=== PATIENT | male | born 1985 | race Caucasian/White ===

== ENCOUNTER → 2018-03-20 06:40 | Outpatient (CLI) | payer MEDICAID, SELFPAY ==
--- NOTE | 2018-03-20 18:40 | STRESSREP ---
Stress Test Report Exercise myocardial perfusion stress test. 32-year-old male with a history of chest pain. Rest stress protocol: Resting EKG demonstrates normal sinus rhythm with a rate of 80 bpm normal intervals and noted resting blood pressure 132/70 mmHg. The patient exercised according to regular Jamar protocol for total duration of 6 minutes completing stage II of the Jamar protocol the maximum heart rate attained was 160 bpm which was 86% of maximum predicted heart rate the maximum workload was 7.2 metabolic equivalents. The patient maintained sinus rhythm throughout the recording. At rest there were no ST or T-wave changes noted suggest ischemia peak exercise no ST or T-wave changes were noted suggest ischemia. The resting blood pressure is 132/70 with a peak blood pressure 180/80 mmHg rate pressure product was 28,200. Myocardial perfusion protocol. 14.7 mCi of technetium 99m sestamibi was injected at rest. The patient exercised according to regular Jamar protocol for total duration of 6 minutes attaining 86% of maximum predicted heart rate and a workload of 7.2 Mets. At peak exercise 44.8 mCi of technetium 99m sestamibi was injected stress images were obtained stress and rest images were reconstructed and compared in the short axis vertical long horizontal long axis. Gated images were also obtained pre- Perfusion SPECT analysis: Review of the stress images demonstrate normal uptake of tracer noted in all areas of the myocardium the resting images similarly demonstrate normal uptake of tracer noted in all areas of myocardium. No areas of reversibility are noted suggest ischemia no previous infarct is noted. Gated SPECT analysis: The gated ejection fraction is 66%. Conclusion: Normal exercise myocardial perfusion stress test at a moderate workload. Preserved ejection fraction.
== END ==
PROVIDERS: Family Provider Student in an Organized Health Care Education/Training Program; PCP Student in an Organized Health Care Education/Training Program; Visit Provider Physician Assistant Medical
DX: I25.10 Atherosclerotic heart disease of native coronary artery without angina pectoris (principal); I25.5 Ischemic cardiomyopathy; I10 Essential (primary) hypertension; E78.5 Hyperlipidemia, unspecified
CPT/HCPCS: 78452; 93017; A9500; A4216

== ENCOUNTER 2018-04-13 08:24 | Day surgery (SDC) | payer MEDICAID, SELFPAY ==
--- NOTE | 2018-04-10 14:14 | RAD_ITS ---
STUDY: X-RAY CHEST REASON FOR EXAM: Male, 32 years old. History of stents, [place], chest tightness and shortness of breath TECHNIQUE: PA and lateral views of the chest. COMPARISON: October 19, 2015 chest x-ray FINDINGS: The lungs are clear and expanded. There is no demonstrated pleural abnormality. Normal size heart. There are calcified mediastinal lymph nodes. Normal visualized pulmonary arteries. Normal visualized aortic arch and descending thoracic aorta. There are diffuse degenerative changes of the visualized thoracic spine. Normal visualized ribs, clavicles, and shoulders. There is no demonstrated abnormality of the visualized soft tissue structures of the upper abdomen. RAD/Chest PA and Lateral IMPRESSION: No demonstrated acute cardiopulmonary process. Electronically Signed: Maris Macias MD at 17:09 EDT Tel , Service support ,
[2018-04-10 15:00] LABS: Absolute Neutrophil Count 5.6 X10^3/uL (2.0-7.7); Basophil# 0.03 X10^3/uL; Basophil% 0.3 % (0-1); Eosinophil# 0.27 X10^3/uL; Eosinophils% 3.1 % (0-5); Hemoglobin 14.4 g/dl (13.0-16.5); Lymphocyte % 23.8 % (19-41); Mean Corpuscular Hgb 28.6 pg (27.0-32.0); Mean Corpuscular Volume 89.3 fL (80-94); Monocyte# 0.79 X10^3/uL; Monocyte% 8.9 % (0-10); Neutrophil # 5.63 X10^3/uL (2.7-7.7); Neutrophil % 63.7 % (47-70); POSITIVE COUNT NO; POSITIVE DIFFERENTIAL NO; POSITIVE MORPHOLOGY NO; Platelet Count 228 K/mm3 (150-450); RBC Distribution Width CV 13.8 % (11.6-14.6); Red Blood Count 5.04 M/mm3 (4.6-6.2); White Blood Count 8.8 K/mm3 (4.4-11.0)
[2018-04-10 15:07] LABS: Partial Thromboplast Time 25.2 Seconds (24.1-36.2); Prothrombin Time (Protime)PT. 12.7 SECONDS (11.7-14.9)
[2018-04-10 15:19] LABS: Anion Gap 8 (5-15); BUN 21 mg/dL (7-18); BUN/Creat Ratio 17.9 RATIO (10-20); Calcium,Total 8.9 mg/dL (8.5-10.1); Chloride 104 mmol/L (98-107); Creatinine, Serum 1.17 mg/dL (0.70-1.30); EST Glomerular Filtration Rate 76 mL/min (>60); Est Glom Filt Rate - Afr Amer 92 mL/min (>60); Glucose 87 mg/dL (74-106); Potassium 4.2 mmol/L (3.5-5.1); Sodium Level 138 mmol/L (136-145)
[2018-04-13 07:00] VITALS: BMI 48.8
--- NOTE | 2018-04-13 08:45 | PCM.HP.BLA ---
Problem List (1) Atherosclerosis of coronary artery of [place] heart with angina pectoris Status: Chronic Comment: PCI [id number] to Distal LAD w/ 2.75 x 38 mm Promus Premier and LUZ-Mid Lad w/ 3.5 x 12 mm Promus Premier 08/31/13 History and Physical Date of Admission: 04/13/18 HPI LON PONCE, is a 32 M who presents to the office today for a heart cath for continued chest pain despite a normal stress test. He has a history of premature coronary artery disease with two stents to his LAD in 2013, hypertension, and hyperlipidemia. Pt sts that he has not used any NTG since he was seen last in the office, but he continues to have a squeezing in his chest that is not brought on by anyting in particular. However he does note that he has had an increase in lower extremity edema. He also notes lightheadedness and dizziness. He has not had any syncopal events. He has not had any worsening shortness of breath. He does not have any palpitations that he is aware of. Allergies No Known Allergies Allergy (Verified 03/05/18 13:40) Medications Aspirin [Aspirin, Baby] 81 mg PO BID 09/18/13 [History Confirmed 03/05/18] amlodipine 5 mg tablet 5 mg PO DAILY #90 tab 03/05/18 [Rx Confirmed 03/05/18] atorvastatin 80 mg tablet 80 mg PO QHS #90 tab 03/05/18 [Rx Confirmed 03/05/18] clopidogrel 75 mg tablet 75 mg PO DAILY #90 tab 03/05/18 [Rx Confirmed 03/05/18] isosorbide mononitrate ER 30 mg tablet,extended release 24 hr 60 mg PO BID #180 tab 03/05/18 [Rx Confirmed 03/05/18] lisinopril 20 mg tablet 20 mg PO DAILY #90 tab 03/05/18 [Rx Confirmed 03/05/18] metoprolol tartrate 100 mg tablet 100 mg PO BID #180 tab 03/05/18 [Rx Confirmed 03/05/18] nicotine 14 mg/24 hr daily transdermal patch 1 patch TRANSDERMAL Q24H #21 ea 03/05/18 [Rx Confirmed 03/05/18] nitroglycerin 0.4 mg sublingual tablet 0.4 mg SUBLINGUAL Q5M PRN #25 tab 03/05/18 [Rx Confirmed 03/05/18] ranolazine ER 500 mg tablet,extended release,12 hr 500 mg PO BID #180 tab 03/05/18 [Rx Confirmed 03/05/18] PFSH Medical History Obstructive sleep apnea (Chronic) Palpitations (Chronic) Myocardial infarction (Chronic) Obesity (Chronic) Borderline diabetes mellitus (Chronic) Hyperlipidemia (Chronic) Hypertension (Chronic) Coronary artery disease (Chronic) Cardiomyopathy, ischemic (Chronic) Atherosclerotic heart disease of [place] coronary artery with angina pectoris with documented spasm (Acute) [employer] use of drug (Acute) Ventricular fibrillation (Acute) Surgical History Presence of coronary angioplasty implant and graft (Acute) Family History Mother Diabetes Social History Smoking Status: Current every day smoker Cardiology Exam Const Appearance: cooperative, no acute distress and well developed Nutritional Appearance: obese Orientation: alert, awake and oriented x3 Head Head: normocephalic and atraumatic Mouth: moist mucous membranes Eyes General: appearance normal, both eyes and all related structures Conjunctivae: conjunctivae normal Pupils: PERRL EOM: EOM intact bilaterally Neck Neck: normal visual inspection, no lymphadenopathy and no JVD Carotids: Negative bruit Neck Mass: Negative Neck mass Chest Chest inspection: normal inspection of the chest and symmetric chest movement Auscultation: Bilateral: Clear to Auscultation Cardio Palpation: normal PMI Rate: regular rate Rhythm: regular rhythm Heart sounds: S1 normal and S2 normal; negative rub, gallop or murmur GI GI: normal to inspection, soft, no hepatosplenomegaly, bowel sounds present and obese; negative tender Neuro General: alert, awake, oriented x3, CN's II-XI intact bilaterally and moves all extremities Extremities Pulses: Normal: Right Posterior Tibial Pulse, Left Posterior Tibial Pulse, Right Radial Pulse, Left Radial Pulse Lower Extremity Edema: None: Bilateral Psychological: normal affect Supplemental Info Nuclear stress test from 2017 was negative for myocardial induced ischemia at moderate workload and showed preserved ejection fraction. Echocardiogram from August 2014 showed an estimated ejection fraction of 55%, trivial mitral valve insufficiency, trivial tricuspid valve insufficiency and RVSP of 20 mmHg. Heart cath from August 2013 showed single-vessel coronary artery disease with acute occlusion to the mid left anterior descending artery, successful thrombectomy and successful stenting of occluded mid left anterior descending artery and the second diagonal artery, left ventriculogram showed ejection fraction of 35-40%, left circumflex artery with 30% diffuse stenosis in the proximal first obtuse marginal artery, and RCA was small in diameter. Assessment & Plan 1. Coronary artery disease involving [place] coronary artery of [place] heart without angina pectoris I25.10 Status post LUZ 08/20 for thrombosis of LAD cardiac arrest succesfully resuscitated Patient does continue to have episodes of chest discomfort despite a normal stress test and maximum medication. This will be done today. 2. Essential hypertension I10 Blood pressure is adequately controlled on current medications. 3. Pure hypercholesterolemia E78.00; E78.0 Patient will continue with his atorvastatin. He is due to have his lipids checked in the near trip. 4. Cardiomyopathy, ischemic I25.5 mild Stable, will continue to monitor by history, exam and echocardiograms as deemed appropriate Pt will follow up accordingly after heart cath.
--- NOTE | 2018-04-13 08:54 | HP.PCM_ITS ---
Problem List (1) Atherosclerosis of coronary artery of [place] heart with angina pectoris Status: Chronic Comment: PCI [id number] to Distal LAD w/ 2.75 x 38 mm Promus Premier and LUZ-Mid Lad w/ 3.5 x 12 mm Promus Premier 08/31/13 History and Physical Date of Admission: 04/13/18 HPI LON PONCE, is a 32 M who presents to the office today for a heart cath for continued chest pain despite a normal stress test. He has a history of premature coronary artery disease with two stents to his LAD in 2013, hypertension, and hyperlipidemia. Pt sts that he has not used any NTG since he was seen last in the office, but he continues to have a squeezing in his chest that is not brought on by anyting in particular. However he does note that he has had an increase in lower extremity edema. He also notes lightheadedness and dizziness. He has not had any syncopal events. He has not had any worsening shortness of breath. He does not have any palpitations that he is aware of. Allergies No Known Allergies Allergy (Verified 03/05/18 13:40) Medications Aspirin [Aspirin, Baby] 81 mg PO BID 09/18/13 [History Confirmed 03/05/18] amlodipine 5 mg tablet 5 mg PO DAILY #90 tab 03/05/18 [Rx Confirmed 03/05/18] atorvastatin 80 mg tablet 80 mg PO QHS #90 tab 03/05/18 [Rx Confirmed 03/05/18] clopidogrel 75 mg tablet 75 mg PO DAILY #90 tab 03/05/18 [Rx Confirmed 03/05/18] isosorbide mononitrate ER 30 mg tablet,extended release 24 hr 60 mg PO BID #180 tab 03/05/18 [Rx Confirmed 03/05/18] lisinopril 20 mg tablet 20 mg PO DAILY #90 tab 03/05/18 [Rx Confirmed 03/05/18] metoprolol tartrate 100 mg tablet 100 mg PO BID #180 tab 03/05/18 [Rx Confirmed 03/05/18] nicotine 14 mg/24 hr daily transdermal patch 1 patch TRANSDERMAL Q24H #21 ea 03/05/18 [Rx Confirmed 03/05/18] nitroglycerin 0.4 mg sublingual tablet 0.4 mg SUBLINGUAL Q5M PRN #25 tab 8 [Rx Confirmed 03/05/18] ranolazine ER 500 mg tablet,extended release,12 hr 500 mg PO BID #180 tab 03/05/18 [Rx Confirmed 03/05/18] PFSH Medical History Obstructive sleep apnea (Chronic) Palpitations (Chronic) Myocardial infarction (Chronic) Obesity (Chronic) Borderline diabetes mellitus (Chronic) Hyperlipidemia (Chronic) Hypertension (Chronic) Coronary artery disease (Chronic) Cardiomyopathy, ischemic (Chronic) Atherosclerotic heart disease of [place] coronary artery with angina pectoris with documented spasm (Acute) [facility] use of drug (Acute) Ventricular fibrillation (Acute) Surgical History Presence of coronary angioplasty implant and graft (Acute) Family History Mother Diabetes Social History Smoking Status: Current every day smoker Cardiology Exam Const Appearance: cooperative, no acute distress and well developed Nutritional Appearance: obese Orientation: alert, awake and oriented x3 Head Head: normocephalic and atraumatic Mouth: moist mucous membranes Eyes General: appearance normal, both eyes and all related structures Conjunctivae: conjunctivae normal Pupils: PERRL EOM: EOM intact bilaterally Neck Neck: normal visual inspection, no lymphadenopathy and no JVD Carotids: Negative bruit Neck Mass: Negative Neck mass Chest Chest inspection: normal inspection of the chest and symmetric chest movement Auscultation: Bilateral: Clear to Auscultation Cardio Palpation: normal PMI Rate: regular rate Rhythm: regular rhythm Heart sounds: S1 normal and S2 normal; negative rub, gallop or murmur GI GI: normal to inspection, soft, no hepatosplenomegaly, bowel sounds present and obese; negative tender Neuro General: alert, awake, oriented x3, CN's II-XI intact bilaterally and moves all extremities Extremities Pulses: Normal: Right Posterior Tibial Pulse, Left Posterior Tibial Pulse, Right Radial Pulse, Left Radial Pulse Lower Extremity Edema: None: Bilateral Psychological: normal affect Supplemental Info Nuclear stress test from 2017 was negative for myocardial induced ischemia at moderate workload and showed preserved ejection fraction. Echocardiogram from August 2014 showed an estimated ejection fraction of 55%, trivial mitral valve insufficiency, trivial tricuspid valve insufficiency and RVSP of 20 mmHg. Heart cath from August 2013 showed single-vessel coronary artery disease with acute occlusion to the mid left anterior descending artery, successful thrombectomy and successful stenting of occluded mid left anterior descending artery and the second diagonal artery, left ventriculogram showed ejection fraction of 35-40%, left circumflex artery with 30% diffuse stenosis in the proximal first obtuse marginal artery, and RCA was small in diameter. Assessment & Plan 1. Coronary artery disease involving [place] coronary artery of [place] heart without angina pectoris I25.10 Status post LUZ 08/20 for thrombosis of LAD cardiac arrest succesfully resuscitated Patient does continue to have episodes of chest discomfort despite a normal stress test and maximum medication. This will be done today. 2. Essential hypertension I10 Blood pressure is adequately controlled on current medications. 3. Pure hypercholesterolemia E78.00; E78.0 Patient will continue with his atorvastatin. He is due to have his lipids checked in the near trip. 4. Cardiomyopathy, ischemic I25.5 mild Stable, will continue to monitor by history, exam and echocardiograms as deemed appropriate Pt will follow up accordingly after heart cath.
--- NOTE | 2018-04-13 10:32 | CL.D_ITS ---
Patient Name: LON PONCE Study Date: 04/13/2018 Performing: Kolton Glasgow MD Ht: 64.96 inches 165 cm : 1985 Wt: 293.21 lbs 133 kg Age: 32 Gender: male BSA: 2.33 PROCEDURE(S) PERFORMED [id number]/COR/LV CLINICAL PROFILE AND INDICATIONS Indications: Worsening Angina Heart Failure: None Stress/Imaging Stress Test w/SPECT MPI: Yes Result: NegativeStress Test with SPECT MPI: Negative CAD Presentations: Symptom unlikely to be ischemic. CONCLUSIONS Previously placed stent in the mid to distal LAD is patent. There is mild to moderate disease noted in the dominant left circumflex artery. Nonobstructive disease noted. RECOMMENDATIONS Medical therapy DESCRIPTION OF PROCEDURE The patient arrived to the procedure lab. The risks and benefits of the procedure as well as a full d escription of our services here and current unavailability of surgical backup were fully explained to the patient and/or their significant other prior to the catheterization. The Timeout was completed, verifying the correct patient and procedure. The patient's procedural site was prepped and draped in the usual fashion. Local anesthetic was given subcutaneously to right radial region with Lidocaine 2% . Using a modified Seldinger technique, arterial access was obtained via the right radial artery, a 6 Fr sheath was inserted. Left Coronary Artery selective angiography was performed in multiple views u sing a 5 Fr. 4.0 Maxbass catheter. Right Coronary Artery selective angiography was then performed in mu ltiple views using a 5 Fr. 4.0 Maxbass catheter. Left Ventriculography was performed in CUMMINS projection using a 5 Fr. Pigtail catheter. LV to AO pullback pressures were then recorded.The arterial sheath wa s pulled and a TR Band was applied for hemostasis, 18cc of air CORONARY ANGIOGRAPHY DOMINANCE: Left Dominant LEFT HEART ASSESSMENT Left Ventricular Ejection Fraction: by LV Gram 60 % Normal LV wall motion Normal Left Ventricular systolic function LEFT MAIN: Angiographically normal LEFT ANTERIOR DECENDING ARTERY: Mild luminal irregularities DISTAL LAD: Previously placed stent is patent CIRCUMFLEX ARTERY: Non-obstructive DISTAL CIRC: 40 % Stenosis RIGHT CORONARY ARTERY: Angiographically normal COMPLICATIONS No Complications PROCEDURE MEDICATIONS Versed 1 mg IV Fentanyl 50 mcg IV Versed 1 mg IV Fentanyl 50 mcg IV Oxygen: 2 L/min via nasal cannula Heparin diluted in 23cc Heparinized saline. Patient given 10cc IA of this solution. 04/13/2018 09:34: 37 Verapamil 2.5mg, Ntg 100mcgs, 2000 units of Heparin diluted in 23cc Heparinized saline. Patient give n 10cc IA of this solution. 04/13/2018 09:34:37 SUMMARY OF HEMODYNAMIC DATA Time AIR REST ECG 08:58:03 AO 91/68 (79) SA 09:37:47 LV 102/5, 15 09:44:25 LV 101/6, 18 09:44:31 LV 97/4, 11 09:46:10 LVp 103/6, 17 09:46:19 AOp 99/64 (79) 09:46:24 Signed By Kolton Glasgow MD On 04/13/2018 10:31:31 Kolton Glasgow MD
== END 2018-04-13 12:47 | disposition home or self-care (01) ==
LOC: CLSP 08:25
PROVIDERS: Physician Assistant Medical; Family Provider Student in an Organized Health Care Education/Training Program; PCP Student in an Organized Health Care Education/Training Program; Referring Provider Internal Medicine Cardiovascular Disease; Visit Provider Internal Medicine Cardiovascular Disease
DX: I25.10 Atherosclerotic heart disease of native coronary artery without angina pectoris (principal); I10 Essential (primary) hypertension; E78.5 Hyperlipidemia, unspecified; R60.0 Localized edema; G47.33 Obstructive sleep apnea (adult) (pediatric); I25.2 Old myocardial infarction; E66.9 Obesity, unspecified; I25.5 Ischemic cardiomyopathy; F17.200 Nicotine dependence, unspecified, uncomplicated; Z79.82 Long term (current) use of aspirin
CPT/HCPCS: 36415; 71046; 80048; 85025; 85610; 85730; 93458; 99152; 99153; Q9967; C1769; C1894

== ENCOUNTER → 2019-03-02 13:40 | Outpatient (CLI) | payer OTHER, MEDICAID, SELFPAY ==
[2019-03-02 10:44] VITALS: BMI 48.9
[2019-03-02 14:49] LABS: Absolute Lymphocyte Count 2.35 X10^3/uL (0.83-4.51); Absolute Neutrophil Count 8.4 X10^3/uL (2.0-7.7); Basophil# 0.06 X10^3/uL; Basophil% 0.5 % (0-1); Eosinophil# 0.36 X10^3/uL; Hematocrit 45.7 % (40-54); Hemoglobin 14.5 g/dL (13.0-16.5); Lymphocyte # 2.35 X10^3/ul (4.0); Lymphocyte % 19.6 % (19-41); Mean Corp Hgb Conc 31.7 g/dL (32-36); Mean Corpuscular Hgb 28.8 pg (27.0-32.0); Mean Corpuscular Volume 90.7 fL (80-94); Monocyte# 0.79 X10^3/uL; Monocyte% 6.6 % (0-10); NRBC Flagged by Analyzer 0 % (0-5); Neutrophil % 69.8 % (47-70); Platelet Count 277 K/mm3 (150-450); RBC Distribution Width CV 13.5 % (11.6-14.6); RBC Distribution Width SD 45.4 fl (35.1-43.9); Red Blood Count 5.04 M/mm3 (4.6-6.2)
[2019-03-02 15:14] LABS: AST(SGOT) 22 U/L (15-37); Alanine Aminotransfer ALT/SGPT 40 U/L (16-61); Albumin, Serum 3.4 g/dL (3.2-5.0); Alkaline Phosphatase 129 U/L (45-117); Anion Gap 7 (5-15); BUN 16 mg/dL (7-18); BUN/Creat Ratio 16.3 RATIO (10-20); Bilirubin, Direct 0.07 mg/dL (0.00-0.30); Chloride 106 mmol/L (98-107); Creatinine, Serum 0.98 mg/dL (0.70-1.30); EST Glomerular Filtration Rate 92 mL/min (>60); Est Glom Filt Rate - Afr Amer 112 mL/min (>60); Glucose 98 mg/dL (74-106); Potassium 4.4 mmol/L (3.5-5.1); Protein, Total 7.4 g/dL (6.4-8.2); Sodium Level 140 mmol/L (136-145)
== END ==
PROVIDERS: Family Provider Student in an Organized Health Care Education/Training Program; PCP Student in an Organized Health Care Education/Training Program; Referring Provider Physician Assistant Medical; Visit Provider Physician Assistant Medical
DX: E78.00 Pure hypercholesterolemia, unspecified (principal); I10 Essential (primary) hypertension; I25.119 Atherosclerotic heart disease of native coronary artery with unspecified angina pectoris
CPT/HCPCS: 36415; 80048; 80076; 85025

== ENCOUNTER → 2019-07-23 12:44 | Outpatient (CLI) | payer OTHER, SELFPAY ==
[2019-07-21 07:22] VITALS: BMI 49.4
[2019-07-21 12:04] LABS: AST(SGOT) 17 U/L (15-37); Alanine Aminotransfer ALT/SGPT 45 U/L (16-61); Albumin, Serum 3.4 g/dL (3.2-5.0); Alkaline Phosphatase 121 U/L (45-117); Bilirubin, Direct 0.08 mg/dL (0.00-0.30); Cholesterol 220 mg/dL (200); Globulin 4.2 g/dL (2.2-4.2); High Density Lipoprotein 40 mg/dL; Protein, Total 7.6 g/dL (6.4-8.2); Triglycerides 244 mg/dL; Very Low Density Lipoprotein 49 mg/dL (5-40)
== END ==
LOC: PSN 12:45
PROVIDERS: Referring Provider Internal Medicine Cardiovascular Disease; Visit Provider Internal Medicine Cardiovascular Disease
DX: I10 Essential (primary) hypertension (principal); Z95.5 Presence of coronary angioplasty implant and graft; E78.00 Pure hypercholesterolemia, unspecified
CPT/HCPCS: 36415; 80061; 80076; 93225; 93226

== ENCOUNTER → 2019-11-24 12:27 | Outpatient (CLI) | payer OTHER, SELFPAY ==
[2019-11-24 09:36] VITALS: BMI 49.4
== END ==
PROVIDERS: PCP Internal Medicine; Referring Provider Internal Medicine; Visit Provider Internal Medicine
DX: Z11.59 Encounter for screening for other viral diseases (principal)
CPT/HCPCS: 87635; G2023; U0004

== ENCOUNTER 2020-01-28 03:37 | Emergency (ER) | payer OTHER, SELFPAY ==
[2019-11-24 09:36] VITALS: BMI 49.4
[2020-01-28 03:38] VITALS: BP 149/82; PULSE 95; RESP 18; TEMP 36.4; O2SAT 98; BMI 45.9
--- NOTE | 2020-01-28 03:54 | RAD_ITS ---
HISTORY: CHRONIC SOB, LLE SWELLING. HX [place], W/ STENTS EXAM: XR Chest 1 View: COMPARISON: April 10, 2018 FINDINGS: # of images incl. paperwork: 1 It appears as if there is a coronary stent perhaps within the LAD Lungs are clear. Heart is not enlarged. No acute osseous pathology perceived. Pulmonary vascularity is distinct. No effusions. RAD/Chest 1 View (Portable) IMPRESSION: Pulmonary hypoexpansion without acute cardiopulmonary disease. at 0456 Reported and signed by: Bennie Webb MD Electronically Signed: Bennie Webb MD at 4:54 EDT Tel , Service support ,
--- NOTE | 2020-01-28 03:55 | RAD_ITS ---
HISTORY: PAIN ANTERIOR SURFACE, STS, BRUISES Technique: Right foot AP, lateral, and oblique radiographs Comparison: None available Findings: No acute fracture or dislocation. Osseous mineralization, joint spaces, and alignment otherwise appear preserved as imaged. Soft tissue swelling is present about the foot but greatest on the dorsum of the foot at the level of the distal metatarsals RAD/Foot min 3 Views IMPRESSION: No acute osseous abnormality identified in the foot. Soft tissue swelling over the dorsum of the foot at the level of the metatarsals at 0455 Reported and signed by: Bennie Webb MD Electronically Signed: Bennie Webb MD at 4:54 EDT Tel , Service support ,
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
[2020-01-28 04:22] LABS: Absolute Lymphocyte Count 3.36 X10^3/uL (0.83-4.51); Absolute Neutrophil Count 6.5 X10^3/uL (2.0-7.7); Basophil# 0.08 X10^3/uL; Basophil% 0.7 % (0-1); Eosinophil# 0.55 X10^3/uL; Eosinophils% 4.8 % (0-5); Hematocrit 45.6 % (40-54); Hemoglobin 15.1 g/dL (13.0-16.5); Lymphocyte # 3.36 X10^3/ul (4.0); Lymphocyte % 29.5 % (19-41); Mean Corp Hgb Conc 33.1 g/dL (32-36); Mean Corpuscular Hgb 30.3 pg (27.0-32.0); Mean Corpuscular Volume 91.6 fL (80-94); Mean Platelet Vol. 10.5 fl (6.2-12.0); Monocyte# 0.85 X10^3/uL; Monocyte% 7.5 % (0-10); NRBC Flagged by Analyzer 0 % (0-5); Neutrophil # 6.51 X10^3/uL (2.7-7.7); Neutrophil % 57.1 % (47-70); Platelet Count 274 K/mm3 (150-450); RBC Distribution Width CV 13.6 % (11.6-14.6); RBC Distribution Width SD 45.6 fl (35.1-43.9); Red Blood Count 4.98 M/mm3 (4.6-6.2); White Blood Count 11.4 K/mm3 (4.4-11.0)
[2020-01-28 04:42] LABS: ALB/GLOB Ratio 0.8 RATIO (0.9-2.4); AST(SGOT) 26 U/L (15-37); Alanine Aminotransfer ALT/SGPT 45 U/L (16-61); Albumin, Serum 3.3 g/dL (3.2-5.0); Alkaline Phosphatase 116 U/L (45-117); Anion Gap 6 (5-15); BUN 11 mg/dL (7-18); BUN/Creat Ratio 9.9 RATIO (10-20); Calcium,Total 8.4 mg/dL (8.5-10.1); Chloride 106 mmol/L (98-107); Creatinine, Serum 1.11 mg/dL (0.70-1.30); EST Glomerular Filtration Rate 80 mL/min (>60); Est Glom Filt Rate - Afr Amer 96 mL/min (>60); Estimated Creatinine Clearance 83.02 ml/min; Globulin 3.9 g/dL (2.2-4.2); Glucose 153 mg/dL (74-106); Potassium 3.5 mmol/L (3.5-5.1); Protein, Total 7.2 g/dL (6.4-8.2); Sodium Level 139 mmol/L (136-145)
[2020-01-28 04:49] LABS: BNP,B-Type NATRIURETIC PEPTIDE 23.7 pg/mL (0-100)
== END 2020-01-28 07:20 | disposition home or self-care (01) ==
PROVIDERS: Emergency Provider Emergency Medicine; PCP Nurse Practitioner Family
DX: S90.31XA Contusion of right foot, initial encounter (principal); R60.0 Localized edema; W51.XXXA Accidental striking against or bumped into by another person, initial encounter; Y92.89 Other specified places as the place of occurrence of the external cause; Y99.9 Unspecified external cause status; I10 Essential (primary) hypertension; E78.00 Pure hypercholesterolemia, unspecified; F17.200 Nicotine dependence, unspecified, uncomplicated; I25.2 Old myocardial infarction; Z82.49 Family history of ischemic heart disease and other diseases of the circulatory system
CPT/HCPCS: 71045; 73630; 80053; 83880; 84484; 85025; 99284; A4216

== ENCOUNTER 2020-02-12 04:35 | Emergency (ER) | payer OTHER, SELFPAY ==
[2020-02-12 04:35] VITALS: BP 134/96; PULSE 116; RESP 18; TEMP 36.3; O2SAT 99; BMI 46.6
--- NOTE | 2020-02-12 04:48 | EKG12_ITS ---
Test Reason : CP Blood Pressure : / mmHG Vent. Rate : 122 BPM Atrial Rate : 122 BPM P-R Int : 148 ms QRS Dur : 072 ms QT Int : 320 ms P-R-T Axes : 066 070 054 degrees QTc Int : 456 ms Sinus tachycardia Low voltage QRS Borderline ECG Confirmed by JOHNNIE BUI, AYE ([id number]), social media editor ROLANDO FRANKLIN ([id number]) on 02/14/2020 8:57:35 AM Referred By: NAEEM Confirmed By:AYE BLAIR MD
--- NOTE | 2020-02-12 04:48 | RAD_ITS ---
STUDY: X-RAY CHEST REASON FOR EXAM: Male, 34 years old. CHEST PAIN STARTED 45 MINUTES AGO WHILE AT REST TECHNIQUE: AP COMPARISON: None. FINDINGS: The lungs are clear and expanded. There is no demonstrated pleural abnormality. Normal size heart. Normal mediastinum and annika. Normal visualized pulmonary arteries. Normal visualized aortic arch and descending thoracic aorta. Normal visualized thoracic spine. Normal visualized ribs, clavicles, and shoulders. There is no demonstrated abnormality of the visualized soft tissue structures of the upper abdomen. RAD/Chest PA and Lateral IMPRESSION: Normal x-ray examination of the chest. Electronically Signed: Khris Davis, at 6:03 EDT Tel , Service support ,
[2020-02-12 04:49] VITALS: O2SAT 96
--- NOTE | 2020-02-12 04:50 | ED.DCSUM_ITS ---
History of Present Illness Chief Complaint: Chest Pain Informant: Patient Narrative: Stated 45 minutes ago at rest at home he developed substernal sharp chest pain. He stated that is continuous moderate severity. He took one nitroglycerin with minimal relief. Has a history of coronary artery disease status post 2 stents. He stated his last heart cath was in 2018 that showed stents were patent. He does have a 40% left circumflex blockage that is being treated with medical therapy. He is on Plavix. He sees cardiology Dr. Glasgow. Worsened by nothing. Relieved by nothing. Patient stated he had a cardiac arrest remotely when he did receive his stents in [place]. Patient also stated his legs feel restless in its difficult to stop moving them. - Past Medical History (1) Atherosclerosis of coronary artery of [place] heart with angina pectoris Status: Chronic Comment: PCI [id number]-[id number]-Mtc to Distal LAD w/ 2.75 x 38 mm Promus Premier and LUZ-Mid Lad w/ 3.5 x 12 mm Promus Premier 08/31/13 (2) Essential (primary) hypertension Status: Chronic (3) Hyperlipidemia Status: Chronic (4) Nicotine dependence Status: Chronic (5) Old anterior myocardial infarction Status: Chronic (6) History of coronary artery stent placement Status: Resolved Comment: PCI [id number]-PDC-Ply to Distal LAD w/ 2.75 x 38 mm Promus Premier and LUZ-Mid Lad w/ 3.5 x 12 mm Promus Premier 08/31/13 Past Medical History - Allergies and Home Meds Allergies/Adverse Reactions: Allergies No Known Allergies Allergy (Verified 01/28/20 03:38) Primary Care Physician: Thomas Jackson RECORDS ANALYSIS MANAGER-C [Nurse Practitioner] - Prior records reviewed: Yes Past Medical History: - - See problem list Surgical History: angioplasty, - Lives: With Family Smoking Status: Current every day smoker Alcohol: None Drugs: None - Family History Maternal Family History: Family History (Last Updated 08/12/19 @ 08:51 by Carly Orozco) Mother Diabetes Heart disease Uncle Colon cancer Uncle Cancer Father Bowel disease Family History: Reports: No pertinent history Paternal Family History: Family History (Last Updated 08/12/19 @ 08:51 by Carly Orozco) Mother Diabetes Heart disease Uncle Colon cancer Uncle Cancer Father Bowel disease Family History: Reports: No pertinent history Review of Systems General: Denies: Chills, Fever, Sweats Eyes: Denies: Visual changes - bilaterally, Diplopia ENT: Denies: Rhinorrhea, Sore throat Cardiovascular: Reports: Chest pain. Denies: Palpitations Respiratory: Denies: Dyspnea, Cough, Dyspnea on exertion Gastrointestinal: Denies: Abdominal pain, Nausea, Vomiting, Diarrhea, Melena, Hematochezia Genitourinary: Denies: Dysuria, Hematuria, Frequency Musculoskeletal: Reports: Extremity Pain. Denies: Back pain Skin: Denies: Rash, Wounds Neurological: Denies: Headache, Weakness, Numbness Physical Exam Vital Signs/Narrative: Vital Signs Temp Pulse Resp BP Pulse Ox 02/12/20 04:35 97.4 F L 116 H 18 134/96 H 99 General: Well nourished, Well developed, No Acute Distress Head: Normocephalic, Atraumatic Eyes: Perrl, EOMI ENT: Moist mucous membranes, No rhinorrhea Neck: Supple, Nontender Cardiovascular: Regular rate, Regular rhythm, No murmurs Respiratory: No distress, CTA bilaterally, Chest nontender Abdomen: Soft, Nontender, Nondistended, Normal bowel sounds Back: Nontender, Normal Inspection Extremities: Nontender, No edema Skin: Normal color, No rash Neurological: Alert, Oriented x3, Cranial nerves II-XII grossly intact, Normal Strength, Normal Sensation Psychological: Normal affect, Normal Mood Diagnostic/Tx/Re-eval - Medical Decision Making KG shows sinus tachycardia rate of 122. No acute ischemic findings. Lab work chest x-ray obtained. Patient given a dose of aspirin and nitroglycerin. Lab work came back showing a normal troponin and d-dimer. CBC is normal except for mild leukocytosis without left shift. Electrolytes showed no major abnormalities. Chest x-ray wet read by myself shows nothing acute. No CHF. No widened mediastinum to suggest aortic dissection. While in the department the patient was incredibly rude to the staff recorders of the way through his work- up he eloped. I was able to tell him the results of his lab work but had not looked at his chest x-ray yet. However I feel his chest x-ray shows nothing acute. ED Disposition - Plan for ED Patient: Diagnosis: Chest pain at rest Referrals: Thomas Jackson, STEPHANIE-C [Nurse Practitioner] -
[2020-02-12] MEDS: Aspirin 81 MG TAB.CHEW 324 MG PO (04:55)
[2020-02-12 04:56] VITALS: BP 134/96; PULSE 101
[2020-02-12 04:56] LABS: Absolute Lymphocyte Count 4.16 X10^3/uL (0.83-4.51); Absolute Neutrophil Count 8.7 X10^3/uL (2.0-7.7); Basophil# 0.11 X10^3/uL; Basophil% 0.8 % (0-1); Eosinophil# 0.53 X10^3/uL; Eosinophils% 3.6 % (0-5); Hematocrit 49.7 % (40-54); Hemoglobin 16.6 g/dL (13.0-16.5); Lymphocyte # 4.16 X10^3/ul (4.0); Lymphocyte % 28.5 % (19-41); Mean Corp Hgb Conc 33.4 g/dL (32-36); Mean Corpuscular Hgb 30.4 pg (27.0-32.0); Mean Platelet Vol. 10.4 fl (6.2-12.0); Monocyte# 0.98 X10^3/uL; Monocyte% 6.7 % (0-10); NRBC Flagged by Analyzer 0 % (0-5); Neutrophil # 8.73 X10^3/uL (2.7-7.7); Neutrophil % 59.9 % (47-70); POSITIVE MORPHOLOGY YES; Platelet Count 358 K/mm3 (150-450); RBC Distribution Width CV 13.2 % (11.6-14.6); RBC Distribution Width SD 43.7 fl (35.1-43.9); Red Blood Count 5.46 M/mm3 (4.6-6.2); White Blood Count 14.6 K/mm3 (4.4-11.0)
[2020-02-12] MEDS: Nitroglycerin SL (ED/IMG/CATH) 0.4 MG TABLET SUBLINGUAL ×2 (04:56→05:01)
[2020-02-12 05:01] VITALS: BP 109/88; PULSE 106
[2020-02-12 05:04] LABS: D-Dimer Quantitative (DVT/PE) 0.28 FEU/ug/m (0.27-0.49)
[2020-02-12 05:05] LABS: Differential Indicated SCAN CRITERIA MET
[2020-02-12 05:09] LABS: Anion Gap 12 (5-15); BUN 9 mg/dL (7-18); BUN/Creat Ratio 7.8 RATIO (10-20); Chloride 101 mmol/L (98-107); Creatinine, Serum 1.15 mg/dL (0.70-1.30); EST Glomerular Filtration Rate 76 mL/min (>60); Est Glom Filt Rate - Afr Amer 92 mL/min (>60); Estimated Creatinine Clearance 77.25 ml/min; Glucose 140 mg/dL (74-106); Potassium 3.3 mmol/L (3.5-5.1); Sodium Level 138 mmol/L (136-145)
--- NOTE | 2020-02-12 05:47 | ED.RN ---
patient removed himself from monitor and took out iv. dr. rollins notified.
== END 2020-02-12 05:57 | disposition home or self-care (01) ==
LOC: ED 05:19
PROVIDERS: Emergency Provider Emergency Medicine; PCP Internal Medicine
DX: R07.9 Chest pain, unspecified (principal); I25.10 Atherosclerotic heart disease of native coronary artery without angina pectoris; I10 Essential (primary) hypertension; E78.5 Hyperlipidemia, unspecified; I25.2 Old myocardial infarction; F17.200 Nicotine dependence, unspecified, uncomplicated; Z79.02 Long term (current) use of antithrombotics/antiplatelets; Z82.49 Family history of ischemic heart disease and other diseases of the circulatory system; Z95.5 Presence of coronary angioplasty implant and graft; Z86.74 Personal history of sudden cardiac arrest
CPT/HCPCS: 71046; 80048; 84484; 85025; 85379; 93005; 99284; A4216

== ENCOUNTER 2020-12-31 18:12 | Emergency (ER) | payer OTHER, SELFPAY ==
[2020-12-31] VITALS (8 sets, daily range): BP systolic 123–155; BP diastolic 67–106; PULSE 103–146; RESP 15–23; TEMP 37.3; O2SAT 95–99; BMI 48.2
--- NOTE | 2020-12-31 18:26 | RAD_ITS ---
STUDY: X-RAY - RIGHT HAND REASON FOR EXAM: Male, 35 years old. injury TECHNIQUE: 3 view(s) of the hand. COMPARISON: None. FINDINGS: No acute fracture or dislocation. Remote healed fifth metacarpal fracture. No destructive bone changes. Joint spaces are well-maintained. Normal alignment. Soft tissues are unremarkable. No radiopaque foreign body or soft tissue gas. RAD/Hand Min 3 Views IMPRESSION: No acute findings. Electronically Signed: Lou Pompa MD at 20:05 EDT Tel , Service support ,
--- NOTE | 2020-12-31 18:26 | RAD_ITS ---
STUDY: X-RAY - LEFT SHOULDER REASON FOR EXAM: Male, 35 years old. injury TECHNIQUE: 2 view(s) of the shoulder. COMPARISON: None. FINDINGS: Normal glenohumeral articulation. Normal acromioclavicular joint. Normal acromion. Normal humeral head and visualized proximal humerus. The soft tissue structures are unremarkable. Normal visualized pulmonary apex. RAD/Shoulder min 2 Views IMPRESSION: Normal x-ray examination of the shoulder. Electronically Signed: Boogie Colby MD at 19:13 EDT Tel , Service support ,
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
[2020-12-31] MEDS: Lidocaine 1% (20 ml mdv) 20 ML Vial INFILT (18:40)
[2020-12-31] MEDS: Diphth,Pertuss(Acell),Tet Vac 0.5 ML Vial IM (18:40)
[2020-12-31] MEDS: Ketorolac 30 MG/ML Syringe IV (19:03)
[2020-12-31] MEDS: Etomidate 20 MG/10 ML Vial 19 MG IV (19:35)
--- NOTE | 2020-12-31 19:41 | RAD_ITS ---
STUDY: X-RAY - LEFT SHOULDER REASON FOR EXAM: Male, 35 years old. reduction TECHNIQUE: 2 view(s) of the shoulder. COMPARISON: 6:48 PM. FINDINGS: No acute fracture or dislocation. Joint spaces are well-maintained. Normal alignment. RAD/Shoulder min 2 Views IMPRESSION: Anatomic alignment status post reduction. Electronically Signed: Lou Pompa MD at 20:37 EDT Tel , Service support ,
[2020-12-31] MEDS: Amox/Clavulanate 875 MG Tablet PO (20:22)
== END 2020-12-31 20:39 | disposition home or self-care (01) ==
PROVIDERS: Emergency Provider Emergency Medicine; PCP Internal Medicine
DX: S61.411A Laceration without foreign body of right hand, initial encounter (principal); Y04.2XXA Assault by strike against or bumped into by another person, initial encounter; Y92.89 Other specified places as the place of occurrence of the external cause; Y99.8 Other external cause status; I25.10 Atherosclerotic heart disease of native coronary artery without angina pectoris; I10 Essential (primary) hypertension; E78.5 Hyperlipidemia, unspecified; G47.33 Obstructive sleep apnea (adult) (pediatric); F32.9 Major depressive disorder, single episode, unspecified; I25.2 Old myocardial infarction; F17.210 Nicotine dependence, cigarettes, uncomplicated; Z79.82 Long term (current) use of aspirin
CPT/HCPCS: 12001; 73030; 73130; 90715; 96374; 96375; 99285; J7030; A4216

== ENCOUNTER 2020-12-31 22:12 | Emergency (ER) | payer OTHER, SELFPAY ==
[2020-12-31 18:12] VITALS: BMI 48.2
[2020-12-31 22:13] VITALS: BP 132/84; PULSE 102; RESP 18; TEMP 36.1; O2SAT 95; BMI 48.2
--- NOTE | 2020-12-31 22:26 | RAD_ITS ---
STUDY: X-RAY - LEFT SHOULDER REASON FOR EXAM: Male, 35 years old. Injury/Pain TECHNIQUE: 2 view(s) of the shoulder. COMPARISON: 7:42 PM. FINDINGS: Anterior dislocation of the left shoulder. No demonstrated fracture. Soft tissues are unremarkable. No radiopaque foreign body or soft tissue gas. RAD/Shoulder min 2 Views IMPRESSION: Anterior dislocation of the shoulder. Electronically Signed: Lou Pompa MD at 22:59 EDT Tel , Service support ,
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
[2020-12-31 23:37] VITALS: BP 129/83; PULSE 90; RESP 20; O2SAT 98
[2020-12-31 23:43] VITALS: BP 118/78; PULSE 102; RESP 21; O2SAT 98
[2020-12-31] MEDS: Propofol 200 MG/20 ML Vial IV BOLUS (23:44)
[2020-12-31 23:47] VITALS: BP 133/81; PULSE 100; RESP 25; O2SAT 95
[2020-12-31 23:52] VITALS: BP 126/65; PULSE 94; RESP 15; O2SAT 96
--- NOTE | 2020-12-31 23:52 | RAD_ITS ---
STUDY: X-RAY - LEFT SHOULDER REASON FOR EXAM: Male, 35 years old. Injury/Pain -- Post reduction TECHNIQUE: 4 view(s) of the shoulder. COMPARISON: 10:37 PM left shoulder x-ray 12/31/2020 FINDINGS: Normal glenohumeral articulation. There is degenerative arthrosis of the acromioclavicular joint without inferior osseous spur formation. Normal acromion. Normal humeral head and visualized proximal humerus. The soft tissue structures are unremarkable. Normal visualized pulmonary apex. RAD/Shoulder min 2 Views IMPRESSION: Status post post reduction of the dislocation of the left shoulder. Electronically Signed: Maris Macias MD at 0:29 EDT Tel , Service support ,
[2020-12-31 23:57] VITALS: BP 133/85; PULSE 94; RESP 21; O2SAT 94
[2021-01-01 00:16] VITALS: BP 129/89; PULSE 94; RESP 25; O2SAT 96
== END 2021-01-01 00:17 | disposition home or self-care (01) ==
PROVIDERS: Emergency Provider Emergency Medicine; PCP Internal Medicine
DX: S43.015A Anterior dislocation of left humerus, initial encounter (principal); E11.9 Type 2 diabetes mellitus without complications; E66.9 Obesity, unspecified; E78.5 Hyperlipidemia, unspecified; F32.9 Major depressive disorder, single episode, unspecified; G47.33 Obstructive sleep apnea (adult) (pediatric); I10 Essential (primary) hypertension; I25.2 Old myocardial infarction; F17.210 Nicotine dependence, cigarettes, uncomplicated; Z79.82 Long term (current) use of aspirin; Z95.5 Presence of coronary angioplasty implant and graft
CPT/HCPCS: 73030; 73130; 90715; 99284; J7030; A4216

== ENCOUNTER 2021-04-26 11:10 | Emergency (ER) | payer OTHER, SELFPAY ==
[2021-04-26 11:11] VITALS: BP 164/114; PULSE 129; RESP 24; TEMP 36.4; O2SAT 95; BMI 48.4
--- NOTE | 2021-04-26 11:34 | ED.VIS.BACK ---
HPI History of Present Illness Chief Complaint: Back Narrative Narrative: Patient is getting over a cold, he sneezed, he developed left-sided back pain 3 days ago. He has radiation of the pain to his left leg most of the pain is in the left buttock region. He has no saddle anesthesia no urinary incontinence or retention no bowel compromise. No fever or chills. [facility] Medical History Atherosclerosis of coronary artery of [place] heart with angina pectoris Borderline diabetes mellitus Depression Essential (primary) hypertension Hyperlipidemia Myocardial infarction Nicotine dependence Obesity Obstructive sleep apnea Obstructive sleep apnea Old anterior myocardial infarction Palpitations Ventricular fibrillation Home Medications aspirin 81 mg PO DAILY 09/18/13 [History Last Taken 04/13/18] hydrocortisone acetate 25 mg rectal suppository 25 mg RC BID PRN #100 ea 08/12/19 [Rx Last Taken Unknown] furosemide 40 mg PO DAILY #5 tab 01/28/20 [Rx Last Taken Unknown] amlodipine 2.5 mg tablet 2.5 mg PO DAILY #90 tab 09/19/20 [Rx Last Taken Unknown] atorvastatin 80 mg tablet 80 mg PO QHS #90 tab 09/19/20 [Rx Last Taken Unknown] clopidogrel 75 mg tablet 75 mg PO DAILY #90 tab 09/19/20 [Rx Last Taken Unknown] isosorbide mononitrate 60 mg tablet,extended release 24 hr 60 mg PO DAILY #90 tab 09/19/20 [Rx Last Taken Unknown] lisinopril 20 mg tablet 20 mg PO DAILY #90 tab 09/19/20 [Rx Last Taken Unknown] metoprolol tartrate 100 mg tablet 100 mg PO BID #180 tab 09/19/20 [Rx Last Taken Unknown] nitroglycerin 0.4 mg sublingual tablet 0.4 mg SUBLINGUAL Q5M PRN #25 tab 09/19/20 [Rx Last Taken Unknown] ranolazine 500 mg tablet,extended release,12 hr 500 mg PO BID #180 tab 09/19/20 [Rx Last Taken Unknown] amoxicillin-pot clavulanate 1 tab PO Q12H 10 Days #20 tablet 12/31/20 [Rx Last Taken Unknown] albuterol sulfate 90 mcg/actuation aerosol inhaler 2 puff INHALATION Q4H PRN #8 g 03/02/21 [Rx Last Taken Unknown] methylprednisolone [Medrol (Jeremiah)] 4 mg PO DAILY #21 tab 04/26/21 [Rx Last Taken Unknown] naproxen [Naprosyn] 500 mg PO BID #20 tab 04/26/21 [Rx Last Taken Unknown] tizanidine 4 mg PO Q6H 3 Days #12 cap 04/26/21 [Rx Last Taken Unknown] Allergy/AdvReac Type Severity Reaction Status Date / Time No Known Allergies Allergy Verified 04/26/21 11:12 Family History Mother Diabetes Heart disease Uncle Colon cancer Uncle Cancer lung Father Bowel disease Surgical History History of coronary artery stent placement (08/31/13) History of left heart catheterization (04/13/18) Hx of endoscopy Social History (Updated 01/03/21 @ 08:40 by Lianna Akers) household members: significant other Smoking Status: Current every day smoker tobacco type: cigarettes alcohol intake: current alcohol intake frequency: 0-2 drinks per day Alcohol type: beer and hard liquor substance use type: does not use what type of physical activity do you participate in: none ROS ROS ED ROS Narrative Past medical history: Reviewed, history of hypertension, hypercholesterolemia and AR Medications: Reviewed Social history: Noncontributory Review of systems: All systems negative except as indicated General: No fever Eyes: No visual changes ENT: Upper airway congestion which is improving Neck: No neck pain Cardiovascular: No chest pain Respiratory: No shortness of breath or cough Gastrointestinal: No abdominal pain, nausea vomiting or diarrhea Genitourinary: No dysuria Musculoskeletal: Back pain with radiculopathy as in HPI Skin: No rash Neurological: No memory loss, confusion or any focal weakness Psych: No recent behavioral changes Hematologic: No easy bleeding or easy bruising EXAM Physical Exam Narrative Exam Narrative: Vitals reviewed General: Patient appears in some discomfort HEENT: Moist mucous membranes. Some upper airway congestion Neck: Nontender Cardiovascular normal heart rate Respiratory: No respiratory difficulty speaking in full sentences Abdomen: Soft and nontender, there is no suprapubic mass or pain. Normal rectal tone Back: There is some tenderness over the lumbar region, pain is spinal and paraspinal both. Extremities: Moves all extremities without joint pain or signs of trauma Neurological: There is normal plantar flexion and dorsiflexion of both feet and great toes. Patellar and Achilles reflexes are normal. Normal strength and sensation. Positive left-sided straight leg test. Skin: No rash Psychiatric: Slightly anxious. Const Vital Signs: 04/26/21 11:11 Temperature 97.5 F L Temperature Source Oral Pulse Rate 129 H Respiratory Rate 24 H Blood Pressure 164/114 H Blood Pressure Mean 130 Pulse Ox 95 Oxygen Delivery Method Room Air MDM MDM MDM Narrative Medical decision making narrative: Patient has sciatica, there is no signs or symptoms of cauda equina. He will be treated with muscle relaxants and analgesics. Discharge Plan Triage Chief Complaint: Back ED Provider: Kenneth Townsend Dx/Rx/DC Orders Clinical Impression: Sciatica Instructions: ED Sciatica Prescriptions: New naproxen [Naprosyn] 500 mg tablet 500 mg PO BID Qty: 20 RF: 0 tizanidine 4 mg capsule 4 mg PO Q6H 3 Days Qty: 12 RF: 0 methylprednisolone [Medrol (Jeremiah)] 4 mg tablets,dose pack 4 mg PO DAILY Qty: 21 RF: 0 No Action hydrocortisone acetate [Anusol-HC] 25 mg suppository 25 mg RC BID PRN (Reason: hemorrhoids) Qty: 100 RF: 0 aspirin 81 MG tablet,chewable 81 mg PO DAILY RF: 0 furosemide 40 MG tablet 40 mg PO DAILY Qty: 5 RF: 0 amoxicillin-pot clavulanate [amoxicillin-pot clavulanate] 875 MG tablet 1 tab PO Q12H 10 Days Qty: 20 RF: 0 nitroglycerin 0.4 mg tablet, sublingual 0.4 mg SUBLINGUAL Q5M PRN (Reason: Chest Pain) Qty: 25 RF: 3 amlodipine 2.5 mg tablet 2.5 mg PO DAILY Qty: 90 RF: 4 atorvastatin 80 mg tablet 80 mg PO QHS Qty: 90 RF: 4 clopidogrel 75 mg tablet 75 mg PO DAILY Qty: 90 RF: 4 isosorbide mononitrate 60 mg tablet extended release 24 hr 60 mg PO DAILY Qty: 90 RF: 4 lisinopril 20 mg tablet 20 mg PO DAILY Qty: 90 RF: 4 metoprolol tartrate 100 mg tablet 100 mg PO BID Qty: 180 RF: 4 ranolazine [Ranexa] 500 mg tablet extended release 12 hr 500 mg PO BID Qty: 180 RF: 4 albuterol sulfate 90 mcg/actuation HFA aerosol inhaler 2 puff INHALATION Q4H PRN (Reason: SOB) Qty: 8 RF: 1 Primary Care Provider: Thomas Jackson NP Referrals: Thomas Jackson NP, MACHINE ADJUSTER LEADER-[employer] [Primary Care Provider] - 2 Days Disposition Disposition: Home, Self Care
[2021-04-26] MEDS: Orphenadrine 60 MG/2 ML Ampul IM (11:49)
[2021-04-26] MEDS: oxyCODONE 5 MG Tablet PO (11:50)
[2021-04-26] MEDS: Ketorolac 30 MG/ML Syringe IM (11:51)
--- NOTE | 2021-04-26 11:51 | ED.RN ---
Verified medication given to pt. with Alyssa Crowe RN. Computer system is currently not working properly.
[2021-04-26 12:05] VITALS: BP 132/94; PULSE 94; RESP 16; O2SAT 96
== END 2021-04-26 12:19 | disposition home or self-care (01) ==
LOC: ED 11:50
PROVIDERS: Emergency Provider Emergency Medicine; PCP Nurse Practitioner Family
DX: M54.30 Sciatica, unspecified side (principal); I25.119 Atherosclerotic heart disease of native coronary artery with unspecified angina pectoris; I25.2 Old myocardial infarction; F17.210 Nicotine dependence, cigarettes, uncomplicated
CPT/HCPCS: 96372; 99283

== ENCOUNTER 2022-02-04 01:28 | Emergency (ER) | payer OTHER, SELFPAY ==
[2022-02-04 01:28] VITALS: BP 116/62; PULSE 123; RESP 18; TEMP 36.6; O2SAT 94; BMI 47.7
--- NOTE | 2022-02-04 01:37 | CT_ITS ---
STUDY: CT ABDOMEN AND PELVIS WITH CONTRAST REASON FOR EXAM: Male, 36 years old. diffuse abd pain (epig, now BLQ) RADIATION DOSAGE (If Supplied By Facility): CTDIvol = ( 18.73 ) mGy, DLP = ( 1361.00 ) mGycm TECHNIQUE: Transaxial images were obtained from the dome of the diaphragm to the symphysis pubis without oral contrast. IV was administered. Sagittal and coronal images were reconstructed. Individualized dose optimization techniques were used for this CT. COMPARISON: None. FINDINGS: LOWER CHEST: Lung bases are clear. Mild coronary artery calcifications. LIVER: Fatty infiltration. GALLBLADDER/BILE DUCTS: Unremarkable. PANCREAS: Unremarkable. SPLEEN: Unremarkable. ADRENAL GLANDS: Unremarkable. KIDNEYS / URETERS: Small cyst in the right kidney. No hydronephrosis. BOWEL / MESENTERY: Unremarkable. No bowel obstruction. APPENDIX: Identified and normal. No evidence of acute appendicitis. PERITONEUM: No free air. No free fluid. VESSELS: Abdominal aorta is normal caliber. RETROPERITONEUM: Unremarkable. REPRODUCTIVE ORGANS: Unremarkable. BLADDER: Unremarkable. ABDOMINAL WALL: Small umbilical hernia contains only fat, no bowel, with minimal stranding in the hernia sac and just deep to the hernia in the abdomen. BONES: No acute abnormality. OTHER: None. CT/Abdomen/Pelvis W IV Cont ONLY IMPRESSION: Small fat-containing umbilical hernia with findings that can be seen with incarceration. No other acute findings. Hepatic steatosis. Electronically Signed: Melodie Helm MD at 3:02 EDT ,
--- NOTE | 2022-02-04 01:40 | ED.VIS.GI ---
HPI HPI - GI History of Present Illness Chief Complaint: Abd Pain Informant: patient Abdominal Pain/Flank Pain Onset: Hours (13) Context: Sudden Onset Timing: Continuous Quality: Aching Location: - (Started supraumbilical, now throughout abdomen especially lower nonlateralizing) Current Severity: Severe Maximum Severity: Severe Worsened by: Nothing Relieved by: Nothing Nausea/Vomiting/Emesis GI Symptom: Positive for Nausea; Negative for Vomiting Diarrhea/Melena/Hematochezia GI Symptom: Negative for Diarrhea, Melena or Hematochezia Associated Symptoms Associated Symptoms: Negative for Dysuria, Frequency, Hematuria or Urgency Narrative Narrative: Patient states earlier in the day he felt a pop in his upper abdomen while carrying a heavy box at work, followed by gradually worsening pain after pushing on that area and feeling another pop. He has had no history of any surgeries in his abdomen in the past. He denies any issues eating lately until this pain started. Never had this before. [facility] Medical History Atherosclerosis of coronary artery of [place] heart with angina pectoris Borderline diabetes mellitus Depression Essential (primary) hypertension Hyperlipidemia Myocardial infarction Nicotine dependence Obesity Obstructive sleep apnea Obstructive sleep apnea Old anterior myocardial infarction Palpitations Ventricular fibrillation Home Medications aspirin 81 mg chewable tablet 81 mg PO DAILY 09/18/13 [History Last Taken 04/13/18] hydrocortisone acetate 25 mg rectal suppository (Anusol-HC) 25 mg VA BID PRN hemorrhoids #100 ea 08/12/19 [Rx Last Taken Unknown] naproxen 500 mg tablet (Naprosyn) 500 mg PO BID #20 tabs 04/26/21 [Rx Last Taken Unknown] tizanidine 4 mg capsule 4 mg PO Q6H 3 days #12 caps 04/26/21 [Rx Last Taken Unknown] clopidogrel 75 mg tablet 75 mg PO DAILY #90 tabs 11/13/21 [Rx Last Taken Unknown] isosorbide mononitrate 60 mg tablet,extended release 24 hr 60 mg PO DAILY #90 tabs 11/13/21 [Rx Last Taken Unknown] lisinopril 20 mg tablet 20 mg PO DAILY #90 tabs 11/13/21 [Rx Last Taken Unknown] ranolazine 500 mg tablet,extended release,12 hr (Ranexa) 500 mg PO BID #180 tabs 11/15/21 [Rx Last Taken Unknown] albuterol sulfate 90 mcg/actuation aerosol inhaler 2 puff inhalation Q4H PRN SOB #8 grams 12/31/21 [Rx Last Taken Unknown] amlodipine 2.5 mg tablet 2.5 mg PO DAILY #90 tabs 12/31/21 [Rx Last Taken Unknown] atorvastatin 80 mg tablet 80 mg PO QHS #90 tabs 12/31/21 [Rx Last Taken Unknown] nitroglycerin 0.4 mg sublingual tablet 0.4 mg sublingual Q5M PRN Chest Pain #25 tabs 12/31/21 [Rx Last Taken Unknown] ondansetron HCl 8 mg tablet 8 mg PO Q12H PRN nausea and vomiting #14 tabs 01/08/22 [Rx Last Taken Unknown] metoprolol tartrate 100 mg tablet 100 mg PO BID #180 tabs 01/18/22 [Rx Last Taken Unknown] tramadol 50 mg tablet 50 mg PO Q4H PRN PRN Pain 3 days #14 tabs 02/04/22 [Rx Last Taken Unknown] Allergy/AdvReac Type Severity Reaction Status Date / Time No Known Allergies Allergy Verified 02/04/22 01:31 Family History Mother Diabetes Heart disease Uncle Colon cancer Uncle Cancer lung Father Bowel disease Surgical History History of coronary artery stent placement (08/31/13) History of left heart catheterization (04/13/18) Hx of endoscopy Social History household members: significant other Smoking Status: Current every day smoker tobacco type: cigarettes alcohol intake: current alcohol intake frequency: 0-2 drinks per day Alcohol type: beer and hard liquor substance use type: does not use what type of physical activity do you participate in: none ROS ROS ED Constitutional Constitutional ED: Denies chills or fever(s) Eyes Eyes: Denies change in vision or diplopia ENT ENT ED: Denies rhinorrhea or sore throat Cardiovascular Cardiovascular: Denies chest pain or palpitations Respiratory/Chest Respiratory/Chest: Denies cough or dyspnea Gastrointestinal Gastrointestinal: Reports abdominal pain, nausea and other Details: Last bowel movement this morning prior to the onset of this discomfort and it was unremarkable ; Denies diarrhea or vomiting Genitourinary Genitourinary ED: Denies dysuria or hematuria Musculoskeletal Musculoskeletal: Denies back pain or neck pain Integumentary Denies abscess or rash Neurologic Neurologic: Denies headache(s), paresthesias or weakness Psychiatric Psychiatric: Denies anxiety or suicidal thoughts EXAM Physical Exam Const Vital Signs: 02/04/22 01:28 Temperature 97.8 F Temperature Source Oral Pulse Rate 123 H Respiratory Rate 18 Blood Pressure 116/62 Blood Pressure Mean 80 Pulse Ox 94 Oxygen Delivery Method Room Air Positive well nourished, well developed and obese General Appearance ED: well developed and NAD Nutritional Appearance: obese HEENT Reports moist mucous membranes normocephalic and atraumatic Eyes PERRL and EOMs intact bilaterally Neck full ROM and supple Resp normal respiratory effort and clear to auscultation bilaterally Cardio regular rate, regular rhythm and no murmurs GI non-distended GI Narrative: Obesity somewhat limits exam. No palpable hernias. Very tender throughout the lower abdomen with voluntary guarding, also tender supraumbilical/epigastrium as well as the umbilicus, no guarding there, no rebound tenderness. Auscultation: normoactive bowel sounds Palpation: soft Back/Spine no CVA tenderness General Back: other FROM Extremity normal to inspection General Extremety ED: Negative for edema, pulses abnormal or tenderness General Extremity: Negative for edema or pulses abnormal Neuro oriented x3, CN's II-XII intact bilaterally and no sensory deficits noted Sensorium / Orientation: awake and alert Motor Exam: strength 5/5 throughout Skin no rashes or lesions noted and no wounds MDM MDM MDM Narrative Medical decision making narrative: Labs and a CT were obtained, labs are unremarkable, the CT does show a small fat-containing umbilical hernia with what appears to be incarceration of small amount of fat. There is NO bowel involvement. I reexamined him, he is tender at the umbilicus especially. There is no guarding or rebound, there is no erythema or palpable mass. This is a small area. This is not a surgical emergency. However, he then states that he has been having left-sided testicular pain and swelling intermittently that he is concerned may also be a hernia. He asked that I examined him. I did this while he was standing, he has no palpable testicular tenderness or hernia at this time either direct or indirect and he agrees it is not bothering him right now. I will prescribe him something for pain and I advised that he follow-up with surgery for further evaluation. We discussed what to do in the future if he gets recurrent bulges. We also discussed reasons to return to the ER and he is comfortable with that plan. It is discovered at discharge that the patient filled out Worker's Compensation paperwork. In my judgment this does not qualify as a Worker's Compensation injury, more rather a personal health issue that occurred at work as a result of lifting. He has for a work note for tomorrow which was given. Lab Data Attestation: I reviewed the patient's lab results. Labs: Laboratory Results - last 24 hr 02/04/22 02/04/22 01:52 01:52 WBC 9.5 RBC 4.87 Hgb 14.4 Hct 45.3 MCV 93.0 MCH 29.6 MCHC 31.8 L RDW Std Deviation 46.0 H RDW Coeff of Melissa 13.4 Plt Count 272 MPV 10.7 Immature Gran % (Auto) 0.400 Neut % (Auto) 50.1 Lymph % (Auto) 35.0 Gates % (Auto) 7.5 Eos % (Auto) 5.9 H Baso % (Auto) 1.1 H Absolute Neuts (auto) 4.8 Absolute Lymphs (auto) 3.33 Nucleated RBC % 0 Sodium 142 Potassium 3.8 Chloride 110 H Carbon Dioxide 22.0 Anion Gap 10 BUN 6 L Creatinine 0.99 Estim Creat Clear Calc 91.30 Est GFR (MDRD) Af Amer 109 Est GFR (MDRD) Non-Af 90 BUN/Creatinine Ratio 6.1 L Glucose 139 H Calcium 8.4 L Total Bilirubin 0.20 AST 56 H ALT 91 H Alkaline Phosphatase 100 Total Protein 7.0 Albumin 3.2 Globulin 3.8 Albumin/Globulin Ratio 0.8 L Lipase 71 L Radiography Diagnostic Testing: Clinical Impression(s) from Imaging Studies Abdomen/Pelvis CT 02/04/22 01:37 IMPRESSION: Small fat-containing umbilical hernia with findings that can be seen with incarceration. No other acute findings. Hepatic steatosis. Electronically Signed: Melodie Helm MD at 3:02 EDT , Discharge Plan Triage Chief Complaint: Abd Pain ED Provider: Dionicio James Dx/Rx/DC Orders Clinical Impression: Umbilical hernia without obstruction or gangrene Instructions: How a Hernia Develops, ED Hernia (Adult) Prescriptions: New tramadol 50 MG tablet 50 mg PO Q4H PRN PRN (Reason: Pain) 3 Days Qty: 14 0RF No Action hydrocortisone acetate [Anusol-HC] 25 mg suppository 25 mg RC BID PRN (Reason: hemorrhoids) Qty: 100 0RF ondansetron HCl 8 mg tablet 8 mg PO Q12H PRN (Reason: nausea and vomiting) Qty: 14 0RF aspirin 81 MG tablet,chewable 81 mg PO DAILY Label Comments: blood thinner naproxen [Naprosyn] 500 mg tablet 500 mg PO BID Qty: 20 0RF tizanidine 4 mg capsule 4 mg PO Q6H 3 Days Qty: 12 0RF isosorbide mononitrate 60 mg tablet extended release 24 hr 60 mg PO DAILY Qty: 90 4RF clopidogrel 75 mg tablet 75 mg PO DAILY Qty: 90 4RF lisinopril 20 mg tablet 20 mg PO DAILY Qty: 90 4RF ranolazine [Ranexa] 500 mg tablet extended release 12 hr 500 mg PO BID Qty: 180 4RF amlodipine 2.5 mg tablet 2.5 mg PO DAILY Qty: 90 4RF atorvastatin 80 mg tablet 80 mg PO QHS Qty: 90 4RF nitroglycerin 0.4 mg tablet, sublingual 0.4 mg SUBLINGUAL Q5M PRN (Reason: Chest Pain) Qty: 25 3RF albuterol sulfate 90 mcg/actuation HFA aerosol inhaler 2 puff INHALATION Q4H PRN (Reason: SOB) Qty: 8 1RF metoprolol tartrate 100 mg tablet 100 mg PO BID Qty: 180 4RF Stand Alone Forms: ED Work / School Excuse Primary Care Provider: Thomas Jackson NP Referrals: Maura Bolivar MD [Med Staff - Active Staff] - (call for appt) Thomas Jackson NP, FOOD SERVICE ORDER CLERK-C [Primary Care Provider] - Disposition Disposition: Home, Self Care
[2022-02-04] MEDS: Ondansetron 4 MG/2 ML Vial IV (01:50)
[2022-02-04] MEDS: 0.9% Normal Saline 1,000 ML 1000 ML IV (01:50)
[2022-02-04] MEDS: Morphine 4 MG/ML Syringe IV (01:52)
[2022-02-04 02:06] LABS: Absolute Lymphocyte Count 3.33 X10^3/uL (0.83-4.51); Absolute Neutrophil Count 4.8 X10^3/uL (2.0-7.7); Basophil% 1.1 % (0-1); Eosinophil# 0.56 X10^3/uL; Eosinophils% 5.9 % (0-5); Hematocrit 45.3 % (40-54); Hemoglobin 14.4 g/dL (13.0-16.5); Lymphocyte # 3.33 X10^3/ul (0.83-4.51); Mean Corp Hgb Conc 31.8 g/dL (32-36); Mean Corpuscular Hgb 29.6 pg (27.0-32.0); Mean Platelet Vol. 10.7 fl (6.2-12.0); Monocyte# 0.71 X10^3/uL; Monocyte% 7.5 % (0-10); NRBC Flagged by Analyzer 0 % (0-5); Neutrophil # 4.77 X10^3/uL (2.7-7.7); Neutrophil % 50.1 % (47-70); Platelet Count 272 K/mm3 (150-450); RBC Distribution Width CV 13.4 % (11.6-14.6); Red Blood Count 4.87 M/mm3 (4.6-6.2); White Blood Count 9.5 K/mm3 (4.4-11.0)
[2022-02-04 02:31] LABS: ALB/GLOB Ratio 0.8 RATIO (0.9-2.4); AST(SGOT) 56 U/L (15-37); Alanine Aminotransfer ALT/SGPT 91 U/L (16-61); Albumin, Serum 3.2 g/dL (3.2-5.0); Alkaline Phosphatase 100 U/L (45-117); Anion Gap 10 (5-15); BUN 6 mg/dL (7-18); BUN/Creat Ratio 6.1 RATIO (10-20); Calcium,Total 8.4 mg/dL (8.5-10.1); Chloride 110 mmol/L (98-107); Creatinine, Serum 0.99 mg/dL (0.70-1.30); EST Glomerular Filtration Rate 90 mL/min (>60); Est Glom Filt Rate - Afr Amer 109 mL/min (>60); Globulin 3.8 g/dL (2.2-4.2); Glucose 139 mg/dL (74-106); Lipase 71 U/L (73-393); Potassium 3.8 mmol/L (3.5-5.1); Sodium Level 142 mmol/L (136-145)
[2022-02-04 03:15] LABS: Mucous, Urine 0 SEEN /hpf (<or=2+); Red Blood Cells-Urine 0 SEEN /hpf (0-5); Squamous Epithelial Cells - UA 0 SEEN /hpf (0-5); White Blood Cells 0 SEEN /hpf (0-5)
[2022-02-04 03:23] LABS: Color, Urine Yellow (Yellow); Glucose, Dipstick Normal (Normal); Ketone-Dipstick Negative (Negative); Leukocyte Esterase-Dipstick Negative /ul (Negative); Nitrite-Dipstick Negative (Negative); Occult Blood-Urine Negative /ul (Negative); Protein-Dipstick Negative (Negative); Urine Bilirubin Dipstick Negative (Negative); Urine Clarity Clear (Clear); Urine Urobilinogen Normal (Normal)
[2022-02-04 03:34] VITALS: BP 143/89; PULSE 101; RESP 16; O2SAT 97
[2022-02-04 03:35] LABS: Bacteria RARE /hpf (None Seen)
== END 2022-02-04 03:37 | disposition home or self-care (01) ==
PROVIDERS: Emergency Provider Emergency Medicine; PCP Nurse Practitioner Family; Visit Provider Emergency Medicine
DX: K42.9 Umbilical hernia without obstruction or gangrene (principal); E78.5 Hyperlipidemia, unspecified; I25.10 Atherosclerotic heart disease of native coronary artery without angina pectoris; I10 Essential (primary) hypertension; R73.03 Prediabetes; G47.33 Obstructive sleep apnea (adult) (pediatric); E66.9 Obesity, unspecified; F32.A Depression, unspecified; F17.210 Nicotine dependence, cigarettes, uncomplicated; Z79.82 Long term (current) use of aspirin; Z79.02 Long term (current) use of antithrombotics/antiplatelets; Z79.1 Long term (current) use of non-steroidal anti-inflammatories (NSAID); I25.2 Old myocardial infarction
CPT/HCPCS: 74177; 80053; 81001; 83690; 85025; 96361; 96374; 96375; 99283; J7030; Q9967; J2405

== ENCOUNTER 2022-02-26 09:52 | Day surgery (SDC) | payer OTHER, SELFPAY ==
--- NOTE | 2022-02-20 13:34 | EKG12_ITS ---
Test Reason : PRE OP Blood Pressure : / mmHG Vent. Rate : 087 BPM Atrial Rate : 087 BPM P-R Int : 148 ms QRS Dur : 068 ms QT Int : 372 ms P-R-T Axes : 047 048 034 degrees QTc Int : 447 ms Normal sinus rhythm Normal ECG Confirmed by ALIYA BUI, JEFF ([id number]), supervising film or videotape editor ROLANDO FRANKLIN ([id number]) on 02/21/2022 9:55:31 AM Referred By: Maura Bolivar Confirmed By:JEFF PISANO MD
[2022-02-26] VITALS (8 sets, daily range): BP systolic 125–148; BP diastolic 83–99; PULSE 82–99; RESP 16; TEMP 36.3–36.6; O2SAT 93–96; BMI 46.9
[2022-02-26] MEDS: Lactated Ringers 1,000 ML 15 ML IV (10:05)
[2022-02-26] MEDS: Metoprolol Tartrate 100 MG Tablet PO (10:55)
[2022-02-26] MEDS: Lidocaine 1% /Epi 1:100 (20ml) 20 ML Vial (12:25)
--- NOTE | 2022-02-26 12:46 | PCM.OPRPT ---
Report of Operation Date of Procedure: 02/26/22 Pre-Operative Diagnosis: umbilical hernia Post-Operative Diagnosis: umbilical hernia with incarcerated fat Surgery/Procedure Performed:: umbilical hernia repair Description of Surgical Findings:: umbilical hernia - 1 cm in diameter Surgeon: Maura Bolivar Type of Anesthesia: General Anesthesiologist: Josefina Dukes Specimen's removed: none Drains: none Estimated Blood Loss (mL): < 5 ml Fluids Replaced: 500 ml RL Description of Procedure: After informed consent was obtained, the patient was brought to the Operating Room. Appropriate time out protocol was followed. He was placed in the supine position. The patient was then placed under anesthesia. The abdomen was then prepped with a sterile surgical skin preparation. Sterile surgical drapes were placed. This skin and subcutaneous tissues were then widely infiltrated with the local anesthetic. A skin incision was then made with a 15 blade scalpel inferior to the umbilical hernia in a curvilinear transverse fashion. It was carried down to the subcutaneous tissues using sharp dissection. Any hemorrhage was adequately controlled with electrocautery. Blunt dissection was done to separate the subcutaneous tissues from the umbilical hernia sac. The sac once freed of the subcutaneous tissues was then freed from the dermis of the umbilical skin. The sac was then freed up from the fascial surface. The fascial defect was then properly outlined. The sac was from the fascial opening. It was reduced back into the intraabdominal cavity. The fascial defect was 1 cm in diameter. The fascial defect was then closed transversely with interrupted #1 PDS suture. Hemostasis was controlled with electrocautery. The subdermis was reapproximated with interrupted 3-0 vicryl sutures. The skin incision was reapproximated with a running 4-0 Monocryl suture. Sponge, suture and instrument count were verified and correct. Cavilon and steristrips were placed to reinforce the skin closure and a sterile opsite dressing was applied. The patient was brought from to the Recovery Room in stable condition.. Complications none noted Admit VTE Documentation VTE Present on Admission: Yes VTE Mechan Device Prophylaxis: SCD's
--- NOTE | 2022-02-26 13:14 | EX.PCM.DISCH ---
Discharge Instructions Follow Up Care Test Results: Test results from this visit will be discussed in further detail at your follow-up appointment, if applicable. Discharge Plan Admission Attending Provider: Maura Bolivar Primary Care Provider: Thomas Jackson NP Instructions Additional Instructions / Restrictions: Recommended pain control regimen - May take 600 mg ibuprofen (Motrin) and then in 3-4 hours, may take 650 mg acetaminophen (Tylenol), then in 3-4 hours may take 600 mg ibuprofen, then in 3-4 hours may take 650 mg acetaminophen and so on for 2-3 days May take narcotic pain medication for pain that is not controlled by above and at night for comfort through the night Leave dressings in place May shower, do not scrub in the areas of the dressings as they may unravel. If they become overly soiled you may remove them but leave incision site open to air. Do not soak - no tub baths/swimming Ice applied to areas of discomfort may help No lifting/pushing/pulling greater than 20 pounds for a month. Regular diet as tolerated, drink plenty of fluids. Avoid carbonated beverages for a few days as this will cause abdominal bloating and thus discomfort after our surgery. Please call my office for an appointment to see me in 1-2 weeks. Office number is If any questions, please call my office at and ask the computer console operator for the general surgery nurses desk Discharge Orders/Prescriptions Prescriptions: New hydrocodone-acetaminophen 5-325 mg tablet 1 tab PO Q8H 5 Days Qty: 15 0RF No Action hydrocortisone acetate [Anusol-HC] 25 mg suppository 25 mg RC BID PRN (Reason: hemorrhoids) Qty: 100 0RF aspirin 81 MG tablet,chewable 81 mg PO DAILY Label Comments: blood thinner isosorbide mononitrate 60 mg tablet extended release 24 hr 60 mg PO DAILY Qty: 90 4RF clopidogrel 75 mg tablet 75 mg PO DAILY Qty: 90 4RF lisinopril 20 mg tablet 20 mg PO DAILY Qty: 90 4RF ranolazine [Ranexa] 500 mg tablet extended release 12 hr 500 mg PO BID Qty: 180 4RF amlodipine 2.5 mg tablet 2.5 mg PO DAILY Qty: 90 4RF atorvastatin 80 mg tablet 80 mg PO QHS Qty: 90 4RF albuterol sulfate 90 mcg/actuation HFA aerosol inhaler 2 puff INHALATION Q4H PRN (Reason: SOB) Qty: 8 1RF metoprolol tartrate 100 mg tablet 100 mg PO BID Qty: 180 4RF nitroglycerin 0.4 mg tablet, sublingual 0.4 mg SUBLINGUAL Q5M PRN (Reason: Chest Pain) Qty: 25 3RF Referrals / Follow Up: Thomas Jackson [employer] FARM LABORER, FORE[employer] FARM LABORER-C [Primary Care Provider] - Disposition Disposition (needs filled in before D/C Order can be placed): Home, Self Care
== END 2022-02-26 14:48 | disposition home or self-care (01) ==
LOC: SDC 09:52 → AC 09:52
PROVIDERS: PCP Nurse Practitioner Family; Referring Provider Surgery; Visit Provider Surgery
PROC: (CPT 49587; principal; 2022-02-26 11:45)
DX: K42.0 Umbilical hernia with obstruction, without gangrene (principal); I10 Essential (primary) hypertension; I25.2 Old myocardial infarction; K21.9 Gastro-esophageal reflux disease without esophagitis; F32.A Depression, unspecified; F17.210 Nicotine dependence, cigarettes, uncomplicated
CPT/HCPCS: 49587; 00750; 93005; J7120; J2405

== ENCOUNTER 2022-08-31 01:39 | Emergency (ER) | payer BC, SELFPAY ==
[2022-08-31 01:40] VITALS: BP 166/121; PULSE 127; RESP 15; TEMP 36; O2SAT 97; BMI 35.1
--- NOTE | 2022-08-31 02:03 | EDS_ITS ---
HPI History of Present Illness Chief Complaint: Substance Abuse Detail of Chief Complaint: Requesting detox for alcohol abuse. Informant: patient Onset/Context/Timing Onset: Month(s) Context: Gradual Onset Timing: Continuous Current Severity: Mild Maximum Severity: Mild Associated Symptoms Associated Symptoms: Positive for vomiting* and diarrhea* Narrative Narrative: 36-year-old male history of prior MS with 2 cardiac stents. History of alcohol abuse. States he drinks 1/5 of whiskey every day drank today. He has chronic nausea vomiting and diarrhea but he believes from his alcoholism. Denies ever going through detox. Denies drug use. Prior similar symptoms: Yes Recent Illness/Hospitalization: No PFSH PFS Medical History Atherosclerosis of coronary artery of [place] heart with angina pectoris Back pain Borderline diabetes mellitus Depression Essential (primary) hypertension Gastric reflux High cholesterol History of GI bleed Hyperlipidemia Nicotine dependence Obesity Obstructive sleep apnea Old anterior myocardial infarction Palpitations Smoker Ventricular fibrillation Wears glasses Home Medications aspirin 81 mg chewable tablet 81 mg PO DAILY 09/18/13 [History Last Taken 04/13/18] hydrocortisone acetate 25 mg rectal suppository (Anusol-HC) 25 mg [place] BID PRN hemorrhoids #100 ea 08/12/19 [Rx Last Taken Unknown] clopidogrel 75 mg tablet 75 mg PO DAILY #90 tabs 11/13/21 [Rx Last Taken Unkno wn] isosorbide mononitrate 60 mg tablet,extended release 24 hr 60 mg PO DAILY #90 tabs 11/13/21 [Rx Last Taken Unknown] lisinopril 20 mg tablet 20 mg PO DAILY #90 tabs 11/13/21 [Rx Last Taken Unknown] ranolazine 500 mg tablet,extended release,12 hr (Ranexa) 500 mg PO BID #180 tabs 11/15/21 [Rx Last Taken Unknown] albuterol sulfate 90 mcg/actuation aerosol inhaler 2 puff inhalation Q4H PRN SOB #8 grams 12/31/21 [Rx Last Taken Unknown] amlodipine 2.5 mg tablet 2.5 mg PO DAILY #90 tabs 12/31/21 [Rx Last Taken Unknown] atorvastatin 80 mg tablet 80 mg PO QHS #90 tabs 12/31/21 [Rx Last Taken Unknown] metoprolol tartrate 100 mg tablet 100 mg PO BID #180 tabs 01/18/22 [Rx Last Taken Unknown] nitroglycerin 0.4 mg sublingual tablet 0.4 mg sublingual Q5M PRN Chest Pain #25 tabs 02/11/22 [Rx Last Taken Unknown] hydrocodone-acetaminophen 5-325mg 5mg-325mg 1 tab PO Q8H 5 days #15 tabs 02/26/22 [Rx Last Taken Unknown] Allergy/AdvReac Type Severity Reaction Status Date / Time No Known Allergies Allergy Verified 02/26/22 10:30 Family History Mother Diabetes Heart disease Uncle Colon cancer Uncle Cancer lung Father Bowel disease Surgical History History of coronary artery stent placement (08/31/13) History of left heart catheterization (04/13/18) Hx of endoscopy Social History household members: significant other Smoking Status: Current every day smoker tobacco type: cigarettes alcohol intake: current alcohol intake frequency: 3 or more drinks per day Alcohol type: beer and hard liquor details: Heavy whiskey intake daily. substance use type: does not use what type of physical activity do you participate in: none ROS ROS ED ROS Narrative Nausea, vomiting and diarrhea. Review of Systems ROS Unobtainable: Denies due to encephalopathy Constitutional Constitutional ED: Denies chills or fever(s) Eyes Eyes: Denies blurry vision ENT ENT ED: Denies ear pain Cardiovascular Cardiovascular: Denies chest pain Respiratory/Chest Respiratory/Chest: Denies cough Gastrointestinal Gastrointestinal: Reports diarrhea, nausea and vomiting; Denies abdominal pain Genitourinary Genitourinary ED: Denies dysuria Musculoskeletal Musculoskeletal: Denies arthralgias Integumentary Denies abscess Neurologic Neurologic: Denies headache(s) Psychiatric Psychiatric: Denies anxiety Endocrine Endocrinology: Denies cold intolerance Hematologic/Lymphatic Hematologic/Lymphatic: Denies easy bleeding Allergic/Immunologic Allergic/Immunologic ED: Denies mouth swelling or tongue swelling EXAM Physical Exam Narrative Exam Narrative: 36-year-old male vital signs are stable he is tachycardic at 127 his initial blood pressure was 166/121. He does not look septic or toxic. He is in no distress. H EENT exam unremarkable. Neck nontender no lymphadenopathy. Lungs clear to auscultation bilaterally. Heart tachycardic rate about 125 no murmur. Chest wall nontender. Abdomen soft nontender. Moving all 4 extremities. Nontender no edema. Neurologically is awake and alert with no focal motor deficits. Clinically he may be intoxicated. Const Vital Signs: 08/31/22 01:40 Temperature 96.8 F L Temperature Source Temporal Pulse Rate 127 H Respiratory Rate 15 Blood Pressure 166/121 H Blood Pressure Mean 136 Pulse Ox 97 Oxygen Delivery Method Room Air Positive well nourished, well developed and obese; Negative for cachectic, contr actures or unkempt General Appearance ED: well developed and NAD; Negative for unkempt, cachectic, contractures or pallor Nutritional Appearance: obese; Negative for cachectic HEENT Reports moist mucous membranes; Denies dry mucous membranes atraumatic; Negative for trauma or tenderness Mouth ED: No dry mucous membranes Mouth: No dry mucous membranes Eyes PERRL and EOMs intact bilaterally General Eye ED: Negative for pale conjunctiva or scleral icterus Neck no lymphadenopathy, supple and no JVD Thyroid: Negative for tender Lymph Lymphatic: no lymphadenopathy noted; Negative for lymphadenopathy Chest Wall inspection of chest normal and palpation of chest normal Chest: Negative for other Resp normal respiratory effort and clear to auscultation bilaterally Effort and Inspection: Negative for retractions Auscultation: Negative for rales, rhonchi or wheezes Cardio regular rhythm, S1 normal heart sound, S2 normal heart sound and no murmurs; Negative for regular rate Rate: tachycardic Rhythm: Negative for abnormal rhythm GI soft to palpation, non-tender, non-distended and no masses Back/Spine no CVA tenderness General Back: Negative for CVA tenderness Cervical Spine: Negative for cervical spine tenderness Thoracic Spine / Upper Back: Negative for thoracic spinal tenderness Lumbar Spine / Lower Back: Negative for lumbar spinal tenderness Coccyx: Negative for swelling Extremity General Extremety ED: Negative for edema or tenderness General Extremity: Negative for edema Neuro oriented x3 and CN's II-XII intact bilaterally Sensorium / Orientation: alert, oriented to person, oriented to place and oriented to time; Negative for confused, lethargic or stuporous Speech: speech normal Psych mental status grossly normal and thought process normal Appearance: Negative for unkempt Mood & Affect: Negative for anxious or tearful Skin General Skin Exam: Negative for jaundice or pallor Lesions: no lesions Rashes: no rashes MDM MDM MDM Narrative Medical decision making narrative: 36-year-old male requesting detox for alcohol abuse. Will undergo screening labs. I am obtaining an EKG due to tachycardia. Once his labs return I will speak to the hospitalist about admission for detox. I spoke to the hospitalist the patient will be admitted. He has been somewhat verbally abusive to the staff. Entitled and acting out. I explained to him that there are certain rules on the detox floor he can choose to follow them or he can leave if that is what he and his family prefer. I went in to reevaluate the patient multiple times. Spoke to he and family multiple times. He was actually quite rude to the staff. The hospitalist came down to see him to admit him for detox. He decided he did not like the rules and did not want to stay and walked out. Family was with him. I do not believe he was driving. Lab Data Attestation: I reviewed the patient's lab results. Lab results narrative: Electrolytes show a gap of 12 normal BUN of 12 and creatinine 0.85. Liver enzymes unremarkable. Glucose 146. CBC White count 12.2. H&H of 15.7 and 48. Platelets 310. Alcohol level is consistent with intoxication with an alcohol level of 296. Labs: Laboratory Results - last 24 hr 08/31/22 08/31/22 08/31/22 01:55 01:55 01:55 WBC 12.2 H RBC 5.30 Hgb 15.7 Hct 48.0 MCV 90.6 MCH 29.6 MCHC 32.7 RDW Std Deviation 45.1 H RDW Coeff of Melissa 13.6 Plt Count 310 MPV 10.7 Immature Gran % (Auto) 0.800 Neut % (Auto) 55.0 Lymph % (Auto) 34.5 [place] % (Auto) 5.7 Eos % (Auto) 3.3 Baso % (Auto) 0.7 Absolute Neuts (auto) 6.7 Absolute Lymphs (auto) 4.21 Nucleated RBC % 0 Differential Comment SCANNED Sodium 144 Potassium 3.7 Chloride 108 H Carbon Dioxide 24.0 Anion Gap 12 BUN 12 Creatinine 0.85 Estim Creat Clear Calc 102.50 Est GFR (MDRD) Af Amer 129 Est GFR (MDRD) Non-Af 107 BUN/Creatinine Ratio 14.1 Glucose 146 H Calcium 8.7 Phosphorus Magnesium Total Bilirubin 0.20 AST 33 ALT 59 Alkaline Phosphatase 99 Total Protein 8.1 Albumin 3.6 Globulin 4.5 H Albumin/Globulin Ratio 0.8 L Ethyl Alcohol 296.0 08/31/22 01:55 WBC RBC Hgb Hct MCV MCH MCHC RDW Std Deviation RDW Coeff of Melissa Plt Count MPV Immature Gran % (Auto) Neut % (Auto) Lymph % (Auto) Laurens % (Auto) Eos % (Auto) Baso % (Auto) Absolute Neuts (auto) Absolute Lymphs (auto) Nucleated RBC % Differential Comment Sodium Potassium Chloride Carbon Dioxide Anion Gap BUN Creatinine Estim Creat Clear Calc Est GFR (MDRD) Af Amer Est GFR (MDRD) Non-Af BUN/Creatinine Ratio Glucose Calcium Phosphorus 3.2 Magnesium 2.6 Total Bilirubin AST ALT Alkaline Phosphatase Total Protein Albumin Globulin Albumin/Globulin Ratio Ethyl Alcohol Rhythm Strip Rhythm Strip: Sinus Tach Rate: 122 Ectopy: None EKG Initial EKG: Attestation: I personally reviewed and interpreted this EKG as follows: Interpretation: No Acute Injury Pattern and Sinus Tachycardia Comments: Sinus tachycardia rate of 122. No acute signs of MS or ischemia. Discharge Plan Triage Chief Complaint: Substance Abuse ED Provider: Delmar Ding Dx/Rx/DC Orders Clinical Impression: Acute alcoholism, Alcohol intoxication, Admitted to substance misuse detoxification center Primary Care Provider: Thomas Jackson NP Disposition Disposition: Home, Self Care
[2022-08-31 02:08] LABS: Absolute Lymphocyte Count 4.21 X10^3/uL (0.83-4.51); Absolute Neutrophil Count 6.7 X10^3/uL (2.0-7.7); Basophil# 0.08 X10^3/uL; Basophil% 0.7 % (0-1); Eosinophils% 3.3 % (0-5); Hemoglobin 15.7 g/dL (13.0-16.5); Lymphocyte # 4.21 X10^3/ul (0.83-4.51); Lymphocyte % 34.5 % (19-41); Mean Corp Hgb Conc 32.7 g/dL (32-36); Mean Corpuscular Hgb 29.6 pg (27.0-32.0); Mean Corpuscular Volume 90.6 fL (80-94); Mean Platelet Vol. 10.7 fl (6.2-12.0); Monocyte# 0.69 X10^3/uL; Monocyte% 5.7 % (0-10); NRBC Flagged by Analyzer 0 % (0-5); Neutrophil # 6.72 X10^3/uL (2.7-7.7); POSITIVE MORPHOLOGY YES; Platelet Count 310 K/mm3 (150-450); RBC Distribution Width CV 13.6 % (11.6-14.6); RBC Distribution Width SD 45.1 fl (35.1-43.9); White Blood Count 12.2 K/mm3 (4.4-11.0)
--- NOTE | 2022-08-31 02:25 | HP.PCM_ITS ---
HPI - General General Date of Admission: 08/31/22 Date of Service: 08/31/22 Chief Complaint: EtOH abuse, withdrawal, requesting detoxification. HPI Narrative The patient is a 36 y/o M w/ PMHx: GIACOMO, Obesity, Depression and Anxiety, CAD s/p PCI, HTN, HLD, GERD w/ Hx GI bleed, Pre-Diabetes mellitus type II, Tobacco use, EtOH abuse (5th whiskey daily, last intake just prior to ED presentation) who presents to the [facility] on 08/31/22 w/ his mother who brought him secondary to his request for evaluation for alcohol detoxification with last intake just prior to presentation. He does admit to being currently intoxicated. When asked why he presented now for alcohol withdrawal treatment he notes being tired of always being intoxicated and alcoholic. In the emergency room several issues did arise and security was required at one point to help calm the patient as he intermittently would be very belligerent and angry. He does admit to being angry especially when he is intoxicated and withdrawing. He even and at one point threatened to punch a hole in the wall if he was told that he needed to stay in his room. Following evaluation it is unclear if patient will remain or if he will leave the emergency room. Work-up in the ED included T96.8, heart rate 127, BP 166/121, respiratory rate 15, 97% on room air, CBC with WC 12.2, hemoglobin 15.7, platelet 310 without marked shift, CMP with chloride 108, glucose 146 otherwise hepatic profile unremarkable, EKG with sinus tachycardia with no acute evidence of ischemia. [facility] Medical History Atherosclerosis of coronary artery of [place] heart with angina pectoris Back pain Borderline diabetes mellitus Depression Essential (primary) hypertension Gastric reflux High cholesterol History of GI bleed Hyperlipidemia Nicotine dependence Obesity Obstructive sleep apnea Old anterior myocardial infarction Palpitations Smoker Ventricular fibrillation Wears glasses Home Medications aspirin 81 mg chewable tablet 81 mg PO DAILY 09/18/13 [History Last Taken 04/13/18] hydrocortisone acetate 25 mg rectal suppository (Anusol-HC) 25 mg [place] BID PRN hemorrhoids #100 ea 08/12/19 [Rx Last Taken Unknown] clopidogrel 75 mg tablet 75 mg PO DAILY #90 tabs 11/13/21 [Rx Last Taken Unknown] isosorbide mononitrate 60 mg tablet,extended release 24 hr 60 mg PO DAILY #90 tabs 11/13/21 [Rx Last Taken Unknown] lisinopril 20 mg tablet 20 mg PO DAILY #90 tabs 11/13/21 [Rx Last Taken Unknown] ranolazine 500 mg tablet,extended release,12 hr (Ranexa) 500 mg PO BID #180 tabs 11/15/21 [Rx Last Taken Unknown] albuterol sulfate 90 mcg/actuation aerosol inhaler 2 puff inhalation Q4H PRN SOB #8 grams 12/31/21 [Rx Last Taken Unknown] amlodipine 2.5 mg tablet 2.5 mg PO DAILY #90 tabs 12/31/21 [Rx Last Taken Unknown] atorvastatin 80 mg tablet 80 mg PO QHS #90 tabs 12/31/21 [Rx Last Taken Unknown] metoprolol tartrate 100 mg tablet 100 mg PO BID #180 tabs 01/18/22 [Rx Last Taken Unknown] nitroglycerin 0.4 mg sublingual tablet 0.4 mg sublingual Q5M PRN Chest Pain #25 tabs 02/11/22 [Rx Last Taken Unknown] hydrocodone-acetaminophen 5-325mg 5mg-325mg 1 tab PO Q8H 5 days #15 tabs 02/26/22 [Rx Last Taken Unknown] Allergy/AdvReac Type Severity Reaction Status Date / Time No Known Allergies Allergy Verified 02/26/22 10:30 Family History Mother Diabetes Heart disease Uncle Colon cancer Uncle Cancer lung Father Bowel disease Surgical History History of coronary artery stent placement (08/31/13) History of left heart catheterization (04/13/18) Hx of endoscopy Social History household members: significant other Smoking Status: Current every day smoker tobacco type: cigarettes alcohol intake: current alcohol intake frequency: 3 or more drinks per day Alcohol type: beer and hard liquor details: Heavy whiskey intake daily. substance use type: does not use what type of physical activity do you participate in: none ROS ROS Narrative Admission Review of Systems: CONSTITUTIONAL: No weight loss, fever, chills, + weakness or fatigue. HEENT: Eyes: No visual loss, blurred vision, double vision or yellow sclerae. Ears, Nose, Throat: No hearing loss, sneezing, congestion, runny nose or sore throat. SKIN: No rash or itching, lesions, wounds. CARDIOVASCULAR: + Chronic intermittent chest pain. No palpitations, edema, orthopnea, syncopal events. RESPIRATORY: No shortness of breath, cough or sputum, wheezing, hemoptysis. GASTROINTESTINAL: No anorexia, nausea, vomiting or diarrhea, abdominal pain, melena, BRBPR. GENITOURINARY: No dysuria, frequency, urgency or retention. NEUROLOGICAL: No headache, dizziness, syncope, paralysis, ataxia, numbness or tingling in the extremities, focal weakness, change in bowel or bladder control, seizure. MUSCULOSKELETAL: + muscle, back pain, joint pain or stiffness. HEMATOLOGIC: + Easy bleeding or bruising. LYMPHATICS: No enlarged nodes. No history of splenectomy. PSYCHIATRIC: + history of severe explosive anger/behavioral disturbance. ENDOCRINOLOGIC: No reports of sweating, cold or heat intolerance. No polyuria or polydipsia. ALLERGIES: No history of asthma, hives, eczema or rhinitis. Vital Signs Vital Signs Vital Signs: 08/31/22 01:40 Temperature 96.8 F L Temperature Source Temporal Pulse Rate 127 H Respiratory Rate 15 Blood Pressure 166/121 H Blood Pressure Mean 136 Pulse Ox 97 Oxygen Delivery Method Room Air Weight Weight: 211 lb 3.245 oz Body Mass Index (BMI) 35.1 Physical Exam Narrative Physical Examination: General: Awake, alert, oriented to self, place and recent events, patient is visibly intoxicated, seated upright in the ED bed, intermittently angry although did calm down and have discussion but became following agitated again with staff and reporting displeasure about required compliance with alcohol withdrawal detoxification program Skin: Normal color, normal turgor, no icterus, no cyanosis. HEENT: AT/NC, EOMI, PERRLA, mildly dry MM, no carotid bruits or JVD noted; however thickened neck makes evaluation difficult. Lungs: Distant likely secondary to habitus, diminished, greater bases, no rales, ronchi or wheezing. Heart: Tachycardic with regular rhythm; no gallop, rub audible. Abdomen: Soft, obese, NTTP, ND, mildly hyperactive BS, difficult to assess HSM given habitus Extremities: No cyanosis, clubbing, or edema. Neurological: Patient awake, alert, oriented as noted, cognitive function appears intact although patient is intoxicated and mood is more labile; pupils equally reactive to light and accommodation, cranial nerves II-XII grossly normal, moving all 4 extremities, no focal deficits, strength mildly to moderately global decrease secondary to acute presentation Psychiatric: Affect appears intermittently agitated and angry, admits to having an underlying explosive/anger disorder issue. Results Lab / Micro Data Result Diagrams: 08/31/22 01:55 08/31/22 01:55 Assessment & Plan Assessment/Plan (1) Admitted to substance misuse detoxification center: PLAN: Plan The patient is a 36 y/o M w/ PMHx: GIACOMO, Obesity, Depression and Anxiety, CAD s/p PCI, HTN, HLD, GERD w/ Hx GI bleed, Pre-Diabetes mellitus type II, Tobacco use, EtOH abuse (5th whiskey daily, last intake just prior to ED presentation) who presents to the [facility] on 08/31/22 ongoing heavy intake EtOH as noted for acute detoxification. #1. Acute EtOH Abuse with Impending Withdrawal: Will admit to CO, routine labs obtained in the ED upon presentation and notable for []. Given interest in sobriety, will initiate and continue on protocol with taper course of Phenobarbital, scheduled gabapentin for seizure prophylaxis, as needed Catapres, Bentyl, Vistaril, IV fluids, IV antiemetics, Tylenol as needed for pain. Will consult Case management for assistance for transition to next level of rehabilitation care. Mag, phos pending. Maintain on CIWA protocol concurrently. Discussed at length with patient that he would have to comply with the rules of the program and that staff would need to feel safe and unthreatened. #2. CAD w/ Hx VF Cardiac arrest x 3: Status post PCI, most recent prior stress testing noted in [facility] 04/13/2018 with patent previously placed stent in the m id to distal LAD, mild to moderate disease in the dominant left circumflex with nonobstructive disease noted with recommendation at that time for medical therapy, will continue patient home aspirin, Plavix, statin, metoprolol, lisinopril regimen. Temporarily hold ranexa while using phenobarbital taper given interaction. Patient per review of records does have intermittent chronic chest pain. EKG with sinus tachycardia with no acute evidence of ischemia. #3. Pre-Diabetes mellitus type II: Per most current list on a regimen, will maintain on ADA diet and accu checks w/ ISS. #4. Hypertension: Continue home regimen including metoprolol, amlodipine, lisinopril, isosorbide, PRN hydralazine. #5. Hyperlipidemia: We will continue patient on statin therapy. #6. Depression and anxiety: Per current list not on any chronic regimen, likely contributing greatly to his substance alcohol abuse, case management consult as well as 180 and patient would benefit from evaluation and counseling. #7. Tobacco Abuse: Encouraged cessation, inpatient consultation per RT, NR if desired. #8. Obesity: Weight loss and lifestyle changes encouraged. #9. GERD with history of GI bleed: We will maintain on PPI. #10. GIACOMO: CPAP nightly. #11. DVT prophylaxis: Given presentation for alcohol withdrawal lower risk, encourage ambulation. Admission Evaluation Time spent evaluating chart, patient history, patient evaluation, care planning and discussion with specialists: 75 minutes. Charges/Coding Visit Charges Inpatient E&M: 70707 Init Hosp L3
[2022-08-31 02:26] LABS: BUN 12 mg/dL (7-18); Creatinine, Serum 0.85 mg/dL (0.70-1.30); EST Glomerular Filtration Rate 107 mL/min (>60); Glucose 146 mg/dL (74-106)
[2022-08-31 02:27] LABS: ALB/GLOB Ratio 0.8 RATIO (0.9-2.4); AST(SGOT) 33 U/L (15-37); Alanine Aminotransfer ALT/SGPT 59 U/L (16-61); Albumin, Serum 3.6 g/dL (3.2-5.0); Alkaline Phosphatase 99 U/L (45-117); Anion Gap 12 (5-15); BUN/Creat Ratio 14.1 RATIO (10-20); Calcium,Total 8.7 mg/dL (8.5-10.1); Chloride 108 mmol/L (98-107); Est Glom Filt Rate - Afr Amer 129 mL/min (>60); Globulin 4.5 g/dL (2.2-4.2); Potassium 3.7 mmol/L (3.5-5.1); Protein, Total 8.1 g/dL (6.4-8.2); Sodium Level 144 mmol/L (136-145)
[2022-08-31 02:33] LABS: Differential Comment SCANNED; Differential Indicated SCAN CRITERIA MET
--- NOTE | 2022-08-31 02:38 | EKG12_ITS ---
Test Reason : ETOH INTOX Blood Pressure : / mmHG Vent. Rate : 122 BPM Atrial Rate : 122 BPM P-R Int : 160 ms QRS Dur : 058 ms QT Int : 408 ms P-R-T Axes : 063 057 046 degrees QTc Int : 581 ms Sinus tachycardia Nonspecific ST abnormality Abnormal ECG Confirmed by JOHNNIE BUI, AYE ([id number]), avid editor ROLANDO FRANKLIN ([id number]) on 09/03/2022 9:07:16 AM Referred By: Confirmed By:AYE BLAIR MD
[2022-08-31 03:20] LABS: Magnesium 2.6 mg/dL (1.6-2.6); Phosphorus 3.2 mg/dL (2.5-4.9)
--- NOTE | 2022-08-31 03:34 | ED.RN ---
IV DC'D BY CHARGE NURSE FEDERICO BECAUSE PT REPORTED HE WANTED TO LEAVE. PT HAS BEEN UNCOOPERATIVE WITH STAFF SINCE HE ARRIVED. INFORMED PT THAT THIS NURSE JOSÉ MIGUEL RN WILL GIVE HIM A FEW MINUTES TO DECIDE IF HE WANTS TO STAY OR NOT. PT DISCUSSED WITH MOTHER AND DECIDED TO STAY. DETOX CONTRACT REVIEWED WITH PT BY Elena HANEY RN. PT DID NOT LIKE ALL THE RULES AND REPORTS THIS SOUNDS LIKE RESIDENTIAL. INFORMED PT THE RULES WERE MEANT TO KEEP PT AND OTHER PT'S SAFE ON THE FLOOR AND THERE ARE MEDICATIONS THAT HE WILL RCVE ONCE HE IS ADMITTED TO HELP HIM THROUGH THE ETOH WITHDRAWAL PROCESS. PT SAID HE WANTS TO GO HOME. PT WENT HOME WITH HIS MOTHER. DR HASTINGS MADE AWARE.
[2022-08-31 03:57] VITALS: PULSE 127; RESP 20; O2SAT 97
[2022-08-31 08:51] LABS: Hemoglobin A1c 6.3 % (3.8-5.6)
== END 2022-08-31 03:25 | disposition home or self-care (01) ==
LOC: ED 02:22 → MS3 03:39
PROVIDERS: Emergency Medicine; Emergency Provider Family Medicine; PCP Nurse Practitioner Family; Visit Provider Family Medicine
DX: F10.229 Alcohol dependence with intoxication, unspecified (principal); R19.7 Diarrhea, unspecified; Z53.29 Procedure and treatment not carried out because of patient's decision for other reasons; I25.10 Atherosclerotic heart disease of native coronary artery without angina pectoris; E78.00 Pure hypercholesterolemia, unspecified; Z95.5 Presence of coronary angioplasty implant and graft; F41.9 Anxiety disorder, unspecified; R11.2 Nausea with vomiting, unspecified; I10 Essential (primary) hypertension; E66.9 Obesity, unspecified; F17.210 Nicotine dependence, cigarettes, uncomplicated; R73.03 Prediabetes; F32.A Depression, unspecified
CPT/HCPCS: 80053; 82077; 83036; 83735; 84100; 85025; 93005; 99283; A4216

== ENCOUNTER 2023-03-18 22:06 | Inpatient (IN) | payer BC, SELFPAY ==
[2023-03-18 22:06] VITALS: BP 144/96; PULSE 124; RESP 15; TEMP 36.2; O2SAT 96; BMI 49.7
--- NOTE | 2023-03-18 22:29 | EKG12_ITS ---
Test Reason : CP Blood Pressure : / mmHG Vent. Rate : 117 BPM Atrial Rate : 117 BPM P-R Int : 146 ms QRS Dur : 080 ms QT Int : 340 ms P-R-T Axes : 042 042 016 degrees QTc Int : 474 ms Sinus tachycardia Nonspecific T wave abnormality Abnormal ECG Confirmed by JEFF PISANO MD ([id number]), supervising editor trailer SUSAN TONY ([id number]) on 03/20/2023 12:14:44 PM Referred By: JESSICA Confirmed By:JEFF PISANO MD
--- NOTE | 2023-03-18 22:33 | EDS_ITS ---
HPI History of Present Illness Chief Complaint: Chest Pain Informant: patient Onset/Context/Timing Onset: Yesterday Narrative Narrative: Patient presents secondary to chest pain. He had a cardiac arrest with AZ and 2 stents placed in 2013. He is still on Plavix. He does state that he has been out of his isosorbide for 2 months. He has an appointment to see Dr. Glasgow tomorrow morning. Patient states yesterday he developed chest pain that felt more like reflux. He had a burning sensation in his epigastric region. He took 2 nitro as well as Tums and pain improved. Pain at that time had started when he was sitting on the couch after work. He states he had made it through work without difficulty. Tonight pain returned. He describes it as sharp and burning across his chest. He tried to nitro at home tonight without improvement. [facility] Medical History Atherosclerosis of coronary artery of [place] heart with angina pectoris Back pain Borderline diabetes mellitus Depression Essential (primary) hypertension Gastric reflux History of GI bleed Hyperlipidemia Nicotine dependence Obesity Obstructive sleep apnea Old anterior myocardial infarction Palpitations Smoker Ventricular fibrillation Wears glasses Home Medications aspirin 81 mg chewable tablet 81 mg PO DAILY 09/18/13 [History Last Taken 04/13/18] albuterol sulfate 90 mcg/actuation aerosol inhaler 2 puff inhalation Q4H PRN SOB #8 grams 12/31/21 [Rx Last Taken Unknown] metoprolol tartrate 100 mg tablet 100 mg PO BID #180 tabs 01/18/22 [Rx Last Taken Unknown] nitroglycerin 0.4 mg sublingual tablet 0.4 mg sublingual Q5M PRN Chest Pain #25 tabs 02/11/22 [Rx Last Taken Unknown] clopidogrel 75 mg tablet See Rx Instructions .Route .COMPLEX #30 tabs 12/23/22 [Rx Last Taken Unknown] ranolazine 500 mg tablet,extended release,12 hr See Rx Instructions .Route .COMPLEX #60 tabs 12/23/22 [Rx Last Taken Unknown] lisinopril 20 mg tablet 20 mg PO DAILY Pt needs to keep appt in january for further refills. #30 tabs 01/02/23 [Rx Last Taken Unknown] amlodipine 2.5 mg tablet 2.5 mg PO DAILY #90 tabs 02/06/23 [Rx Last Taken Unknown] atorvastatin 80 mg tablet 80 mg PO QHS #90 tabs 03/03/23 [Rx Last Taken Unknown] Allergy/AdvReac Type Severity Reaction Status Date / Time No Known Allergies Allergy Verified 03/18/23 22:10 Family History Mother Diabetes Heart disease Uncle Colon cancer Uncle Cancer lung Father Bowel disease Surgical History History of coronary artery stent placement (08/31/13) History of left heart catheterization (04/13/18) Hx of endoscopy Social History household members: significant other Smoking Status: Current every day smoker tobacco type: cigarettes alcohol intake: current alcohol intake frequency: 3 or more drinks per day Alcohol type: beer and hard liquor details: Heavy whiskey intake daily. substance use type: does not use what type of physical activity do you participate in: none ROS ROS ED Constitutional Constitutional ED: Denies chills or fever(s) Eyes Eyes: Denies change in vision or discharge from eye(s) ENT ENT ED: Denies discharge from eye(s), rhinorrhea or sore throat Cardiovascular Cardiovascular: Reports chest pain; Denies palpitations Respiratory/Chest Respiratory/Chest: Reports cough; Denies dyspnea Gastrointestinal Gastrointestinal: Reports abdominal pain; Denies diarrhea, nausea or vomiting Genitourinary Genitourinary ED: Denies dysuria Musculoskeletal Musculoskeletal: Denies back pain or extremity pain Integumentary Denies Abrasions or rash Neurologic Neurologic: Denies headache(s) or weakness Psychiatric Psychiatric: Denies anxiety or depression Allergic/Immunologic Allergic/Immunologic ED: Denies lip swelling or urticaria EXAM Physical Exam Const Vital Signs: 03/18/23 22:06 03/18/23 22:39 03/18/23 23:17 Temperature 97.2 F L Temperature Source Temporal Pulse Rate 124 H 86 Respiratory Rate 15 13 Blood Pressure 144/96 H 124/77 H Blood Pressure Mean 112 92 Pulse Ox 96 96 91 Oxygen Delivery Method Room Air Nasal Cannula Oxygen Flow Rate (L/min) 2 Positive well nourished and well developed General Appearance ED: well developed HEENT Reports normocephalic and head/scalp atraumatic Eyes PERRL and EOMs intact bilaterally Neck supple Chest Wall inspection of chest normal and palpation of chest normal Resp normal respiratory effort and clear to auscultation bilaterally Cardio regular rhythm Rate: tachycardic GI soft to palpation Palpation: soft Extremity normal to inspection Neuro oriented x3 and no sensory deficits noted Sensorium / Orientation: alert Motor Exam: strength 5/5 throughout Psych mental status grossly normal Skin no rashes or lesions noted Heart Score History: Moderately Suspicious ECG: Normal Age: </= 45 years Risk Factors: >/= 3 Risk Factors or History of CAD Troponin: >1 - <3 Normal Limit Score: 4 MDM MDM MDM Narrative Medical decision making narrative: Patient placed on laboratory monitor. EKG obtained to evaluate for cardiac arrhythmia/ischemia. Chest x-ray obtained to evaluate for acute lung pathology, cardiac size, or mediastinal abnormality. Labwork obtained to evaluate for leukocytosis, anemia, and electrolyte derangement. Patient given morphine and Phenergan for pain and nausea. He is also given a dose of Protonix as he has been having some reflux symptoms. History & Record Review Discussion w/independent historian: Patient Additional record(s) reviewed:: Prior outpatient record, Prior ED visit and Prior labs Lab Data Attestation: I reviewed the patient's lab results. Labs: Laboratory Results - last 24 hr 03/18/23 22:30 WBC 11.8 H RBC 5.03 Hgb 14.7 Hct 45.9 MCV 91.3 MCH 29.2 MCHC 32.0 RDW Std Deviation 46.9 H RDW Coeff of Melissa 14.2 Plt Count 313 MPV 10.8 Immature Gran % (Auto) 0.400 Neut % (Auto) 59.1 Lymph % (Auto) 27.5 [place] % (Auto) 8.2 Eos % (Auto) 4.0 Baso % (Auto) 0.8 Absolute Neuts (auto) 7.0 Absolute Lymphs (auto) 3.26 Nucleated RBC % 0 D-Dimer Quant (PE/DVT) 0.33 Sodium 140 Potassium 3.3 L Chloride 104 Carbon Dioxide 25.0 Anion Gap 11 BUN 16 Creatinine 0.92 Estim Creat Clear Calc 93.77 Est GFR (MDRD) Af Amer 118 Est GFR (MDRD) Non-Af 98 BUN/Creatinine Ratio 17.4 Glucose 186 H Calcium 8.9 Troponin I High Sens 153 H* Radiography Chest X-Ray - ED: 1 View, Read by ED Physician, Chronic Changes and No Infiltrates Diagnostic Testing: Clinical Impression(s) from Imaging Studies Chest X-Ray 03/18/23 22:37 IMPRESSION: Normal x-ray examination of the chest for age. Electronically Signed: Katelynn Roca MD at 23:02 EDT , EKG Initial EKG: Interpretation: Sinus Tachycardia (Sinus tach at 117. Nonspecific T wave flattening. No significant ST change.) Treatment and Re-Evaluation :: Patient was ordered morphine for pain along with aspirin. Given his QTc measured at 474 I gave him p.o. Phenergan. Unfortunately patient did have vomiting. He was given an IM Phenergan to control nausea symptoms. CBC reveals a white count of 11.8 with a hemoglobin of 14.7. Chemistry studies reveal a potassium of 3.3. Normal renal function. Glucose is 186. Troponin returns elevated at 153. I spoke with Dr. Glasgow. He would like the patient to be given a heparin drip and Nitropaste. I will also give a dose of a beta-thu. When I went back in to reevaluate him his heart rate is currently 102. I will speak with hospitalist regarding admission. Dr. Glasgow will plan to cath the patient tomorrow. Discharge Plan Triage Chief Complaint: Chest Pain ED Provider: Nirmala Armas Dx/Rx/DC Orders Clinical Impression: Non-ST elevation [place] (NSTEMI) Prescriptions: No Action aspirin 81 MG tablet,chewable 81 mg PO DAILY Patient Comments: blood thinner albuterol sulfate 90 mcg/actuation HFA aerosol inhaler 2 puff INHALATION Q4H PRN (Reason: SOB) Qty: 8 1RF metoprolol tartrate 100 mg tablet 100 mg PO BID Qty: 180 4RF nitroglycerin 0.4 mg tablet, sublingual 0.4 mg SUBLINGUAL Q5M PRN (Reason: Chest Pain) Qty: 25 3RF ranolazine 500 mg tablet extended release 12 hr See Rx Instructions .ROUTE .COMPLEX Qty: 60 0RF Dose Instruction: TAKE 1 TABLET BY MOUTH TWICE A DAY Rx Instructions: TAKE 1 TABLET BY MOUTH TWICE A DAY clopidogrel 75 mg tablet See Rx Instructions .ROUTE .COMPLEX Qty: 30 3RF Dose Instruction: TAKE 1 TABLET BY MOUTH EVERY DAY Rx Instructions: TAKE 1 TABLET BY MOUTH EVERY DAY lisinopril 20 mg tablet 20 mg PO DAILY Qty: 30 11RF amlodipine 2.5 mg tablet 2.5 mg PO DAILY Qty: 90 4RF atorvastatin 80 mg tablet 80 mg PO QHS Qty: 90 4RF Primary Care Provider: Thomas Jackson NP Referrals: Thomas Jackson NP, [facility] [Primary Care Provider] - Disposition Disposition: Acute Care Hospital [facility]
--- NOTE | 2023-03-18 22:37 | RAD_ITS ---
STUDY: X-RAY CHEST REASON FOR EXAM: Male, 37 years old. chest pain TECHNIQUE: Single AP portable view of the chest. The images are under penetrated. COMPARISON: 02/12/2020. FINDINGS: The lungs are clear and expanded. There is no demonstrated pleural abnormality. Normal size heart. Normal mediastinum and annika. Normal visualized pulmonary arteries. Normal visualized aortic arch and descending thoracic aorta. Normal visualized thoracic spine. Normal visualized ribs, clavicles, and shoulders. There is no demonstrated abnormality of the visualized soft tissue structures of the upper abdomen. RAD/Chest 1 View (Portable) IMPRESSION: Normal x-ray examination of the chest for age. Electronically Signed: Katelynn Roca MD at 23:02 EDT ,
[2023-03-18 22:39] VITALS: O2SAT 96
[2023-03-18 22:43] LABS: Absolute Lymphocyte Count 3.26 X10^3/uL (0.83-4.51); Basophil# 0.09 X10^3/uL; Basophil% 0.8 % (0-1); Eosinophil# 0.47 X10^3/uL; Hematocrit 45.9 % (40-54); Hemoglobin 14.7 g/dL (13.0-16.5); Lymphocyte # 3.26 X10^3/ul (0.83-4.51); Lymphocyte % 27.5 % (19-41); Mean Corpuscular Hgb 29.2 pg (27.0-32.0); Mean Corpuscular Volume 91.3 fL (80-94); Mean Platelet Vol. 10.8 fl (6.2-12.0); Monocyte# 0.97 X10^3/uL; Monocyte% 8.2 % (0-10); NRBC Flagged by Analyzer 0 % (0-5); Neutrophil % 59.1 % (47-70); Platelet Count 313 K/mm3 (150-450); RBC Distribution Width CV 14.2 % (11.6-14.6); RBC Distribution Width SD 46.9 fl (35.1-43.9); Red Blood Count 5.03 M/mm3 (4.6-6.2); White Blood Count 11.8 K/mm3 (4.4-11.0)
[2023-03-18] MEDS: Aspirin 81 MG TAB.CHEW 324 MG PO (22:46)
[2023-03-18] MEDS: Morphine 4 MG/ML Syringe IV (22:47)
[2023-03-18] MEDS: proMETHazine 25 MG Tablet 12.5 MG PO (22:49)
[2023-03-18] MEDS: 0.9% Normal Saline (1000mL) 1,000 ML 150 ML IV (22:51)
[2023-03-18] MEDS: Pantoprazole Sodium 40 MG in 0.9% Normal Saline (100mL MB+) 100 ML 330 MG IV (22:52)
[2023-03-18 22:59] LABS: D-Dimer Quantitative (DVT/PE) 0.33 FEU/ug/m (0.27-0.49)
[2023-03-18] MEDS: proMETHazine 25 MG/ML Syringe IM (23:10)
[2023-03-18 23:17] VITALS: BP 124/77; PULSE 86; RESP 13; O2SAT 91
[2023-03-18] MEDS: HYDROmorphone 0.5 MG/0.5 ML SYRINGE IV (23:22)
[2023-03-18 23:23] LABS: Anion Gap 11 (5-15); BUN 16 mg/dL (7-18); BUN/Creat Ratio 17.4 RATIO (10-20); Calcium,Total 8.9 mg/dL (8.5-10.1); Chloride 104 mmol/L (98-107); Creatinine, Serum 0.92 mg/dL (0.70-1.30); EST Glomerular Filtration Rate 98 mL/min (>60); Est Glom Filt Rate - Afr Amer 118 mL/min (>60); Estimated Creatinine Clearance 93.77 ml/min; Glucose 186 mg/dL (74-106); Potassium 3.3 mmol/L (3.5-5.1); Sodium Level 140 mmol/L (136-145); Troponin-I HS (w/2H Reflex) 153 pg/mL (3.0-78.0)
[2023-03-18] MEDS: Potassium Chloride 10mEq/100mL 10 MEQ/100 ML IV.SOLN. 100 MEQ IV BOLUS (23:39)
[2023-03-19] VITALS (20 sets, daily range): BP systolic 114–143; BP diastolic 66–93; PULSE 67–97; RESP 15–25; TEMP 35.7–37.1; O2SAT 94–100; BMI 48.2
[2023-03-19] LABS: International Normalized Ratio 0.9; Prothrombin Time (Protime)PT. 12.6 SECONDS (11.7-14.9)
[2023-03-19 00:01] LABS: Partial Thromboplast Time 28.2 Seconds (24.1-36.2)
[2023-03-19] MEDS: Metoprolol Tartrate 5 MG/5 ML Vial IV (00:02)
[2023-03-19] MEDS: Heparin Injection (Vial) 5,000 UNIT/ML VIAL 4000 UNIT IV (00:02)
[2023-03-19] MEDS: HEPARIN/D5w 25,000 UNITS 25,000 UNITS/250 ML IV.SOLN. 10 UNITS CONT INF (00:02)
--- NOTE | 2023-03-19 00:11 | HP.PCM.HOS_ITS ---
HPI - General General Date of Admission: 03/18/23 Date of Service: 03/19/23 Chief Complaint: Chest pain HPI Narrative LON PONCE, is a 37 M with a significant history of CAD s/p 2 stents; and multiple cardiac arrest who presents emergency department with chest pain that started a day before presentation. His chest pain is substernal and it radiates to both shoulders and both arms where he feels like electric shock. He described chest pain as a burning sensation. He rates his chest pain about as 6 out of 10. Sitting up and lying on his left side worsens the chest pain. Lying on his back improved the chest pain. Patient was scheduled to see his cardiology the day after this presentation. A day before his presentation he took a Tums and 2 nitroglycerin which helped with his pain. On the day of presentation he did not get any improvement with nitroglycerin so he told his to bring him to the emergency department. Wh ile at the emergency department patient was found to have tachycardia. However he had an episode where he vagal down. Troponin returned elevated. Emergency department discussed the case with cardiology and patient was started on heparin drip. Also half of an inch of nitroglycerin and metoprolol IV was given. [facility] History Atherosclerosis of coronary artery of [place] heart with angina pectoris Back pain Borderline diabetes mellitus Depression Essential (primary) hypertension Gastric reflux History of GI bleed Hyperlipidemia Nicotine dependence Obesity Obstructive sleep apnea Old anterior myocardial infarction Palpitations Smoker Ventricular fibrillation Wears glasses Home Medications aspirin 81 mg chewable tablet 81 mg PO DAILY 09/18/13 [History Last Taken 04/13/18] albuterol sulfate 90 mcg/actuation aerosol inhaler 2 puff inhalation Q4H PRN SOB #8 grams 12/31/21 [Rx Last Taken Unknown] metoprolol tartrate 100 mg tablet 100 mg PO BID #180 tabs 01/18/22 [Rx Last Taken Unknown] nitroglycerin 0.4 mg sublingual tablet 0.4 mg sublingual Q5M PRN Chest Pain #25 tabs 02/11/22 [Rx Last Taken Unknown] clopidogrel 75 mg tablet See Rx Instructions .Route .COMPLEX #30 tabs 12/23/22 [Rx Last Taken Unknown] ranolazine 500 mg tablet,extended release,12 hr See Rx Instructions .Route .COMPLEX #60 tabs 12/23/22 [Rx Last Taken Unknown] lisinopril 20 mg tablet 20 mg PO DAILY Pt needs to keep appt in january for further refills. #30 tabs 01/02/23 [Rx Last Taken Unknown] amlodipine 2.5 mg tablet 2.5 mg PO DAILY #90 tabs 02/06/23 [Rx Last Taken Unknown] atorvastatin 80 mg tablet 80 mg PO QHS #90 tabs 03/03/23 [Rx Last Taken Unknown] Allergy/AdvReac Type Severity Reaction Status Date / Time No Known Allergies Allergy Verified 03/18/23 22:10 Family History Mother Diabetes Heart disease Uncle Colon cancer Uncle Cancer lung Father Bowel disease Surgical History History of coronary artery stent placement (08/31/13) History of left heart catheterization (04/13/18) Hx of endoscopy Social History household members: significant other Smoking Status: Current every day smoker tobacco type: cigarettes alcohol intake: current alcohol intake frequency: 3 or more drinks per day Alcohol type: beer and hard liquor details: Heavy whiskey intake daily. substance use type: does not use what type of physical activity do you participate in: none ROS ROS Narrative Pertinent positives and pertinent negatives as noted in HPI. All other systems were reviewed and are negative Vital Signs Vital Signs Vital Signs: 03/18/23 22:06 03/18/23 22:39 03/18/23 23:17 Temperature 97.2 F L Temperature Source Temporal Pulse Rate 124 H 86 Respiratory Rate 15 13 Blood Pressure 144/96 H 124/77 H Blood Pressure Mean 112 92 Pulse Ox 96 96 91 Oxygen Delivery Method Room Air Nasal Cannula Oxygen Flow Rate (L/min) 2 03/19/23 00:00 Temperature Temperature Source Pulse Rate 97 Respiratory Rate Blood Pressure 124/68 H Blood Pressure Mean Pulse Ox Oxygen Delivery Method Oxygen Flow Rate (L/min) Weight Weight: 135.624 kg Body Mass Index (BMI) 49.7 Physical Exam Narrative Physical exam: General: Well-nourished, well-developed. Head: Normocephalic, atraumatic, no tenderness Eyes: Vision is grossly intact. EOMI ENT, no trauma, moist mucous membranes, no rhinorrhea Neck: Nontender, No thyromegaly. CVS: Regular rate and rhythm. S1-S2 present. No murmur, gallop or rub. Respiratory : clear to auscultation bilaterally, chest wall nontender Abdomen: Soft, nontender, nondistended, normal bowel sounds, no masses : Deferred Back: Nontender, no CVA tenderness, no midline spinal tenderness, deformities, step-offs Extremities: Nontender full range of motion, no trauma Skin: Normal color, no trauma, abrasions Neuro: Alert, oriented, cranial nerves II through XII grossly intact. Psychiatry: Normal mood. Normal affect. Not depressed. Not anxious. Results Lab / Micro Data 03/18/23 22:30 03/18/23 22:30 Labs: Laboratory Results - last 24 hr 03/18/23 22:30: WBC 11.8 H, RBC 5.03, Hgb 14.7, Hct 45.9, MCV 91.3, MCH 29.2, MCHC 32.0, RDW Std Deviation 46.9 H, RDW Coeff of Melissa 14.2, Plt Count 313, MPV 10.8, Immature Gran % (Auto) 0.400, Neut % (Auto) 59.1, Lymph % (Auto) 27.5, [place] % (Auto) 8.2, Eos % (Auto) 4.0, Baso % (Auto) 0.8, Absolute Neuts (auto) 7.0, Absolute Lymphs (auto) 3.26, Nucleated RBC % 0, PT 12.6, INR 0.9, APTT 28.2, D-Dimer Quant (PE/DVT) 0.33, Sodium 140, Potassium 3.3 L, Chloride 104, Carbon Dioxide 25.0, Anion Gap 11, BUN 16, Creatinine 0.92, Estim Creat Clear Calc 93.77, Est GFR (MDRD) Af Amer 118, Est GFR (MDRD) Non-Af 98, BUN/Creatinine Ratio 17.4, Glucose 186 H, Calcium 8.9, Troponin I High Sens 153 H* Radiology Impression Chest X-Ray 03/18/23 22:37 IMPRESSION: Normal x-ray examination of the chest for age. Electronically Signed: Katelynn Roca MD at 23:02 EDT , Assessment & Plan Assessment/Plan (1) Non-ST elevation CT (NSTEMI): (2) Acute alcoholism: (3) Essential (primary) hypertension: (4) Hyperlipidemia: QUALIFIERS: Hyperlipidemia type: pure hypercholesterolemia Qualified Code(s): E78.00 - Pure hypercholesterolemia, unspecified; E78.0 - Pure hypercholesterolemia (5) Nicotine dependence: QUALIFIERS: Nicotine product type: cigarettes Substance use status: uncomplicated Qualified Code(s): F17.210 - Nicotine dependence, cigarettes, uncomplicated PLAN: Plan Non-STEMI Patient with chest pain and elevated troponins. Initial high sensitive troponin was 153. Delta was 132. EKG interpreted by myself showed T wave flattening in inferior leads that appear similar to previous. Place on a monitored bed at progressive care unit stepdown Actual CXR image was independently visualized. No acute cardiopulmonary process was noted. Agrees with radiologist interpretation. Baby aspirin and Plavix continued. Nitroglycerin paste ordered. Last lipid panel on file was in 2019; repeat. Dilaudid for pain ordered. Morphine as needed for pain ordered We will check lipid panel. Statin: High intensity atorvastatin continued Stat EKG as needed for chest pain Lisinopril metoprolol continued DVT prophylaxis ordered. NPO. Cardiology consult. Hypertension Blood pressure is not within goal Home blood pressure medication continued. As needed hydralazine ordered. Trend blood pressure and adjust blood pressure medications. Alcoholism Placed on CIWA protocol with as needed Ativan. Tobacco abuse Counseled Morbid Obesity: BMI: 48.2kg/m?. Complicates care. Lifestyle modification recommended. DVT prophylaxis not indicated as patient started on therapeutic dose of heparin for A-fib. Time spent in the patient's overall evaluation,decision-making process, review o f diagnostic data, adjustment of management, discussion with other providers, nursing nursing and ancillary staff involved in patient's care documentation, 70 minutes. Charges/Coding Visit Charges Inpatient E&M: 23560 Init Hosp L3
[2023-03-19 00:38] LABS: Reflex Troponin-HS? (from REC) Y
[2023-03-19 01:19] LABS: Troponin-I HS 132 pg/mL (3.0-78.0)
[2023-03-19] MEDS: Potassium Chloride 10mEq/100mL 10 MEQ/100 ML IV.SOLN. 100 MEQ IV BOLUS ×3 (01:30→03:46)
[2023-03-19 05:16] LABS: Hemoglobin 13.7 g/dL (13.0-16.5); Mean Corp Hgb Conc 31.9 g/dL (32-36); Mean Corpuscular Hgb 29.2 pg (27.0-32.0); Mean Corpuscular Volume 91.7 fL (80-94); Mean Platelet Vol. 10.7 fl (6.2-12.0); Platelet Count 261 K/mm3 (150-450); RBC Distribution Width CV 14.3 % (11.6-14.6); RBC Distribution Width SD 48.2 fl (35.1-43.9); Red Blood Count 4.69 M/mm3 (4.6-6.2); White Blood Count 12.6 K/mm3 (4.4-11.0)
[2023-03-19] MEDS: Nitroglycerin Oint 1 INCH PACKET 0.5 INCH TD ×2 (05:21)
[2023-03-19 05:35] LABS: Anion Gap 5 (5-15); BUN 17 mg/dL (7-18); BUN/Creat Ratio 22.3 RATIO (10-20); Calcium,Total 8.9 mg/dL (8.5-10.1); Chloride 108 mmol/L (98-107); Creatinine, Serum 0.76 mg/dL (0.70-1.30); EST Glomerular Filtration Rate 121 mL/min (>60); Est Glom Filt Rate - Afr Amer 146 mL/min (>60); Estimated Creatinine Clearance 117.76 ml/min; Glucose 150 mg/dL (74-106); Potassium 4.4 mmol/L (3.5-5.1); Sodium Level 139 mmol/L (136-145)
[2023-03-19 05:53] LABS: Cholesterol 254 mg/dL (200); High Density Lipoprotein 39 mg/dL; Triglycerides 539 mg/dL
[2023-03-19 05:56] LABS: Troponin-I HS 228 pg/mL (3.0-78.0)
[2023-03-19 06:41] LABS: Partial Thromboplast Time 32.2 Seconds (24.1-36.2)
--- NOTE | 2023-03-19 07:03 | PCM.CONS.C ---
Assessment & Plan Assessment/Plan (1) Non-ST elevation IA (NSTEMI): PLAN: He presents with a non-ST elevation myocardial infarction with chest discomfort. At this juncture my recommendation will be to proceed with a left heart catheterization and depending on the findings further recommendations will be made. Catheterization this morning demonstrated a high-grade in-stent stenosis of approximately 95% in the mid to distal left anterior descending artery. Patient will undergo PCI of the above. (2) Atherosclerosis of coronary artery of [place] heart with angina pectoris: QUALIFIERS: Coronary Disease-Associated Artery/Lesion type: [place] artery Qualified Code(s): I25.119 - Atherosclerotic heart disease of [place] coronary artery with unspecified angina pectoris PLAN: He has 2 previous stents and the plan will be to evaluate the above and depending on the findings further recommendations will be made. (3) Essential (primary) hypertension: PLAN: His blood pressure is mildly elevated. The plan be to continue the current medical therapy. Increase his amlodipine for better blood pressure control. He will have a repeat echocardiogram at some point. (4) Hyperlipidemia: QUALIFIERS: Hyperlipidemia type: pure hypercholesterolemia Qualified Code(s): E78.00 - Pure hypercholesterolemia, unspecified; E78.0 - Pure hypercholesterolemia PLAN: He is on high intensity statin which will be continued. HPI Consult Data Date of Consult: 03/19/23 HPI Narrative HPI Narrative: LON PONCE, is a 37 M who presents. He has a history of premature coronary artery disease with two stents to his LAD in 2013, hypertension, and hyperlipidemia. He had no seen the fiberglass dowel drawing operator in a few years and had ran out of his long-acting nitroglycerin. He was scheduled to see as this afternoon. He presented to the emergency room yesterday with chest discomfort pressure-like sensation and occasional sharp sensation. He did take some Tums and nitroglycerin with some improvement. In the emergency room he was noted to be tachycardic and he was given nitroglycerin and heparin and became briefly vagal. He has minimal chest discomfort at this time. As you know he had a repeat cardiac catheterization in April 2018 and demonstrated patent stents and preserved ejection fraction. He was not under any activity he had not had tobacco use. He is also had some episodes of chest discomfort which appeared to be sharp lancinating. He is not had any presyncope or syncope. His blood pressure on occasion has been elevated. His physical exam demonstrates clear lung law regular rate and rhythm no pedal edema his blood pressure is under good control. [facility] Medical History Atherosclerosis of coronary artery of [place] heart with angina pectoris Back pain Borderline diabetes mellitus Depression Essential (primary) hypertension Gastric reflux History of GI bleed Hyperlipidemia Nicotine dependence Obesity Obstructive sleep apnea Old anterior myocardial infarction Palpitations Smoker Ventricular fibrillation Wears glasses Home Medications aspirin 81 mg chewable tablet 81 mg PO DAILY 09/18/13 [History Last Taken 04/13/18] albuterol sulfate 90 mcg/actuation aerosol inhaler 2 puff inhalation Q4H PRN SOB #8 grams 12/31/21 [Rx Last Taken Unknown] metoprolol tartrate 100 mg tablet 100 mg PO BID #180 tabs 01/18/22 [Rx Last Taken Unknown] nitroglycerin 0.4 mg sublingual tablet 0.4 mg sublingual Q5M PRN Chest Pain #25 tabs 02/11/22 [Rx Last Taken Unknown] clopidogrel 75 mg tablet See Rx Instructions .Route .COMPLEX #30 tabs 12/23/22 [Rx Last Taken Unknown] ranolazine 500 mg tablet,extended release,12 hr See Rx Instructions .Route .COMPLEX #60 tabs 12/23/22 [Rx Last Taken Unknown] lisinopril 20 mg tablet 20 mg PO DAILY Pt needs to keep appt in january for further refills. #30 tabs 01/02/23 [Rx Last Taken Unknown] amlodipine 2.5 mg tablet 2.5 mg PO DAILY #90 tabs 02/06/23 [Rx Last Taken Unknown] atorvastatin 80 mg tablet 80 mg PO QHS #90 tabs 03/03/23 [Rx Last Taken Unknown] Allergy/AdvReac Type Severity Reaction Status Date / Time No Known Allergies Allergy Verified 03/18/23 22:10 Family History Mother Diabetes Heart disease Uncle Colon cancer Uncle Cancer lung Father Bowel disease Surgical History History of coronary artery stent placement (08/31/13) History of left heart catheterization (04/13/18) Hx of endoscopy Social History household members: significant other Smoking Status: Current every day smoker tobacco type: cigarettes alcohol intake: current alcohol intake frequency: 3 or more drinks per day Alcohol type: beer and hard liquor details: Heavy whiskey intake daily. substance use type: does not use what type of physical activity do you participate in: none ROS Constitutional Constitutional: Denies fever(s) or weight loss Eyes Eyes: Reports systems reviewed and no addt'l complaints, except as documented ENT HEENT: Reports systems reviewed and no addt'l complaints, except as documented Cardiovascular Cardiovascular: Reports chest pain at rest and chest pain with activity; Denies dyspnea at rest, dyspnea on exertion, edema, palpitations or paroxysmal nocturnal dyspnea Respiratory/Chest Respiratory/Chest: Denies dyspnea on exertion, productive cough, shortness of breath at rest or shortness of breath with exertion Gastrointestinal Gastrointestinal: Denies change in bowel habits, nausea, vomiting or weight changes Genitourinary Genitourinary: Denies difficulty urinating Musculoskeletal Musculoskeletal: Denies joint stiffness or muscle weakness Integumentary Integumentary: Denies lesions Neurologic Neurologic: Denies dizziness or syncope Psychiatric Psychiatric: Denies anxiety Endocrine Endocrinology: Denies excessive sweating or fatigue Hematologic/Lymphatic Hematologic/Lymphatic: Denies anemia Allergic/Immunologic Allergic/Immunologic: Denies seasonal rhinorrhea Physical Exam Const alert, oriented x3 and no apparent distress General Appearance: cooperative HEENT hearing grossly normal bilaterally Head and Scalp: atraumatic Eyes EOMs intact bilaterally Neck General: normal visual inspection Chest inspection of chest normal and palpation of chest normal Resp normal respiratory effort Auscultation: clear to auscultation bilaterally Cardio regular rate, regular rhythm, S1 normal heart sound and S2 normal heart sound Jugular Venous Distention: JVD GI normal to inspection, nondistended, normoactive bowel sounds Extremity normal capillary refill and no pedal edema Peripheral Pulses: Yes pulses 2+ throughout and femoral pulses present Skin no rashes or lesions noted Neuro oriented x3 and CN's II-XII intact bilaterally Psych Appearance: grossly normal and appropriate Risk Stratification Risk Stratification Applicable: Yes Age >/= 65: No >/= 3 CAD Risk Factors (HTN, HLD, DM, family hx of CAD, or current smoker): Yes Aspirin Use in the Past 7 Days: Yes Severe Angina (>/= episodes in 24 hours): Yes EKG ST Changes >/= 0.5mm: No Positive Cardiac Marker: Yes CHEO Risk Stratification Score: 4 CHEO % Risk: 20% Risk Objective Data Vital Signs: Vital Signs Temp Pulse Resp BP Pulse Ox O2 Del Method O2 Flow Rate 98.0 F 68 16 133/86 H 99 Nasal Cannula 2 03/19/23 06:30 03/19/23 06:30 03/19/23 06:30 03/19/23 06:30 03/19/23 06:30 03/19/23 06:30 03/19/23 06:30 Oxygen Flow Rate (L/min) 2 Oxygen Delivery Method Nasal Cannula Weight: 298 lb 8.094 oz Body Mass Index (BMI) 48.2 Intake & Output: Intake and Output for Last 24 Hours 03/17/23 03/18/23 03/19/23 23:59 23:59 23:59 Intake Total 899.67 / 899.67 Balance 899.67 / 899.67 Lab / Micro Data 03/19/23 05:04 03/19/23 05:04 Labs: Laboratory Results - last 24 hr 03/18/23 22:30: WBC 11.8 H, RBC 5.03, Hgb 14.7, Hct 45.9, MCV 91.3, MCH 29.2, MCHC 32.0, RDW Std Deviation 46.9 H, RDW Coeff of Melissa 14.2, Plt Count 313, MPV 10.8, Immature Gran % (Auto) 0.400, Neut % (Auto) 59.1, Lymph % (Auto) 27.5, [place] % (Auto) 8.2, Eos % (Auto) 4.0, Baso % (Auto) 0.8, Absolute Neuts (auto) 7.0, Absolute Lymphs (auto) 3.26, Nucleated RBC % 0, PT 12.6, INR 0.9, APTT 28.2, D-Dimer Quant (PE/DVT) 0.33, Sodium 140, Potassium 3.3 L, Chloride 104, Carbon Dioxide 25.0, Anion Gap 11, BUN 16, Creatinine 0.92, Estim Creat Clear Calc 93.77, Est GFR (MDRD) Af Amer 118, Est GFR (MDRD) Non-Af 98, BUN/Creatinine Ratio 17.4, Glucose 186 H, Calcium 8.9, Troponin I High Sens 153 H* 03/19/23 00:50: Troponin I High Sens 132 H* 03/19/23 05:04: WBC 12.6 H, RBC 4.69, Hgb 13.7, Hct 43.0, MCV 91.7, MCH 29.2, MCHC 31.9 L, RDW Std Deviation 48.2 H, RDW Coeff of Melissa 14.3, Plt Count 261, MPV 10.7, Sodium 139, Potassium 4.4, Chloride 108 H, Carbon Dioxide 26.0, Anion Gap 5, BUN 17, Creatinine 0.76, Estim Creat Clear Calc 117.76, Est GFR (MDRD) Af Amer 146, Est GFR (MDRD) Non-Af 121, BUN/Creatinine Ratio 22.3 H, Glucose 150 H, Calcium 8.9, Troponin I High Sens 228 H*, Triglycerides 539 H, Cholesterol 254 H, LDL Cholesterol TNP, VLDL Cholesterol TNP, HDL Cholesterol 39 L 03/19/23 06:07: APTT 32.2 Cardiology Labs/Tests 03/18/23 22:30: WBC 11.8 H, RBC 5.03, Hgb 14.7, Hct 45.9, MCV 91.3, MCH 29.2, MCHC 32.0, Plt Count 313, MPV 10.8, Immature Gran % (Auto) 0.400, Neut % (Auto) 59.1, Lymph % (Auto) 27.5, [place] % (Auto) 8.2, Eos % (Auto) 4.0, Baso % (Auto) 0.8, Absolute Neuts (auto) 7.0, Nucleated RBC % 0, PT 12.6, INR 0.9, APTT 28.2, D-Dimer Quant (PE/DVT) 0.33, Sodium 140, Potassium 3.3 L, Chloride 104, Carbon Dioxide 25.0, Anion Gap 11, BUN 16, Creatinine 0.92, Est GFR (MDRD) Af Amer 118, Est GFR (MDRD) Non-Af 98, BUN/Creatinine Ratio 17.4, Glucose 186 H, Calcium 8.9 03/19/23 05:04: WBC 12.6 H, RBC 4.69, Hgb 13.7, Hct 43.0, MCV 91.7, MCH 29.2, MCHC 31.9 L, Plt Count 261, MPV 10.7, Sodium 139, Potassium 4.4, Chloride 108 H, Carbon Dioxide 26.0, Anion Gap 5, BUN 17, Creatinine 0.76, Est GFR (MDRD) Af Amer 146, Est GFR (MDRD) Non-Af 121, BUN/Creatinine Ratio 22.3 H, Glucose 150 H, Calcium 8.9, Triglycerides 539 H, Cholesterol 254 H, LDL Cholesterol TNP, VLDL Cholesterol TNP, HDL Cholesterol 39 L 03/19/23 06:07: APTT 32.2 Rhythm: EKG: ECHO: Stress Test: Cardiac Cath: PCI: CT Surgery: Holter monitor: EPS: PPM: CXR: Chest CT Scan: Radiography Diagnostic Testing: Radiology Impression Chest X-Ray 03/18/23 22:37 IMPRESSION: Normal x-ray examination of the chest for age. Electronically Signed: Katelynn Roca MD at 23:02 EDT ,
[2023-03-19] MEDS: Aspirin 81 MG TAB.CHEW PO (09:43)
[2023-03-19] MEDS: Lisinopril 20 MG Tablet PO (09:43)
[2023-03-19] MEDS: Clopidogrel Bisulfate 75 MG Tablet PO (09:43)
[2023-03-19] MEDS: Metoprolol Tartrate 100 MG Tablet PO (09:43)
[2023-03-19] MEDS: amLODIPine 5 MG Tablet PO (09:46)
--- NOTE | 2023-03-19 09:54 | CASEMGMT ---
Insurance review for hospitals In-network with?[place] insurance if transfer is recommended is as follows: [facility], [place], [facility], [facility], [facility], [facility], [facility] ([facility]), and . Cori Flores, Discharge Planning Asst.
--- NOTE | 2023-03-19 11:30 | EKG12_ITS ---
Test Reason : POST PCI Blood Pressure : / mmHG Vent. Rate : 071 BPM Atrial Rate : 071 BPM P-R Int : 158 ms QRS Dur : 076 ms QT Int : 400 ms P-R-T Axes : 017 049 012 degrees QTc Int : 434 ms Normal sinus rhythm Normal ECG When compared with ECG of 18-MAR-2023 22:17, MANUAL COMPARISON REQUIRED, DATA IS UNCONFIRMED Confirmed by ALIYA BUI, JEFF ([id number]), development editor SUSAN TONY ([id number]) on 04/16/2023 1:50:10 PM Referred By: ASHLEY Confirmed By:JEFF PISANO MD
--- NOTE | 2023-03-19 11:30 | CASEMGMT ---
RN CM Face to Face with patient for initial transition planning/care coordination assessment. RN CM introduced self and role at [facility]. Patient sitting in chair, alert and oriented. Patient willing to participate in assessment and is able to answer all questions appropriately. Care providers, pharmacy, and demographics verified. Patient wishes to discharge home, denies need for home health at this time. Patient states he has no further needs or concerns at this time. CM to follow for discharge planning needs that may arise. PCP: Patient needs new PCP, list provided to jean Specialists: Myah cardiologsit; Osmel surgeon Preferred Pharmacy: [facility] Insurance: [place] Prescription Benefit: yes Living Will/HPOA: none LNOK: Living Arrangements: Patient lives with in a mobile home with 4 steps and railing to enter the home. Patient states he is independent at home. Transportation: self, DME/HHC: Patient denies DME in the home. No previous HHC or SNF. Patient states he smokes 1/2 to whole PPD of cigarettes. Patient states he drink 2-12 beers or pint of whiskey every other day. Patient provided information regarding tobacco cessation program at [facility]. Patient declined resources for alcohol cessation. Disposition Plan: Patient to discharge home with family support and follow-up plans in place. Cher OLGUIN, RN, CM
--- NOTE | 2023-03-19 11:41 | CL.I_ITS ---
Patient Name: LON PONCE Study Date: 03/19/2023 Performing: Braeden Duenas MD Ht: 66 inches 167.64 cm : 1985 Wt: 298.9 lbs 135.4 kg Age: 37 Gender: male BSA: 2.37 PROCEDURE(S) PERFORMED [id number])PTCA, SINGLE CORONARY ARTERY CLINICAL PROFILE AND CO-MORBIDITIES Indications: Suspected CAD Heart Failure: None Stress/Imaging Stress/Image Study Performed: No CAD Presentations: Unstable angina. CONCLUSIONS Successful PTCA of in-stent restenosis in dLAD RECOMMENDATIONS DESCRIPTION OF PROCEDURE The patient arrived to the procedure lab. The risks and benefits of the procedure as well as a full description of our services here and current unavailability of surgical backup were fully explained to the patient and/or their significant other prior to the catheterization. The Timeout was completed, verifying the correct patient and procedure. The patient's procedural site was prepped and draped in the usual fashion. Local anesthetic was given subcutaneously to right radial region with Lidocaine 2% Using a modified Seldinger technique,arterial access was obtained via the right radial artery, a 6Fr sheath was inserted. Left Coronary Artery selective angiography was performed in multiple views using a 5 Fr. 4.0 [place] catheter. Right Coronary Artery selective angiography was then performed in multiple views using a 5 Fr. 4.0 [place] catheter. Left Ventriculography was performed in [place] projection using a 5 Fr. Pig[place] catheter. LV to AO pullback pressures were then recorded.The images were reviewed and options discussed. A decision was then made to proceed with an Intervention, IVUS or other adjunct procedure. xb 3 Guide catheter was inserted and engaged into the LCA. bmw Guide wire was advanced to the LAD. euphora 2.25 x 12 Balloon catheter was advanced across lesion in the LAD, distal. PTCA balloon inflated at 10 atms for 18 secs. PTCA balloon inflated at 10 atms for 27 secs. PTCA balloon inflated at 12 atms for 15 secs. PTCA balloon inflated at 14 atms for 25 secs. PTCA balloon inflated at 16 atms for 14 secs. PTCA balloon inflated at 16 atms for 9 secs. PTCA balloon inflated at 16 atms for 10 secs. Angiogram performed post balloon dilatation. The arterial sheath was pulled and a TR Band was applied for hemostasis INTERVENTION INFORMATION LESION SITE: LAD (Distal) Lesion Complexity: High/C, chronic total occlusion: No, lesion at bifurcation: No, thrombus present: No, lesion length: 15 mm, culprit lesion: Yes, Previously treated lesion: Yes, In-stent restenosis: Yes, Timeframe of previous treatment: >2 years, Previously treated with a stent: Yes Stent Type: with stent type unknown, In-stent Thrombosis: No Pre Stenosis: 95 % Pre intervention CHEO flow: 2 PROCEDURE: Balloon Angioplasty There was excellent angiographic result after PTCA alone. The stent extends to the distal LAD making bypassing this vessel not an ideal option. We felt that instead of placing another drug-eluting stent it will be better to do PTCA alone to see if that gives us long-term results or if there is restenosis at a later date we will have options of stent placement for that time as well instead of exhausting all the options early in this 37-year-old patient. Post Stenosis: 0 % Post intervention CHEO flow: 3 Lesion Devices: [place] .014 190cm BMW [place] Straight Cordis 6 Fr XB3.0 100cm Guide Catheter Ecociclus SC EUPHORA RX 2.25x12 BALLOON COMPLICATIONS No Complications PROCEDURE MEDICATIONS Versed 1 mg IV Fentanyl 50 mcg IV Versed 1 mg IV Oxygen: 2 L/min via nasal cannula Heparin given IA 03/19/2023 10:14:37 Heparin 7000 unit(s) IV 03/19/2023 10:28:55 Verapamil 2.5mg, Ntg 100mcgs, 3000 units of Heparin given IA 03/19/2023 10:14:37 SUMMARY OF HEMODYNAMIC DATA Time AIR REST AO 123/93 (108) SA 10:16:39 LV 128/11, 22 10:21:48 LV 129/11, 23 10:21:57 LV 112/13, 29 10:22:37 LV 128/13, 25 10:22:46 LVp 132/13, 26 10:22:51 AOp 131/80 (104) 10:22:58 Signed By Braeden Duenas MD On 03/19/2023 11:41:10 Braeden Duenas MD
[2023-03-19] MEDS: Ranolazine 500 MG Tablet PO (12:39)
[2023-03-19] MEDS: 0.9% Normal Saline (1000mL) 1,000 ML 80 ML IV (12:40)
--- NOTE | 2023-03-19 13:47 | CRPHASE1 ---
Patient Communication Patient Information Former Patient:: Phase I PHII Cardiac Rehab Discussed with Patient:: Yes Guide to Cardiac Rehab Given to Patient:: Yes Cardiac Rehab Facility Choice List Given to Patient:: Yes Communication to Cardiac Rehab Cut In Worker:: Camille Duenas Sessions:: 36 sessions - 3 days/wk, 12 weeks Cardiac Rehabilitation Info Program Information Cardiac Rehabilitation Program Information: Cardiac Rehab The cardiac rehab team at [facility] consists of highly skilled exercise physiologists, nurses, respiratory therapists and physicians working together with you. Our purpose is to help you have a full recovery and achieve the goals you set for yourself. Over the years many of our patients have returned to activities they assumed they would never do again! We can help restore your confidence and motivation to make lifestyle changes that can have a significant impact on your health and quality of life! We can help answer questions and concerns you may have about exercise, lifestyle, medications, diet, stress and anxiety which are common following a hospitalization. WE monitor ECG and vital signs during exercise and discuss your progress with you and report to your physician(s). Cardiac Rehab is proven to help reduce readmissions, improve functional capacity and lower recurrence of problems with your heart. Our Cardiac Rehab program is Certified by the [employer] Association of Cardio-Vascular and Pulmonary Rehabilitation (AACVPR) and Accredited by the [employer] through our [facility]. You can contact us at . We invite you to call us with your questions or to get started in our program. If you have other questions or concerns be sure to ask your physician/provider during your follow-up visit. WE look forward to seeing you!
--- NOTE | 2023-03-19 13:49 | CRPH1.INSTRU ---
General Education Discussed with Patient CAD and cardiac anatomy and function:: Patient communicates acknowledgment Explanation of diagnoses and procedures:: Patient communicates acknowledgment Sign/Symptoms of [place]:: Patient communicates acknowledgment Antiplatelet therapy: Patient communicates acknowledgment Proper use of NTG-SL: Patient communicates acknowledgment Emergency procedures and activation of EMS: Patient communicates acknowledgment Compliance of all prescribed medications: Patient communicates acknowledgment Smoking Risk Factors Patient Nicotine/Smoking Risk Factors Are:: Cigarettes Recommendations Recommendations Include:: Smoking cessation strategies/Smoking packet Response Code Nicotine/Smoking Response Code:: Patient communicates acknowledgment Dyslipidemia Recommendations Recommendations Include:: Lipid profile not available Overweight/Obesity Risk Factors Patient Overweight/Obesity Risk Factors Are:: Obesity - > or = 30 Recommendations Recommendations Include:: Reduced calorie diet Response Code Overweight/Obesity:: Patient communicates acknowledgment Hypertension Recommendations Recommendations Include:: Maintain BP <130/85 and Decrease/maintain normal body weight Response Code Hypertension:: Patient communicates acknowledgment Heart Disease Risk Factors Patient Heart Disease Risk Factors Are:: Previous cardiac event Recommendations Recommendations Include:: Educated family members of their risk Diabetes Risk Factors Patient Diabetes Risk Factors Are:: No documented hx of diabetes Metabolic Syndrome Recommendations Recommendations Include:: Reinforce compliance to risk factor modifications Sedentary Risk Factors Patient Sedentary Risk Factors Are:: Lack of regular exercise Recommendations Recommendations Include:: Benefits of regular exercise and Monitored Outpatient Cardiac Rehab Response Code Sedentary Response Code:: Patient communicates acknowledgment Stress Risk Factors Patient Stress Risk Factors Are:: Patient denies stress as a risk factor
--- NOTE | 2023-03-19 13:50 | CRPHASE1_ITS ---
Patient Communication Patient Information Former Patient:: Phase I PHII Cardiac Rehab Discussed with Patient:: Yes Guide to Cardiac Rehab Given to Patient:: Yes Cardiac Rehab Facility Choice List Given to Patient:: Yes Communication to Cardiac Rehab Disbursing Officer:: Camille Duenas Sessions:: 36 sessions - 3 days/wk, 12 weeks Cardiac Rehabilitation Info Program Information Cardiac Rehabilitation Program Information: Cardiac Rehab The cardiac rehab team at [facility] consists of highly skilled exercise physiologists, nurses, respiratory therapists and physicians working together with you. Our purpose is to help you have a full recovery and achieve the goals you set for yourself. Over the years many of our patients have returned to activities they assumed they would never do again! We can help restore your confidence and motivation to make lifestyle changes that can have a significant impact on your health and quality of life! We can help answer questions and concerns you may have about exercise, lifestyle, medications, diet, stress and anxiety which are common following a hospitalization. WE monitor ECG and vital signs during exercise and discuss your progress with you and report to your physician(s). Cardiac Rehab is proven to help reduce readmissions, improve functional capacity and lower recurrence of problems with your heart. Our Cardiac Rehab program is Certified by the [place] [employer] of Cardio-Vascular and Pulmonary Rehabilitation (AACVPR) and Accredited by the [employer] through our [facility]. You can contact us at . We invite you to call us with your questions or to get started in our program. If you have other questions or concerns be sure to ask your physician/provider during your follow-up visit. WE look forward to seeing you!
--- NOTE | 2023-03-19 17:23 | DCINST_ITS ---
Discharge Instructions Diet Discharge Diet: Low fat / Low cholesterol Activity Discharge Activity: Return to Normal Activity Return to work on:: 03/21/23 Dressing / Incision Call your doctor if you observe: Fever of 101 or Higher, Shortness of breath, Dizziness, Fainting spells, Swelling in the ankles, Chest pain and Increased palpitations (irregular heartbeat) Follow Up Care Test Results: Test results from this visit will be discussed in further detail at your follow- up appointment, if applicable. Discharge Plan Admission Admit Date/Time: 03/18/23 23:58 Attending Provider: Oliverio Naqvi Primary Care Provider: Thmoas Jackson NP Consulting Providers: Kolton Glasgow; Cipriano Seymour Discharge Orders/Prescriptions Prescriptions: New amlodipine 5 mg Tablet 5 mg PO DAILY Qty: 30 0RF Continued aspirin 81 MG tablet,chewable 81 mg PO DAILY Patient Comments: blood thinner albuterol sulfate 90 mcg/actuation HFA aerosol inhaler 2 puff INHALATION Q4H PRN (Reason: SOB) Qty: 8 1RF metoprolol tartrate 100 mg tablet 100 mg PO BID Qty: 180 4RF nitroglycerin 0.4 mg tablet, sublingual 0.4 mg SUBLINGUAL Q5M PRN (Reason: Chest Pain) Qty: 25 3RF ranolazine 500 mg tablet extended release 12 hr See Rx Instructions .ROUTE .COMPLEX Qty: 60 0RF Dose Instruction: TAKE 1 TABLET BY MOUTH TWICE A DAY Rx Instructions: TAKE 1 TABLET BY MOUTH TWICE A DAY clopidogrel 75 mg tablet See Rx Instructions .ROUTE .COMPLEX Qty: 30 3RF Dose Instruction: TAKE 1 TABLET BY MOUTH EVERY DAY Rx Instructions: TAKE 1 TABLET BY MOUTH EVERY DAY lisinopril 20 mg tablet 20 mg PO DAILY Qty: 30 11RF atorvastatin 80 mg tablet 80 mg PO QHS Qty: 90 4RF Discontinued amlodipine 2.5 mg tablet 2.5 mg PO DAILY Qty: 90 4RF Referrals / Follow Up: Kolton Glasgow MD [Med Staff - Active Staff] - Within 3 Months Thomas Jackson NP, STEPHANIE-C [Primary Care Provider] - Within 1 Week Disposition Disposition (needs filled in before D/C Order can be placed): Home, Self Care
--- NOTE | 2023-03-19 17:26 | DS.PCM_ITS ---
Providers Date of Admission: 03/18/23 Primary Care Physician: PEDRO Kimball Consultations 03/19/23 00:49 Consult: Cardiology Routine Consulting Provider: Kolton Glasgow Reason for Consult: Chest Pain EMERGENT Consult: No MD Notified: Yes Date Notified: 03/19/23 Time Notified: 00:06 Method of Notification: ED Physician Initiated Reason For Visit: NSTEMI Diagnosis Discharge Diagnosis (1) Non-ST elevation IN (NSTEMI): Status: Acute Code(s): I21.4 - Non-ST elevation (NSTEMI) myocardial infarction (2) Atherosclerosis of coronary artery of [place] heart with angina pectoris: Status: Chronic Code(s): I25.119 - Atherosclerotic heart disease of [place] coronary artery with unspecified angina pectoris Qualifiers: Coronary Disease-Associated Artery/Lesion type: [place] artery Qualified Code(s): I25.119 - Atherosclerotic heart disease of [place] coronary artery with unspecified angina pectoris (3) Essential (primary) hypertension: Status: Chronic Code(s): I10 - Essential (primary) hypertension (4) Hyperlipidemia: Status: Chronic Code(s): E78.5 - Hyperlipidemia, unspecified Qualifiers: Hyperlipidemia type: pure hypercholesterolemia Qualified Code(s): E78.00 - Pure hypercholesterolemia, unspecified; E78.0 - Pure hypercholesterolemia Medications at Discharge Home Medications aspirin 81 mg chewable tablet 81 mg PO DAILY [facility] 09/18/13 albuterol sulfate 90 mcg/actuation aerosol inhaler 2 puff inhalation Q4H PRN SOB #8 grams 12/31/21 metoprolol tartrate 100 mg tablet 100 mg PO BID blood pressure #180 tabs 01/18/22 nitroglycerin 0.4 mg sublingual tablet 0.4 mg sublingual Q5M PRN Chest Pain #25 tabs 02/11/22 clopidogrel 75 mg tablet See Rx Instructions .Route .COMPLEX anti platelet #30 tabs 12/23/22 ranolazine 500 mg tablet,extended release,12 hr See Rx Instructions .Route .COMPLEX chest pain #60 tabs 12/23/22 lisinopril 20 mg tablet 20 mg PO DAILY Pt needs to keep appt in january for further refills. #30 tabs 01/02/23 atorvastatin 80 mg tablet 80 mg PO QHS cholesterol #90 tabs 03/03/23 amlodipine 5 mg tablet 5 mg PO DAILY #30 tabs 03/19/23 Hospital Course Operations None Procedures Cardiac catheterization Summary of Care Provided Minutes Spent on Discharge: 32 Hospital Course: Per HPI: LON PONCE, is a 37 M with a significant history of CAD s/p 2 stents; and multiple cardiac arrest who presents emergency department with chest pain that started a day before presentation. His chest pain is substernal and it radiates to both shoulders and both arms where he feels like electric shock. He described chest pain as a burning sensation. He rates his chest pain about as 6 out of 10. Sitting up and lying on his left side worsens the chest pain. Lying on his back improved the chest pain. Patient was scheduled to see his cardiology the day after this presentation. A day before his presentation he took a Tums and 2 nitroglycerin which helped with his pain. On the day of presentation he did not get any improvement with nitroglycerin so he told his to bring him to the emergency department. While at the emergency department patient was found to have tachycardia. However he had an episode where he vagal down. Troponin returned elevated. Emergency department discussed the case with cardiology and patient was started on heparin drip. Also half of an inch of nitroglycerin and metoprolol IV was given. Hospital Course: 1. Non-STEMI/CAD status post stent/HTN/HLD?37-year-old male with a history of coronary artery disease has had 2 stents in the past presents to the hospital with chest pain that was radiating to both arms. Initial troponins were elevated with a peak to 228. Given his cardiac history cardiology was consulted who recommended heart cath today. They were able to evaluate him for in-stent stenosis and were able to do an angioplasty with good results, his symptoms have completely resolved post cath. We will discontinue his isosorbide mononitrate and increase his Norvasc from 2-1/2 mg daily to 5 mg daily. These changes were discussed with him and his . I discussed with him the plan for discharge today and they expressed understanding of the risk and benefits of going home and like to go home today. I do recommend outpatient follow-up with your PCP in 3 to 5 days and also cardiology as an outpatient for further evaluation and monitoring with echocardiography. Physical Exam Narrative General: Alert, Oriented x3, Cooperative, No apparent distress HEENT: Atraumatic, PERRLA, EOMI, Normocephalic Oral: Moist Mucosa Neck: Supple, No JVD Lungs: Clear to auscultation, Normal air movement, No rhonchi, No wheeze, No rales Cardiovascular: Regular rate, Regular Rhythm, Normal S1, Normal S2, No murmurs Abdomen: Soft, Non Tender, Non-Distended, No Hepato-splenomegaly Extremities: No edema, Capillary Refill Less than 3 Seconds Skin: No rashes, No breakdown Musculoskeletal: No Tenderness to Palpation of Joints or Extremities Neurological: Cranial nerves II-XII grossly intact, Motor Exam 5/5 strength throughout, Sensory exam intact to light touch and pain Psych/Mental Status: Normal Affect, Appropriate Weight / BMI Weight Weight: 298 lb 8.094 oz Body Mass Index (BMI) 48.2 ABG / Lab / Microbiology Data 03/19/23 05:04 03/19/23 05:04 Laboratory: Laboratory Results - last 24 hr 03/18/23 22:30: WBC 11.8 H, RBC 5.03, Hgb 14.7, Hct 45.9, MCV 91.3, MCH 29.2, MCHC 32.0, RDW Std Deviation 46.9 H, RDW Coeff of Melissa 14.2, Plt Count 313, MPV 10.8, Immature Gran % (Auto) 0.400, Neut % (Auto) 59.1, Lymph % (Auto) 27.5, [place] % (Auto) 8.2, Eos % (Auto) 4.0, Baso % (Auto) 0.8, Absolute Neuts (auto) 7.0, Absolute Lymphs (auto) 3.26, Nucleated RBC % 0, PT 12.6, INR 0.9, APTT 28.2, D-Dimer Quant (PE/DVT) 0.33, Sodium 140, Potassium 3.3 L, Chloride 104, Carbon Dioxide 25.0, Anion Gap 11, BUN 16, Creatinine 0.92, Estim Creat Clear Calc 93.77, Est GFR (MDRD) Af Amer 118, Est GFR (MDRD) Non-Af 98, BUN/Creatinine Ratio 17.4, Glucose 186 H, Calcium 8.9, Troponin I High Sens 153 H* 03/19/23 00:50: Troponin I High Sens 132 H* 03/19/23 05:04: WBC 12.6 H, RBC 4.69, Hgb 13.7, Hct 43.0, MCV 91.7, MCH 29.2, MCHC 31.9 L, RDW Std Deviation 48.2 H, RDW Coeff of Melissa 14.3, Plt Count 261, MPV 10.7, Sodium 139, Potassium 4.4, Chloride 108 H, Carbon Dioxide 26.0, Anion Gap 5, BUN 17, Creatinine 0.76, Estim Creat Clear Calc 117.76, Est GFR (MDRD) Af Amer 146, Est GFR (MDRD) Non-Af 121, BUN/Creatinine Ratio 22.3 H, Glucose 150 H, Calcium 8.9, Troponin I High Sens 228 H*, Triglycerides 539 H, Cholesterol 254 H , LDL Cholesterol TNP, VLDL Cholesterol TNP, HDL Cholesterol 39 L 03/19/23 06:07: APTT 32.2 Radiography Diagnostic Testing: Radiology Impression Chest X-Ray 03/18/23 22:37 IMPRESSION: Normal x-ray examination of the chest for age. Electronically Signed: Katelynn Roca MD at 23:02 EDT Reading Location ID and State: [address] [place] [address] , Service support , D/C Instructions Discharge Diet: Low fat / Low cholesterol Return to work on: 03/21/23 Call your doctor if you observe: Fever of 101 or Higher, Shortness of breath, Dizziness, Fainting spells, Swelling in the ankles, Chest pain and Increased palpitations (irregular heartbeat) Meaningful Use Info Meaningful Use Diagnoses (Choose all that apply): None applicable Discharge Plan Admission Admit Date/Time: 03/18/23 23:58 Attending Provider: Oliverio Naqvi Primary Care Provider: Thomas Jackson NP Consulting Providers: Kolton Glasgow; Cipriano Seymour Discharge Orders/Prescriptions Prescriptions: New amlodipine 5 mg Tablet 5 mg PO DAILY Qty: 30 0RF Continued aspirin 81 MG tablet,chewable 81 mg PO DAILY Patient Comments: blood thinner albuterol sulfate 90 mcg/actuation HFA aerosol inhaler 2 puff INHALATION Q4H PRN (Reason: SOB) Qty: 8 1RF metoprolol tartrate 100 mg tablet 100 mg PO BID Qty: 180 4RF nitroglycerin 0.4 mg tablet, sublingual 0.4 mg SUBLINGUAL Q5M PRN (Reason: Chest Pain) Qty: 25 3RF ranolazine 500 mg tablet extended release 12 hr See Rx Instructions .ROUTE .COMPLEX Qty: 60 0RF Dose Instruction: TAKE 1 TABLET BY MOUTH TWICE A DAY Rx Instructions: TAKE 1 TABLET BY MOUTH TWICE A DAY clopidogrel 75 mg tablet See Rx Instructions .ROUTE .COMPLEX Qty: 30 3RF Dose Instruction: TAKE 1 TABLET BY MOUTH EVERY DAY Rx Instructions: TAKE 1 TABLET BY MOUTH EVERY DAY lisinopril 20 mg tablet 20 mg PO DAILY Qty: 30 11RF atorvastatin 80 mg tablet 80 mg PO QHS Qty: 90 4RF Discontinued amlodipine 2.5 mg tablet 2.5 mg PO DAILY Qty: 90 4RF Referrals / Follow Up: Kolton Glasgow MD [Med Staff - Active Staff] - Within 3 Months Thomas Jackson NP, LEAF STAMPER-C [Primary Care Provider] - Within 1 Week Disposition Disposition (needs filled in before D/C Order can be placed): Home, Self Care Charges/Coding Visit Charges Inpatient E&M: 91384 Disch Hosp >30min
--- NOTE | 2023-03-24 10:08 | CL.D_ITS ---
Patient Name: LON PONCE Study Date: 03/19/2023 Performing: Kolton Glasgow MD Ht: 66 inches 167.64 cm : 1985 Wt: 298.9 lbs 135.4 kg Age: 37 Gender: male BSA: 2.37 PROCEDURE(S) PERFORMED [id number]-([id number])LHC/COR/LV IC01-([id number])PTCA, SINGLE CORONARY ARTERY CLINICAL PROFILE AND INDICATIONS Indications: Suspected CAD Heart Failure: None Stress/Imaging Stress/Image Study Performed: No CAD Presentations: Unstable angina. CONCLUSIONS Single-vessel disease with previously stented LAD with in-stent stenosis of 95%. Mild left ventricular systolic dysfunction RECOMMENDATIONS Referred for immediate PCI DESCRIPTION OF PROCEDURE The patient arrived to the procedure lab. The risks and benefits of the procedure as well as a full description of our services here and current unavailability of surgical backup were fully explained to the patient and/or their significant other prior to the catheterization. The Timeout was completed, verifying the correct patient and procedure. The patient's procedural site was prepped and draped in the usual fashion. Local anesthetic was given subcutaneously to right radial region with Lidocaine 2%. Using a modified Seldinger technique, arterial access was obtained via the right radial artery, a 6Fr sheath was inserted. Left Coronary Artery selective angiography was performed in multiple views using a 5 Fr. 4.0 [place] catheter. Right Coronary Artery selective angiography was then performed in multiple views using a 5 Fr. 4.0 [place] catheter. Left Ventriculography was performed in CUMMINS projection using a 5 Fr. Pigtail catheter. LV to AO pullback pressures were then recorded.The arterial sheath was pulled and a TR Band was applied for hemostasis CORONARY ANGIOGRAPHY DOMINANCE: Left Dominant LEFT HEART ASSESSMENT Left Ventricular Ejection Fraction: by LV Gram 45 % Abnormal LV wall motion. Anterior Hypokinesis - Mild Depressed Left Ventricular systolic function LEFT MAIN: Angiographically normal LEFT ANTERIOR DESCENDING ARTERY: Left anterior descending artery is a medium size vessel with a long stent noted in the mid to distal portion with high-grade 95% in-stent stenosis. CIRCUMFLEX ARTERY: No significant disease noted RIGHT CORONARY ARTERY: No significant disease noted COMPLICATIONS No Complications PROCEDURE MEDICATIONS Versed 1 mg IV Fentanyl 50 mcg IV Versed 1 mg IV Oxygen: 2 L/min via nasal cannula Heparin given IA 03/19/2023 10:14:37 Heparin 7000 unit(s) IV 03/19/2023 10:28:55 Verapamil 2.5mg, Ntg 100mcgs, 3000 units of Heparin given IA 03/19/2023 10:14:37 SUMMARY OF HEMODYNAMIC DATA Time AIR REST AO 123/93 (108) SA 10:16:39 LV 128/11, 22 10:21:48 LV 129/11, 23 10:21:57 LV 112/13, 29 10:22:37 LV 128/13, 25 10:22:46 LVp 132/13, 26 10:22:51 AOp 131/80 (104) 10:22:58 Signed By Kolton Glasgow MD On 03/24/2023 10:07:31 Kolton Glasgow MD
== END 2023-03-19 18:01 | disposition home or self-care (01) | DRG 247 ==
LOC: ED 23:42 → PCU 03-19 00:11
PROVIDERS: Admitting Provider Hospitalist; Emergency Provider Emergency Medicine; PCP Nurse Practitioner Family; Visit Provider Family Medicine
DX: I21.4 Non-ST elevation (NSTEMI) myocardial infarction (principal); T82.855A Stenosis of coronary artery stent, initial encounter; Z68.42 Body mass index [BMI] 45.0-49.9, adult; Z86.74 Personal history of sudden cardiac arrest; E66.01 Morbid (severe) obesity due to excess calories; I48.91 Unspecified atrial fibrillation; I25.110 Atherosclerotic heart disease of native coronary artery with unstable angina pectoris; F10.20 Alcohol dependence, uncomplicated; I10 Essential (primary) hypertension; F17.210 Nicotine dependence, cigarettes, uncomplicated; I25.10 Atherosclerotic heart disease of native coronary artery without angina pectoris; I25.2 Old myocardial infarction; E78.5 Hyperlipidemia, unspecified; Z95.5 Presence of coronary angioplasty implant and graft; Z79.82 Long term (current) use of aspirin; Y82.9 Unspecified medical devices associated with adverse incidents; Y90.9 Presence of alcohol in blood, level not specified
CPT/HCPCS: 36415; 71045; 80048; 80061; 84484; 85025; 85027; 85379; 85610; 85730; 92920; 93005; 93458; 99152; 99153; 99285; J7030; J7040; A4216; C1769; C1887; C1894; Q9967

== ENCOUNTER → 2023-06-05 | Outpatient (CLI) | payer BC, SELFPAY ==
[2023-06-05 12:25] LABS: Anion Gap 9 (5-15); BUN 15 mg/dL (7-18); BUN/Creat Ratio 18.2 RATIO (10-20); Calcium,Total 9.7 mg/dL (8.5-10.1); Chloride 101 mmol/L (98-107); Creatinine, Serum 0.82 mg/dL (0.70-1.30); EST Glomerular Filtration Rate 110 mL/min (>60); Est Glom Filt Rate - Afr Amer 133 mL/min (>60); Glucose 104 mg/dL (74-106); Potassium 4.6 mmol/L (3.5-5.1); Sodium Level 137 mmol/L (136-145)
[2023-06-05 12:27] LABS: BNP,B-Type NATRIURETIC PEPTIDE 2.4 pg/mL (0-100)
[2023-06-05 12:53] LABS: Hemoglobin A1c 6.3 % (3.8-5.6)
== END | disposition home or self-care (01) ==
LOC: LAB 11:10
PROVIDERS: PCP Family Medicine; Referring Provider Nurse Practitioner Family; Visit Provider Nurse Practitioner Family
DX: Z95.5 Presence of coronary angioplasty implant and graft (principal); E66.9 Obesity, unspecified; G47.10 Hypersomnia, unspecified; R07.9 Chest pain, unspecified
CPT/HCPCS: 36415; 80048; 83036; 83880

== ENCOUNTER 2023-11-20 10:31 | Emergency (ER) | payer OTHER, BC, SELFPAY ==
[2023-11-20 10:32] VITALS: BP 137/101; PULSE 113; RESP 22; TEMP 36.2; O2SAT 98; BMI 48.0
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
[2023-11-20 12:19] VITALS: BP 135/90; PULSE 102; RESP 18; TEMP 36.6; O2SAT 97
== END 2023-11-20 12:20 | disposition home or self-care (01) ==
PROVIDERS: Emergency Provider Emergency Medicine; Visit Provider Emergency Medicine
DX: S13.4XXA Sprain of ligaments of cervical spine, initial encounter (principal); V49.40XA Driver injured in collision with unspecified motor vehicles in traffic accident, initial encounter; Y99.0 Civilian activity done for income or pay; Y92.410 Unspecified street and highway as the place of occurrence of the external cause; I25.2 Old myocardial infarction; I25.10 Atherosclerotic heart disease of native coronary artery without angina pectoris; I10 Essential (primary) hypertension; E78.5 Hyperlipidemia, unspecified; Z79.82 Long term (current) use of aspirin; Z79.899 Other long term (current) drug therapy; Z79.02 Long term (current) use of antithrombotics/antiplatelets; Z95.5 Presence of coronary angioplasty implant and graft; F17.210 Nicotine dependence, cigarettes, uncomplicated; M54.9 Dorsalgia, unspecified
CPT/HCPCS: 71045; 72040; 72070; 72072; 72100; 99282

== ENCOUNTER 2024-10-09 16:30 | Emergency (ER) | payer OTHER, MEDICAID, SELFPAY ==
[2024-10-09 16:31] VITALS: BP 139/81; PULSE 96; RESP 22; TEMP 36.1; O2SAT 95; BMI 47.6
--- NOTE | 2024-10-09 16:51 | RAD_ITS ---
PROCEDURE: ABD DECUB AND/OR ERECT(PORTABL 10/09/2024 REASON FOR EXAM: PAIN TECHNIQUE: Supine and upright views of the abdomen. COMPARISON: None FINDINGS: Bowel gas: Bowel gas pattern is normal. No evidence of bowel obstruction. Free air: No free air. Calcifications: No suspicious calcifications. Bones: The bones are unremarkable. Other: RAD/Abd Decub and/or Erect(Portabl IMPRESSION: NO ACUTE FINDINGS Reading Location: [facility]
--- NOTE | 2024-10-09 16:51 | RAD_ITS ---
PROCEDURE: RIBS UNI MIN 3V W/PA CHEST 10/09/2024 REASON FOR EXAM: PAIN TECHNIQUE: Frontal and oblique views of the right ribs. Frontal view of the chest. COMPARISON: None FINDINGS: Heart: The heart size is normal. Lungs: The lungs are clear. Pleura: No pneumothorax or pleural effusions. Ribs: No acute fractures. Other: RAD/Ribs Uni Min 3V w/PA Chest IMPRESSION: No acute fractures. Reading Location: [facility]
--- NOTE | 2024-10-09 16:51 | EKG12_ITS ---
Test Reason : CHEST Blood Pressure : */* mmHG Vent. Rate : 89 BPM Atrial Rate : 89 BPM P-R Int : 146 ms QRS Dur : 84 ms QT Int : 378 ms P-R-T Axes : 18 67 22 degrees QTcB Int : 459 ms Normal sinus rhythm Normal ECG Confirmed by AIDAN BUI, KULDEEP ([id number]), managing editor ROLANDO FRANKLIN ([id number]) on 10/11/2024 6:01:50 AM Referred By: Confirmed By: KULDEEP BERMUDEZ MD
--- NOTE | 2024-10-09 16:53 | EDS_ITS ---
HPI History of Present Illness Chief Complaint: Other, Pain/Inj Narrative Narrative: 38-year-old male past medical history of coronary artery disease, smoker, presents with right sided rib pain that he has had for the last 2 days. He relates history that he has been really sick with upper respiratory infection type symptoms for the last few weeks. 2 days ago, he coughed really hard and felt a pop in his right lateral rib cage. It has been hurting him and he has pain with movement of his rib cage and when he coughs. Today, he coughed again and felt a pop in his abdomen mainly towards the right upper quadrant. He has history of hernia repair, which has returned as well. He became very sweaty and nauseated and he was concerned because that is exactly what happened when he had his CA a few years ago. He presents mainly because of the right sided rib pain, and the pain in his right abdomen. He denies any other exacerbating or alleviating factors. He was concerned because he became diaphoretic after he felt a pop in his abdomen. No vomiting or problems with bowel movements. [facility] Medical History Acute alcoholism Wears glasses Depression Back pain History of GI bleed Gastric reflux Smoker Old anterior myocardial infarction Atherosclerosis of coronary artery of [place] heart with angina pectoris Nicotine dependence Essential (primary) hypertension Ventricular fibrillation Obstructive sleep apnea Palpitations Obesity Borderline diabetes mellitus Hyperlipidemia Home Medications ?Medication ?Instructions ?Recorded ?Last Taken ?Type aspirin 81 mg chewable tablet 81 mg PO DAILY heart hea lth 09/18/13 04/13/18 History cyclobenzaprine 10 mg tablet 10 mg PO TID PRN Muscle S pasm #20 11/20/23 Unknown Rx TABLETS albuterol sulfate 90 mcg/actuation 2 puff PO Q4H PRN P RN for dyspnea 09/30/24 Unknown Rx aerosol inhaler #6.7 ea amlodipine 5 mg tablet 5 mg PO DAILY #90 tabs 09/30 Unknown Rx atorvastatin 80 mg tablet 80 mg PO QHS cholesterol #90 tabs 09/30/24 Unknown Rx clopidogrel 75 mg tablet See Rx Instructions .Route 0 09/30/24 Unknown Rx .COMPLEX anti platelet #90 tabs lisinopril 40 mg tablet 20 mg (1/2 x 40 mg) PO BID # 30 tabs 09/30/24 Unknown Rx metoprolol tartrate 100 mg tablet 100 mg PO BID blood pressure #180 09/30/24 Un known Rx tabs nitroglycerin 0.4 mg sublingual 0.4 mg sublingual Q5M PRN Chest 09/30/24 Unknown Rx tablet Pain #25 tabs ranolazine 500 mg tablet,extended 500 mg PO BID chest pain #180 tabs 09/30/24 Unknown Rx release,12 hr Allergy/AdvReac Type Severity Reaction Status Date / Time No Known Allergies Allergy Verified 10/09/24 16:33 Family History Mother Diabetes Heart disease Uncle Colon cancer Uncle Cancer lung Father Bowel disease Surgical History History of PTCA (03/20/23) Hx of endoscopy History of left heart catheterization (04/13/18) History of coronary artery stent placement (08/21/13) Social History household members: significant other housing: house Smoking Status: Current every day smoker tobacco type: cigarettes alcohol intake: current alcohol intake frequency: 3 or more drinks per day Alcohol type: beer and hard liquor details: Heavy whiskey intake daily. substance use type: does not use what type of physical activity do you participate in: none ROS ROS ED ROS Narrative Constitutional: No fever, no chills. Positive diaphoresis. Cardiovascular: Right-sided rib/chest pain. No palpitations. No pedal edema. Respiratory: No cough, no shortness of breath. Abdominal: Right upper quadrant abdominal pain. Positive nausea. No vomiting. Genitourinary: No dysuria. No hematuria. Musculoskeletal: No myalgias. No arthralgias. Neurologic: No headaches. No dizziness. No lightheadedness. EXAM Physical Exam Narrative Exam Narrative: Afebrile. Vital signs noted. Nontoxic-appearing. PERRL, EOMI. Neck soft and supple without meningismus. Cardiovascular examination feels a regular rate and rhythm. Chest wall tender on right lateral ribs, no crepitance. Lungs clear to auscultation bilaterally. No noted ecchymosis. Abdomen is soft without guarding or rebound, negative Gambino sign, positive bowel sounds. Reducible hernia right upper quadrant. Neurological examination nonfocal and nonlateralizing. Const Vital Signs: 10/09/24 16:31 10/09/24 16:45 10/09/24 18:30 Temperature 97 F L Temperature Source Temporal Pulse Rate 96 90 Respiratory Rate 22 H 16 Respiratory Effort Normal Non-Labored Respiratory Pattern Normal Blood Pressure 139/81 H 123/76 H Blood Pressure Mean 100 91 Pulse Ox 95 98 Oxygen Delivery Method Room Air 10/09/24 20:00 Temperature Temperature Source Pulse Rate 87 Respiratory Rate 16 Respiratory Effort Respiratory Pattern Blood Pressure 130/84 H Blood Pressure Mean 99 Pulse Ox 98 Oxygen Delivery Method MDM MDM MDM Narrative Medical decision making narrative: The differential diagnosis includes but not limited to rib fracture from coughing versus chest wall strain versus pneumonia versus pneumothorax. Regarding his abdominal pain, he may have more of an abdominal wall strain. I do not palpate an incarcerated hernia and I have low suspicion for acute cholecystitis. I do not feel that he requires CT imaging of the abdomen. Regarding his chest wall pain, x-rays of the right ribs will be obtained as well as x-rays of the abdomen to rule out any obstruction. He was given 1 [place] for analgesia. EKG was also obtained to help rule out ACS/STEMI but based on the history and physical, this does not support his right sided chest wall pain that is reproducible. EKG was obtained and interpreted by myself independently as normal sinus rhythm at 89 bpm without ectopy or acute ST changes. No STEMI. On my independent interpretation of the right rib x-rays, there is no pneumothorax, no rib fracture, no pneumonia. I reviewed the radiology report which confirms my independent interpretation. On my independent interpretation of the abdominal films, there is a large amount of stool in the colon but a nonobstructive pattern, no acute process. I reviewed the radiology report which confirms my independent interpretation. Upon repeat examination, at approximately 1800, he is bent over the bed, complaining of right upper quadrant abdominal pain. It is worse with movement and he is having difficulty sitting up. He states he is diaphoretic still secondary to pain. At this point in time, given his continued pain, I will obtain laboratory work and a CT as well to look for any acute pathology. He will be given morphine although he had already received a [place]. I reviewed his laboratory work and he has slight leukocytosis of 11.6 but when compared to prior labs, this seems chronic for him, hemoglobin normal at 14.9 with hematocrit 44.5, platelet count normal at 301. CMP is grossly unremarkable with normal LFTs. Lipase normal at 20 so I doubt pancreatitis. Although anion gap is elevated 17, there has been lab errors throughout the week as he has normal sodium, potassium, and chloride. Carbon dioxide also low at 18.6, but once again I feel this may be part of the lab error. Most importantly, CT of the abdomen and pelvis with IV contrast was obtained and while there is a 4.3 umbilical hernia with fat with minimal stranding, there is no acute process. He has a nonobstructing tiny renal stone. And that he probably has more of an abdominal wall strain and chest wall strain. At this point in time, I feel he can be discharged to follow-up with a primary care provider and take [id number] medications as needed for pain. Return instructions to the emergency department were reviewed. Disposition is discharged home in stable condition. History & Record Review Discussion w/independent historian: Patient Additional record(s) reviewed:: Prior labs Lab Data Attestation: I reviewed the patient's lab results. Labs: Laboratory Results - last 24 hr 10/09/24 18:08 WBC 11.6 H RBC 4.90 Hgb 14.9 Hct 44.5 MCV 90.8 MCH 30.4 MCHC 33.5 RDW Std Deviation 45.0 H RDW Coeff of Melissa 13.7 Plt Count 301 MPV 10.9 Immature Gran % (Auto) 0.300 Neut % (Auto) 65.5 Lymph % (Auto) 23.8 Simpson % (Auto) 6.6 Eos % (Auto) 3.0 Baso % (Auto) 0.8 Absolute Neuts (auto) 7.6 Absolute Lymphs (auto) 2.76 Nucleated RBC % 0 Sodium 138 Potassium 3.8 Chloride 102 Carbon Dioxide 18.6 L Anion Gap 17 H BUN 13 Creatinine 0.90 Estim Creat Clear Calc 141.67 Est GFR (MDRD) Non-Af 110 BUN/Creatinine Ratio 14.3 Glucose 140 H Calcium 9.2 Total Bilirubin 0.25 AST 30 ALT 31 Alkaline Phosphatase 110 Total Protein 7.0 Albumin 4.1 Globulin 2.9 Albumin/Globulin Ratio 1.4 Lipase 20 Radiography Diagnostic Testing: Clinical Impression(s) from Imaging Studies Abdomen X-Ray 10/09/24 16:51 IMPRESSION: NO ACUTE FINDINGS Reading Location: [facility] Ribs w/Chest X-Ray 10/09/24 16:51 IMPRESSION: No acute fractures. Reading Location: [facility] Abdomen/Pelvis CT 10/09/24 17:58 IMPRESSION: 4.3 cm fat containing umbilical hernia with subtle stranding. Tiny nonobstructing right renal calculus. No inflammatory changes of the bowel loops are demonstrated. Reading Location: [facility] Discharge Plan Triage Chief Complaint: Other, Pain/Inj ED Provider: Rafita Xavier Dx/Rx/DC Orders Clinical Impression: Strain of chest wall, Abdominal pain, Umbilical hernia Instructions: ED Chest Wall Pain, Costochondritis, ED Abdominal Pain Unkn Cause Male..., ED Chest Wall Strain Prescriptions: No Action aspirin 81 MG tablet,chewable 81 mg PO DAILY Patient Comments: blood thinner cyclobenzaprine 10 mg tablet 10 mg PO TID PRN (Reason: Muscle Spasm) Qty: 20 0RF amlodipine 5 mg tablet 5 mg PO DAILY Qty: 90 3RF albuterol sulfate 90 mcg/actuation HFA aerosol inhaler 2 puff PO Q4H PRN PRN (Reason: for dyspnea) Qty: 6.7 1RF metoprolol tartrate 100 mg tablet 100 mg PO BID Qty: 180 3RF nitroglycerin 0.4 mg tablet, sublingual 0.4 mg SUBLINGUAL Q5M PRN (Reason: Chest Pain) Qty: 25 3RF ranolazine 500 mg tablet extended release 12 hr 500 mg PO BID Qty: 180 3RF atorvastatin 80 mg tablet 80 mg PO QHS Qty: 90 4RF lisinopril 40 mg tablet 20 mg PO BID Qty: 30 1RF clopidogrel 75 mg tablet See Rx Instructions .ROUTE .COMPLEX Qty: 90 3RF Dose Instruction: TAKE 1 TABLET BY MOUTH EVERY DAY Rx Instructions: TAKE 1 TABLET BY MOUTH EVERY DAY Primary Care Provider: Care Physician,No Primary Referrals: Alejandro [Other] Kenneth Jackson MD [Med Staff - Active Staff] - As soon as possible Care Physician,No Primary [Primary Care Provider] - Fly Hunter, COATING INSPECTOR-[employer] [[facility]] - As soon as possible Activity Restrictions/Additional Instructions: [id number] medications like Tylenol or ibuprofen for pain. Return with new or worsening symptoms. Follow-up with your primary care provider. Ice to the affected areas for 10 to 15 minutes 2-3 times daily. Print Language: Surinamese Disposition Disposition: Home, Self Care
[2024-10-09] MEDS: HYDROcodone Bitartrate/Apap 5/325 Tablet PO (16:57)
--- NOTE | 2024-10-09 17:58 | CT_ITS ---
PROCEDURE: ABDOMEN/PELVIS W IV CONT ONLY 10/09/2024 REASON FOR EXAM: PAIN TECHNIQUE: Abdomen and pelvis CT with intravenous contrast. Coronal and Sagittal reconstruction series were provided. PATIENT PREPARATION: Per protocol ORAL CONTRAST TYPE: None. AMOUNT: mL CONTRAST: Isovue 370 VOLUME: 92 mL Not Provided Gauge IV One or more dose reduction techniques were used (e.g., Automated exposure control, adjustment of the mA and/or kV according to patient size, use of iterative reconstruction technique. RADIATION DOSE SUMMARY: CTDlvol: 30 mGy DLP: 1393 mGycm COMPARISON: None FINDINGS: Lung bases: Mild dependent atelectasis Liver: Diffuse fatty infiltration. Gallbladder: Unremarkable Spleen: Normal size. Pancreas: Normal size without evidence of mass surrounding inflammation or ductal dilation. Adrenals: Unremarkable Kidneys: Tiny nonobstructing right renal calculus. No evidence of hydronephrosis. Small right renal cysts. No follow-up is recommended. Left kidney is grossly unremarkable. Bladder: Unremarkable Reproductive Organs: Unremarkable Bowel: Unremarkable Appendix: Unremarkable Soft tissue: 4.3 cm fat containing umbilical hernia with subtle stranding. Lymph nodes: No lymphadenopathy. Vasculature: Mild diffuse atherosclerotic calcifications are noted. Peritoneum / Retroperitoneum: No free air or free fluid. Bones: Unremarkable CT/Abdomen/Pelvis W IV Cont ONLY IMPRESSION: 4.3 cm fat containing umbilical hernia with subtle stranding. Tiny nonobstructing right renal calculus. No inflammatory changes of the bowel loops are demonstrated. Reading Location: [facility]
[2024-10-09] MEDS: Morphine 4 MG/ML Syringe IV (18:07)
[2024-10-09] MEDS: 0.9% Normal Saline (1000mL) 1,000 ML 999 ML IV (18:07)
[2024-10-09 18:17] LABS: Absolute Lymphocyte Count 2.76 X10^3/uL (0.83-4.51); Absolute Neutrophil Count 7.6 X10^3/uL (2.0-7.7); Basophil# 0.09 X10^3/uL; Basophil% 0.8 % (0-1); Eosinophil# 0.35 X10^3/uL; Hematocrit 44.5 % (40-54); Hemoglobin 14.9 g/dL (13.0-16.5); Lymphocyte # 2.76 X10^3/ul (0.83-4.51); Lymphocyte % 23.8 % (19-41); Mean Corp Hgb Conc 33.5 g/dL (32-36); Mean Corpuscular Hgb 30.4 pg (27.0-32.0); Mean Corpuscular Volume 90.8 fL (80-94); Mean Platelet Vol. 10.9 fl (6.2-12.0); Monocyte# 0.76 X10^3/uL; Monocyte% 6.6 % (0-10); NRBC Flagged by Analyzer 0 % (0-5); Neutrophil # 7.58 X10^3/uL (2.7-7.7); Neutrophil % 65.5 % (47-70); Platelet Count 301 K/mm3 (150-450); RBC Distribution Width CV 13.7 % (11.6-14.6); White Blood Count 11.6 K/mm3 (4.4-11.0)
[2024-10-09 18:30] VITALS: BP 123/76; PULSE 90; RESP 16; O2SAT 98
[2024-10-09 18:34] LABS: ALB/GLOB Ratio 1.4 RATIO (0.9-2.4); AST(SGOT) 30 U/L (<=37); Alanine Aminotransfer ALT/SGPT 31 U/L (<=46); Albumin, Serum 4.1 g/dL (3.5-5.0); Alkaline Phosphatase 110 U/L (40-129); Anion Gap 17 (5-15); BUN 13 mg/dL (4-19); BUN/Creat Ratio 14.3 RATIO (10-20); Calcium,Total 9.2 mg/dL (7.6-11.0); Carbon Dioxide 18.6 mmol/L (21.0-32.0); Chloride 102 mmol/L (98-108); EST Glomerular Filtration Rate 110 (>60); Estimated Creatinine Clearance 141.67 ml/min (50-250); Globulin 2.9 g/dL (2.2-4.2); Glucose 140 mg/dL (70-99); Lipase 20 U/L (13-75); Potassium 3.8 mmol/L (3.3-5.1); Sodium Level 138 mmol/L (133-145); Total Bilirubin 0.25 mg/dL (0.00-1.30)
[2024-10-09 20:00] VITALS: BP 130/84; PULSE 87; RESP 16; O2SAT 98
[2024-10-09 20:08] VITALS: BP 130/84; PULSE 87; RESP 16; TEMP 36.6; O2SAT 98
== END 2024-10-09 20:18 | disposition home or self-care (01) ==
PROVIDERS: Emergency Provider Emergency Medicine; Visit Provider Emergency Medicine
DX: S29.011A Strain of muscle and tendon of front wall of thorax, initial encounter (principal); K42.9 Umbilical hernia without obstruction or gangrene; F17.210 Nicotine dependence, cigarettes, uncomplicated; I25.10 Atherosclerotic heart disease of native coronary artery without angina pectoris; I10 Essential (primary) hypertension; N20.0 Calculus of kidney; I25.2 Old myocardial infarction; Z79.82 Long term (current) use of aspirin; G47.33 Obstructive sleep apnea (adult) (pediatric); Z95.5 Presence of coronary angioplasty implant and graft; R10.11 Right upper quadrant pain; X58.XXXA Exposure to other specified factors, initial encounter
CPT/HCPCS: 71101; 74019; 74177; 80053; 83690; 85025; 93005; 96361; 96374; 99283; Q9967; A4216

== ENCOUNTER 2025-01-26 04:45 | Emergency (ER) | payer OTHER, SELFPAY ==
[2025-01-26 04:46] VITALS: BP 144/87; PULSE 109; RESP 19; TEMP 36.8; O2SAT 98; BMI 47.6
[2025-01-26] MEDS: Ketorolac 30 MG/ML Syringe IV (05:07)
[2025-01-26 05:10] LABS: Hematocrit 42.8 % (40-54); Hemoglobin 13.8 g/dL (13.0-16.5); Immature Granulocytes Count 0.070 X10^3/uL (0.0-0.0); Mean Corp Hgb Conc 32.2 g/dL (32-36); Mean Corpuscular Volume 91.6 fL (80-94); Mean Platelet Vol. 10.6 fl (6.2-12.0); NRBC Flagged by Analyzer 0 % (0-5); Platelet Count 310 K/mm3 (150-450); RBC Distribution Width CV 13.9 % (11.6-14.6); RBC Distribution Width SD 46.9 fl (35.1-43.9); Red Blood Count 4.67 M/mm3 (4.6-6.2); White Blood Count 13.5 K/mm3 (4.4-11.0)
--- NOTE | 2025-01-26 05:20 | RAD_ITS ---
PROCEDURE: CHEST PA AND LATERAL 01/26/2025 REASON FOR EXAM: CHEST PAIN TECHNIQUE: CHEST PA AND LATERAL COMPARISON: 10/09/2024 FINDINGS: Normal heart size. Status post coronary stenting. Well inflated lungs. No consolidation, effusion, or pneumothorax. RAD/Chest PA and Lateral IMPRESSION: No acute chest findings. Reading Location: [facility]-
--- NOTE | 2025-01-26 05:27 | EX.ED.DYSGE1 ---
HPI History of Present Illness Chief Complaint: Chest Pain Informant: patient and spouse/S.O. Narrative Narrative: Patient is a 39-year-old male with past medical history of coronary artery disease status post 2 stents placed in 2013. He last had a cath in 2018 which showed patent stents. Patient reports that on Friday he had a bout of midsternal to left-sided chest discomfort described as more of a sense of pressure and with this he had bouts of nausea and vomiting. He states those symptoms resolved completely and he continued with his normal medication and daily routine. However beginning late Friday evening he developed similar symptoms with another bout of nausea and vomiting. He states he took a home nitro with symptom improvement however the pain never completely resolved. It has persisted into the morning and with concern this could be a repeat cardiac event he presents for evaluation. [facility] Medical History Acute alcoholism Wears glasses Depression Back pain History of GI bleed Gastric reflux Smoker Old anterior myocardial infarction Atherosclerosis of coronary artery of [place] heart with angina pectoris Nicotine dependence Essential (primary) hypertension Ventricular fibrillation Obstructive sleep apnea Palpitations Obesity Borderline diabetes mellitus Hyperlipidemia Home Medications Medication Instructions Recorded Last Taken Type aspirin 81 mg chewable tablet 81 mg PO DAILY heart [facility] 09/18/13 04/13/18 History cyclobenzaprine 10 mg tablet 10 mg PO TID PRN Muscle Spasm #20 11/20/23 Unknown Rx TABLETS albuterol sulfate 90 mcg/actuation 2 puff PO Q4H PRN PRN for dyspnea 09/30/24 Unknown Rx aerosol inhaler #6.7 ea amlodipine 5 mg tablet 5 mg PO DAILY #90 tabs 09/30/24 Unknown Rx atorvastatin 80 mg tablet 80 mg PO QHS cholesterol #90 tabs 09/30/24 Unknown Rx clopidogrel 75 mg tablet See Rx Instructions .Route 09/30/24 Unknown Rx .COMPLEX anti platelet #90 tabs lisinopril 40 mg tablet 20 mg (1/2 x 40 mg) PO BID #30 tabs 09/30/24 Unknown Rx metoprolol tartrate 100 mg tablet 100 mg PO BID blood pressure #180 09/30/24 Unknown Rx tabs nitroglycerin 0.4 mg sublingual 0.4 mg sublingual Q5M PRN Chest 09/30/24 Unknown Rx tablet Pain #25 tabs ranolazine 500 mg tablet,extended 500 mg PO BID chest pain #180 tabs 09/30/24 Unknown Rx release,12 hr Allergy/AdvReac Type Severity Reaction Status Date / Time No Known Allergies Allergy Verified 01/26/25 04:51 Family History Mother Diabetes Heart disease Uncle Colon cancer Uncle Cancer lung Father Bowel disease Surgical History History of PTCA (03/20/23) Hx of endoscopy History of left heart catheterization (04/13/18) History of coronary artery stent placement (08/21/13) Social History household members: significant other housing: house Smoking Status: Current every day smoker tobacco type: cigarettes alcohol intake: current alcohol intake frequency: 3 or more drinks per day Alcohol type: beer and hard liquor details: Heavy whiskey intake daily. substance use type: does not use what type of physical activity do you participate in: none ROS ROS ED Constitutional Constitutional ED: Reports sweats; Denies chills or fever(s) Eyes Eyes: Denies blurry vision or change in vision ENT ENT ED: Denies sore throat Cardiovascular Cardiovascular: Reports chest pain; Denies palpitations or racing heartbeat Respiratory/Chest Respiratory/Chest: Denies cough or dyspnea Gastrointestinal Gastrointestinal: Reports nausea and vomiting; Denies abdominal pain or diarrhea Musculoskeletal Musculoskeletal: Denies back pain Integumentary Denies rash Neurologic Neurologic: Denies headache(s) Hematologic/Lymphatic Hematologic/Lymphatic: Denies easy bleeding or easy bruising EXAM Physical Exam Const Vital Signs: 01/26/25 04:46 01/26/25 04:50 01/26/25 05:46 Temperature 98.3 F Temperature Source Oral Pulse Rate 109 H 83 Respiratory Rate 19 H 18 Respiratory Effort Non-Labored Blood Pressure 144/87 H 116/65 Blood Pressure Mean 106 82 Pulse Ox 98 98 Oxygen Delivery Method Room Air Room Air 01/26/25 06:00 01/26/25 07:00 Temperature Temperature Source Pulse Rate 85 78 Respiratory Rate 18 16 Respiratory Effort Blood Pressure 113/52 L Blood Pressure Mean 72 Pulse Ox 98 98 Oxygen Delivery Method Room Air Room Air Positive well nourished, well developed and obese General Appearance ED: well developed; Negative for pallor Nutritional Appearance: obese HEENT HEENT Narrative: Normocephalic atraumatic Eyes PERRL and EOMs intact bilaterally General Eye ED: Negative for scleral icterus Neck supple and no JVD Chest Wall Chest Narrative: There is reproducible chest wall pain with palpation along the left anterior chest costal regions 4-6 the patient states is similar to the pain he has been experiencing. There is no bony deformity or subcutaneous emphysema. No overlying soft tissue changes to suggest trauma or infection Resp normal respiratory effort and clear to auscultation bilaterally Resp Narrative: No nasal flaring retractions tachypnea or accessory muscle use Cardio regular rhythm Rate: tachycardic and other Other Details: Slightly tachycardic rate with regular rhythm Radial and carotid pulses are equal and symmetric GI normal to inspection, nondistended, normoactive bowel sounds, non-tender, non-distended and no masses Auscultation: normoactive bowel sounds Palpation: soft Extremity normal to inspection Extremity Narrative: Negative Homans' sign bilaterally Neuro oriented x3, CN's II-XII intact bilaterally and no sensory deficits noted Sensorium / Orientation: alert Motor Exam: strength 5/5 throughout Psych mental status grossly normal Skin no rashes or lesions noted General Skin Exam: Negative for jaundice or pallor MDM MDM MDM Narrative Medical decision making narrative: Patient arrived to the ER with complaint of left-sided chest discomfort with known history of CAD. Symptoms are concerning for potential acute coronary syndrome. However in order to rule out a abnormal cardiac rhythm or chest pathology such as pneumonia or pneumothorax or potential PE or dissection a chest x-ray with basic blood work and a D-dimer were obtained. The patient's EKG was totally sinus tachycardia rate of 101 and he was kept on the rn cardiac rehab and he had no true dysrhythmia change noted. After receiving aspirin and Toradol his heart rate and blood pressure improved to a normal range. The D-dimer was negative going against PE or dissection. The initial troponin was normal going against acute coronary syndrome. With his known history of CAD and his symptoms of chest discomfort with bouts of nausea and vomiting following there is concern that he is having coronary vessel spasm/Prinzmetal's angina. However as his initial and delta troponin are normal and he has had resolution of symptoms I do not feel that he warrants immediate evaluation by cardiology or heart catheterization. I believe he can continue his normal medication and follow-up as an outpatient to discuss further testing such as echo stress test or heart cath if needed. However at this time he has had resolution of his chest discomfort his vital signs have stabilized and he has had no elevation to his troponin value. Therefore patient is otherwise safe for discharge and can follow-up as an outpatient as directed History & Record Review Discussion w/independent historian: Patient and Significant other Lab Data Attestation: I reviewed the patient's lab results. Labs: Laboratory Results - last 24 hr 01/26/25 01/26/25 04:52 06:59 WBC 13.5 H RBC 4.67 Hgb 13.8 Hct 42.8 MCV 91.6 MCH 29.6 MCHC 32.2 RDW Std Deviation 46.9 H RDW Coeff of Melissa 13.9 Plt Count 310 MPV 10.6 Immature Gran % (Auto) 0.500 Neut % (Auto) 62.4 Lymph % (Auto) 25.9 [place] % (Auto) 7.4 Eos % (Auto) 3.3 Baso % (Auto) 0.5 Absolute Neuts (auto) 8.4 H Absolute Lymphs (auto) 3.49 Nucleated RBC % 0 D-Dimer Quant (PE/DVT) < 0.27 L Sodium 134 Potassium 4.4 Chloride 100 Carbon Dioxide 19.9 L Anion Gap 14 BUN 16 Creatinine 0.92 Estim Creat Clear Calc 137.20 Est GFR (MDRD) Non-Af 107 BUN/Creatinine Ratio 17.0 Glucose 171 H Calcium 9.5 Magnesium 2.1 Troponin T High Sens < 6 Troponin T Hi Sens 2 Hr < 6 Radiography Diagnostic Testing: Clinical Impression(s) from Imaging Studies Chest X-Ray 01/26/25 05:20 IMPRESSION: No acute chest findings. Reading Location: [place] [id number] 2 view chest x-ray is interpreted by the emergency medicine physician reveals no acute infiltrate pneumothorax pleural effusion or widening of the mediastinum Discharge Plan Triage Chief Complaint: Chest Pain ED Provider: Bakari Gonzalez Dx/Rx/DC Orders Clinical Impression: Nonspecific chest pain, CAD (coronary artery disease), Hypertension, Hyperlipidemia Instructions: ED Chest Pain, Uncertain Cause Prescriptions: No Action aspirin 81 MG tablet,chewable 81 mg PO DAILY Patient Comments: blood thinner cyclobenzaprine 10 mg tablet 10 mg PO TID PRN (Reason: Muscle Spasm) Qty: 20 0RF amlodipine 5 mg tablet 5 mg PO DAILY Qty: 90 3RF albuterol sulfate 90 mcg/actuation HFA aerosol inhaler 2 puff PO Q4H PRN PRN (Reason: for dyspnea) Qty: 6.7 1RF metoprolol tartrate 100 mg tablet 100 mg PO BID Qty: 180 3RF nitroglycerin 0.4 mg tablet, sublingual 0.4 mg SUBLINGUAL Q5M PRN (Reason: Chest Pain) Qty: 25 3RF ranolazine 500 mg tablet extended release 12 hr 500 mg PO BID Qty: 180 3RF atorvastatin 80 mg tablet 80 mg PO QHS Qty: 90 4RF lisinopril 40 mg tablet 20 mg PO BID Qty: 30 1RF clopidogrel 75 mg tablet See Rx Instructions .ROUTE .COMPLEX Qty: 90 3RF Dose Instruction: TAKE 1 TABLET BY MOUTH EVERY DAY Rx Instructions: TAKE 1 TABLET BY MOUTH EVERY DAY Primary Care Provider: Care Physician,No Primary Referrals: Kotlon Glasgow MD [Med Staff - Active Staff] - Care Physician,No Primary [Primary Care Provider] - Activity Restrictions/Additional Instructions: Your workup today revealed no sign of acute cardiac damage as your troponins were normal and your D-dimer was normal going against a blood clot or dissection. Your x-ray also showed no sign of lung pathology such as pneumonia. Your symptoms could be related to potential vessel spasm. Please continue all of your home medication as directed by your doctor and follow-up with cardiology to discuss further testing such as stress test echo or heart cath as needed. Return to the ER should you have any further concerns Print Language: Slovenian Disposition Disposition: Home, Self Care
[2025-01-26 05:46] VITALS: BP 116/65; PULSE 83; RESP 18; O2SAT 98
[2025-01-26 05:51] LABS: Anion Gap 14 (5-15); BUN 16 mg/dL (4-19); BUN/Creat Ratio 17.0 RATIO (10-20); Calcium,Total 9.5 mg/dL (7.6-11.0); Carbon Dioxide 19.9 mmol/L (21.0-32.0); Chloride 100 mmol/L (98-108); Estimated Creatinine Clearance 137.20 ml/min (50-250); Glucose 171 mg/dL (70-99); Magnesium 2.1 mg/dL (1.5-2.2); Potassium 4.4 mmol/L (3.3-5.1); Troponin T High Sensitivity < 6 ng/L (<=22)
[2025-01-26 05:52] LABS: D-Dimer Quantitative (DVT/PE) < 0.27 FEU/ug/m (0.27-0.49)
[2025-01-26 06:00] VITALS: PULSE 85; RESP 18; O2SAT 98
--- OUTSIDE RECORDS SUMMARY | 2025-01-26 06:00 | XMS RPT_ITS | CCD ---
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 10/09/24 1654 MR#: [id number] Acct: [id number] Name: LON HAND Rep #: [id number] : 1985 38 From: Camille Duenas MD Attending Dr: Status: DEP ER Ordering Dr: Rafita Xavier MD Date: 10/09/24 Location: ED Sex: M C Admitted: Test Reason : CHEST Blood Pressure : */* mmHG Vent. Rate : 89 BPM Atrial Rate : 89 BPM P-R Int : 146 ms QRS Dur : 84 ms QT Int : 378 ms P-R-T Axes : 18 67 22 degrees QTcB Int : 459 ms Normal sinus rhythm Normal ECG Confirmed by AIDAN BUI, KULDEEP ([id number]), editor & co founder NOEMIBLANK NICOLE ([id number]) on 10/11/2024 6:01:50 AM Referred By: Confirmed By: KULDEEP DUENAS MD 10/11/24 0601 Date Camille Duenas MD CC: Dr. Rafita Xavier MD; No Primary Care Physician Signed [facility] Abd Decub and/or Erect(Betzy blon 10-09-2024 Abd Decub and/or Erect([facility] Imaging Services [address] [place], [place] [address] Abd Decub and/or Erect(Portabl MR#: [id number] Acct: [id number] Name: YAZANLON RAEANN Peralta Rep #: [id number] : 1985 M 38 From: Luz Elena Church DO PCP: Care Physician,No Primary Status: REG ER Study: Abd Decub and/or Erect(Portabl Date of Exam: 0 10/09/24 Exam# [id number] Ordering Dr: Rafita Xavier MD PROCEDURE: ABD DECUB AND/OR ERECT(PORTABL 10/09/2024 REASON FOR EXAM: PAIN TECHNIQUE: Supine and upright views of the abdomen. COMPARISON: None FINDINGS: Bowel gas: Bowel gas pattern is normal. No evidence of bowel obstruction. Free air: No free air. Calcifications: No suspicious calcifications. Bones: The bones are unremarkable. Other: RAD/Abd Decub and/or Erect(Portabl IMPRESSION: NO ACUTE FINDINGS Reading Location: [facility] CC: Dr. Rafita Xavier MD; No Primary Care Physician Recordak Operator: Signed Normal [facility] Abdomen/Pelvis W IV Cont ONL Yon 10-09-2024 Abdomen/Pelvis W IV Cont ONLY [facility] Imaging [place] [address] [place] [address] Abdomen/Pelvis W IV Cont ONLY MR#: [id number] Acct: [id number] Name: LON HAND Jr. Rep #: [id number] : 1985 M 38 From: Luz Elena Church DO PCP: Care Physician,No Primary Status: REG ER Study: Abdomen/Pelvis W IV Cont ONLY Date of Exam: Exam# [id number] Ordering Dr: Rafita Xavier MD PROCEDURE: ABDOMEN/PELVIS W IV CONT ONLY 10/09/2024 REASON FOR EXAM: PAIN TECHNIQUE: Abdomen and pelvis CT with intravenous contrast. Coronal and Sagittal reconstruction series were provided. PATIENT PREPARATION: Per protocol ORAL CONTRAST TYPE: None. AMOUNT: mL CONTRAST: Isovue 370 VOLUME: 92 mL Not Provided Gauge IV One or more dose reduction techniques were used (e.g., Automated exposure control, adjustment of the mA and/or kV according to patient size, use of iterative reconstruction technique. RADIATION DOSE SUMMARY: CTDlvol: 30 mGy DLP: 1393 mGycm COMPARISON: None FINDINGS: Lung bases: Mild dependent atelectasis Liver: Diffuse fatty infiltration. Gallbladder: Unremarkable Spleen: Normal size. Pancreas: Normal size without evidence of mass surrounding inflammation or ductal dilation. Adrenals: Unremarkable Kidneys: Tiny nonobstructing right renal calculus. No evidence of hydronephrosis. Small right renal cysts. No follow-up is recommended. Left kidney is grossly unremarkable. Bladder: Unremarkable Reproductive Organs: Unremarkable Bowel: Unremarkable Appendix: Unremarkable Soft tissue: 4.3 cm fat containing umbilical hernia with subtle stranding. Lymph nodes: No lymphadenopathy. Vasculature: Mild diffuse atherosclerotic calcifications are noted. Peritoneum / Retroperitoneum: No free air or free fluid. Bones: Unremarkable CT/Abdomen/Pelvis W IV Cont ONLY IMPRESSION: 4.3 cm fat containing umbilical hernia with subtle stranding. Tiny nonobstructing right renal calculus. No inflammatory changes of the bowel loops are demonstrated. [facility] CC: Dr. Rafita Xavier MD; No Primary Care Physician Recordak Operator: Signed Normal [facility] Absolute neutrophil countOrd ered By: Rafita Xavier on 10-09-2024 Neutrophils (Bld) [#/Vol] 7.6 10*3/uL 2.0-7.7 [facility] Anion gap in Serum or Plasma Ordered By: Rafita Xavier on 10-09-2024 Anion gap [Moles/Vol] 17 mmol/L High 5- [facility] BUN/creatinine ratioOrdered By: Rafita Xavier on 10-09-2024 Urea nitrogen/Creatinine [Mass ratio] 14.3 mg/mg 10- [facility] Basophil percentageOrdered B y: Rafita Xavier on 10-09-2024 Basophils/100 WBC (Bld) 0.8 % 0-1 [facility] Bilirubin, totalOrdered By: Rafita Xavier on 10-09-2024 Bilirubin [Mass/Vol] 0.25 mg/dL 0.00-1.30 [facility] CBC W/Diff, Automatedon Absolute Lymph 2.76 X10 3/uL Normal 0.83-4.51 [facility] Comment on above: Performed By: #### L 100.0100, L500.4050, L501.2450 #### [facility] [address] [place], [address] Absolute Neut 7.6 X10 3/uL Normal 2.0-7.7 [facility] Comment on above: Performed By: #### L 100.0100, L500.4050, L501.2450 #### [facility] [address] [place], [address] Basophils/100 WBC (Bld) 0.8 % Normal 0-1 [facility] Comment on above: Performed By: #### L 100.0100, L500.4050, L501.2450 #### [facility] [address] [place], [address] Eosinophils/100 WBC (Bld) 3.0 % Normal 0-5 [facility] Comment on above: Performed By: #### L 100.0100, L500.4050, L501.2450 #### [facility] [address] [place], [address] Erythrocyte distribution width (RBC) [Ratio] 13.7 % Normal 11.6-14.6 [facility] Comment on above: Performed By: #### L 100.0100, L500.4050, L501.2450 #### [facility] [address] [place], [address] Hematocrit (Bld) [Volume fraction] 44.5 % Normal 40-54 [facility] Comment on above: Performed By: #### L 100.0100, L500.4050, L501.2450 #### [facility] [address] [place], [address] Hemoglobin (Bld) [Mass/Vol] 14.9 g/dL Normal 13.0-16.5 [facility] Comment on above: Performed By: #### L 100.0100, L500.4050, L501.2450 #### [facility] [address] [place], [address] IG% 0.300 Normal 0.0-0.9 [facility] Comment on above: Result Comment: IG% - Immature Granulocytes (promyelocytes, myelocytes and metamyelocytes) > 1% indicates that a LEFT SHIFT is Present. Performed By: #### L 100.0100, L500.4050, L501.2450 #### [facility] [address] [place], [address] Lymphocytes/100 WBC (Bld) 23.8 % Normal 19-41 [facility] Comment on above: Performed By: #### L 100.0100, L500.4050, L501.2450 #### [facility] [address] [place], [address] MCH (RBC) [Entitic mass] 30.4 pg Normal 27.0-32.0 [facility] Comment on above: Performed By: #### L 100.0100, L500.4050, L501.2450 #### [facility] [address] [place], [address] MCHC (RBC) [Mass/Vol] 33.5 g/dL Normal 32-36 [facility] Comment on above: Performed By: #### L 100.0100, L500.4050, L501.2450 #### [facility] [address] [place], [address] MCV (RBC) [Entitic vol] 90.8 fL Normal 80-94 [facility] Comment on above: Performed By: #### L 100.0100, L500.4050, L501.2450 #### [facility] [address] [place], [address] Monocytes/100 WBC (Bld) 6.6 % Normal 0-10 [facility] Comment on above: Performed By: #### L 100.0100, L500.4050, L501.2450 #### [facility] [address] [place], [address] Neutrophils/100 WBC (Bld) 65.5 % Normal 47-70 [facility] Comment on above: Performed By: #### L 100.0100, L500.4050, L501.2450 #### [facility] [address] [place], [address] Nucleated RBC (Bld) [#/Vol] 0 10*3/uL Normal 0-5 [facility] Comment on above: Performed By: #### L 100.0100, L500.4050, L501.2450 #### [facility] [address] [place], [address] Platelet mean volume (Bld) [Entitic vol] 10.9 fL Normal 6.2-12.0 [facility] Comment on above: Performed By: #### L 100.0100, L500.4050, L501.2450 #### [facility] [address] [place], [address] Platelets (Bld) [#/Vol] 301 10*3/uL Normal 150-450 [facility] Comment on above: Performed By: #### L 100.0100, L500.4050, L501.2450 #### [facility] [address] [place], [address] RBC (Bld) [#/Vol] 4.90 10*6/uL Normal 4.6-6.2 [facility] Comment on above: Performed By: #### L 100.0100, L500.4050, L501.2450 #### [facility] [address] [place], [address] RDW SD 45.0 fl High 35.1-43.9 [facility] Comment on above: Performed By: #### L 100.0100, L500.4050, L501.2450 #### [facility] [address] [place], [address] WBC (Bld) [#/Vol] 11.6 10*3/uL High 4.4-11.0 [facility] Comment on above: Performed By: #### L 100.0100, L500.4050, L501.2450 #### [facility] [address] [place], [address] Carbon dioxide, total [Moles /volume] in Central venous bloodOrdered By: Rafita Xavier on 10-09-2024 CO2 [Moles/Vol] 18.6 mmol/L Low 21.0-32.0 [facility] Chloride assayOrdered By: [place] Xavier on 10-09-2024 Chloride [Moles/Vol] 102 mmol/L 98-108 [facility] Comprehensive Metabolic Prof ilon 10-09-2024 Albumin [Mass/Vol] 4.1 g/dL Normal 3.5-5.0 [facility] Comment on above: Performed By: #### L 100.0100, L500.4050, L501.2450 ####[facility] [address] [place], [address] Albumin/Globulin [Mass ratio] 1.4 {ratio} Normal 0.9-2.4 [facility] Comment on above: Performed By: #### L 100.0100, L500.4050, L501.2450 ####[facility] [address] [place], [address] ALK PHOS 110 U/L Normal 40-129 [facility] Comment on above: Performed By: #### L 100.0100, L500.4050, L501.2450 ####[facility] [address] [place], [address] ALT [Catalytic activity/Vol] 31 U/L Normal <=46 [facility] Comment on above: Performed By: #### L 100.0100, L500.4050, L501.2450 ####[facility] [address] [place], [address] AST [Catalytic activity/Vol] 30 U/L Normal <=37 [facility] Comment on above: Performed By: #### L 100.0100, L500.4050, L501.2450 ####[facility] [address] [place], [address] Bilirubin [Mass/Vol] 0.25 mg/dL Normal 0.00-1.30 [facility] Comment on above: Performed By: #### L 100.0100, L500.4050, L501.2450 ####[facility] [address] [place], [address] BUN/CRE 14.3 RATIO Normal 10-20 [facility] Comment on above: Performed By: #### L 100.0100, L500.4050, L501.2450 ####[facility] [address] [place], [address] Calcium [Mass/Vol] 9.2 mg/dL Normal 7.6-11.0 [facility] Comment on above: Performed By: #### L 100.0100, L500.4050, L501.2450 ####[facility] [address] [place], [address] Chloride [Moles/Vol] 102 mmol/L Normal 98-108 [facility] Comment on above: Performed By: #### L 100.0100, L500.4050, L501.2450 ####[facility] [address] [place], [address] CO2 [Moles/Vol] 18.6 mmol/L Low 21.0-32.0 [facility] Comment on above: Performed By: #### L 100.0100, L500.4050, L501.2450 ####[facility] [address] [place], [address] Creatinine [Mass/Vol] 0.90 mg/dL Normal 0.70-1.20 [facility] Comment on above: Performed By: #### L 100.0100, L500.4050, L501.2450 ####[facility] [address] [place], [address] ECRCL 141.67 ml/min Normal 50-250 [facility] Comment on above: Performed By: #### L 100.0100, L500.4050, L501.2450 ####[facility] [address] [place], [address] GAP 17 High 5-15 [facility] Comment on above: Performed By: #### L 100.0100, L500.4050, L501.2450 ####[facility] [address] [place], [address] GFR/1.73 sq M.predicted among non-blacks MDRD (S/P/Bld) [Vol rate/Area] 110 mL/min/{1.73_m2} Normal >60 [facility] Comment on above: Result Comment: mL/m in/1.73m2 CKD-EPI Creatinine Equation (2020) Performed By: #### L 100.0100, L500.4050, L501.2450 ####[facility] [address] [place], [address] Globulin (S) [Mass/Vol] 2.9 g/dL Normal 2.2-4.2 [facility] Comment on above: Performed By: #### L 100.0100, L500.4050, L501.2450 ####[facility] [address] [place], [address] Glucose [Mass/Vol] 140 mg/dL High 70-99 [facility] Comment on above: Performed By: #### L 100.0100, L500.4050, L501.2450 ####[facility] [address] [place], [address] Potassium [Moles/Vol] 3.8 mmol/L Normal 3.3-5.1 [facility] Comment on above: Performed By: #### L 100.0100, L500.4050, L501.2450 ####[facility] [address] [place], [address] Sodium [Moles/Vol] 138 mmol/L Normal 133-145 [facility] Comment on above: Performed By: #### L 100.0100, L500.4050, L501.2450 ####[facility] [address] [place], [address] T PROT 7.0 g/dL Normal 5.9-8.4 [facility] Comment on above: Performed By: #### L 100.0100, L500.4050, L501.2450 ####[facility] [address] [place], [address] Urea nitrogen [Mass/Vol] 13 mg/dL Normal 4-19 [facility] Comment on above: Performed By: #### L 100.0100, L500.4050, L501.2450 ####[facility] [address] [place], [address] Emergency Department Summary on 10-09-2024 Emergency Department Summary [facility] Medical Records Department [address] [place] [address] Emergency Department Summary 10/09/24 MR#: [id number] Acct: [id number] Name: LON HAND Jr. Rep #: [id number] : 1985 38 From: Rafita Xavier MD PCP: Care Physician,No Primary Status:REG ER Location: ED HPI History of Present Illness Chief Complaint: Other, Pain/Inj Narrative Narrative: 38-year-old male past medical history of coronary artery disease, smoker, presents with right sided rib pain that he has had for the last 2 days. He relates history that he has been really sick with upper respiratory infection type symptoms for the last few weeks. 2 days ago, he coughed really hard and felt a pop in his right lateral rib cage. It has been hurting him and he has pain with movement of his rib cage and when he coughs. Today, he coughed again and felt a pop in his abdomen mainly towards the right upper quadrant. He has history of hernia repair, which has returned as well. He became very sweaty and nauseated and he was concerned because that is exactly what happened when he had his LA a few years ago. He presents mainly because of the right sided rib pain, and the pain in his right abdomen. He denies any other exacerbating or alleviating factors. He was concerned because he became diaphoretic after he felt a pop in his abdomen. No vomiting or problems with bowel movements. [facility] Medical History Acute alcoholism Wears glasses Depression Back pain History of GI bleed Gastric reflux Smoker Old anterior myocardial infarction Atherosclerosis of coronary artery of burns paiute heart with angina pectoris Nicotine dependence Essential (primary) hypertension Ventricular fibrillation Obstructive sleep apnea Palpitations Obesity Borderline diabetes mellitus Hyperlipidemia Home Medications ???Medication ???Instructions ???Recorded ???Last Taken ???Type aspirin 81 mg chewable tablet 81 mg PO DAILY heart health 04/13/18 History cyclobenzaprine 10 mg tablet 10 mg PO TID PRN Muscle Spasm #20 11/20/23 Unknown Rx TABLETS albuterol sulfate 90 mcg/actuation 2 puff PO Q4H PRN PRN for dyspne a 09/30/24 Unknown Rx aerosol inhaler #6.7 ea amlodipine 5 mg tablet 5 mg PO DAILY #90 tabs 09/30/24 Un known Rx atorvastatin 80 mg tablet 80 mg PO QHS cholesterol #90 tabs 09/30/24 Unknown Rx clopidogrel 75 mg tablet See Rx Instructions .Route 5 Unknown Rx .COMPLEX anti platelet #90 tabs lisinopril 40 mg tablet 20 mg (1/2 x 40 mg) PO BID #30 tab s 09/30/24 Unknown Rx metoprolol tartrate 100 mg tablet 100 mg PO BID blood pressure #180 09/30/24 Unknown Rx tabs nitroglycerin 0.4 mg sublingual 0.4 mg sublingual Q5M PRN Chest Unknown Rx tablet Pain #25 tabs ranolazine 500 mg tablet,extended 500 mg PO BID chest pain #180 tab s 09/30/24 Unknown Rx release,12 hr Allergy/AdvReac Type Severity Reaction Status Date / Time No Known Allergies Allergy Verified 10/09/24 16:33 Family History Mother Diabetes Heart disease Uncle Colon cancer Uncle Cancer lung Father Bowel disease Surgical History History of PTCA (03/20/23) Hx of endoscopy History of left heart catheterization (04/13/18) History of coronary artery stent placement (08/21/13) Social History household members: significant other housing: house Smoking Status: Current every day smoker tobacco type: cigarettes alcohol intake: current alcohol intake frequency: 3 or more drinks per day Alcohol type: beer and hard liquor details: Heavy whiskey intake daily. substance use type: does not use what type of physical activity do you participate in: none ROS ROS ED ROS Narrative Constitutional: No fever, no chills. Positive diaphoresis. Cardiovascular: Right-sided rib/chest pain. No palpitations. No pedal edema. Respiratory: No cough, no shortness of breath. Abdominal: Right upper quadrant abdominal pain. Positive nausea. No vomiting. Genitourinary: No dysuria. No hematuria. Musculoskeletal: No myalgias. No arthralgias. Neurologic: No headaches. No dizziness. No lightheadedness. EXAM Physical Exam Narrative Exam Narrative: Afebrile. Vital signs noted. Nontoxic-appearing. PERRL, EOMI. Neck soft and supple without meningismus. Cardiovascular examination feels a regular rate and rhythm. Chest wall tender on right lateral ribs, no crepitance. Lungs clear to auscultation bilaterally. No noted ecchymosis. Abdomen is soft without guarding or rebound, negative Gambino sign, positive bowel sounds. Reducible hernia right upper quadrant. Neurological examination nonfo (more content not included)... Normal [facility] Eosinophil percentageOrdered By: Rafita Xavier on 10-09-2024 Eosinophils/100 WBC (Bld) 3.0 % 0-5 [facility] Erythrocyte distribution wid th (RBC) [Ratio]Ordered By: Rafita Xavier on 10-09-2024 Erythrocyte distribution width (RBC) [Entitic vol] 45.0 fL High 35.1-43.9 [facility] Erythrocyte distribution wid th ratioOrdered By: Rafita Xavier on 10-09-2024 Erythrocyte distribution width (RBC) [Ratio] 13.7 % 11.6-14.6 [facility] Estimation of creatinine anastasia aranceOrdered By: Rafita Xavier on 10-09-2024 Estimated Creatinine Clearance Calc 141.67 ml/min 50-250 [facility] GFR/1.73 sq M.predicted barber g non-blacks MDRD (S/P/Bld) [Vol rate/Area]Ordered By: Rafita Xavier on 10-09-2024 Estimated GFR (MDRD) Non-Af Amer 110 >60 [facility] Comment on above: mL/min/1.73m2 CKD-EP I Creatinine Equation (2020) Hematocrit Auto (Bld) [Volum e fraction]Ordered By: Rafita Xavier on 10-09-2024 Hematocrit (Bld) [Volume fraction] 44.5 % 40-54 [facility] Hemoglobin measurementOrdere d By: Rafita Xavier on 10-09-2024 Hemoglobin (Bld) [Mass/Vol] 14.9 g/dL 13.0-16.5 [facility] Immature granulocytes/100 WB C Auto (Bld)Ordered By: Rafita Xavier on 10-09-2024 Immature granulocytes/100 WBC (Bld) 0.300 % 0.0-0.9 [facility] Comment on above: IG% - Immature Granu locytes (promyelocytes, myelocytes and metamyelocytes) > 1% indicates that a LEFT SHIFT is Present. Laboratory - Chemistry and C hemistry - challengeOrdered By: Rafita Xavier on 10-09-2024 AST [Catalytic activity/Vol] 30 U/L <38 [facility] Lipaseon 10-09-2024 Lipase [Catalytic activity/Vol] 20 U/L Normal 13-75 [facility] Comment on above: Result Comment: Luz amin note: LIPASE revised reference range effective 22. New Lipase methodology. Expected to produce lower values than the previous assay method. NEW Reference Range: 13 - 75 U/L Performed By: #### L 100.0100, L500.4050, L501.2450 ####[facility] [address] [place], [address] Lipase measurementOrdered By : Rafita Xavier on 10-09-2024 Lipase [Catalytic activity/Vol] 20 U/L 13-75 [facility] Comment on above: Please note:LIPASE r evised reference range effective 22. New Lipase methodology. Expected to produce lower values than the previous assay method. NEW Reference Range: 13 - 75 U/L Lymphocytes Auto (Unsp spec) [#/Vol]Ordered By: Rafita Xavier on 10-09-2024 Lymphocytes (Bld) [#/Vol] 2.76 10*3/uL 0.83-4.51 [facility] Lymphocytes/100 WBC Auto (Un sp spec)Ordered By: Rafita Xavier on 10-09-2024 Lymphocytes/100 WBC (Bld) 23.8 % 19-41 [facility] MCV (mean corpuscular volume ) determinationOrdered By: Rafita Xavier on 10-09-2024 MCV (RBC) [Entitic vol] 90.8 fL 80-94 [facility] Mean corpuscular hemoglobin (MCH) determinationOrdered By: Rafita Xavier on 10-09-2024 MCH (RBC) [Entitic mass] 30.4 pg 27.0-32.0 [facility] Mean corpuscular hemoglobin concentration (MCHC) determinationOrdered By: Rafita Xavier on 10-09-2024 MCHC (RBC) [Mass/Vol] 33.5 g/dL 32-36 [facility] Mean platelet volume determi nationOrdered By: Rafita Xavier on 10-09-2024 Platelet mean volume (Bld) [Entitic vol] 10.9 fL 6.2-12.0 [facility] Monocyte percentageOrdered B y: Rafita Xavier on 10-09-2024 Monocytes/100 WBC (Bld) 6.6 % 0-10 [facility] Neutrophil percentageOrdered By: Rafita Xavier on 10-09-2024 Neutrophils/100 WBC (Bld) 65.5 % 47-70 [facility] Nucleated red blood cell per centageOrdered By: Rafita Xavier on 10-09-2024 Nucleated RBC/100 WBC (Bld) [Ratio] 0 % 0-5 [facility] Platelet countOrdered By: [place] Xavier on 10-09-2024 Platelets (Bld) [#/Vol] 301 10*3/uL 150-450 [facility] Potassium (Unsp spec) [Mass/ Vol]Ordered By: Rafita Xavier on 10-09-2024 Potassium [Moles/Vol] 3.8 mmol/L 3.3-5.1 [facility] RBC Auto (Bld) [#/Vol]Ordere d By: Rafita Xavier on 10-09-2024 RBC (Bld) [#/Vol] 4.90 10*6/uL 4.6-6.2 [facility] Ribs Uni Min 3V w/PA Cheston 10-09-2024 Ribs Uni Min 3V w/PA Chest [facility] Imaging Services [address] [place], [place] [address] Ribs Uni Min 3V w/PA Chest MR#: [id number] Acct: [id number] Name: LON HAND Jr. Rep #: [id number] : 1985 M 38 From: Luz Elena Church DO PCP: Care Physician,No Primary Status: [facility] ER Study: Ribs Uni Min 3V w/PA Chest Date of Exam: 10/09 Exam# [id number] Ordering Dr: Rafita Xavier MD PROCEDURE: RIBS UNI MIN 3V W/PA CHEST 10/09/2024 REASON FOR EXAM: PAIN TECHNIQUE: Frontal and oblique views of the right ribs. Frontal view of the chest. COMPARISON: None FINDINGS: Heart: The heart size is normal. Lungs: The lungs are clear. Pleura: No pneumothorax or pleural effusions. Ribs: No acute fractures. Other: RAD/Ribs Uni Min 3V w/PA Chest IMPRESSION: No acute fractures. Reading Location: [facility] CC: Dr. Rafita Xavier MD; No Primary Care Physician Recordak Operator: Signed Normal [facility] Serum creatinine measurement (mass/volume)Ordered By: Rafita Xavier on 10-09-2024 Creatinine [Mass/Vol] 0.90 mg/dL 0.70-1.20 [facility] Serum globulin measurementOr dered By: Rafita Xavier on 10-09-2024 Globulin (S) [Mass/Vol] 2.9 g/dL 2.2-4.2 [facility] Serum glucose measurement (m ass/volume)Ordered By: Rafita Xavier on 10-09-2024 Glucose [Mass/Vol] 140 mg/dL High 70-99 [facility] Serum or plasma alanine rajput otransferase (ALT) measurementOrdered By: Rafita Xavier on 10-09-2024 ALT [Catalytic activity/Vol] 31 U/L <47 [facility] Serum or plasma albumin jeramie urement (mass/volume)Ordered By: Rafita Xavier on 10-09-2024 Albumin [Mass/Vol] 4.1 g/dL 3.5-5.0 [facility] Serum or plasma albumin/glob ulin mass ratioOrdered By: Rafita Xavier on 10-09-2024 Albumin/Globulin [Mass ratio] 1.4 {ratio} 0.9-2.4 [facility] Serum or plasma alkaline aryan sphatase measurementOrdered By: Rafita Xavier on 10-09-2024 ALP [Catalytic activity/Vol] 110 U/L 40-129 [facility] Serum or plasma calcium jeramie urement (mass/volume)Ordered By: Rafita Xavier on 10-09-2024 Calcium [Mass/Vol] 9.2 mg/dL 7.6-11.0 [facility] Serum or plasma urea nitroge n measurement (mass/volume)Ordered By: Rafita Xavier on 10-09-2024 Urea nitrogen [Mass/Vol] 13 mg/dL 4-19 [facility] Sodium levelOrdered By: Rafita Xavier on 10-09-2024 Sodium [Moles/Vol] 138 mmol/L 133-145 [facility] Total proteinOrdered By: Kaitlin Xavier on 10-09-2024 Protein [Mass/Vol] 7.0 g/dL 5.9-8.4 [facility] White blood cell (WBC) count Ordered By: Rafita Xavier on 10-09-2024 WBC (Bld) [#/Vol] 11.6 10*3/uL High 4.4-11.0 [facility] Virtual Office Visiton 11-25 Virtual Office Visit [facility] [place] [address] OFFICE VISIT Date of Service: 11/26/23 MR#: [id number] Acct: [id number] Patient: LON HAND Jr. Rep #: [id number] : 1985 Provider: FLORENCIA Vasquez Age/Sex: 38/M Location: [facility] Status: Signed Intake Vital Signs 11/20/23 10:32 Height 5 ft 6 in Intake Visit Reasons: BACK INJURY/ D D TRANSPORT Chief Complaint: chest pain Allergies No Known Allergies Allergy (Verified 11/20/23 10:35) [facility] Medical History (Updated 11/20/23 @ 11:[address] Asher Muse, DO) Acute alcoholism Wears glasses Depression Back pain History of GI bleed Gastric reflux Smoker Old anterior myocardial infarction Atherosclerosis of coronary artery of burns paiute heart with angina pectoris Nicotine dependence Essential (primary) hypertension Ventricular fibrillation Obstructive sleep apnea Palpitations Obesity Borderline diabetes mellitus Hyperlipidemia Surgical History History of PTCA (03/20/23) Hx of endoscopy History of left heart catheterization (04/13/18) History of coronary artery stent placement (08/21/13) Family History Mother Diabetes Heart disease Uncle Colon cancer Uncle Cancer lung Father Bowel disease Social History household members: significant other Smoking Status: Current every day smoker tobacco type: cigarettes alcohol intake: current alcohol intake frequency: 3 or more drinks per day Alcohol type: beer and hard liquor details: Heavy whiskey intake daily. substance use type: does not use what type of physical activity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 45-117 [facility] ALT [Catalytic activity/Vol] 59 U/L 16-61 [facility] CO2 [Moles/Vol] 24.0 mmol/L 21.0-32.0 [facility] Globulin (S) [Mass/Vol] 4.5 g/dL 2.2-4.2 [facility] Urea nitrogen/Creatinine [Mass ratio] 14.1 mg/mg 10-20 [facility] Laboratory - Chemistry and C hemistry - challengeOrdered By: Dr. Rojas on 08-31-2022 Magnesium [Mass/Vol] 2.6 mg/dL 1.6-2.6 [facility] Laboratory - Hematology and Cell countsOrdered By: Dr. Ding on 08-31-2022 Erythrocyte distribution width (RBC) [Entitic vol] 45.1 fL 35.1-43.9 [facility] Erythrocyte distribution width (RBC) [Ratio] 13.6 % 11.6-14.6 [facility] Immature granulocytes/100 WBC (Bld) 0.800 % 0.0-0.9 [facility] Comment on above: IG% - Immature Granu locytes (promyelocytes, myelocytes and metamyelocytes) > 1% indicates that a LEFT SHIFT is Present. MCH (RBC) [Entitic mass] 29.6 pg 27.0-32.0 [facility] Nucleated RBC/100 WBC (Bld) [Ratio] 0 % 0-5 [facility] MCHC Auto (RBC) [Mass/Vol]Or dered By: Dr. Ding on 08-31-2022 MCHC (RBC) [Mass/Vol] 32.7 g/dL 32-36 [facility] No Panel InformationOrdered By: Dr. Ding on 08-31-2022 Estimated Creatinine Clearance Calc 102.50 ml/min [facility] Estimated GFR (MDRD) Amer 129 mL/min >60 [facility] Comment on above: GFR Calc Estimated GFR (MDRD) Non-Af Amer 107 mL/min >60 [facility] Comment on above: Non- GFR Calc Ethyl Alcohol Level 296.0 mg/dL [facility] Comment on above: The serum:whole bloo d ethanol ratio is approximately 1.14and varies slightly with hematocrit. Medical Alcohol reference interval and critical value innon-tolerant individuals; 50 - 100 Impairment 100 Intoxication 100 - 250 Severe Poisoning 250 - 400 Deep/possible fatal coma Platelets bldOrdered By: Dr. Ding on 08-31-2022 Platelets (Bld) [#/Vol] 310 10*3/uL 150-450 [facility] Serum or plasma albumin jeramie urement (mass/volume)Ordered By: Dr. Ding on 08-31-2022 Albumin [Mass/Vol] 3.6 g/dL 3.2-5.0 [facility] Serum or plasma albumin/glob ulin mass ratioOrdered By: Dr. Ding on 08-31-2022 Albumin/Globulin [Mass ratio] 0.8 {ratio} 0.9-2.4 [facility] Serum or plasma calcium jeramie urement (mass/volume)Ordered By: Dr. Ding on 08-31-2022 Calcium [Mass/Vol] 8.7 mg/dL 8.5-10.1 [facility] Serum or plasma creatinine m easurement (mass/volume)Ordered By: Dr. Ding on 08-31-2022 Creatinine [Mass/Vol] 0.85 mg/dL 0.70-1.30 [facility] Comment on above: The validity of the calculated GFR & GFRAA in patients over 70 years has not been determined. Clinical correlation is essential. Serum or plasma urea nitroge n measurement (mass/volume)Ordered By: Dr. Ding on 08-31-2022 Urea nitrogen [Mass/Vol] 12 mg/dL 7-18 [facility] Thin prep Papanicolaou smear with manual screeningOrdered By: Dr. Ding on 08-31-2022 Thin prep Papanicolaou smear with manual screening 33 U/L 15-37 [facility] Thin prep Papanicolaou smear with manual screening 12 5-15 [facility] CNPNon 05-29-2022 [facility] Telephone (Uniplaces) YAZANLON SANTOS ([id number]) 1985 M Date Time Provider Department 05/29/22 MAURA BOLIVAR During your visit today, we recorded the following information about you: Lizet Scales RN 05/29/2022 8:12 AM Signed Received a fax from Cher Monroe, [facility], requesting additional medical records for the C9 that was sent asking for an additional allowance on [employer] claim. Faxed the following: original FROI completed by [facility], emergency room visit, CT scan, Dr. Bolivar's initial consultation, operative report and post-op visit with FLORENCIA Burgos. Fax confirmation sheet received. DOLORES Vargas 06/05/2022 12:58 PM Signed Cher Monroe calling again from [facility] stating that they need additional information on the R42.0. Apparently it cannot just say "additional allowance". It needs to be specific. Please call Cher directly at [phone] with any questions. Lou Scales RN 06/06/2022 10:48 AM Signed New C-9 faxed to Naila Monroe at [facility] on 06/05/2022. Fax confirmation sheet received. Lizet Scales RN Allergies As of Date: 05/29/2022 (No Known Allergies) Date Reviewed: 03/27/2022 Reviewed by: Shirin Boswell MA - Fully Assessed Reason for Visit: Requesting Medical Records [Other] Cmt: [facility] requesting additional medical records Prescriptions as of 06/06/2022 - albuterol HFA (PROVENTIL HFA, VENTOLIN HFA) 90 mcg/actuation inhaler Inhale 2 Puffs as instructed every 6 hours as needed for Wheezing/Shortness of Breath. - metoprolol tartrate, short acting, (LOPRESSOR) 50 mg tablet Take 1 tablet by mouth twice daily. - aspirin, enteric coated 81 mg EC tablet Take 81 mg by mouth once daily. - amLODIPine (NORVASC) 5 mg tablet Take 10 mg by mouth once daily. - atorvastatin (LIPITOR) 80 mg tablet Take 80 mg by mouth once daily. - clopidogrel (PLAVIX) 75 mg tablet Take 75 mg by mouth once daily. - lisinopril (ZESTRIL, PRINIVIL) 10 mg tablet Take 10 mg by mouth once daily. Problem List As Of Date 05/29/2022 Noted Resolved Other Joint Derangement, not Elsewhere Classifi*03/17/2009 Pain in Joint, Shoulder Region [M25.519] 03/17/2009 Hyperglycemia [R73.9] 03/17/2014 Obesity, Class III, BMI 40-49.9 (morbid obesity*10/01/2017 Encounter Status:Closed by LIZET SCALES on 05/29/22 [facility] 05-23-2022 CNPN Telephone (LINDA) LON HAND ([id number]) 1985 M Date Time Provider Department 05/23/22 MAURA BOLIVAR During your visit today, we recorded the following information about you: Amira Glass RN 05/23/2022 4:30 PM Signed Fax received from [facility] asking for the C-9 be updated. [facility] claim was denied with current diagnosis. Trying to make contact with someone who can help me with this.DOLORES So RN 05/27/2022 10:25 AM Signed C9, op report, AND CT scan faxed to [facility] asking for additional allowance on Surgery done by Dr. Bolivar at [facility].Amira Glass RN Allergies As of Date: 05/23/2022 (No Known Allergies) Date Reviewed: 03/27/2022 Reviewed by: Shirin Boswell MA - Fully Assessed Reason for Visit: workers comp denial [Other] Prescriptions as of 05/27/2022 - albuterol HFA (PROVENTIL HFA, VENTOLIN HFA) 90 mcg/actuation inhaler Inhale 2 Puffs as instructed every 6 hours as needed for Wheezing/Shortness of Breath. - metoprolol tartrate, short acting, (LOPRESSOR) 50 mg tablet Take 1 tablet by mouth twice daily. - aspirin, enteric coated 81 mg EC tablet Take 81 mg by mouth once daily. - amLODIPine (NORVASC) 5 mg tablet Take 10 mg by mouth once daily. - atorvastatin (LIPITOR) 80 mg tablet Take 80 mg by mouth once daily. - clopidogrel (PLAVIX) 75 mg tablet Take 75 mg by mouth once daily. - lisinopril (ZESTRIL, PRINIVIL) 10 mg tablet Take 10 mg by mouth once daily. Problem List As Of Date 05/23/2022 Noted Resolved Other Joint Derangement, not Elsewhere Classifi*03/17/2009 Pain in Joint, Shoulder Region [M25.519] 03/17/2009 Hyperglycemia [R73.9] 03/17/2014 Obesity, Class III, BMI 40-49.9 (morbid obesity*10/01/2017 Encounter Status:Closed by AMIRA GLASS on 05/27/22 [facility] 04-02-2022 [facility] Tele[facility] ([employer]) LON HAND ([id number]) 1985 M Date Time Provider Department 04/02/22 MAURA BOLIVAR During your visit today, we recorded the following information about you: Susanna Fontaine RN 04/02/2022 10:37 AM Signed Received phone call from Mai with [employer]. Mai requesting [employer] to cover 02/05 - 02/26. She states patient was off work during this time and the only [employer] received was for 02/26 - 03/24. Mai can be reached at [phone]. Fax number is [phone]. Lizet Scales RN 04/02/2022 11:20 AM Signed [employer] printed, completed and put in Dr. Bolivar's mailbox for a signature. DOLORES Vargas RN 04/03/2022 4:23 PM Signed [employer] signed and faxed to Alva Velázquez at [facility] at [phone]. Fax confirmation sheet received. Lizet Scales RN Allergies As of Date: 04/02/2022 (No Known Allergies) Date Reviewed: 03/27/2022 Reviewed by: Shirin Boswell MA - Fully Assessed Reason for Visit: [facility] (Worker's Comp) [1431] Prescriptions as of 04/03/2022 - amoxicillin (AMOXIL) 875 mg tablet Take 1 tablet by mouth twice daily for 7 days. - albuterol HFA (PROVENTIL HFA, VENTOLIN HFA) 90 mcg/actuation inhaler Inhale 2 Puffs as instructed every 6 hours as needed for Wheezing/Shortness of Breath. - metoprolol tartrate, short acting, (LOPRESSOR) 50 mg tablet Take 1 tablet by mouth twice daily. - aspirin, enteric coated 81 mg EC tablet Take 81 mg by mouth once daily. - amLODIPine (NORVASC) 5 mg tablet Take 10 mg by mouth once daily. - atorvastatin (LIPITOR) 80 mg tablet Take 80 mg by mouth once daily. - clopidogrel (PLAVIX) 75 mg tablet Take 75 mg by mouth once daily. - lisinopril (ZESTRIL, PRINIVIL) 10 mg tablet Take 10 mg by mouth once daily. Problem List As Of Date 04/02/2022 Noted Resolved Other Joint Derangement, not Elsewhere Classifi*03/17/2009 Pain in Joint, Shoulder Region [M25.519] 03/17/2009 Hyperglycemia [R73.9] 03/17/2014 Obesity, Class III, BMI 40-49.9 (morbid obesity*10/01/2017 Encounter Status:Closed by LIZET SCALES on 04/03/22 [facility] ([employer]) LON HAND ([id number]) 1985 M Date Time Provider Department 04/01/22 MAURA BOLIVAR During your visit today, we recorded the following information about you: Lizet Scales RN 04/01/2022 11:01 AM Signed Received fax from Alva Velázquez from [facility], requesting that an area on the previously filed [employer]-14 be completed and returned to them. Faxed today, fax confirmation sheet received. Lizet Scales RN Allergies As of Date: 04/01/2022 (No Known Allergies) Date Reviewed: 03/27/2022 Reviewed by: Shirin Boswell MA - Fully Assessed Reason for Visit: Release Of Medical Records [2017] Cmt: [employer]-14 Prescriptions as of 04/01/2022 - amoxicillin (AMOXIL) 875 mg tablet Take 1 tablet by mouth twice daily for 7 days. - predniSONE (DELTASONE) 20 mg tablet Take 2 tablets by mouth once daily for 5 days. - albuterol HFA (PROVENTIL HFA, VENTOLIN HFA) 90 mcg/actuation inhaler Inhale 2 Puffs as instructed every 6 hours as needed for Wheezing/Shortness of Breath. - metoprolol tartrate, short acting, (LOPRESSOR) 50 mg tablet Take 1 tablet by mouth twice daily. - aspirin, enteric coated 81 mg EC tablet Take 81 mg by mouth once daily. - amLODIPine (NORVASC) 5 mg tablet Take 10 mg by mouth once daily. - atorvastatin (LIPITOR) 80 mg tablet Take 80 mg by mouth once daily. - clopidogrel (PLAVIX) 75 mg tablet Take 75 mg by mouth once daily. - lisinopril (ZESTRIL, PRINIVIL) 10 mg tablet Take 10 mg by mouth once daily. Problem List As Of Date 04/01/2022 Noted Resolved Other Joint Derangement, not Elsewhere Classifi*03/17/2009 Pain in Joint, Shoulder Region [M25.519] 03/17/2009 Hyperglycemia [R73.9] 03/17/2014 Obesity, Class III, BMI 40-49.9 (morbid obesity*10/01/2017 Encounter Status:Closed by LIZET SCALES on 04/01/22 [facility] CNOVon 03-27-2022 CNOV Office Visit (UCWSTR ) LON HAND ([id number]) 1985 M Date Time Provider Department 03/27/22 10:30 AM [facility] During your visit today, we recorded the following information about you: Temperature Pulse Respiration Blood pressure 97.9 degrees 98/minute 20/minute 122/84 Weight 133.9 kg Shira Gasca APRN.RIPSAW GRADER 03/27/2022 10:57 AM Signed CC: Patient presents with: Ear Pain: L ear pain x1 day, SOB, cough x1 week, diarrhea and shakiness HPI: Lon Hand is a 36 year old male who presents to the office with complaint of cough, nonproductive and ear symptoms shortness of brath for a week and cough for one day. Symptoms are staying the same. Associated symptoms includes ear pain. Denies fever, nausea, vomiting , and diarrhea. Treatments tried include nothing so far. with no relief of symptoms. Sick contacts: unknown. History of asthma, frequent episodes of bronchitis, chronic bronchitis, bronchiectasis or COPD: No Smoker: No Seasonal/environmental allergies: No The ROS is otherwise negative. The patient's pmh, medications, allergies, and past visits are reviewed. PHYSICAL EXAM: BP 122/84 Pulse 98 Temp 36.6 ?C (97.9 ?F) Resp 20 Wt 133.9 kg (295 lb 3.2 oz) SpO2 98% BMI 49.12 kg/m? General appearance: alert, cooperative, pleasant, in no acute distress Head: Normocephalic Eyes: EOM's intact, conjunctiva pink and moist, no icterus, sclera white, non-injected Ears: Right ear: External ear/canal- Normal, TM - clear with good landmarks. Left ear: External ear/canal- Normal, TM - erythematous, bulging Oropharynx:moist without lesions, No erythema, exudates or tonsillar hypertrophy. Heart: Negative. RRR without obvious murmur, gallop, or rubs. No ectopy. Lungs: clear to auscultation, without rales or wheeze, good air exchange PAST MEDICAL HISTORY Diagnosis Date CAD (coronary artery disease) S/p LA. Dr. Glasgow Childhood asthma Tobacco use disorder PAST SURGICAL HISTORY Procedure Laterality Date ESOPHAGOGASTRODUODENOSCOPY TRANSORAL DIAGNOSTIC 05/02/2014 EGD REPAIR UMBILICAL HERNIA 02/26/2022 [facility] (SPECIFY) 07/07/2013 2 cardiac ALLERGIES Patient has no known allergies. MEDICATIONS albuterol HFA (PROVENTIL HFA, VENTOLIN HFA) 90 mcg/actuation inhaler Inhale 2 Puffs as instructed every 6 hours as needed for Wheezing/Shortness of Breath. metoprolol tartrate, short acting, (LOPRESSOR) 50 mg tablet Take 1 tablet by mouth twice daily. aspirin, enteric coated 81 mg EC tablet Take 81 mg by mouth once daily. amLODIPine (NORVASC) 5 mg tablet Take 10 mg by mouth once daily. atorvastatin (LIPITOR) 80 mg tablet Take 80 mg by mouth once daily. clopidogrel (PLAVIX) 75 mg tablet Take 75 mg by mouth once daily. lisinopril (ZESTRIL, PRINIVIL) 10 mg tablet Take 10 mg by mouth once daily. amoxicillin (AMOXIL) 875 mg tablet Take 1 tablet by mouth twice daily for 7 days. predniSONE (DELTASONE) 20 mg tablet Take 2 tablets by mouth once daily for 5 days. FAMILY HISTORY Problem Relation Age of Onset Emphysema Mother Psychiatry Father Bipolar dx and Schizophrenia Cancer Sister female organs Diabetes Maternal Grandmother Cancer Maternal Grandfather lung Social History Tobacco Use Smoking status: Every Day Packs/day: 0.50 Types: Cigarettes Smokeless tobacco: Never Vaping Use Vaping Use: Never used Substance Use Topics Alcohol use: Yes Comment: ocas ASSESSMENT/PLAN: 1. Non-recurrent acute suppurative otitis media of left ear without spontaneous rupture of tympanic membrane - ICD9: 382.00, ICD10: H66.002 Amoxicillin twice a day for 7 days. Prednisone daily for 5 days. Patient does not want a chest x-ray at this time he will follow-up if signs and symptoms seem to be getting worse. Prescription instructions reviewed with patient as applicable. Potential red flag symptoms discussed with the patient. Reviewed appropriate action plan to take if red flag symptoms occur. Patient agreeable to treatment plan. Shira Gasca APRN.RIPSAW GRADER Referring Provider: SELF [200] Allergies As of Date: 03/27/2022 (No Known Allergies) Date Reviewed: 03/27/2022 Reviewed by: Shirin Boswell MA - Fully Assessed Reason for Visit: Ear Pain [817] Cmt: L ear pain x1 day, SOB, cough x1 week, diarrhea and shakiness Primary Visit Diagnosis:Non-recurrent acute suppurative otitis media of left ear without spontaneous rupture of tympanic membrane [H66.002] Order(s):amoxicillin (AMOXIL) 875 mg tabletTake 1 tablet by mouth twice daily for 7 days.Disp: 14 tabletRfl: 0 predniSONE (DELTASONE) 20 mg tabletTake 2 tablets by mouth once daily for 5 days.Disp: 10 tabletRfl: 0 Prescriptions as of 03/27/2022 - amoxicillin (AMOXIL) 875 mg tablet Take 1 tablet by mouth twice daily for 7 days. - predniSONE (DELTASONE) 20 mg tablet Take (more content not included)... Normal [facility] 03-25-2022 [facility] Telephone (LINDA) LON HAND ([id number]) 1985 M Date Time Provider Department 03/25/22 MAURA BOLIVAR During your visit today, we recorded the following information about you: Bess Dominguez Ma 03/25/2022 9:15 AM Signed Received a call from Alejandra from [employer]. She did receive office notes for patient, but she also needs a [employer] 14 for this patient. Amanda Clifford 03/25/2022 9:40 AM Signed [employer] 14 is workers compensation paperwork. I will have sign paperwork and fax it to [employer]. Amanda Clifford 03/27/2022 4:03 PM Signed [employer] 14 faxed to Claudio Kwan at [facility]. Confirmation received. Allergies As of Date: 03/25/2022 (No Known Allergies) Date Reviewed: 03/19/2022 Reviewed by: Blank Finn PA-C - Fully Assessed Reason for Visit: Patient Update [1234] Prescriptions as of 03/27/2022 - amoxicillin (AMOXIL) 875 mg tablet Take 1 tablet by mouth twice daily for 7 days. - predniSONE (DELTASONE) 20 mg tablet Take 2 tablets by mouth once daily for 5 days. - albuterol HFA (PROVENTIL HFA, VENTOLIN HFA) 90 mcg/actuation inhaler Inhale 2 Puffs as instructed every 6 hours as needed for Wheezing/Shortness of Breath. - metoprolol tartrate, short acting, (LOPRESSOR) 50 mg tablet Take 1 tablet by mouth twice daily. - aspirin, enteric coated 81 mg EC tablet Take 81 mg by mouth once daily. - amLODIPine (NORVASC) 5 mg tablet Take 10 mg by mouth once daily. - atorvastatin (LIPITOR) 80 mg tablet Take 80 mg by mouth once daily. - clopidogrel (PLAVIX) 75 mg tablet Take 75 mg by mouth once daily. - lisinopril (ZESTRIL, PRINIVIL) 10 mg tablet Take 10 mg by mouth once daily. Problem List As Of Date 03/25/2022 Noted Resolved Other Joint Derangement, not Elsewhere Classifi*03/17/2009 Pain in Joint, Shoulder Region [M25.519] 03/17/2009 Hyperglycemia [R73.9] 03/17/2014 Obesity, Class III, BMI 40-49.9 (morbid obesity*10/01/2017 Encounter Status:Closed by AMANDA CLIFFORD on 03/27/22 [facility] 03-21-2022 [facility] ([employer]) LON HAND Anitha ([id number]) 1985 M Date Time Provider Department 03/21/22 MAURA BOLIVAR During your visit today, we recorded the following information about you: Amanda Clifford 03/21/2022 12:44 PM Signed Post op office visit note faxed to [employer] management. Confirmation received. Allergies As of Date: 03/21/2022 (No Known Allergies) Date Reviewed: 03/19/2022 Reviewed by: Blank Finn PA-C - Fully Assessed Reason for Visit: [place] [employer] Workers Compensation [Other] Cmt: Office visit Notes Prescriptions as of 03/21/2022 - albuterol HFA (PROVENTIL HFA, VENTOLIN HFA) 90 mcg/actuation inhaler Inhale 2 Puffs as instructed every 6 hours as needed for Wheezing/Shortness of Breath. - metoprolol tartrate, short acting, (LOPRESSOR) 50 mg tablet Take 1 tablet by mouth twice daily. - aspirin, enteric coated 81 mg EC tablet Take 81 mg by mouth once daily. - amLODIPine (NORVASC) 5 mg tablet Take 10 mg by mouth once daily. - atorvastatin (LIPITOR) 80 mg tablet Take 80 mg by mouth once daily. - clopidogrel (PLAVIX) 75 mg tablet Take 75 mg by mouth once daily. - lisinopril (ZESTRIL) 10 mg tablet Take 10 mg by mouth once daily. Meds Comments as of 07/13/2012: No medications on a daily basis Problem List As Of Date 03/21/2022 Noted Resolved Other Joint Derangement, not Elsewhere Classifi*03/17/2009 Pain in Joint, Shoulder Region [M25.519] 03/17/2009 Hyperglycemia [R73.9] 03/17/2014 Obesity, Class III, BMI 40-49.9 (morbid obesity*10/01/2017 Encounter Status:Closed by AMANDA CLIFFORD on 03/21/22 [facility] CNOVon 03-19-2022 CNOV Office Visit (LINDA ) LON HAND ([id number]) 1985 M Date Time Provider Department 03/19/22 2:30 PM BLANK FINN During your visit today, we recorded the following information about you: Temperature Pulse Blood pressure Weight 97.7 degrees 108/minute 131/85 131.5 kg Height 1.651 m Blank Finn PA-C 03/25/2022 12:39 AM Signed FOLLOW UP VISIT - HERNIA NAME: Lon Hand CLINIC NO.: [id number] DATE OF SERVICE: 03/19/2022 : 1985 REFERRING PHYSICIAN: No primary care provider on file. Lon is a patient I am following for an umbilical hernia. Dr. Bolivar performed a umbilical hernia repair on 02/26/22 at [facility]. The patient currently notes no major complaints. his appetite has been good. He denies fever, chills or abdominal pain. he does note some mild incisional discomfort. he notes no bulges at the operative site VITALS: Blood pressure 131/85, pulse 108, temperature 36.5 ?C (97.7 ?F), height 165.1 cm (5' 5"), weight 131.5 kg (290 lb). General: patient is alert, cooperative, pleasant and in no acute distress On examination, the abdomen is benign. The incision is healing well without signs of infection or inflammation. There are no signs of recurrent hernia formation. Assessment IMPRESSION: status post simple umbilical hernia repair PLAN: If the patient notes any problems, he should contact me immediately. he may return to his regular activities as tolerated, with the exception of no lifting greater than 20 pounds for the next 7 weeks. If patient feels the urge to cough or sneeze, they should brace against the repair site with their hands or a pillow. Diagnoses: (Z98.890, Z87.19) S/P hernia repair (primary encounter diagnosis) Return to Clinic: The patient is instructed to follow-up with me as needed Patient verbalized understanding of all above and agreed with the plan. MARCO Burgos PA-C 03/19/2022 2:50 PM Addendum The following instructions are important for you related to your office visit today with the [facility] General Surgeons. INSTRUCTIONS FOLLOWING YOUR RECENT HERNIA SURGERY You should be returning to your regular diet, If you have having persistent issues with tolerating your diet, please contact our office It is not unusual to have incisional pain for the first 1-2 weeks following surgery. If this persists beyond 2 weeks, contact the office You may return to your regular activities. You may drive if you are no longer taking narcotic pain medication. Climbing stairs is fine. Walking in encouraged. Sitting up from bed may be uncomfortable. Sitting up using your lateral abdominal muscles (sitting up sideways) is usually more comfortable. You should perform no lifting greater than 20lbs for the next 6-7 weeks. Usually 8 weeks total from the date of surgery. It is not unusual to have loose stools following surgery. This is usually self limited and related to the antibiotics that were given during your surgical procedure. Fiber supplementation and yogurt with active cultures may help you return to regular bowel activity. If you note loose stools persisting for over 2 weeks, or significant cramping or loose bloody stools, contact the office immediately. Contact the office immediately if any of your incisions become increasingly tender, red or have drainage. Again, if you have any difficulties or concerns, contact our office immediately. If you note any additional difficulties, questions, or concerns, you should contact our office immediately @ [phone] and ask to be transferred to the General Surgery department. Referring Provider: SELF [[id number]] Allergies As of Date: 03/19/2022 (No Known Allergies) Date Reviewed: 03/19/2022 Reviewed by: Blank Finn PA-C - Fully Assessed Reason for Visit: Post Op [174] Cmt: Umbilical Hernia repair 02/26/2022 Primary Visit Diagnosis:S/P hernia repair [Z98.890, Z87.19] Prescriptions as of 03/25/2022 - albuterol HFA (PROVENTIL HFA, VENTOLIN HFA) 90 mcg/actuation inhaler Inhale 2 Puffs as instructed every 6 hours as needed for Wheezing/Shortness of Breath. - metoprolol tartrate, short acting, (LOPRESSOR) 50 mg tablet Take 1 tablet by mouth twice daily. - aspirin, enteric coated 81 mg EC tablet Take 81 mg by mouth once daily. - amLODIPine (NORVASC) 5 mg tablet Take 10 mg by mouth once daily. - atorvastatin (LIPITOR) 80 mg tablet Take 80 mg by mouth once daily. - clopidogrel (PLAVIX) 75 mg tablet Take 75 mg by mouth once daily. - lisinopril (ZESTRIL) 10 mg tablet Take 10 mg by mouth once daily. Meds Comments as of 07/13/2012: No medications on a daily basis Problem List As Of Date 03/19/2022 Noted Resolved Other Joint Derangement, not Elsewhere Classifi*03/17/2009 Pain in Joint, Shoulder Region [M25.519] 03/17/2009 Hyperglycemia [R73.9] 03/07 (more content not included)... [facility] LON HAND ([id number]) 1985 M Date Time Provider Department 02/27/22 MAURA BOLIVAR During your visit today, we recorded the following information about you: Elizabeth Pereira LPN 02/27/2022 11:40 AM Signed Yolanda called from [facility] for work injury. Ask for patient information to be faxed, C9 form, Med[employer] 14 form, surgical consult, op report. Genesis Guerrero to fax request over for need information. Yolanda # [phone] Amanda Clifford 03/05/2022 10:32 AM Signed Surgical Consult, Op Note faxed to Yolanda. Confirmatio received. Allergies As of Date: 02/27/2022 (No Known Allergies) Date Reviewed: 02/05/2022 Reviewed by: Elizabeth Pereira LPN - Fully Assessed Reason for Visit: Information [1328] Cmt: Med[employer] 14, C9 Prescriptions as of 03/05/2022 - albuterol HFA (PROVENTIL HFA, VENTOLIN HFA) 90 mcg/actuation inhaler Inhale 2 Puffs as instructed every 6 hours as needed for Wheezing/Shortness of Breath. - metoprolol tartrate, short acting, (LOPRESSOR) 50 mg tablet Take 1 tablet by mouth twice daily. - aspirin, enteric coated 81 mg EC tablet Take 81 mg by mouth once daily. - amLODIPine (NORVASC) 5 mg tablet Take 10 mg by mouth once daily. - atorvastatin (LIPITOR) 80 mg tablet Take 80 mg by mouth once daily. - clopidogrel (PLAVIX) 75 mg tablet Take 75 mg by mouth once daily. - lisinopril (ZESTRIL) 10 mg tablet Take 10 mg by mouth once daily. Meds Comments as of 07/13/2012: No medications on a daily basis Problem List As Of Date 02/27/2022 Noted Resolved Other Joint Derangement, not Elsewhere Classifi*03/17/2009 Pain in Joint, Shoulder Region [M25.519] 03/17/2009 Hyperglycemia [R73.9] 03/17/2014 Obesity, Class III, BMI 40-49.9 (morbid obesity*10/01/2017 Encounter Status:Closed by AMANDA CLIFFORD on 03/05/22 [facility] 02-06-2022 [facility] Telephone (GENSWS) LON HAND ([id number]) 1985 M Date Time Provider Department 02/06/22 MAURA BOLIVAR During your visit today, we recorded the following information about you: Maura Bolivar MD 02/06/2022 12:51 PM Signed Patient called to apologize about his conversation with me yesterday. I have told him that we will proceed with hernia repair if he wishes and will schedule at [facility] I have once again reiterated the likelihood of recurrence and he understands. He wishes to proceed at first earliest date available. I will have the childcare administrator contact patient for this. Patient acknowledges the above. Allergies As of Date: 02/06/2022 (No Known Allergies) Date Reviewed: 02/05/2022 Reviewed by: Elizabeth Pereira LPN - Fully Assessed Reason for Visit: Patient Update [1234] Prescriptions as of 02/06/2022 - albuterol HFA (PROVENTIL HFA, VENTOLIN HFA) 90 mcg/actuation inhaler Inhale 2 Puffs as instructed every 6 hours as needed for Wheezing/Shortness of Breath. - metoprolol tartrate, short acting, (LOPRESSOR) 50 mg tablet Take 1 tablet by mouth twice daily. - aspirin, enteric coated 81 mg EC tablet Take 81 mg by mouth once daily. - amLODIPine (NORVASC) 5 mg tablet Take 10 mg by mouth once daily. - atorvastatin (LIPITOR) 80 mg tablet Take 80 mg by mouth once daily. - clopidogrel (PLAVIX) 75 mg tablet Take 75 mg by mouth once daily. - lisinopril (ZESTRIL) 10 mg tablet Take 10 mg by mouth once daily. Meds Comments as of 07/13/2012: No medications on a daily basis Problem List As Of Date 02/06/2022 Noted Resolved Other Joint Derangement, not Elsewhere Classifi*03/17/2009 Pain in Joint, Shoulder Region [M25.519] 03/17/2009 Hyperglycemia [R73.9] 03/17/2014 Obesity, Class III, BMI 40-49.9 (morbid obesity*10/01/2017 Encounter Status:Closed by MAURA BOLIVAR on 02/06/22 [facility][id number]) 1985 M Date Time Provider Department 02/06/22 MAURA BOLIVAR During your visit today, we recorded the following information about you: Elizabeth Pereira LPN 02/06/2022 10:03 AM Signed Patient state had received a phone call from Dr Bolivar and was returning call. Patient ask Dr Bolivar to call back at earliest convenience [phone] Allergies As of Date: 02/06/2022 (No Known Allergies) Date Reviewed: 02/05/2022 Reviewed by: Elizabeth Pereira LPN - Fully Assessed Reason for Visit: Patient Update [1234] Prescriptions as of 02/06/2022 - albuterol HFA (PROVENTIL HFA, VENTOLIN HFA) 90 mcg/actuation inhaler Inhale 2 Puffs as instructed every 6 hours as needed for Wheezing/Shortness of Breath. - metoprolol tartrate, short acting, (LOPRESSOR) 50 mg tablet Take 1 tablet by mouth twice daily. - aspirin, enteric coated 81 mg EC tablet Take 81 mg by mouth once daily. - amLODIPine (NORVASC) 5 mg tablet Take 10 mg by mouth once daily. - atorvastatin (LIPITOR) 80 mg tablet Take 80 mg by mouth once daily. - clopidogrel (PLAVIX) 75 mg tablet Take 75 mg by mouth once daily. - lisinopril (ZESTRIL) 10 mg tablet Take 10 mg by mouth once daily. Meds Comments as of 07/13/2012: No medications on a daily basis Problem List As Of Date 02/06/2022 Noted Resolved Other Joint Derangement, not Elsewhere Classifi*03/17/2009 Pain in Joint, Shoulder Region [M25.519] 03/17/2009 Hyperglycemia [R73.9] 03/17/2014 Obesity, Class III, BMI 40-49.9 (morbid obesity*10/01/2017 Encounter Status:Closed by VANESSA HARKINS on 02/06/22 [facility] 02-05-2022 [facility] Office Visit (LINDA ) LON HAND ([id number]) 1985 M Date Time Provider Department 02/05/22 8:40 AM MAURA BOLIVAR During your visit today, we recorded the following information about you: Temperature Pulse Blood pressure Weight 96.9 degrees 89/minute 110/80 133.4 kg Height 1.676 m Elizabeth Pereira HOT STAMP OPERATOR 02/05/2022 8:59 AM Signed REVIEW OF SYSTEMS: General: The patient denies fatigue, denies weight loss, denies weight gain, denies feeling hot, and denies feelings of cold. Eyes: The patient denies glaucoma, denies eye injury/surgery, does not wear glasses or contacts. Ear/Nose/Throat: The patient denies allergies, denies hayfever, denies ear infections, and denies bloody noses. Cardiovascular: The patient denies chest pain, notes heart disease, notes high blood pressure,notes cardiac stent, notes prior heart attack, notes irregular heart beat, denies high cholesterol, notes poor circulation, notes heart failure, other cardiac issues, denies claudication, notes cold feet, notes peripheral arterial stent. Respiratory: The patient denies tuberculosis, denies pneumonia, notes frequent cough, denies pulmonary embolism, notes shortness of breath, and denies coughing up blood. Gastrointestinal: The patient denies difficulty swallowing, denies acid reflux, denies ulcers, notes vomiting, denies jaundice/hepatitis, denies gallbladder problems, denies black or tarry stools, denies hemorrhoids, denies bleeding from rectum, denies diverticulitis, denies constipation, notes diarrhea, denies loss of stool control, and notes hernias. Kidney/Bladder: The patient denies kidney stones, denies urine infections, and denies bloody urine. Skin: The patient denies a history of skin cancer, denies bleeding/changing moles, and denies a history of skin rash. Neurologic: The patient denies a history of epilepsy/convulsions, denies headaches, denies head/spinal injuries, and denies stroke/TIA. Psychiatric: The patient denies psychiatric medications, denies depression, and denies voices, denies substance abuse. Endocrine: The patient denies thyroid disorders, denies diabetes, and denies hormonal problems. Hematologic: The patient notes a history of bruising, denies bleeding, and denies anemia, denies blood clots. Infections: The patient denies a history of measles and mumps, denies rheumatic fever, and denies sexually transmitted diseases. Musculoskeletal: The patient denies back pain/injury, denies back problems, denies sciatica, denies knee/foot trouble, denies arthritis, or denies gout. When was patient's last Mammogram screening? N/A Last Colonoscopy: none TEODORA Flanagan MD 02/06/2022 12:47 PM Signed HISTORY AND PHYSICAL Lon Welsh Yazan 1985 REFERRING PHYSICIAN: MD Samuel CHIEF COMPLAINT: Consult (ER WC, hernia) HPI: The patient is a 36 year old male who presents with symptomatic umbilical hernia. He notes this while lifting a heavy object at work, the incident occurred on February 03, according to patient. He felt a "pop" in the area of his mid abdomen and then he had continued aching pain sometimes sharp in the periumbilical area, and inferiorly. He denies gastrointestinal or urinary obstructive symptoms He presented to [facility] ED on February 04, 2022. CT scan was obtained which revealed small fat-containing umbilical hernia. The patient does have known CAD s/p coronary artery stent placements and is on Eliquis and aspirin. . PAST MEDICAL HISTORY Diagnosis Date - CAD (coronary artery disease) S/p LA. Dr. Glasgow - Childhood asthma - Tobacco use disorder PAST SURGICAL HISTORY Procedure Laterality Date - ESOPHAGOGASTRODUODENOSCOPY TRANSORAL DIAGNOSTIC 05/02/2014 EGD - STENTS (SPECIFY) 2013 2 cardiac Current Outpatient Medications Medication Sig - albuterol HFA (PROVENTIL HFA, VENTOLIN HFA) 90 mcg/actuation inhaler Inhale 2 Puffs as instructed every 6 hours as needed for Wheezing/Shortness of Breath. - metoprolol tartrate, short acting, (LOPRESSOR) 50 mg tablet Take 1 tablet by mouth twice daily. - aspirin, enteric coated 81 mg EC tablet Take 81 mg by mouth once daily. - amLODIPine (NORVASC) 5 mg tablet Take 10 mg by mouth once daily. - atorvastatin (LIPITOR) 80 mg tablet Take 80 mg by mouth once daily. - clopidogrel (PLAVIX) 75 mg tablet Take 75 mg by mouth once daily. - lisinopril (ZESTRIL) 10 mg tablet Take 10 mg by mouth once daily. ALLERGIES: Patient has no known allergies. PERSONAL HISTORY: Social History Tobacco Use - Smoking status: Current Every Day Smoker Packs/day: 0.50 Types: Cigarettes - Smokeless tobacco: Never Used Vaping Use - Vaping Use: Never used Substance Use Topics - Alcohol use: Yes Comment: ocas - Drug use: Not on file FAMILY HISTORY Problem Relation Age of Onset - Emphysema Mother - Psychiatr (more content not included)... Normal [facility] Absolute lymphocyte counton 02-04-2022 Lymphocytes Auto (Unsp spec) [#/Vol] 3.33 10*3/uL 0.83-4.51 [facility] Work Phone: Basophil percentageon 2021 Basophil percentage 0 SEEN /hpf 0-5 [facility] Work Phone: [phone] Basophils/100 WBC (Bld) 1.1 % 0-1 [facility] Work Phone: [phone] Bilirubin [Mass/Vol] 0.20 mg/dL 0.20-1.00 [facility] Work Phone: [phone] Comment on above: For patients on eltr ombopag therapy, use of Dimension [place] TBIL is not recommended. Chloride [Moles/Vol] 110 mmol/L 98-107 [facility] Work Phone: Eosinophils/100 WBC (Bld) 5.9 % 0-5 [facility] Work Phone: Glucose [Mass/Vol] 139 mg/dL 74-106 [facility] Work Phone: Comment on above: Fasting Glucose resu lt greater than or equal to 126 mg/dL suggests DIABETES MELLITUS per A.D.A. criteria. Neutrophils (Bld) [#/Vol] 4.8 10*3/uL 2.0-7.7 [facility] Work Phone: Neutrophils/100 WBC (Bld) 50.1 % 47-70 [facility] Work Phone: [phone] Potassium [Moles/Vol] 3.8 mmol/L 3.5-5.1 [facility] Work Phone: Protein [Mass/Vol] 7.0 g/dL 6.4-8.2 [facility] Work Phone: Sodium [Moles/Vol] 142 mmol/L 136-145 [facility] Work Phone: WBC (Bld) [#/Vol] 9.5 10*3/uL 4.4-11.0 [facility] Work Phone: [phone] Bilirubin Test strip Ql (U)o n 02-04-2022 Bilirubin Ql (U) Negative Negative [facility] Work Phone: [phone] Blood erythrocytes count (nu mber/volume)on 02-04-2022 RBC (Bld) [#/Vol] 4.87 10*6/uL 4.6-6.2 [facility] Work [facility]: [phone] Blood hemoglobin measurement (mass/volume)on 02-04-2022 Hemoglobin (Bld) [Mass/Vol] 14.4 g/dL 13.0-16.5 [facility] Work Phone: Blood lymphocytes/100 leukoc yteson 02-04-2022 Lymphocytes/100 WBC (Bld) 35.0 % 19-41 [facility] Work Phone: Blood monocytes/100 leukocyt eson 02-04-2022 Monocytes/100 WBC (Bld) 7.5 % 0-10 [facility] Work Phone: Blood platelet mean volumeon 02-04-2022 Platelet mean volume (Bld) [Entitic vol] 10.7 fL 6.2-12.0 [facility] Work Phone: [phone] Determination of erythrocyte mean corpuscular volume (MCV)on 02-04-2022 MCV (RBC) [Entitic vol] 93.0 fL 80-94 [facility] Work Phone: Hematocrit Auto (Bld) [Volum e fraction]on 02-04-2022 Hematocrit (Bld) [Volume fraction] 45.3 % 40-54 [facility] Work Phone: Ketones Test strip Ql (U)on 02-04-2022 Ketones Ql (U) Negative Negative [facility] Work Phone: [phone] Laboratory - Chemistry and C hemistry - challengeon 02-04-2022 ALP [Catalytic activity/Vol] 100 U/L 45-117 [facility] Work Phone: ALT [Catalytic activity/Vol] 91 U/L 16-61 [facility] Work Phone: CO2 [Moles/Vol] 22.0 mmol/L 21.0-32.0 [facility] Work Phone: [phone] Globulin (S) [Mass/Vol] 3.8 g/dL 2.2-4.2 [facility] Work Phone: Lipase [Catalytic activity/Vol] 71 U/L 73-393 [facility] Work Phone: [phone] Urea nitrogen/Creatinine [Mass ratio] 6.1 mg/mg 10-20 [facility] Work Phone: Laboratory - Hematology and Cell countson 02-04-2022 Erythrocyte distribution width (RBC) [Entitic vol] 46.0 fL 35.1-43.9 [facility] Work Phone: [phone] Erythrocyte distribution width (RBC) [Ratio] 13.4 % 11.6-14.6 [facility] Work Phone: [phone] Immature granulocytes/100 WBC (Bld) 0.400 % 0.0-0.9 [facility] Work Phone: [phone] Comment on above: IG% - Immature Granu locytes (promyelocytes, myelocytes and metamyelocytes) > 1% indicates that a LEFT SHIFT is Present. MCH (RBC) [Entitic mass] 29.6 pg 27.0-32.0 [facility] Work Phone: [phone] Nucleated RBC/100 WBC (Bld) [Ratio] 0 % 0-5 [facility] Work Phone: [phone] MCHC Auto (RBC) [Mass/Vol]on 02-04-2022 MCHC (RBC) [Mass/Vol] 31.8 g/dL 32-36 [facility] Work Phone: Mucus LM Ql (Urine sed)on Mucus Ql (Urine sed) 0 SEEN /hpf [facility] Work Phone: Nitrite Test strip Ql (U)on 02-04-2022 Nitrite Ql (U) Negative Negative [facility] Work Phone: No Panel Informationon 02-04 Estimated Creatinine Clearance Calc 91.30 ml/min [facility] Work Phone: Estimated GFR (MDRD) Amer 109 mL/min >60 [facility] Work Phone: Comment on above: GFR Calc Estimated GFR (MDRD) Non-Af Amer 90 mL/min >60 [facility] Work Phone: Comment on above: Non- GFR Calc Platelets bldon 02-04-2022 Platelets (Bld) [#/Vol] 272 10*3/uL 150-450 [facility] Work Phone: Protein Test strip Ql (U)on 02-04-2022 Protein Ql (U) Negative Negative [facility] Work Phone: Serum or plasma albumin jeramie urement (mass/volume)on 02-04-2022 Albumin [Mass/Vol] 3.2 g/dL 3.2-5.0 [facility] Work Phone: [phone] Serum or plasma albumin/glob ulin mass ratioon 02-04-2022 Albumin/Globulin [Mass ratio] 0.8 {ratio} 0.9-2.4 [facility] Work Phone: [phone] Serum or plasma calcium jeramie urement (mass/volume)on 02-04-2022 Calcium [Mass/Vol] 8.4 mg/dL 8.5-10.1 [facility] Work Phone: [phone] Serum or plasma creatinine m easurement (mass/volume)on 02-04-2022 Creatinine [Mass/Vol] 0.99 mg/dL 0.70-1.30 [facility] Work Phone: Comment on above: The validity of the calculated GFR & GFRAA in patients over 70 years has not been determined. Clinical correlation is essential. Serum or plasma urea nitroge n measurement (mass/volume)on 02-04-2022 Urea nitrogen [Mass/Vol] 6 mg/dL 7-18 [facility] Work Phone: Squamous epithelial cells de tection in urine sediment by light microscopyon 02-04-2022 Epithelial cells.squamous LM Ql (Urine sed) 0 SEEN /hpf 0-5 [facility] Work Phone: Thin prep Papanicolaou smear with manual screeningon 02-04-2022 Thin prep Papanicolaou smear with manual screening 56 U/L 15-37 [facility] Work Phone: Thin prep Papanicolaou smear with manual screening 10 5-15 [facility] Work Phone: Urine blood detectionon RBC Ql (U) Negative Negative [facility] Work Phone: RBC Ql (U) 0 SEEN /hpf 0-5 [facility] Work Phone: Urine clarityon 02-04-2022 Clarity (U) Clear Clear [facility] Work Phone: Urine color determinationon 02-04-2022 Color (U) Yellow Yellow [facility] Work Phone: Urine glucose detectionon Glucose Ql (U) Normal mg/dl Normal [facility] Work Phone: Urine leukocyte esterase det ection by dipstickon 02-04-2022 Leukocyte esterase Test strip Ql (U) Negative Negative [facility] Work Phone: Urine pHon 02-04-2022 pH (U) 6.0 [pH] 5.0 - 8.0 [facility] Work Phone: Urine sediment bacteria coun t by microscopy (number/high power field)on 02-04-2022 Bacteria LM.HPF (Urine sed) [#/Area] RARE /hpf None Seen [facility] Work Phone: Urine specific gravity measu rementon 02-04-2022 Specific gravity (U) [Rel density] 1.010 1.002-1.03 0 [facility] Work Phone: Urobilinogen Auto test strip Ql (U)on 02-04-2022 Urobilinogen Ql (U) Normal mg/dl Normal [facility] Work Phone: Office Visit: [facility] 02-26-20 17 Dietary management education, guidance, and counseling (procedure) yes Invalid Interpretation Code [facility] Work Phone: [phone] Documentation of current medications (procedure) Done Invalid Interpretation Code [facility] Work Phone: [phone] Protein mass conc Done [facility] Work Phone: [phone] Office Visit: [facility] 08-03-19 16 Tobacco smoking status NHIS Former smoker [facility] Work Phone: [phone] Tobacco use [facility] Former smoker Invalid Interpretation Code [facility] Work Phone: [phone] Replaced Document: Tessie Slaughteron 02-03-2015 EKG QRS axis 16 deg [facility] Work Phone: [phone] electrocardiogram interpretation Sinus Rhythm Low voltage in precordial leads. -RSR(V1) -nondiagnostic. ABNORMAL Invalid Interpretation Code [facility] Work Phone: [phone] GE use only - for [employer] import when terms are not otherwise specified 402 ms Invalid Interpretation Code [facility] Work Phone: [phone] Interpretation Sinus Rhythm Low vol tage in precordial leads. -RSR(V1) -nondiagnostic. ABNORMAL [facility] Work Phone: [phone] P [place] 20 deg [employer] Work Phone: [phone] P wave axis, electrocardiogram 20 deg Invalid Interpretation Code [facility] Work Phone: [phone] OR Interval 148 ms [employer] Work Phone: [phone] OR interval, electrocardiogram 148 ms Invalid Interpretation Code [employer] Work Phone: [phone] Pulse (Heart Rate) 76 /min Invalid Interpretation Code [facility] Work Phone: [phone] QRS axis, electrocardiogram 16 deg Invalid Interpretation Code [facility] Work Phone: [phone] QRS Duration 84 ms [facility] Work Phone: [phone] QRS duration, electrocardiogram 84 ms Invalid Interpretation Code [facility] Work Phone: [phone] QT Interval new path ms [facility] Work Phone: [phone] QT interval, electrocardiogram new path ms Invalid Interpretation Code [facility] Work Phone: [phone] QTc Hector 402 ms [facility] Work Phone: [phone] T Santo 6 deg [facility] Work Phone: [phone] T wave axis, electrocardiogram 6 deg Invalid Interpretation Code [facility] Work Phone: [phone] Clinical Lists Update: 08-16-2014 Alkaline phosphatase (ALP) 108 U/L Invalid Interpretation Code [facility] Work Phone: [phone] ALP enzyme act/vol (Bld) 108 U/L [facility] Work Phone: [phone] ALT enzyme act/vol 38 U/L Invalid Interpretation Code [facility] Work Phone: [phone] AST enzyme act/vol 22 U/L Invalid Interpretation Code [facility] Work Phone: [phone] Cholesterol in HDL mass conc 25 mg/dL Low [facility] Work Phone: [phone] Cholesterol in LDL mass conc 53 mg/dL Invalid Interpretation Code [facility] Work Phone: [phone] Cholesterol mass conc 141 mg/dL Invalid Interpretation Code [facility] Work Phone: [phone] Lipoprotein.pre-beta mass conc 63 mg/dL High [facility] Work Phone: [phone] Triglyceride mass conc 314 mg/dL High [facility] Work Phone: [phone] Clinical Lists Update: 08-15-2014 Erythrocyte distribution width Ratio (RBC) 13.7 % [facility] Work Phone: [phone] Erythrocytes (RBC) 4.73 10*6/uL Invalid Interpretation Code [facility] Work Phone: [phone] Hematocrit (HCT) 40.3 % Invalid Interpretation Code [facility] Work Phone: [phone] Hematocrit Volume Fraction (Bld) 40.3 % [facility] Work Phone: [phone] Hemoglobin mass conc (Bld) 13.1 g/dL Invalid Interpretation Code [facility] Work Phone: [phone] MCH 27.7 pg Invalid Interpretation Code [facility] Work Phone: [phone] MCH Entitic mass (RBC) 27.7 pg [facility] Work Phone: [phone] MCHC 32.5 g/dL Invalid Interpretation Code [facility] Work Phone: [phone] MCHC mass conc (RBC) 32.5 g/dL [facility] Work Phone: [phone] MCV 85.2 fL Invalid Interpretation Code [facility] Work Phone: [phone] MCV Entitic volume (RBC) 85.2 fL [facility] Work Phone: [phone] Platelets 265 10*3/mm3 Invalid Interpretation Code [facility] Work Phone: [phone] Platelets #/vol (Bld) 265 10*3/mm3 [facility] Work Phone: [phone] RBC #/vol (Bld) 4.73 10*6/uL [facility] Work Phone: [phone] RDW-CA 13.7 % Invalid Interpretation Code [facility] Work Phone: [phone] WBC #/vol (Bld) 10.5 10*3/uL [facility] Work Phone: [phone] WBC (Leukocytes) 10.5 10*3/uL Invalid Interpretation Code [facility] Work Phone: [phone] Clinical Lists 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: 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 08-09-2014 Albumin mass conc 4.2 g/dL Invalid Interpretation Code [facility] Work Phone: [phone] Anion gap 12 mmol/L Invalid Interpretation Code [facility] Work Phone: [phone] Anion gap molar conc 12 mmol/L [facility] Work Phone: [phone] Bilirubin mass conc 0.2 mg/dL Invalid Interpretation Code [facility] Work Phone: [phone] Bilirubin.direct mass conc mg/dL Invalid Interpretation Code [facility] Work Phone: [phone] Calcium mass conc 9.9 mg/dL Invalid Interpretation Code [facility] Work Phone: [phone] Chloride molar conc 99 mmol/L Invalid Interpretation Code [facility] Work Phone: [phone] Cholesterol in LDL/Cholesterol in HDL mass ratio 2.92 Invalid Interpretation Code [facility] Work Phone: [phone] Cholesterol.total/Chol esterol in HDL mass ratio 4.81 {ratio} Invalid Interpretation Code [facility] Work Phone: [phone] CO2 27 mmol/L Invalid Interpretation Code [facility] Work Phone: [phone] CO2 ppres (BldV) 27 mmol/L [facility] Work Phone: [phone] Creatinine mass conc 1.00 mg/dL Invalid Interpretation Code [facility] Work Phone: [phone] Glucose 104 mg/dL High [facility] Work Phone: [phone] Glucose mass conc 104 mg/dL High [facility] Work Phone: [phone] Potassium molar conc 4.4 mmol/L Invalid Interpretation Code [facility] Work Phone: [phone] Protein mass conc 7.1 g/dL Invalid Interpretation Code [facility] Work Phone: [phone] Sodium molar conc 138 mmol/L Invalid Interpretation Code [facility] Work Phone: [phone] Urea nitrogen mass conc 18 mg/dL Invalid Interpretation Code [facility] Work Phone: [phone] Office Visit: [facility] 08-09-19 15 Tobacco smoking status NHIS Never Invalid Interpretation Code [facility] Work Phone: [phone] Office Visiton 06-16-2014 cardiac risk group C Invalid Interpretation Code [facility] Work Phone: [phone] General cardiovascular disease 10Y risk [#] [place] N/A Invalid Interpretation Code [facility] Work Phone: [phone] Replaced Document: Tessie CARTER Observationson 02-10-2014 Pulse (Heart Rate) 404 ms Invalid Interpretation Code [facility] Work Phone: [phone] Lab Report: TROP - copyon Troponin I.cardiac mass conc ng/mL Normal <0.06 [facility] Work Phone: [phone] Lab Report: BMP - copyon eGFR (non-black) 102 mL/min/{1.73_m2} Normal >60 [facility] Work Phone: [phone] GFR/1.73 sq M predicted among non-blacks MDRD vol rate/area (S/P/Bld) 84 mL/min/{1.73_m2} Normal >60 [facility] Work Phone: [phone] GFRAA 102 mL/min Normal >60 [facility] Work Phone: [phone] Urea nitrogen/Creatinine mass ratio 11.8 RATIO Normal 10-20 [facility] Work Phone: [phone] Lab Report: CBCD - copyon Absolute Neutrophil count 9.7 X10 3/UL High 2.0-7.7 [facility] Work Phone: [phone] ANC 9.7 X10 3/UL High 2.0-7.7 [facility] Work Phone: [phone] Platelet mean volume Entitic volume (Bld) 11.0 fL Normal 6.2-12.0 [facility] Work Phone: [phone] PMV by Alexa 11.0 fL Normal 6.2-12.0 [facility] Work Phone: [phone] Lab Report: DDIMQ - copyon 0 09-18-2013 D-dimer quantitative mcg/mL 0.32 FEUUG/ML Normal 0.27-0.48 [facility] Work Phone: [phone] DDIMQ 0.32 FEUUG/ML Normal 0.27-0.48 [facility] Work Phone: [phone] Lab Report: LIPASEon 03-15-2 014 LIPASE 72 U/L Normal 70-290 [facility] Work Phone: lipase, serum 72 U/L Normal 70-290 [facility] Work Phone: Office Visiton 09-15-2013 Alcoholism counseling (procedure) no Invalid Interpretation Code [facility] Work Phone: Protein mass conc no [facility] Work Phone: Clinical Lists Update: 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 09-02-2013 Magnesium mass conc 1.8 mg/dL Invalid Interpretation Code [facility] Work Phone: Vital Signs Date Time Vital Sign Value Performing Clinician Facility 10-09-2024 20:08-0400 Body temperature 98 [degF] No Primary Care Physician [facility] 10-09-2024 20:08-0400 Diastolic blood pressure 84 mm[Hg] No Primary Care Physician [facility] 10-09-2024 20:08-0400 Heart rate 87 /min No Primary Care Physician [facility] 10-09-2024 20:08-0400 Respiratory rate 16 /min No Primary Care Physician [facility] 10-09-2024 20:08-0400 SaO2% (BldA) [Mass fraction] 98 % No Primary Care Physician [facility] 10-09-2024 20:08-0400 Systolic blood pressure 130 mm[Hg] No Primary Care Physician [facility] 10-09-2024 16:31-0400 Body height 167.64 cm No Primary Care Physician [facility] 10-09-2024 16:31-0400 Body mass index (BMI) [Ratio] 47.6 kg/m2 No Primary Care Physician [facility] 10-09-2024 16:31-0400 Body weight 133.8 kg No Primary Care Physician [facility] 06-05-2023 09:15-0500 Body height 167.64 cm RAT TRAPPER-C Thomas Jackson RAT TRAPPER Work Phone: [facility] 06-05-2023 09:15-0500 Body mass index (BMI) [Ratio] 48.4 kg/m2 [facility]-Herber Jackson RAT TRAPPER Work Phone: [facility] 06-05-2023 09:15-0500 Body weight 136.07 kg RAT TRAPPER-C Thomas Jackson RAT TRAPPER Work Phone: [facility] 06-05-2023 09:15-0500 Diastolic blood pressure 85 mm[Hg] RAT TRAPPER-C Thomas Jackson RAT TRAPPER Work Phone: [facility] 06-05-2023 09:15-0500 Heart rate 98 /min [facility]AT TRAPPER-C Thomas Jackson RAT TRAPPER Work Phone: [facility] 06-05-2023 09:15-0500 Respiratory rate 20 /min [facility]AT TRAPPER-C Thomas Jackson RAT TRAPPER Work Phone: [facility] 06-05-2023 09:15-0500 SaO2% (BldA) [Mass fraction] 97 % RAT TRAPPER-C Thomas Jackson RAT TRAPPER Work Phone: [facility] 06-05-2023 09:15-0500 Systolic blood pressure 126 mm[Hg] RAT TRAPPER-C Thomas Jackson RAT TRAPPER Work Phone: [facility] 03-19-2023 15:54-0400 Body height 167.64 cm RAT TRAPPER-C Thomas Jackson RAT TRAPPER Work Phone: [facility] 03-19-2023 15:54-0400 Body weight 135.4 kg RAT TRAPPER-C Thomas Jackson RAT TRAPPER Work Phone: [facility] 03-19-2023 15:00-0400 Body temperature 98.5 [degF] RAT TRAPPER-C Thomas Jackson RAT TRAPPER Work Phone: [facility] 03-19-2023 15:00-0400 Diastolic blood pressure 66 mm[Hg] RAT TRAPPER-C Thomas Jackson RAT TRAPPER Work Phone: [facility] 03-19-2023 15:00-0400 Heart rate 80 /min RAT TRAPPER-C Thomas Jackson RAT TRAPPER Work Phone: [facility] 03-19-2023 15:00-0400 SaO2% (BldA) [Mass fraction] 98 % RAT TRAPPER-C Thomas Jackson RAT TRAPPER Work Phone: [facility] 03-19-2023 15:00-0400 Systolic blood pressure 114 mm[Hg] RAT TRAPPER-C Thomas Jackson RAT TRAPPER Work Phone: [facility] 03-19-2023 09:43-0400 Diastolic blood pressure 86 mm[Hg] RAT TRAPPER-C Thomas Jackson RAT TRAPPER Work Phone: [facility] 03-19-2023 09:43-0400 Heart rate 68 /min RAT TRAPPER-C Thomas Jackson RAT TRAPPER Work Phone: [facility] 03-19-2023 09:43-0400 Systolic blood pressure 133 mm[Hg] RAT TRAPPER-C Thomas Jackson RAT TRAPPER Work Phone: [facility] 03-19-2023 09:37-0400 Body temperature 98.1 [degF] RAT TRAPPER-C Thomas Jackson RAT TRAPPER Work Phone: [facility] 03-19-2023 09:37-0400 Respiratory rate 16 /min RAT TRAPPER-C Thomas Jackson RAT TRAPPER Work Phone: [facility] 03-19-2023 09:37-0400 SaO2% (BldA) [Mass fraction] 97 % RAT TRAPPER-C Thomas Jackson RAT TRAPPER Work Phone: [facility] 03-19-2023 06:30-0400 Inhaled oxygen flow rate 2 L/min RAT TRAPPER-C Thomas Jackson RAT TRAPPER Work Phone: [facility] 03-19-2023 00:58-0400 Body mass index (BMI) [Ratio] 48.2 kg/m2 R[facility] TRAPPER-C Thomas Jackson RAT TRAPPER Work Phone: [facility] 03-19-2023 00:12-0400 Body temperature 96.3 [degF] RAT TRAPPER-C Thomas Jackson RAT TRAPPER Work Phone: [facility] 03-19-2023 00:12-0400 Diastolic blood pressure 73 mm[Hg] RAT TRAPPER-C Thomas Jackson RAT TRAPPER Work Phone: [facility] 03-19-2023 00:12-0400 Heart rate 89 /min RAT TRAPPER-C Thomas Jackson RAT TRAPPER Work Phone: [facility] 03-19-2023 00:12-0400 Inhaled oxygen flow rate 2 L/min RAT TRAPPER-C Thomas Jackson RAT TRAPPER Work Phone: [facility] 03-19-2023 00:12-0400 Respiratory rate 25 /min RAT TRAPPER-C Thomas Jackson RAT TRAPPER Work Phone: [facility] 03-19-2023 00:12-0400 SaO2% (BldA) [Mass fraction] 94 % RAT TRAPPER-C Thomas Jackson RAT TRAPPER Work Phone: [facility] 03-19-2023 00:12-0400 Systolic blood pressure 130 mm[Hg] RAT TRAPPER-C Thomas Jackson RAT TRAPPER Work Phone: [facility] 03-18-2023 22:06-0400 Body height 165.1 cm RAT TRAPPER-C Thomas Jackson RAT TRAPPER Work Phone: [facility] 03-18-2023 22:06-0400 Body mass index (BMI) [Ratio] 49.7 kg/m2 R[facility] TRAPPER-C Thomas Jackson RAT TRAPPER Work Phone: [facility] 03-18-2023 22:06-0400 Body weight 135.62 kg RAT TRAPPER-C Thomas Jackson RAT TRAPPER Work Phone: [facility] 08-31-2022 01:40-0500 Body height 165.1 cm RAT TRAPPER-C Thomas Jackson RAT TRAPPER Work Phone: [facility] 08-31-2022 01:40-0500 Body mass index (BMI) [Ratio] 35.1 kg/m2 R[facility] TRAPPER-C Thomas Jackson RAT TRAPPER Work Phone: [facility] 08-31-2022 01:40-0500 Body temperature 96.8 [degF] RAT TRAPPER-C Thomas Jackson RAT TRAPPER Work Phone: [facility] 08-31-2022 01:40-0500 Body weight 95.8 kg RAT TRAPPER-C Thomas Jackson RAT TRAPPER Work Phone: [facility] 08-31-2022 01:40-0500 Diastolic blood pressure 121 mm[Hg] RAT TRAPPER-C Thomas Jackson RAT TRAPPER Work Phone: [facility] 08-31-2022 01:40-0500 Heart rate 127 /min RAT TRAPPER-C Thomas Jackson RAT TRAPPER Work Phone: [facility] 08-31-2022 01:40-0500 Respiratory rate 15 /min RAT TRAPPER-C Thomas Jackson RAT TRAPPER Work Phone: [facility] 08-31-2022 01:40-0500 SaO2% (BldA) [Mass fraction] 97 % RAT TRAPPER-C Thomas Jackson RAT TRAPPER Work Phone: [facility] 08-31-2022 01:40-0500 Systolic blood pressure 166 mm[Hg] RAT TRAPPER-C Thomas Jackson RAT TRAPPER Work Phone: [facility] 03-19-2022 14:22-0400 Body height 165.1 cm Blank Sergeant Bluff PA-C Work Phone: [facility] 03-19-2022 14:22-0400 Body temperature 97.7 [degF] Blank Finn PA-C Work Phone: [facility] 03-19-2022 14:22-0400 Body weight 131.54 kg Blank Finn PA-C Work Phone: [facility] 03-19-2022 14:22-0400 Diastolic blood pressure 85 mm[Hg] Blank Finn PA-C Work Phone: [facility] 03-19-2022 14:22-0400 Heart rate 108 /min Blank Sergeant [place] PA-C Work Phone: [facility] 03-19-2022 14:22-0400 Systolic blood pressure 131 mm[Hg] Blank Finn PA-C Work Phone: [facility] 02-26-2022 14:38-0400 Body temperature 97.9 [degF] RAT TRAPPER-C Thomas Jackson RAT TRAPPER Work Phone: [facility] Work Phone: 02-26-2022 14:38-0400 Diastolic blood pressure 89 mm[Hg] RAT TRAPPER-C Thomas Jackson RAT TRAPPER Work Phone: [facility] Work Phone: 02-26-2022 14:38-0400 Heart rate 82 /min RAT TRAPPER-C Thomas Jackson RAT TRAPPER Work Phone: [facility] Work Phone: 02-26-2022 14:38-0400 Respiratory rate 16 /min RAT TRAPPER-C Thomas Jackson RAT TRAPPER Work Phone: [facility] Work Phone: 02-26-2022 14:38-0400 SaO2% (BldA) [Mass fraction] 93 % RAT TRAPPER-C Thomas Jackson RAT TRAPPER Work Phone: [facility] Work Phone: 02-26-2022 14:38-0400 Systolic blood pressure 127 mm[Hg] RAT TRAPPER-C Thomas Jackson RAT TRAPPER Work Phone: [facility] Work Phone: 02-26-2022 10:26-0400 Body height 167.64 cm RAT TRAPPER-C Thomas Jackson RAT TRAPPER Work Phone: [facility] Work Phone: 02-26-2022 10:26-0400 Body mass index (BMI) [Ratio] 46.9 kg/m2 RAT TRAPPER-C Thomas Jackson RAT TRAPPER Work Phone: [facility] Work Phone: 02-26-2022 10:26-0400 Body weight 131.8 kg RAT TRAPPER-C Thomas Jackson RAT TRAPPER Work Phone: [facility] Work Phone: 02-05-2022 08:54-0400 Body height 167.6 cm Maura Bolivar MD Work Phone: [facility] 02-05-2022 08:54-0400 Body temperature 96.91 [degF] Maura Bolivar MD Work Phone: [facility] 02-05-2022 08:54-0400 Body weight 133.36 kg Maura Bolivar MD Work Phone: [facility] 02-05-2022 08:54-0400 Diastolic blood pressure 80 mm[Hg] Maura Bolivar MD Work Phone: [facility] 02-05-2022 08:54-0400 Heart rate 89 /min Maura Bolivar MD Work Phone: [facility] 02-05-2022 08:54-0400 SaO2% (BldA) [Mass fraction] 95 % Maura Bolivar MD Work Phone: [facility] 02-05-2022 08:54-0400 Systolic blood pressure 110 mm[Hg] Maura Bolivar MD Work Phone: [facility] 02-04-2022 03:34-0400 Diastolic blood pressure 89 mm[Hg] RAT TRAPPER-C Thomas Jackson RAT TRAPPER Work Phone: [facility] Work Phone: 02-04-2022 03:34-0400 Heart rate 101 /min RAT TRAPPER-C Thomas Jackson RAT TRAPPER Work Phone: [facility] Work Phone: 02-04-2022 03:34-0400 Respiratory rate 16 /min RAT TRAPPER-C Thomas Jackson RAT TRAPPER Work Phone: [facility] Work Phone: 02-04-2022 03:34-0400 SaO2% (BldA) [Mass fraction] 97 % RAT TRAPPER-C Thomas Jackson RAT TRAPPER Work Phone: [facility] Work Phone: 02-04-2022 03:34-0400 Systolic blood pressure 143 mm[Hg] RAT TRAPPER-C Thomas Jackson RAT TRAPPER Work Phone: [facility] Work Phone: 02-04-2022 01:28-0400 Body mass index (BMI) [Ratio] 47.7 kg/m2 RAT TRAPPER-C Thomas Jackson RAT TRAPPER Work Phone: [facility] Work Phone: 02-04-2022 01:28-0400 Body temperature 97.8 [degF] RAT TRAPPER-C Thomas Jackson RAT TRAPPER Work Phone: [facility] Work Phone: 02-04-2022 01:28-0400 Body weight 134.1 kg RAT TRAPPER-C Thomas Jackson RAT TRAPPER Work Phone: [facility] Work Phone: 01-08-2022 09:49-0400 Body mass index (BMI) [Ratio] 46.7 kg/m2 RAT TRAPPER-C Thomas Jackson RAT TRAPPER Work Phone: [facility] Work Phone: 01-08-2022 09:49-0400 Body temperature 97.7 [degF] RAT TRAPPER-C Thomas Jackson RAT TRAPPER Work Phone: [facility] Work Phone: 01-08-2022 09:49-0400 Body weight 131.54 kg RAT TRAPPER-C Thomas Jackson RAT TRAPPER Work Phone: [facility] Work Phone: 01-08-2022 09:49-0400 Diastolic blood pressure 90 mm[Hg] RAT TRAPPER-C Thomas Jackson RAT TRAPPER Work Phone: [facility] Work Phone: 01-08-2022 09:49-0400 Heart rate 133 /min RAT TRAPPER-C Thomas Jackson RAT TRAPPER Work Phone: [facility] Work Phone: 01-08-2022 09:49-0400 Respiratory rate 16 /min RAT TRAPPER-C Thomas Jackson RAT TRAPPER Work Phone: [facility] Work Phone: 01-08-2022 09:49-0400 SaO2% (BldA) [Mass fraction] 99 % RAT TRAPPER-C Thomas Jackson RAT TRAPPER Work Phone: [facility] Work Phone: 01-08-2022 09:49-0400 Systolic blood pressure 152 mm[Hg] RAT TRAPPER-C Thomas Jackson RAT TRAPPER Work Phone: [facility] Work Phone: 02-25-2017 10:41-0400 BMI (Body Mass Index) 46.19 kg/m2 [facility] Work Phone: 02-25-2017 10:41-0400 BP Diastolic 70 mm[Hg] Alexa Simpson [facility] Work Phone: 02-25-2017 10:41-0400 BP Systolic 122 mm[Hg] [facility] Work Phone: 02-25-2017 10:41-0400 Height 167.64 cm Alexa Simpson [facility] Work Phone: 02-25-2017 10:41-0400 Pulse (Heart Rate) 70 /min [facility] Work Phone: 02-25-2017 10:41-0400 Weight 129.82 kg Alexa [facility] Work Phone: 08-03-2015 12:53-0500 BP Diastolic 66 mm[Hg] Alexa Simpson [facility] Work Phone: 08-03-2015 12:53-0500 BP Diastolic 62 mm[Hg] Alexa Simpson [facility] Work Phone: 08-03-2015 12:53-0500 BP Systolic 90 mm[Hg] Alexa [facility] Work Phone: 08-03-2015 12:53-0500 BP Systolic 100 mm[Hg] Alexa [facility] Work Phone: 08-03-2015 12:53-0500 BSA (Body Surface Area) 2.37 m2 [facility] Work Phone: 08-03-2015 12:53-0500 Pulse (Heart Rate) 72 /min [facility] Work Phone: 08-03-2015 12:53-0500 Pulse (Heart Rate) 80 /min Alexa Simpson [facility] Work Phone: 08-03-2015 12:53-0500 Respiratory Rate 16 /min Alexa Simpson [facility] Work Phone: 02-03-2015 13:58-0400 Heart rate 76 /min Alexa Simpson [facility] Work Phone: 02-10-2014 15:17-0400 Heart rate 404 ms Alexa Simpson [facility] Work Phone: Encounters Encounter Date Encounter Type Care Provider Facility Start: 10-09-2024 End: 10-09-2024 Emergency department patient visit No Primary Care Physician -Emergency Department Work Phone: Start: 11-26-2023 End: 11-26-2023 ambulatory Migel DON [place] [place]: 11-20-2023 End: 11-20-2023 Emergency department patient visit Asher Muse Facility:[facility] Start: 06-05-2023 End: 06-05-2023 ambulatory RAT TRAPPER-C Thomas Jackson RAT TRAPPER Work Phone: [facility] Work Phone: Start: 06-05-2023 End: 06-05-2023 Patient encounter procedure RAT TRAPPER-C Thomas Jackson RAT TRAPPER Work Phone: [facility] Work Phone: Start: 06-05-2023 End: 06-05-2023 Patient encounter procedure RAT TRAPPER-C Thomas Jackson RAT TRAPPER Work Phone: [facility] Work Phone: Start: 03-20-2023 Non-patient / Non-visit RAT TRAPPER-C Maldonado Jackson RAT TRAPPER Work Phone: [facility] Start: 03-19-2023 Non-patient / Non-visit R[facility] TRAPPER-C Maldonado Jackson RAT TRAPPER Work Phone: [facility] Start: 03-19-2023 End: 03-19-2023 Non-patient / Non-visit RAT TRAPPER-C Thomas Jackson RAT TRAPPER Work Phone: [facility] Work Phone: Start: 03-18-2023 End: 03-19-2023 Evaluation and management of inpatient RAT TRAPPER-C Thomas Jackson RAT TRAPPER Work Phone: [facility] Work Phone: Start: 02-26-2023 Non-patient / Non-visit R[facility] TRAPPER-C Maldonado Jackson RAT TRAPPER Work Phone: [facility] Work Phone: Start: 08-31-2022 Non-patient / Non-visit RAT TRAPPER-C Maldonado Jackson RAT TRAPPER Work Phone: [facility] Start: 08-31-2022 End: 08-31-2022 Emergency department patient visit RAT TRAPPER-C Thomas Jackson RAT TRAPPER Work Phone: [facility] Start: 05-29-2022 Telephone encounter Maura Yarbrough MD Work Phone: General Surgery Comment on above: Requesting Medical R ecords ([facility] requesting additional medical records) Start: 05-23-2022 Telephone encounter Maura Yarbrough MD Work Phone: General Surgery Comment on above: workers comp denial Start: 04-02-2022 Telephone encounter Maura Yarbrough MD Work Phone: General Surgery Comment on above: [employer]wc (Worker's Comp) Start: 04-01-2022 Telephone encounter Maura Yarbrough MD Work Phone: General Surgery Comment on above: Release Of Medical R ecords ([employer]-14 ) Start: 03-27-2022 End: 03-27-2022 ambulatory [facility] Facility:[facility] Start: 03-25-2022 Telephone encounter Maura Yarbrough MD Work Phone: General Surgery Comment on above: Patient Update Start: 03-19-2022 End: 03-19-2022 ambulatory [facility] Facility:[facility] Start: 03-19-2022 End: 03-19-2022 Patient encounter procedure Blank Garrettf PA-C Work Phone: General Surgery Comment on above: S/P hernia repair (P rimary Dx) Start: 02-27-2022 Telephone encounter Maura Yarbrough MD Work Phone: General Surgery Comment on above: Information ([employer] 1 4, C9 ) Start: 02-26-2022 End: 02-26-2022 Admission to same day surgery center RAT TRAPPER-Herber Jackson RAT TRAPPER Work Phone: [facility] Start: 02-26-2022 End: 02-26-2022 ambulatory RAT TRAPPER-Herber Jackson RAT TRAPPER Work Phone: [facility] Work Phone: Start: 02-06-2022 Telephone encounter Maura Yarbrough MD Work Phone: General Surgery Comment on above: Patient Update Start: 02-05-2022 End: 02-05-2022 ambulatory Maura Bolivar Facility:[facility] Start: 02-05-2022 End: 02-05-2022 Patient encounter procedure Maura Bolivar MD Work Phone: General Surgery Comment on above: Umbilical hernia wit hout obstruction or gangrene (Primary Dx) Start: 02-04-2022 End: 02-04-2022 Emergency department patient visit RAT TRAPPER-Herber Jackson RAT TRAPPER Work Phone: [facility] Start: 01-08-2022 End: 01-08-2022 Patient encounter procedure RAT TRAPPER-Herber Jackson RAT TRAPPER [facility] Procedures Date Procedure Procedure Detail Performing Clinician Start: 10-09-2024 Computed tomography of abdomen and pelvis with intravenous contrast No Primary Care Physician Start: 10-09-2024 Plain X-ray abdomen No Primary Care Physician Start: 10-09-2024 X-ray of chest posteroanterior view No Primary Care Physician Start: 03-20-2023 History of percutane ous transluminal coronary angioplasty History of PTCA RAT TRAPPER-Herber Jackson RAT TRAPPER Work Phone: Comment on above: POBA (no stent) of r estenosed distal LAD 03/20/[address] Duenas Start: 03-18-2023 Plain chest X-ray RAT TRAPPER-C Thomas Jackson RAT TRAPPER Work Phone: Start: 02-26-2022 Umbilical hernioplasty RAT TRAPPER-C Thomas Renetta RAT TRAPPER Work Phone: Start: 02-04-2022 Computed tomography of abdomen and pelvis with intravenous contrast RAT TRAPPER-C Thomas Jackson RAT TRAPPER Work Phone: Start: 02-25-2017 End: 02-25-2017 Dietary management education, guidance, and counseling Alexa Simpson Start: 10-19-2015 End: 05-06-2016 Nuclear stress test -exercise Kolton Glasgow MD Start: 08-03-2015 End: 05-06-2016 *CMP Complete Metabolic Panel Jelly Watkins PA-C Work Phone: Start: 08-03-2015 End: 08-03-2015 Follow Up Appt Other Jelly Watkins PA-C Work Phone: Start: 08-03-2015 End: 05-06-2016 Lipid panel [AGGREGATE] Jelly Watkins PA-C Work Phone: Start: 08-03-2015 End: 08-03-2015 MMM Jelly Watkins PA-C Work Phone: Start: 06-21-2015 End: 06-21-2015 Nurse, Teaching, Wound Check (no charge) Kolton Glasgow MD Start: 02-03-2015 End: 02-04-2015 Documentation of current medications Kolton Glasgow MD Start: 02-03-2015 End: 02-03-2015 Electrocardiogram, complete Kolton Tineo i, MD Start: 02-03-2015 End: 02-03-2015 Follow Up Appt 6 months Maldonado Sparks Start: 02-03-2015 End: 02-03-2015 MMM Kolton Glasgow MD Start: 02-03-2015 End: 07-20-2015 Remote 30 day ecg rev/report Kolton Glasgow MD Start: 11-23-2014 End: 11-24-2014 Documentation of current medications Jelly Watkins PA-C Work Phone: Start: 11-23-2014 End: 12-23-2014 Follow Up Appt 6 weeks Jelly Watkins PA-C Work Phone: Start: 11-23-2014 End: 12-23-2014 MMM Jelly Watkins PA-C Work Phone: Start: 08-09-2014 End: 07-20-2015 Complete sleep workup (PSG,CPAP as indicated) & Follow up Jelly Watkins PA-C Work Phone: Start: 08-09-2014 End: 11-23-2014 FISH BAILER Jelly Watkins PA-C Work Phone: Start: 08-09-2014 End: 11-23-2014 Electrocardiogram, complete Jelly Watkins PA-C Work Phone: Start: 08-09-2014 End: 07-20-2015 Follow Up Appt Other Jelly Watkins PA-C Work Phone: Start: 06-16-2014 End: 08-12-2014 *BMP Kolton Glasgow MD Start: 06-16-2014 End: 08-12-2014 *Hepatic Function Panel Maldonado Sparks Start: 06-16-2014 End: 06-16-2014 Follow Up Appt 6 months Maldonado Sparks Start: 06-16-2014 End: 08-12-2014 Lipid panel [AGGREGATE] Maldonado Sparks Start: 06-16-2014 End: 06-16-2014 MARIA M Glasgow MD Start: 03-11-2014 End: 03-11-2014 FISH BAILER Jelly Watkins PA-C Work Phone: Start: 03-11-2014 End: 03-11-2014 Follow Up Appt 3 months Jelly Watkins PA-C Work Phone: Start: 02-10-2014 End: 07-20-2015 *Hepatic Function Panel Jelly Watkins PA-C Work Phone: Start: 02-10-2014 End: 02-10-2014 Electrocardiogram, complete Jelly Watkins PA-C Work Phone: Start: 02-10-2014 End: 02-10-2014 Follow Up Appt 1 month Jelly Watkins PA-C Work Phone: Start: 02-10-2014 End: 07-20-2015 Lipid panel [AGGREGATE] Jelly Watkins PA-C Work Phone: Start: 02-10-2014 End: 02-10-2014 MM Jelly Watkins PA-C Work Phone: Start: 02-10-2014 End: 03-04-2014 Nuclear stress test -exercise Jelly Watkins PA-C Work Phone: Start: 10-21-2013 End: 02-10-2014 *Hepatic Function Panel Maldonado Sparks Start: 10-21-2013 End: 10-21-2013 Follow Up Appt 3 months Maldonado Sparks Start: 10-21-2013 End: 02-10-2014 Lipid panel [AGGREGATE] Maldonado Sparks Start: 10-21-2013 End: 10-21-2013 MARIA M Glasgow MD Start: 09-23-2013 End: 01-13-2014 Cardiac Rehab Kolton Glasgow MD Start: 09-15-2013 End: 12-14-2013 *Hepatic Function Panel Maldonado Sparks Start: 09-15-2013 End: 12-20-2013 Echocardiography Kolton Glasgow MD Start: 09-15-2013 End: 09-15-2013 Follow Up Appt 3 months Maldonado Sparks Start: 09-15-2013 End: 12-14-2013 Lipid panel [AGGREGATE] Maldonado Sparks Start: 09-13-2013 Percutaneous translu araceli coronary angioplasty CORONARY ARTERY DISEASE, S/P PTCA Alexa Simpson Start: 09-13-2013 Placement of stent i n coronary artery Status post cardiac stent placement Alexa Simpson Start: 08-31-2013 History of placement of stent for coronary artery disease History of coronary artery stent placement RAT TRAPPER-Herber Jackson NP Work Phone: Start: 08-21-2013 History of placement of stent for coronary artery disease History of coronary artery stent placement RAT TRAPPERMarilu Jackson RAT TRAPPER Work Phone: Comment on above: PCI Thrombectomy-LUZ -Mid to Distal LAD w/ 2.75 x 38 mm Promus Premier and LUZ-Mid Lad w/ 3.5 x 12 mm Promus Premier 08/31/13; Plan of Treatment Date Care Activity Detail Author Start: 06-05-2023 Patient referral [facility] Work Phone: Start: 06-05-2023 Evaluation of diagnostic study results [facility] Start: 03-20-2023 Patient referral [facility] Work Phone: Start: 03-19-2023 Vital signs measurements [facility] Start: 03-19-2023 Patient discharge [facility] Start: 03-19-2023 Vital signs measurements [facility] Start: 03-19-2023 Vital signs measurements [facility] Start: 03-19-2023 Cardiac monitoring [facility] Start: 03-19-2023 Cardiac rehabilitation - phase 1 [facility] Start: 03-19-2023 Cardiac rehabilitation - phase 2 [facility] Start: 03-19-2023 Notification of physician [facility] Start: 03-19-2023 Oxygen therapy [facility] Start: 03-19-2023 Patient discharge [facility] Start: 03-19-2023 Patient education [facility] Start: 03-19-2023 Provision of activity privileges [facility] Start: 03-19-2023 Pulse taking [facility] Start: 03-19-2023 Systemic arterial pressure monitoring [facility] Start: 03-19-2023 Taking patient vital signs [facility] Start: 03-19-2023 Vascular disease risk assessment [facility] Start: 03-19-2023 Vital signs measurements [facility] Start: 03-19-2023 Wound care [facility] Start: 03-19-2023 [facility] Start: 03-19-2023 Vital signs measurements [facility] Start: 03-19-2023 Vital signs measurements [facility] Start: 03-19-2023 Catheterization of vein [facility] Start: 03-19-2023 Medication not administered [facility] Start: 03-19-2023 Notification of physician [facility] Start: 03-19-2023 [facility] Start: 03-19-2023 Vital signs measurements [facility] Start: 03-19-2023 Vital signs measurements [facility] Start: 03-19-2023 [facility] Start: 03-19-2023 Ambulation without limitation [facility] Start: 03-19-2023 Assessment of risk of venous thromboembolism [facility] Start: 03-19-2023 Catheterization of vein [facility] Start: 03-19-2023 Inhalation therapy procedure [facility] Start: 03-19-2023 Insertion of catheter into peripheral vein [facility] Start: 03-19-2023 Measuring intake and output [facility] Start: 03-19-2023 Oxygen therapy [facility] Start: 03-19-2023 Providing care according to standard [facility] Start: 03-19-2023 Referral to machine sprayer [facility] Start: 03-19-2023 Tobacco use cessation education [facility] Start: 03-19-2023 [facility] Start: 03-19-2023 Vital signs measurements [facility] Start: 03-19-2023 Electrocardiographic procedure [facility] Start: 03-19-2023 Verification routine [facility] Start: 03-18-2023 Admission procedure [facility] Start: 03-18-2023 Blood chemistry [facility] Start: 03-18-2023 End: 03-18-2023 [facility] Start: 08-31-2022 Admission procedure [facility] Start: 08-31-2022 [facility] Start: 03-07-2022 Influenza vaccination INFLUENZA (#1) [facility] Start: 02-26-2022 Catheterization of vein [facility] Work Phone: Start: 02-26-2022 Patient discharge [facility] Work Phone: Start: 02-26-2022 Procedure discontinued [facility] Work Phone: Start: 02-26-2022 Taking patient vital signs [facility] Work Phone: Start: 02-26-2022 [facility] Work Phone: Start: 07-07-2021 DEPRESSION ASSESSMENT DEPRESSION ASSESSMENT [facility] Start: 05-06-2021 LIPID SCREEN LIPID SCREEN [facility] Start: 08-09-2019 LIPID SCREEN LIPID SCREEN [facility] Start: 08-28-2017 End: 08-28-2017 Appointment Appointment [facility] Work Phone: Start: 02-25-2017 End: 02-25-2017 FISH BAILER FISH BAILER [facility] Work Phone: Start: 02-25-2017 End: 02-25-2017 Follow Up Appt 6 months Follow Up Appt 6 months [facility] Work Phone: Start: 10-19-2015 End: 10-19-2015 Nuclear stress test -exercise Nuclear stress test -exercise [facility] Work Phone: Start: 08-03-2015 End: 05-06-2016 *CMP Complete Metabolic Panel *CMP Complete Metabolic Panel [facility] Work Phone: Start: 08-03-2015 End: 08-03-2015 Follow Up Appt Other Follow Up Appt Other [facility] Work Phone: Start: 08-03-2015 End: 05-06-2016 Lipid panel [AGGREGATE] *Lipid Profile CC PCP [facility] Work Phone: Start: 08-03-2015 End: 08-03-2015 MMM MMM [facility] Work Phone: Start: 02-03-2015 End: 02-03-2015 Electrocardiogram, complete EKG (In office) [facility] Work Phone: Start: 02-03-2015 End: 02-03-2015 Follow Up Appt 6 months Follow Up Appt 6 months [facility] Work Phone: Start: 02-03-2015 End: 02-03-2015 MMM MMM [facility] Work Phone: Start: 02-03-2015 End: 02-03-2015 Remote 30 day ecg rev/report 30 Day Holter Monitor [facility] Work Phone: Start: 11-23-2014 End: 11-23-2014 Complete sleep workup (PSG,CPAP as indicated) & Follow up Complete sleep workup (PSG,CPAP as indicated) & Follow up [facility] Work Phone: Start: 11-23-2014 End: 12-23-2014 Follow Up Appt 6 weeks Follow Up Appt 6 weeks [facility] Work Phone: Start: 11-23-2014 End: 12-23-2014 MMM MMM [facility] Work Phone: Start: 08-09-2014 End: 07-20-2015 Complete sleep workup (PSG,CPAP as indicated) & Follow up Complete sleep workup (PSG,CPAP as indicated) & Follow up [facility] Work Phone: Start: 08-09-2014 End: 11-23-2014 FISH BAILER FISH BAILER [facility] Work Phone: Start: 08-09-2014 End: 11-23-2014 Electrocardiogram, complete EKG (In office) [facility] Work Phone: Start: 08-09-2014 End: 07-20-2015 Follow Up Appt Other Follow Up Appt Other [facility] Work Phone: Start: 06-16-2014 End: 08-12-2014 *BMP *BMP [facility] Work Phone: Start: 06-16-2014 End: 08-12-2014 *Hepatic Function Panel *Hepatic Function Panel [facility] Work Phone: Start: 06-16-2014 End: 06-16-2014 Follow Up Appt 6 months Follow Up Appt 6 months [facility] Work Phone: Start: 06-16-2014 End: 08-12-2014 Lipid panel [AGGREGATE] *Lipid Profile CC PCP [facility] Work Phone: Start: 06-16-2014 End: 06-16-2014 MMM MMM [facility] Work Phone: Start: 03-11-2014 End: 03-11-2014 FISH BAILER FISH BAILER [facility] Work Phone: Start: 03-11-2014 End: 03-11-2014 Follow Up Appt 3 months Follow Up Appt 3 months [facility] Work Phone: Start: 02-10-2014 End: 07-20-2015 *Hepatic Function Panel *Hepatic Function Panel [facility] Work Phone: Start: 02-10-2014 End: 02-10-2014 Electrocardiogram, complete EKG (In office) [facility] Work Phone: Start: 02-10-2014 End: 02-10-2014 Follow Up Appt 1 month Follow Up Appt 1 month [facility] Work Phone: Start: 02-10-2014 End: 07-20-2015 Lipid panel [AGGREGATE] *Lipid Profile CC PCP [facility] Work Phone: Start: 02-10-2014 End: 02-10-2014 MMM MMM [facility] Work Phone: Start: 02-10-2014 End: 02-10-2014 Nuclear stress test -exercise Nuclear stress test -exercise [facility] Work Phone: Start: 10-21-2013 End: 02-10-2014 *Hepatic Function Panel *Hepatic Function Panel [facility] Work Phone: Start: 10-21-2013 End: 10-21-2013 Follow Up Appt 3 months Follow Up Appt 3 months [facility] Work Phone: Start: 10-21-2013 End: 02-10-2014 Lipid panel [AGGREGATE] *Lipid Profile CC PCP [facility] Work Phone: Start: 10-21-2013 End: 10-21-2013 MMM MMM [facility] Work Phone: Start: 09-23-2013 End: 01-13-2014 Cardiac Rehab Cardiac Rehab [facility] Work Phone: Start: 09-15-2013 End: 12-14-2013 *Hepatic Function Panel *Hepatic Function Panel [facility] Work Phone: Start: 09-15-2013 End: 09-15-2013 Echocardiography Echocardiogram (complete) [facility] Work Phone: Start: 09-15-2013 End: 09-15-2013 Electrocardiogram, complete EKG (In office) [facility] Work Phone: Start: 09-15-2013 End: 09-15-2013 Follow Up Appt 3 months Follow Up Appt 3 months [facility] Work Phone: Start: 09-15-2013 End: 12-14-2013 Lipid panel [AGGREGATE] *Lipid Profile CC PCP [facility] Work Phone: Start: 09-15-2013 End: 09-15-2013 MMM MMM [facility] Work Phone: Start: 10-15-2002 Urine microalbumin profile DTAP,TDAP,TD (1 - Tdap) [facility] Start: 10-15-2001 HEPATITIS C SCREENING HEPATITIS C SCREENING [facility] Start: 10-15-2001 HIV SCREENING HIV SCREENING [facility] Start: 1995 Adult depression screening assessment DEPRESSION SCREENING [facility] Start: 10-15-1989 PNEUMOCOCCAL (1 - PCV) PNEUMOCOCCAL (1 - PCV) [facility] Start: 04-16-1984 COVID-19 VACCINE (#1) COVID-19 VACCINE (#1) [facility] Start: 1985 HEPATITIS B (1 of 3 - 3-dose series) HEPATITIS B (1 of 3 - 3-dose series) [facility] Amphetamine [Mass/vo lume] in Urine [facility] Benzodiazepine measu rement, urine [facility] Cocaine measurement, urine [facility] Hemoglobin A1c/Hemoglobin.total in Blood [facility] Measurement of 3,4-methylenedioxymethamphetam ine in urine [facility] Methadone measurement, urine [facility] NM Heart Views W str ess and W radionuclide IV [facility] Patient Education [facility] Work Phone: Patient referral [facility] Work Phone: pH of Urine [facility] Phencyclidine [Prese nce] in Urine [facility] Polysomnography [facility] Urine barbiturate measurement [facility] Urine cannabinoid measurement [facility] Urine opiate [facility] Immun[facility] Immunization Date Immunization Notes Care Provider Fa stefano 12-31-2020 tetanus toxoid, redu china diphtheria toxoid, and acellular pertussis vaccine, adsorbed RAT TRAPPER-C Thomas Jackson NP Work Phone: [facility] 06-10-2014 Influenza virus vaccine RAT TRAPPER-C Thomas Jackson NP Work Phone: [facility] 04-13-2014 influenza, seasonal, injectable Maura Bolivar MD Work Phone: [facility] Work Phone: Payers Date Payer Category Payer Private Health Insurance [id number] 2024 Unknown [id number] 2023 Self-pay [id number] 2023 Unknown [id number] 2023 Unknown [id number] 2018 Unknown MMO MMO [employer] [id number] 2018-Present [phone] [address] [place] [address] O [id number] 2018 Unknown [id number] 2018 Unknown [id number] Unknown [employer] [id number] Unknown [facility] [employer] [id number] Unknown [facility] [id number] Unknown [employer] [facility] [id number] Unknown [id number] Unknown [id number] Unknown [id number] Social History Date Type Detail Facility Start: 02-05-2022 End: 10-09-2024 Tobacco smoking status NHIS Smokes tobacco daily [facility] History of tobacco use Cigarette Smoker [facility] Start: 02-05-2022 End: 03-27-2022 Cigarettes smoked current (pack per day) - Reported 0.5 [facility] Start: 02-05-2022 End: 03-27-2022 Tobacco use and exposure Smokeless tobacco non-user [facility] Start: 02-05-2022 End: 03-27-2022 Alcohol intake Current drinker of alcohol (finding) [facility] Start: 04-15-2014 History SDOH Alcohol Comment ocas [facility] Start: 1985 Sex Assigned At Not on file [facility] Start: 01-26-2022 End: 03-27-2022 Exposure to SARS-CoV-2 (event) Not sure [facility] Start: 02-19-2022 End: 06-05-2023 Tobacco smoking status NHIS Unknown if ever smoked [facility] Start: 02-12-[address] [facility] Start: 02-12-2020 With Family [facility] Start: 04-13-[address] [facility] Start: 1985 Sex Assigned At Male [facility] Start: 10-09-2024 Sex Male (finding) [facility] Goals Date Patient Goal Desired Activity /State Functional Status Date Assessment Result Facility 03-19-2023 Functional status Bedrest [facility] Work Phone: Mental Status Date Assessment Result Facility 10-09-2024 Cognitive function Level Of Cons ciousness Awake;Alert;Appropriate;Follow s Commands [facility] Work Phone: 03-19-2023 Cognitive function Voice/Name [facility] Work Phone: 03-19-2023 Cognitive function Voice/Name [facility] Work Phone: 03-18-2023 Cognitive function Level Of Cons ciousness Awake;Alert;Appropriate;Follow s Commands [facility] Work Phone: 02-26-2022 Cognitive function Voice/Name [facility] Work Phone: Clinical Notes 02-05-2022 to 10-09-2024 Note Date & Type Note Facility 10-09-2024 Discharge summary [facility] 10-09-2024 Radiology Diagnostic study note [facility] Imaging Services [address] [place] [address] Abdomen/Pelvis W IV Cont ONLY MR#: [id number] Acct: [id number] Name: LON HAND Jr. Rep #: : [id number] From: Yeni lopezm Afuwape DO PCP: Care Physician,No Primary Status: REG ER Study:Abdomen/Pelvis W IV Cont ONLY Date of E xam: 10/09/24 Exam# [id number] Ordering Dr: Rafita Xavier MD PROCEDURE: ABDOMEN/PELVIS W IV CONT ONLY 10/09/2024 REASON FOR EXAM: PAIN TECHNIQUE: Abdomen and pelvis CT with intravenous contrast. Coronal and Sagittal reconstruction series were provided. PATIENT PREPARATION: Per protocol ORAL CONTRAST TYPE: None. AMOUNT: mL CONTRAST: Isovue 370 VOLUME: 92 mL Not Provided Gauge IV One or more dose reduction techniques were used (e.g., Automated exposure control, adjustment of the mA and/or kV according to patient size, use of iterative reconstruction technique. RADIATION DOSE SUMMARY: CTDlvol: 30 mGy DLP: 1393 mGycm COMPARISON: None FINDINGS: Lung bases: Mild dependent atelectasis Liver: Diffuse fatty infiltration. Gallbladder: Unremarkable Spleen: Normal size. Pancreas: Normal size without evidence of mass surrounding inflammation or ductal dilation. Adrenals: Unremarkable Kidneys: Tiny nonobstructing right renal calculus. No evidence of hydronephrosis. Small right renal cysts. No follow-up is recommended. Left kidney is grossly unremarkable. Bladder: Unremarkable Reproductive Organs: Unremarkable Bowel: Unremarkable Appendix: Unremarkable Soft tissue: 4.3 cm fat containing umbilical hernia with subtle stranding. Lymph nodes: No lymphadenopathy. Vasculature: Mild diffuse atherosclerotic calcifications are noted. Peritoneum / Retroperitoneum: No free air or free fluid. Bones: Unremarkable CT/Abdomen/Pelvis W IV Cont ONLY IMPRESSION: 4.3 cm fat containing umbilical hernia with subtle stranding. Tiny nonobstructing right renal calculus. No inflammatory changes of the bowel loops are demonstrated. Reading Location: [facility] CC: Dr. Rafita Xavier MD; No Primary Care Physician ~ Recordak Operator: Signed [facility] 10-09-2024 Radiology Diagnostic study note [facility] Imaging Services [address] [place] [place], [place] [id number] Abd Decub and/or Erect(Portabl MR#: [id number] Acct: [id number] Name: LON HAND Jr. Rep #: : [id number] M [id number] From: Yeni Church DO PCP: Care Physician,No Primary Status: REG ER Study:Abd Decub and/or Erect(Portabl Date of Exam: 10/09/24 Exam# [id number] Ordering Dr: Rafita Xavier MD PROCEDURE: ABD DECUB AND/OR ERECT(PORTABL 10/09/2024 REASON FOR EXAM: PAIN TECHNIQUE: Supine and upright views of the abdomen. COMPARISON: None FINDINGS: Bowel gas: Bowel gas pattern is normal. No evidence of bowel obstruction. Free air: No free air. Calcifications: No suspicious calcifications. Bones: The bones are unremarkable. Other: RAD/Abd Decub and/or Erect(Portabl IMPRESSION: NO ACUTE FINDINGS Reading Location: [facility] CC: Dr. Rafita Xavier MD; No Primary Care Physician ~ Recordak Operator: Signed [facility] 10-09-2024 Radiology Diagnostic study note [facility] Imaging Services [address] [place] [address] Ribs Uni Min 3V w/PA Chest MR#: [id number] Acct: [id number] Name: LON HAND Jr. Rep #: : 1985 [id number] From: Yeni Church DO PCP: Care Physician,No Primary Status: REG ER Study:Ribs Uni Min 3V w/PA Chest Date of Exam : 10/09/24 Exam# [id number] Ordering Dr: Rafita Xavier MD PROCEDURE: RIBS UNI MIN 3V W/PA CHEST 10/09/2024 REASON FOR EXAM: PAIN TECHNIQUE: Frontal and oblique views of the right ribs. Frontal view of the chest. COMPARISON: None FINDINGS: Heart: The heart size is normal. Lungs: The lungs are clear. Pleura: No pneumothorax or pleural effusions. Ribs: No acute fractures. Other: RAD/Ribs Uni Min 3V w/PA Chest IMPRESSION: No acute fractures. Reading Location: [facility] CC: Dr. Rafita Xavier MD; No Primary Care Physician ~ Recordak Operator: Signed [facility] 10-09-2024 Discharge summary Note Date/Time October 09, 2024 8:06pm [facility] Medical Records Department [address] [place] [address] Emergency Department Summary 10/09/24 MR#: [id number] Acct: [id number] Name: LON HAND Rep #:[id number] : [id number] 38 From: Rafita Xavier MD PCP: Care Physician,No Primary Status :REG ER Location: ED HPI History of Present Illness Chief Complaint: Other, Pain/Inj Narrative Narrative: 38-year-old male past medical history of coronary artery disease, smoker, presents with right sided rib pain that he has had for the last 2 days. He relates history that he has been really sick with upper respiratory infection type symptoms for the last few weeks. 2 days ago, he coughed really hard and felt a pop in his right lateral rib cage. It has been hurting him and he has pain with movement of his rib cage and when he coughs. Today, he coughed again and felt a pop in his abdomen mainly towards the right upper quadrant. He has history of hernia repair, which has returned as well. He became very sweaty andnauseated and he was concerned because that is exactly what happened when he hadhis [place] a few years ago. He presents mainly because of the right sided rib pain,and the pain in his right abdomen. He denies any other exacerbating or alleviating factors. He was concerned because he became diaphoretic after he felt a pop in his abdomen. No vomiting or problems with bowel movements. [facility] Medical History Acute alcoholism Wears glasses Depression Back pain History of GI bleed Gastric reflux Smoker Old anterior myocardial infarction Atherosclerosis of coronary artery of burns paiute heart with angina pectoris Nicotine dependence Essential (primary) hypertension Ventricular fibrillation Obstructive sleep apnea Palpitations Obesity Borderline diabetes mellitus Hyperlipidemia Home Medications ?Medication ?Instructions ?Recorded ?Last Taken ?Type aspirin 81 mg chewable tablet 81 mg PO DAILY [facility] 09/18/13 04/13/18 History cyclobenzaprine 10 mg tablet 10 mg PO TID PRN Muscle S pasm #20 11/20/23 Unknown Rx TABLETS albuterol sulfate 90 mcg/actuation 2 puff PO Q4H PRN P RN for dyspnea 09/30/24 Unknown Rx aerosol inhaler #6.7 ea amlodipine 5 mg tablet 5 mg PO DAILY #90 tabs 09/30 Unknown Rx atorvastatin 80 mg tablet 80 mg PO QHS cholesterol #90 tabs 09/30/24 Unknown Rx clopidogrel 75 mg tablet See Rx Instructions .Route 0 09/30/24 Unknown Rx .COMPLEX anti platelet #90 tabs lisinopril 40 mg tablet 20 mg (1/2 x 40 mg) PO BID # 30 tabs 09/30/24 Unknown Rx metoprolol tartrate 100 mg tablet 100 mg PO BID blood pressure #180 09/30/24 Unknown Rx tabs nitroglycerin 0.4 mg sublingual 0.4 mg sublingual Q5M PRN Chest 09/30/24 Unknown Rx tablet Pain #25 tabs ranolazine 500 mg tablet,extended 500 mg PO BID chest pain #180 tabs 09/30/24 Unknown Rx release,12 hr Allergy/AdvReac Type Severity Reaction Status Date / Time No Known Allergies Allergy Verified 10/09/24 16:33 Family History Mother Diabetes Heart disease Uncle Colon cancer Uncle Cancer lung Father Bowel disease Surgical History History of PTCA (03/20/23) Hx of endoscopy History of left heart catheterization (04/13/18) History of coronary artery stent placement (08/21/13) Social History household members: significant other housing: house Smoking Status: Current every day smoker tobacco type: cigarettes alcohol intake: current alcohol intake frequency: 3 or more drinks per day Alcohol type: beer and hard liquor details: Heavy whiskey intake daily. substance use type: does not use what type of physical activity do you participate in: none ROS ROS ED ROS Narrative Constitutional: No fever, no chills. Positive diaphoresis. Cardiovascular: Right-sided rib/chest pain. No palpitations. No pedal edema. Respiratory: No cough, no shortness of breath. Abdominal: Right upper quadrant abdominal pain. Positive nausea. No vomiting. Genitourinary: No dysuria. No hematuria. Musculoskeletal: No myalgias. No arthralgias. Neurologic: No headaches. No dizziness. No lightheadedness. EXAM Physical Exam Narrative Exam Narrative: Afebrile. Vital signs noted. Nontoxic-appearing. PERRL, EOMI. Neck soft and supple without meningismus. Cardiovascular examination feels a regular rate andrhythm. Chest wall tender on right lateral ribs, no crepitance. Lungs clear toauscultation bilaterally. No noted ecchymosis. Abdomen is soft without guarding or rebound, negative Gambino sign, positive bowel sounds. Reducible hernia right upper quadrant. Neurological examination nonfocal and nonlateralizing. Const Vital Signs: 10/09/24 16:31 10/09/24 16:45 10/09/24 18:30 Temperature 97 F L Temperature Source Temporal Pulse Rate 96 90 Respiratory Rate 22 H 16 Respiratory Effort Normal Non-Labored Respiratory Pattern Normal Blood Pressure 139/81 H 123/76 H Blood Pressure Mean 100 91 Pulse Ox 95 98 Oxygen Delivery Method Room Air 10/09/24 20:00 Temperature Temperature Source Pulse Rate 87 Respiratory Rate 16 Respiratory Effort Respiratory Pattern Blood Pressure 130/84 H Blood Pressure Mean 99 Pulse Ox 98 Oxygen Delivery Method MDM MDM MDM Narrative Medical decision making narrative: The differential diagnosis includes but not limited to rib fracture from coughing versus chest wall strain versus pneumonia versus pneumothorax. Regarding his abdominal pain, he may have more of an abdominal wall strain. I do not palpate an incarcerated hernia and I have low suspicion for acute cholecystitis. I do not feel that he requires CT imaging of the abdomen. Regarding his chest wall pain, x-rays of the right ribs will be obtained as wellas x-rays of the abdomen to rule out any obstruction. He was given 1 Hermitage for analgesia. EKG was also obtained to help rule out ACS/STEMI but based on the history and physical, this does not support his right sided chest wall pain thatis reproducible. EKG was obtained and interpreted by myself independently as normal sinus rhythm at 89 bpm without ectopy or acute ST changes. No STEMI. On my independent interpretation of the right rib x-rays, there is no pneumothorax, no rib fracture, no pneumonia. I reviewed the radiology report which confirms my independent interpretation. On my independent interpretation of the abdominal films, there is a large amount of stool in the colon but a nonobstructive pattern, no acute process. I reviewed the radiology report which confirms my independent interpretation. Upon repeat examination, at approximately 1800, he is bent over the bed, complaining of right upper quadrant abdominal pain. It is worse with movement and he is having difficulty sitting up. He states he is diaphoretic still secondary to pain. At this point in time, given his continued pain, I will obtain laboratory work and a CT as well to look for any acute pathology. He will be given morphine although he had already received a Hermitage. I reviewed his laboratory work and he has slight leukocytosis of 11.6 but when compared to prior labs, this seems chronic for him, hemoglobin normal at 14.9 with hematocrit 44.5, platelet count normal at 301. CMP is grossly unremarkablewith normal LFTs. Lipase normal at 20 so I doubt pancreatitis. Although anion gap is elevated 17, there has been lab errors throughout the week as he has normal sodium, potassium, and chloride. Carbon dioxide also low at 18.6, but once again I feel this may be part of the lab error. Most importantly, CT of the abdomen and pelvis with IV contrast was obtained and while there is a 4.3 umbilical hernia with fat with minimal stranding, there is no acute process. Hehas a nonobstructing tiny renal stone. And that he probably has more of an abdominal wall strain and chest wall strain. At this point in time, I feel he can be discharged to follow-up with a primary care provider and take [id number] medications as needed for pain. Return instructions to the emergency department were reviewed. Disposition is discharged home in stable condition. History & Record Review Discussion w/independent historian: Patient Additional record(s) reviewed:: Prior labs Lab Data Attestation: I reviewed the patient's lab results. Labs: Laboratory Results - last 24 hr 10/09/24 18:08 WBC 11.6 H RBC 4.90 Hgb 14.9 Hct 44.5 MCV 90.8 MCH 30.4 MCHC 33.5 RDW Std Deviation 45.0 H RDW Coeff of Melissa 13.7 Plt Count 301 MPV 10.9 Immature Gran % (Auto) 0.300 Neut % (Auto) 65.5 Lymph % (Auto) 23.8 [place] % (Auto) 6.6 Eos % (Auto) 3.0 Baso % (Auto) 0.8 Absolute Neuts (auto) 7.6 Absolute Lymphs (auto) 2.76 Nucleated RBC % 0 Sodium 138 Potassium 3.8 Chloride 102 Carbon Dioxide 18.6 L Anion Gap 17 H BUN 13 Creatinine 0.90 Estim Creat Clear Calc 141.67 Est GFR (MDRD) Non-Af 110 BUN/Creatinine Ratio 14.3 Glucose 140 H Calcium 9.2 Total Bilirubin 0.25 AST 30 ALT 31 Alkaline Phosphatase 110 Total Protein 7.0 Albumin 4.1 Globulin 2.9 Albumin/Globulin Ratio 1.4 Lipase 20 Radiography Diagnostic Testing: Clinical Impression(s) from Imaging Studies Abdomen X-Ray 10/09/24 16:51 IMPRESSION: NO ACUTE FINDINGS Reading Location: [facility] Ribs w/Chest X-Ray 10/09/24 16:51 IMPRESSION: No acute fractures. Reading Location: [facility] Abdomen/Pelvis CT 10/09/24 17:58 IMPRESSION: 4.3 cm fat containing umbilical hernia with subtle stranding. Tiny nonobstructing right renal calculus. No inflammatory changes of the bowel loops are demonstrated. Reading Location: [facility] Discharge Plan Triage Chief Complaint: Other, Pain/Inj ED Provider: Rafita Xavier Dx/Rx/DC Orders Clinical Impression: Strain of chest wall, Abdominal pain, Umbilical hernia Instructions: ED Chest Wall Pain, Costochondritis, ED Abdominal Pain Unkn CauseMale..., ED Chest Wall Strain Prescriptions: No Action aspirin 81 MG tablet,chewable 81 mg PO DAILY Patient Comments: blood thinner cyclobenzaprine 10 mg tablet 10 mg PO TID PRN (Reason: Muscle Spasm) Qty: 20 0RF amlodipine 5 mg tablet 5 mg PO DAILY Qty: 90 3RF albuterol sulfate 90 mcg/actuation HFA aerosol inhaler 2 puff PO Q4H PRN PRN (Reason: for dyspnea) Qty: 6.7 1RF metoprolol tartrate 100 mg tablet 100 mg PO BID Qty: 180 3RF nitroglycerin 0.4 mg tablet, sublingual 0.4 mg SUBLINGUAL Q5M PRN (Reason: Chest Pain) Qty: 25 3RF ranolazine 500 mg tablet extended release 12 hr 500 mg PO BID Qty: 180 3RF atorvastatin 80 mg tablet 80 mg PO QHS Qty: 90 4RF lisinopril 40 mg tablet 20 mg PO BID Qty: 30 1RF clopidogrel 75 mg tablet See Rx Instructions .ROUTE .COMPLEX Qty: 90 3RF Dose Instruction: TAKE 1 TABLET BY MOUTH EVERY DAY Rx Instructions: TAKE 1 TABLET BY MOUTH EVERY DAY Primary Care Provider: Care Physician,No Primary Referrals: [facility]ark [Other] Kenneth Jackson MD [Med Staff - Active Staff] - As soon as possible Care Physician,No Primary [Primary Care Provider] - Fly Hunter, RAT TRAPPER-C [[facility]] - As soon as possible Activity Restrictions/Additional Instructions: Brad-rfx-[id number] medications like Tylenol or ibuprofen for pain. Return with new or worsening symptoms. Follow-up with your primary care provider. Ice to the affected areas for 10 to 15 minutes 2-3 times daily. Print Language: Greek Disposition Disposition: Home, Self Care What to do if you have Problems For any increased pain, shortness of breath, bleeding, nausea or vomiting, chestpain, or any unexpected problems, contact your Primary Care Provider. Call [facility] ([phone]) or report to the closest Emergency Room. Call 911 if necessary. 10/09/242005 <Electronically signed by Rafita Xavier MD> Cosigner Signature (if applicable): CC: No Primary Care Physician ~ Signed [facility] Work Phone: [phone]) 215-963504-05-2025 Hospital Discharge instructions Additional Instructions Yotc-zfd-kpjhebj medications like Tylenol or ibuprofen for pain. Return with new or worsening symptoms. Follow-up with your primary care provider. Ice to the affected areas for 10 to 15 minutes 2-3 times daily.[facility] Work Phone: [phone]) 993-468909-14-2023 Evaluation note* Diagnosis Onset Date Resolution Status Non-ST elevation LA (NSTEMI) resolved Chest pain acute History of PTCA March 20, 2023 acut e Hypersomnolence acute Obesity acute History of coronary artery stent placement August 212013 resolved [facility] Work Phone: 1(183) 631-185709-13-2023 Consult note Author Kolton Glasgow [facility] March 19, 2023 10:25am Note Date/Time March 19, 2023 7:08am [facility] Medical Records Department [address] [place] [id number] Consultation - Cardiology 03/19/23 0703 MR#: [id number] Acct: [id number] Name: LON HAND Jr. Rep #:[id number] : 1985 37 From: Kolton Glasgow MD PCP: PEDRO Kimball Status:ADM IN Location: [place] [address] Assessment & Plan Assessment/Plan (1) Non-ST elevation LA (NSTEMI): PLAN: He presents with a non-ST elevation myocardial infarction with chest discomfort. At this juncture my recommendation will be to proceed with a left heart catheterization and depending on the findings further recommendations willbe made. Catheterization this morning demonstrated a high-grade in-stent stenosis of approximately 95% in the mid to distal left anterior descending artery. Patientwill undergo PCI of the above. 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 (3) Essential (primary) hypertension: PLAN: His blood pressure is mildly elevated. The plan be to continue the current medical therapy. Increase his amlodipine for better blood pressure control. He will have a repeat echocardiogram at some point. (4) Hyperlipidemia: QUALIFIERS: Hyperlipidemia type: pure hypercholesterolemia Qualified Code(s): E78.00 - Pure hypercholesterolemia, unspecified; E78.0 - Purehypercholesterolemia PLAN: He is on high intensity statin which will be continued. HPI Consult Data Date of Consult: 03/19/23 HPI Narrative HPI Narrative: LON HAND, is a 37 M who presents. He has a history of premature coronary artery disease with two stents to his LAD in 2013, hypertension, and hyperlipidemia. 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 He was scheduled to see as this afternoon. He presented to the emergency room yesterday with chest discomfort pressure-like sensation and occasional sharp sensation. He did take some Tums and nitroglycerin with some improvement. In the emergency room he was noted to be tachycardic and he was given nitroglycerin and heparin and became briefly vagal. He has minimal chest discomfort at this time. As you know he had a repeat cardiac catheterization in April 2018 and demonstrated patent stents and preserved ejection fraction. He was not under any activity he had not had tobacco use. He is also had some episodes of chest discomfort which appeared camron sharp lancinating. He is not had any presyncope or syncope. His blood pressure on occasion has been elevated. His physical exam demonstrates clear lung law regular rate and rhythm no pedal edema his blood pressure is under good control. 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 Back pain Borderline diabetes mellitus Depression Essential (primary) hypertension Gastric reflux History of GI bleed Hyperlipidemia Nicotine dependence Obesity Obstructive sleep apnea Old anterior myocardial infarction Palpitations Smoker Ventricular fibrillation Wears glasses Home Medications aspirin 81 mg chewable tablet 81 mg PO DAILY 09/18/13 [History Last Taken 04/13/18] albuterol sulfate 90 mcg/actuation aerosol inhaler 2 puff inhalation Q4H PRN SOB#8 grams 12/31/21 [Rx Last Taken Unknown] metoprolol tartrate 100 mg tablet 100 mg PO BID #180 tabs 01/18/22 [Rx Last Taken Unknown] nitroglycerin 0.4 mg sublingual tablet 0.4 mg sublingual Q5M PRN Chest Pain #25 tabs 02/11/22 [Rx Last Taken Unknown] clopidogrel 75 mg tablet See Rx Instructions .Route .COMPLEX #30 tabs 12/23/22 [Rx Last Taken Unknown] ranolazine 500 mg tablet,extended release,12 hr See Rx Instructions .Route .COMPLEX #60 tabs 12/23/22 [Rx Last Taken Unknown] lisinopril 20 mg tablet 20 mg PO DAILY Pt needs to keep appt in january for furtherrefills. #30 tabs 01/02/23 [Rx Last Taken Unknown] amlodipine 2.5 mg tablet 2.5 mg PO DAILY #90 tabs 02/06/23 [Rx Last Taken Unknown] atorvastatin 80 mg tablet 80 mg PO QHS #90 tabs 03/03/23 [Rx Last Taken Unknown] Allergy/AdvReac Type Severity Reaction Status Date / Time No Known Allergies Allergy Verified 03/18/23 22:10 Family History Mother Diabetes Heart disease Uncle Colon cancer Uncle Cancer lung Father Bowel disease Surgical History History of coronary artery stent placement (08/31/13) History of left heart catheterization (04/13/18) Hx of endoscopy Social History household members: significant other Smoking Status: Current every day smoker tobacco type: cigarettes alcohol intake: current alcohol intake frequency: 3 or more drinks per day Alcohol type: beer and hard liquor details: Heavy whiskey intake daily. substance use type: does not use what type of physical activity do you participate in: none ROS Constitutional Constitutional: Denies fever(s) or weight loss Eyes Eyes: Reports systems reviewed and no addt'l complaints, except as documented ENT HEENT: Reports systems reviewed and no addt'l complaints, except as documented Cardiovascular Cardiovascular: Reports chest pain at rest and chest pain with activity; Denies dyspnea at rest, dyspnea on exertion, edema, palpitations or paroxysmal nocturnal dyspnea Respiratory/Chest Respiratory/Chest: Denies dyspnea on exertion, productive cough, shortness of breath at rest or shortness of breath with exertion Gastrointestinal Gastrointestinal: Denies change in bowel habits, nausea, vomiting or weight changes Genitourinary Genitourinary: Denies difficulty urinating Musculoskeletal Musculoskeletal: Denies joint stiffness or muscle weakness Integumentary Integumentary: Denies lesions Neurologic Neurologic: Denies dizziness or syncope Psychiatric Psychiatric: Denies anxiety Endocrine Endocrinology: Denies excessive sweating or fatigue Hematologic/Lymphatic Hematologic/Lymphatic: Denies anemia Allergic/Immunologic Allergic/Immunologic: Denies seasonal rhinorrhea Physical Exam Const alert, oriented x3 and no apparent distress General Appearance: cooperative HEENT hearing grossly normal bilaterally Head and Scalp: atraumatic Eyes EOMs intact bilaterally Neck General: normal visual inspection Chest inspection of chest normal and palpation of chest normal Resp normal respiratory effort Auscultation: clear to auscultation bilaterally Cardio regular rate, regular rhythm, S1 normal heart sound and S2 normal heart sound Jugular Venous Distention: JVD GI normal to inspection, nondistended, normoactive bowel sounds Extremity normal capillary refill and no pedal edema Peripheral Pulses: Yes pulses 2+ throughout and femoral pulses present Skin no rashes or lesions noted Neuro oriented x3 and CN's II-XII intact bilaterally Psych Appearance: grossly normal and appropriate Risk Stratification Risk Stratification Applicable: Yes Age >/= 65: No >/= 3 CAD Risk Factors (HTN, HLD, DM, family hx of CAD, or current smoker): Yes Aspirin Use in the Past 7 Days: Yes Severe Angina (>/= episodes in 24 hours): Yes EKG ST Changes >/= 0.5mm: No Positive Cardiac Marker: Yes CHEO Risk Stratification Score: 4 CHEO % Risk: 20% Risk Objective Data Vital Signs: Vital Signs Temp Pulse Resp BP Pulse Ox O2 Del Method O2 Flow Rate 98.0 F 68 16 133/86 H 99 Nasal Cannula 2 03/19/23 06:30 03/19/23 06:30 03/19/23 06:30 03/19/23 06:30 03/19/23 06:30 03/19/23 06:30 03/19/23 06:30 Oxygen Flow Rate (L/min) 2 Oxygen Delivery Method Nasal Cannula Weight: 298 lb 8.094 oz Body Mass Index (BMI) 48.2 Intake & Output: Intake and Output for Last 24 Hours 03/17/23 03/18/23 03/19/23 23:59 23:59 23:59 Intake Total 899.67 / 899.67 Balance 899.67 / 899.67 Lab / Micro Data 03/19/23 05:04 03/19/23 05:04 Labs: Laboratory Results - last 24 hr 03/18/23 22:30: WBC 11.8 H, RBC 5.03, Hgb 14.7, Hct 45.9, MCV 91.3, MCH 29.2, MCHC 32.0, RDW Std Deviation 46.9 H, RDW Coeff of Melissa 14.2, Plt Count 313, MPV 10.8, Immature Gran % (Auto) 0.400, Neut % (Auto) 59.1, Lymph % (Auto) 27.5, [place] % (Auto) 8.2, Eos % (Auto) 4.0, Baso % (Auto) 0.8, Absolute Neuts (auto) 7.0, Absolute Lymphs (auto) 3.26, Nucleated RBC % 0, PT 12.6, INR 0.9, APTT 28.2, D-Dimer Quant (PE/DVT) 0.33, Sodium 140, Potassium 3.3 L, Chloride 104, Carbon Dioxide 25.0, Anion Gap 11, BUN 16, Creatinine 0.92, Estim Creat Clear Calc 93.77, Est GFR (MDRD) Af Amer 118, Est GFR (MDRD) Non-Af 98, BUN/CreatinineRatio 17.4, Glucose 186 H, Calcium 8.9, Troponin I High Sens 153 H* 03/19/23 00:50: Troponin I High Sens 132 H* 03/19/23 05:04: WBC 12.6 H, RBC 4.69, Hgb 13.7, Hct 43.0, MCV 91.7, MCH 29.2, MCHC 31.9 L, RDW Std Deviation 48.2 H, RDW Coeff of Melissa 14.3, Plt Count 261, MPV10.7, Sodium 139, Potassium 4.4, Chloride 108 H, Carbon Dioxide 26.0, Anion Gap 5, BUN 17, Creatinine 0.76, Estim Creat Clear Calc 117.76, Est GFR (MDRD) Af Amer 146, Est GFR (MDRD) Non-Af 121, BUN/Creatinine Ratio 22.3 H, Glucose 150 H,Calcium 8.9, Troponin I High Sens 228 H*, Triglycerides 539 H, Cholesterol 254 H, LDL Cholesterol TNP, VLDL Cholesterol TNP, HDL Cholesterol 39 L 03/19/23 06:07: APTT 32.2 Cardiology Labs/Tests 03/18/23 22:30: WBC 11.8 H, RBC 5.03, Hgb 14.7, Hct 45.9, MCV 91.3, MCH 29.2, MCHC 32.0, Plt Count 313, MPV 10.8, Immature Gran % (Auto) 0.400, Neut % (Auto) 59.1, Lymph % (Auto) 27.5, [place] % (Auto) 8.2, Eos % (Auto) 4.0, Baso % (Auto) 0.8, Absolute Neuts (auto) 7.0, Nucleated RBC % 0, PT 12.6, INR 0.9, APTT 28.2, D-Dimer Quant (PE/DVT) 0.33, Sodium 140, Potassium 3.3 L, Chloride 104, Carbon Dioxide 25.0, Anion Gap 11, BUN 16, Creatinine 0.92, Est GFR (MDRD) Af Amer 118,Est GFR (MDRD) Non- Af 98, BUN/Creatinine Ratio 17.4, Glucose 186 H, Calcium 8.9 03/19/23 05:04: WBC 12.6 H, RBC 4.69, Hgb 13.7, Hct 43.0, MCV 91.7, MCH 29.2, MCHC 31.9 L, Plt Count 261, MPV 10.7, Sodium 139, Potassium 4.4, Chloride 108 H,Carbon Dioxide 26.0, Anion Gap 5, BUN 17, Creatinine 0.76, Est GFR (MDRD) Af Amer 146, Est GFR (MDRD) Non-Af 121, BUN/Creatinine Ratio 22.3 H, Glucose 150 H,Calcium 8.9, Triglycerides 539 H, Cholesterol 254 H, LDL Cholesterol TNP, VLDL Cholesterol TNP, HDL Cholesterol 39 L 03/19/23 06:07: APTT 32.2 Rhythm: EKG: ECHO: Stress Test: Cardiac Cath: PCI: CT Surgery: Holter monitor: EPS: PPM: CXR: Chest CT Scan: Radiography Diagnostic Testing: Radiology Impression Chest X-Ray 03/18/23 22:37 IMPRESSION: Normal x-ray examination of the chest for age. Electronically Signed: Katelynn Mischiu, MD at 23:02 EDT , 03/19/23 1025 <Electronically signed by Kolton Glasgow MD> Cosigner Signature (if applicable): CC: RAT TRAPPERMarilu Jackson; Dr. Kolton Glasgow MD; Dr. Cipriano Seymour MD~ Signed [facility] Work Phone: [phone]) 222-235709-13-2023 History and physical note Author Cipriano efest. [facility] March 19, 2023 2:16am Note Date/Time March 19, 2023 12:12am [facility] Medical Records Department [address] [facility] [address] H&P Exam - Hospitalist 03/19/23 0011 MR#: [id number] Acct: [id number] Name: LON HAND Jr. Rep #:[id number] : 1985 37 From: Cipriano Seymour MD PCP: PEDRO Kimball Status:ADM IN Location: [place] [address] HPI - General General Date of Admission: 03/18/23 Date of Service: 03/19/23 Chief Complaint: Chest pain HPI Narrative LON HAND, is a 37 M with a significant history of CAD s/p 2 stents; and multiple cardiac arrest who presents emergency department with chest pain that started a day before presentation. His chest pain is substernal and it radiatesto both shoulders and both arms where he feels like electric shock. He described chest pain as a burning sensation. He rates his chest pain about as 6out of 10. Sitting up and lying on his left side worsens the chest pain. Lyingon his back improved the chest pain. Patient was scheduled to see his cardiology the day after this presentation. A day before his presentation he took a Tums and 2 nitroglycerin which helped with his pain. On the day of presentation he did not get any improvement with nitroglycerin so he told his to bring him to the emergency department. While at the emergency department patient was found to have tachycardia. However he had an episode where he vagal down. Troponin returned elevated. Emergency department discussed the case with cardiology and patient was started on heparin drip. Also half of an inch of nitroglycerin and metoprolol IV was given. 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 Back pain Borderline diabetes mellitus Depression Essential (primary) hypertension Gastric reflux History of GI bleed Hyperlipidemia Nicotine dependence Obesity Obstructive sleep apnea Old anterior myocardial infarction Palpitations Smoker Ventricular fibrillation Wears glasses Home Medications aspirin 81 mg chewable tablet 81 mg PO DAILY 09/18/13 [History Last Taken 04/13/18] albuterol sulfate 90 mcg/actuation aerosol inhaler 2 puff inhalation Q4H PRN SOB#8 grams 12/31/21 [Rx Last Taken Unknown] metoprolol tartrate 100 mg tablet 100 mg PO BID #180 tabs 01/18/22 [Rx Last Taken Unknown] nitroglycerin 0.4 mg sublingual tablet 0.4 mg sublingual Q5M PRN Chest Pain #25 tabs 02/11/22 [Rx Last Taken Unknown] clopidogrel 75 mg tablet See Rx Instructions .Route .COMPLEX #30 tabs 12/23/22 [Rx Last Taken Unknown] ranolazine 500 mg tablet,extended release,12 hr See Rx Instructions .Route .COMPLEX #60 tabs 12/23/22 [Rx Last Taken Unknown] lisinopril 20 mg tablet 20 mg PO DAILY Pt needs to keep appt in january for furtherrefills. #30 tabs 01/02/23 [Rx Last Taken Unknown] amlodipine 2.5 mg tablet 2.5 mg PO DAILY #90 tabs 02/06/23 [Rx Last Taken Unknown] atorvastatin 80 mg tablet 80 mg PO QHS #90 tabs 03/03/23 [Rx Last Taken Unknown] Allergy/AdvReac Type Severity Reaction Status Date / Time No Known Allergies Allergy Verified 03/18/23 22:10 Family History Mother Diabetes Heart disease Uncle Colon cancer Uncle Cancer lung Father Bowel disease Surgical History History of coronary artery stent placement (08/31/13) History of left heart catheterization (04/13/18) Hx of endoscopy Social History household members: significant other Smoking Status: Current every day smoker tobacco type: cigarettes alcohol intake: current alcohol intake frequency: 3 or more drinks per day Alcohol type: beer and hard liquor details: Heavy whiskey intake daily. substance use type: does not use what type of physical activity do you participate in: none ROS ROS Narrative Pertinent positives and pertinent negatives as noted in HPI. All other systems were reviewed and are negative Vital Signs Vital Signs Vital Signs: 03/18/23 22:06 03/18/23 22:39 03/18/23 23:17 Temperature 97.2 F L Temperature Source Temporal Pulse Rate 124 H 86 Respiratory Rate 15 13 Blood Pressure 144/96 H 124/77 H Blood Pressure Mean 112 92 Pulse Ox 96 96 91 Oxygen Delivery Method Room Air Nasal Cannula Oxygen Flow Rate (L/min) 2 03/19/23 00:00 Temperature Temperature Source Pulse Rate 97 Respiratory Rate Blood Pressure 124/68 H Blood Pressure Mean Pulse Ox Oxygen Delivery Method Oxygen Flow Rate (L/min) Weight Weight: 135.624 kg Body Mass Index (BMI) 49.7 Physical Exam Narrative Physical exam: General: Well-nourished, well-developed. Head: Normocephalic, atraumatic, no tenderness Eyes: Vision is grossly intact. EOMI ENT, no trauma, moist mucous membranes, no rhinorrhea Neck: Nontender, No thyromegaly. CVS: Regular rate and rhythm. S1-S2 present. No murmur, gallop or rub. Respiratory : clear to auscultation bilaterally, chest wall nontender Abdomen: Soft, nontender, nondistended, normal bowel sounds, no masses : Deferred Back: Nontender, no CVA tenderness, no midline spinal tenderness, deformities, step-offs Extremities: Nontender full range of motion, no trauma Skin: Normal color, no trauma, abrasions Neuro: Alert, oriented, cranial nerves II through XII grossly intact. Psychiatry: Normal mood. Normal affect. Not depressed. Not anxious. Results Lab / Micro Data 03/18/23 22:30 03/18/23 22:30 Labs: Laboratory Results - last 24 hr 03/18/23 22:30: WBC 11.8 H, RBC 5.03, Hgb 14.7, Hct 45.9, MCV 91.3, MCH 29.2, MCHC 32.0, RDW Std Deviation 46.9 H, RDW Coeff of Melissa 14.2, Plt Count 313, MPV 10.8, Immature Gran % (Auto) 0.400, Neut % (Auto) 59.1, Lymph % (Auto) 27.5, [place] % (Auto) 8.2, Eos % (Auto) 4.0, Baso % (Auto) 0.8, Absolute Neuts (auto) 7.0, Absolute Lymphs (auto) 3.26, Nucleated RBC % 0, PT 12.6, INR 0.9, APTT 28.2, D-Dimer Quant (PE/DVT) 0.33, Sodium 140, Potassium 3.3 L, Chloride 104, Carbon Dioxide 25.0, Anion Gap 11, BUN 16, Creatinine 0.92, Estim Creat Clear Calc 93.77, Est GFR (MDRD) Af Amer 118, Est GFR (MDRD) Non-Af 98, BUN/CreatinineRatio 17.4, Glucose 186 H, Calcium 8.9, Troponin I High Sens 153 H* Radiology Impression Chest X-Ray 03/18/23 22:37 IMPRESSION: Normal x-ray examination of the chest for age. Electronically Signed: Katelynn Roca MD at 23:02 EDT , Assessment & Plan Assessment/Plan (1) Non-ST elevation LA (NSTEMI): (2) Acute alcoholism: (3) Essential (primary) hypertension: (4) Hyperlipidemia: QUALIFIERS: Hyperlipidemia type: pure hypercholesterolemia Qualified Code(s): E78.00 - Pure hypercholesterolemia, unspecified; E78.0 - Purehypercholesterolemia (5) Nicotine dependence: QUALIFIERS: Nicotine product type: cigarettes Substance use status: uncomplicated Qualified Code(s): F17.210 - Nicotine dependence, cigarettes, uncomplicated PLAN: Plan Non-STEMI Patient with chest pain and elevated troponins. Initial high sensitive troponin was 153. Delta was 132. EKG interpreted by myself showed T wave flattening in inferior leads that appearsimilar to previous. Place on a monitored bed at progressive care unit stepdown Actual CXR image was independently visualized. No acute cardiopulmonary processwas noted. Agrees with radiologist interpretation. Baby aspirin and Plavix continued. Nitroglycerin paste ordered. Last lipid panel on file was in 2019; repeat. Dilaudid for pain ordered. Morphine as needed for pain ordered We will check lipid panel. Statin: High intensity atorvastatin continued Stat EKG as needed for chest pain Lisinopril metoprolol continued DVT prophylaxis ordered. NPO. Cardiology consult. Hypertension Blood pressure is not within goal Home blood pressure medication continued. As needed hydralazine ordered. Trend blood pressure and adjust blood pressure medications. Alcoholism Placed on CIWA protocol with as needed Ativan. Tobacco abuse Counseled Morbid Obesity: BMI: 48.2kg/m?. Complicates care. Lifestyle modification recommended. DVT prophylaxis not indicated as patient started on therapeutic dose of heparin for A-fib. Time spent in the patient's overall evaluation,decision-making process, review of diagnostic data, adjustment of management, discussion with other providers, nursing nursing and ancillary staff involved in patient's care documentation, 70minutes. Charges/Coding Visit Charges Inpatient E&M: 35813 Init Hosp L3 03/19/23 0216 <Electronically signed by Cipriano Seymour MD> Cosigner Signature (if applicable): CC: PEDRO Jackson; Dr. Cipriano Seymour MD~ Signed [facility] Work Phone: 1(602) 783-148209-13-2023 Discharge summary Author Nirmala Armas [facility] March 19, 2023 1:56am Note Date/Time March 18, 2023 10:36pm [facility] Medical Records Department [address] [place] [address] Emergency Department Summary 03/18/23 MR#: [id number] Acct: [id number] Name: LON HAND Rep #:[id number] : 1985 37 From: Nirmala Armas MD PCP: PEDRO Kimball Status:ADM IN Location: [place] [address] HPI History of Present Illness Chief Complaint: Chest Pain Informant: patient Onset/Context/Timing Onset: Yesterday Narrative Narrative: Patient presents secondary to chest pain. He had a cardiac arrest with LA and 2stents placed in 2013. He is still on Plavix. He does state that he has been out of his isosorbide for 2 months. He has an appointment to see Dr. Glasgow tomorrow morning. Patient states yesterday he developed chest pain that felt more like reflux. Hehad a burning sensation in his epigastric region. He took 2 nitro as well as Tums and pain improved. Pain at that time had started when he was sitting on the couch after work. He states he had made it through work without difficulty. Tonight pain returned. He describes it as sharp and burning across his chest. He tried to nitro at home tonight without improvement. [facility] Medical History Atherosclerosis of coronary artery of burns paiute heart with angina pectoris Back pain Borderline diabetes mellitus Depression Essential (primary) hypertension Gastric reflux History of GI bleed Hyperlipidemia Nicotine dependence Obesity Obstructive sleep apnea Old anterior myocardial infarction Palpitations Smoker Ventricular fibrillation Wears glasses Home Medications aspirin 81 mg chewable tablet 81 mg PO DAILY 09/18/13 [History Last Taken 04/13/18] albuterol sulfate 90 mcg/actuation aerosol inhaler 2 puff inhalation Q4H PRN SOB#8 grams 12/31/21 [Rx Last Taken Unknown] metoprolol tartrate 100 mg tablet 100 mg PO BID #180 tabs 01/18/22 [Rx Last Taken Unknown] nitroglycerin 0.4 mg sublingual tablet 0.4 mg sublingual Q5M PRN Chest Pain #25 tabs 02/11/22 [Rx Last Taken Unknown] clopidogrel 75 mg tablet See Rx Instructions .Route .COMPLEX #30 tabs 12/23/22 [Rx Last Taken Unknown] ranolazine 500 mg tablet,extended release,12 hr See Rx Instructions .Route .COMPLEX #60 tabs 12/23/22 [Rx Last Taken Unknown] lisinopril 20 mg tablet 20 mg PO DAILY Pt needs to keep appt in january for furtherrefills. #30 tabs 01/02/23 [Rx Last Taken Unknown] amlodipine 2.5 mg tablet 2.5 mg PO DAILY #90 tabs 02/06/23 [Rx Last Taken Unknown] atorvastatin 80 mg tablet 80 mg PO QHS #90 tabs 03/03/23 [Rx Last Taken Unknown] Allergy/AdvReac Type Severity Reaction Status Date / Time No Known Allergies Allergy Verified 03/18/23 22:10 Family History Mother Diabetes Heart disease Uncle Colon cancer Uncle Cancer lung Father Bowel disease Surgical History History of coronary artery stent placement (08/31/13) History of left heart catheterization (04/13/18) Hx of endoscopy Social History household members: significant other Smoking Status: Current every day smoker tobacco type: cigarettes alcohol intake: current alcohol intake frequency: 3 or more drinks per day Alcohol type: beer and hard liquor details: Heavy whiskey intake daily. substance use type: does not use what type of physical activity do you participate in: none ROS ROS ED Constitutional Constitutional ED: Denies chills or fever(s) Eyes Eyes: Denies change in vision or discharge from eye(s) ENT ENT ED: Denies discharge from eye(s), rhinorrhea or sore throat Cardiovascular Cardiovascular: Reports chest pain; Denies palpitations Respiratory/Chest Respiratory/Chest: Reports cough; Denies dyspnea Gastrointestinal Gastrointestinal: Reports abdominal pain; Denies diarrhea, nausea or vomiting Genitourinary Genitourinary ED: Denies dysuria Musculoskeletal Musculoskeletal: Denies back pain or extremity pain Integumentary Denies Abrasions or rash Neurologic Neurologic: Denies headache(s) or weakness Psychiatric Psychiatric: Denies anxiety or depression Allergic/Immunologic Allergic/Immunologic ED: Denies lip swelling or urticaria EXAM Physical Exam Const Vital Signs: 03/18/23 22:06 03/18/23 22:39 03/18/23 23:17 Temperature 97.2 F L Temperature Source Temporal Pulse Rate 124 H 86 Respiratory Rate 15 13 Blood Pressure 144/96 H 124/77 H Blood Pressure Mean 112 92 Pulse Ox 96 96 91 Oxygen Delivery Method Room Air Nasal Cannula Oxygen Flow Rate (L/min) 2 Positive well nourished and well developed General Appearance ED: well developed HEENT Reports normocephalic and head/scalp atraumatic Eyes PERRL and EOMs intact bilaterally Neck supple Chest Wall inspection of chest normal and palpation of chest normal Resp normal respiratory effort and clear to auscultation bilaterally Cardio regular rhythm Rate: tachycardic GI soft to palpation Palpation: soft Extremity normal to inspection Neuro oriented x3 and no sensory deficits noted Sensorium / Orientation: alert Motor Exam: strength 5/5 throughout Psych mental status grossly normal Skin no rashes or lesions noted Heart Score History: Moderately Suspicious ECG: Normal Age: </= 45 years Risk Factors: >/= 3 Risk Factors or History of CAD Troponin: >1 - <3 Normal Limit Score: 4 MDM MDM MDM Narrative Medical decision making narrative: Patient placed on color television console monitor. EKG obtained to evaluate for cardiac arrhythmia/ischemia. Chest x-ray obtained to evaluate for acute lung pathology,cardiac size, or mediastinal abnormality. Labwork obtained to evaluate for leukocytosis, anemia, and electrolyte derangement. Patient given morphine and Phenergan for pain and nausea. He is also given a dose of Protonix as he has been having some reflux symptoms. History & Record Review Discussion w/independent historian: Patient Additional record(s) reviewed:: Prior outpatient record, Prior ED visit and Prior labs Lab Data Attestation: I reviewed the patient's lab results. Labs: Laboratory Results - last 24 hr 03/18/23 22:30 WBC 11.8 H RBC 5.03 Hgb 14.7 Hct 45.9 MCV 91.3 MCH 29.2 MCHC 32.0 RDW Std Deviation 46.9 H RDW Coeff of Melissa 14.2 Plt Count 313 MPV 10.8 Immature Gran % (Auto) 0.400 Neut % (Auto) 59.1 Lymph % (Auto) 27.5 [place] % (Auto) 8.2 Eos % (Auto) 4.0 Baso % (Auto) 0.8 Absolute Neuts (auto) 7.0 Absolute Lymphs (auto) 3.26 Nucleated RBC % 0 D-Dimer Quant (PE/DVT) 0.33 Sodium 140 Potassium 3.3 L Chloride 104 Carbon Dioxide 25.0 Anion Gap 11 BUN 16 Creatinine 0.92 Estim Creat Clear Calc 93.77 Est GFR (MDRD) Af Amer 118 Est GFR (MDRD) Non-Af 98 BUN/Creatinine Ratio 17.4 Glucose 186 H Calcium 8.9 Troponin I High Sens 153 H* Radiography Chest X-Ray - ED: 1 View, Read by ED Physician, Chronic Changes and No Infiltrates Diagnostic Testing: Clinical Impression(s) from Imaging Studies Chest X-Ray 03/18/23 22:37 IMPRESSION: Normal x-ray examination of the chest for age. Electronically Signed: Katelynn Roca MD at 23:02 EDT , EKG Initial EKG: Interpretation: Sinus Tachycardia (Sinus tach at 117. Nonspecific T wave flattening. No significant ST change.) Treatment and Re-Evaluation :: Patient was ordered morphine for pain along with aspirin. Given his QTc measured at 474 I gave him p.o. Phenergan. Unfortunately patient did have vomiting. He was given an IM Phenergan to control nausea symptoms. CBC reveals a white count of 11.8 with a hemoglobin of 14.7. Chemistry studies reveal a potassium of 3.3. Normal renal function. Glucose is 186. Troponin returns elevated at 153. I spoke with Dr. Glasgow. He would like the patient to be given a heparin drip and Nitropaste. I will also give a dose of a beta-thu. When I went back into reevaluate him his heart rate is currently 102. I will speak with hospitalist regarding admission. Dr. Glasgow will plan to cath the patient tomorrow. Discharge Plan Triage Chief Complaint: Chest Pain ED Provider: Nirmala Armas Dx/Rx/DC Orders Clinical Impression: Non-ST elevation LA (NSTEMI) Prescriptions: No Action aspirin 81 MG tablet,chewable 81 mg PO DAILY Patient Comments: blood thinner albuterol sulfate 90 mcg/actuation HFA aerosol inhaler 2 puff INHALATION Q4H PRN (Reason: SOB) Qty: 8 1RF metoprolol tartrate 100 mg tablet 100 mg PO BID Qty: 180 4RF nitroglycerin 0.4 mg tablet, sublingual 0.4 mg SUBLINGUAL Q5M PRN (Reason: Chest Pain) Qty: 25 3RF ranolazine 500 mg tablet extended release 12 hr See Rx Instructions .ROUTE .COMPLEX Qty: 60 0RF Dose Instruction: TAKE 1 TABLET BY MOUTH TWICE A DAY Rx Instructions: TAKE 1 TABLET BY MOUTH TWICE A DAY clopidogrel 75 mg tablet See Rx Instructions .ROUTE .COMPLEX Qty: 30 3RF Dose Instruction: TAKE 1 TABLET BY MOUTH EVERY DAY Rx Instructions: TAKE 1 TABLET BY MOUTH EVERY DAY lisinopril 20 mg tablet 20 mg PO DAILY Qty: 30 11RF amlodipine 2.5 mg tablet 2.5 mg PO DAILY Qty: 90 4RF atorvastatin 80 mg tablet 80 mg PO QHS Qty: 90 4RF Primary Care Provider: Thomas Jackson NP Referrals: Thomas Jackson NP, RAT TRAPPER-C [Primary Care Provider] - Disposition Disposition: Acute Care Hospital [facility] What to do if you have Problems For any increased pain, shortness of breath, bleeding, nausea or vomiting, chestpain, or any unexpected problems, contact your Primary Care Provider. Call [facility] ([phone]) or report to the closest Emergency Room. Call 911 if necessary. 03/19/23 0156 <Electronically signed by Nirmala Armas MD> Cosigner Signature (if applicable): CC: RAT TRAPPER-C Thomas Jackson ~ Signed [facility] Work Phone: 1(713) 251-532811-23-2022 Miscellaneous Notes* Telephone Encounter - Lizet Scales RN - 05/29/2022 8:05 AM EST [facility] for the C9 that was sent asking for an additional allowance on [employer] claim. Faxed the following: original FROI completed by [facility], emergency room visit, CT scan, Dr. Bolivar's initial consultation, operative report and post-op visit with FLORENCIA Burgos. Fax confirmation sheet received. Lizet Scales RN documented in this encounterMer[facility]11-21-2022 Miscellaneous Notes* Telephone Encounter - Amira Glass RN - 05/27/2022 10:23 AM EST C9, op report, & CT scan faxed to [facility] asking for additional allowance on Surgery done by Dr. Bolivar at [facility].Amira Glass RN * Telephone Encounter - Amira Glass RN - 05/23/2022 4:20 PM EST Fax received from [facility] asking for the C-9 be updated. [facility] claim was denied with currentdiagnosis. Trying to make contact with someone who can help me with this.Amira Glass RN documented in this encounterMercy Memorial Hospital09-28-2022 Miscellaneous Notes* Telephone Encounter - Lizet Scales RN - 04/03/2022 4:22 PM EDT [employer] signed and faxed to Alva Velázquez at [employer] at [phone]. Fax confirmation sheet received. Lizet Scales RN * Telephone Encounter - Lizet Scales RN - 04/02/2022 11:20 AM EDT [employer] printed, completed and put in Dr. Bolivar's mailbox for a signature. Lizet Scales RN * Telephone Encounter - Susanna Fontaine RN - 04/02/2022 10:35 AM EDT Received phone call from Mai with [employer]. Mai requesting [employer] to cover 02/05 - 02/26. She states patient was off work during this time and the only [employer] received was for 02/26 - 03/24. Mai can be reached at [phone]. Fax number is [phone]. documented in this encounterMercy Memorial Hospital09-26-2022 Miscellaneous Notes* Telephone Encounter - Lizet Scales RN - 04/01/2022 10:59 AM EDT Received fax from Alva Velázquez from [facility], requesting that an area on the previously filedMed[employer]-14 be completed and returned to them. Faxed today, fax confirmation sheet received. Lizet Scales RN documented in this encounterMercy Memorial Hospital09-21-2022 Miscellaneous Notes* Telephone Encounter - Amanda Clifford - 03/27/2022 4:01 PM EDT [employer] faxed to Claudio Kwan at [employer]. Confirmation received. * Telephone Encounter - Amanda Clifford - 03/25/2022 9:39 AM EDT [employer] is workers compensation paperwork. I will have sign paperwork and fax it to [employer]. * Telephone Encounter - Bess Dominguez Ma - 03/25/2022 9:13 AM EDT Received a call from Alejandra from [employer]. She did receive office notes for patient, but she also needs a [employer] 14 for this patient. documented in this encounterMercy Memorial Hospital09-21-2022 NoteHNO ID: [id number] Author: Shira Gasca APRN.[employer] Service: ? Author Type: Nurse Practitioner Type: Progress Notes Filed: 03/27/2022 10:57 AM Note Text: CC: Patient presents with: Ear Pain: L ear pain x1 day, SOB, cough x1 week, diarrhea and shakiness HPI: Lon Hand is a 36 year old male who presents to the office with complaint of cough, nonproductive and ear symptoms shortness of brath for a week and cough for one day. Symptoms are staying the same. Associated symptoms includes ear pain. Denies fever, nausea, vomiting , and diarrhea. Treatments tried include nothing so far. with no relief of symptoms. Sick contacts: unknown. History of asthma, frequent episodes of bronchitis, chronic bronchitis, bronchiectasis or COPD: No Smoker: No Seasonal/environmental allergies: No The ROS is otherwise negative. The patient's pmh, medications, allergies, and past visits are reviewed. PHYSICAL EXAM: BP 122/84 Pulse 98 Temp 36.6 ?C (97.9 ?F) Resp 20 Wt 133.9 kg (295 lb 3.2 oz) SpO2 98% BMI 49.12 kg/m? General appearance: alert, cooperative, pleasant, in no acute distress Head: Normocephalic Eyes: EOM's intact, conjunctiva pink and moist, no icterus, sclera white, non-injected Ears: Right ear: External ear/canal- Normal, TM - clear with good landmarks. Left ear: External ear/canal- Normal, TM - erythematous, bulging Oropharynx:moist without lesions, No erythema, exudates or tonsillar hypertrophy. Heart: Negative. RRR without obvious murmur, gallop, or rubs. No ectopy. Lungs: clear to auscultation, without rales or wheeze, good air exchange PAST MEDICAL HISTORY Diagnosis Date CAD (coronary artery disease) S/p LA. Dr. Glasgow Childhood asthma Tobacco use disorder PAST SURGICAL HISTORY Procedure Laterality Date ESOPHAGOGASTRODUODENOSCOPY TRANSORAL DIAGNOSTIC 05/02/2014 EGD REPAIR UMBILICAL HERNIA 02/26/2022 STENTS (SPECIFY) 07/07/2013 2 cardiac ALLERGIES Patient has no known allergies. MEDICATIONS albuterol HFA (PROVENTIL HFA, VENTOLIN HFA) 90 mcg/actuation inhaler Inhale 2 Puffs as instructed every 6 hours as needed for Wheezing/Shortness of Breath. metoprolol tartrate, short acting, (LOPRESSOR) 50 mg tablet Take 1 tablet by mouth twice daily. aspirin, enteric coated 81 mg EC tablet Take 81 mg by mouth once daily. amLODIPine (NORVASC) 5 mg tablet Take 10 mg by mouth once daily. atorvastatin (LIPITOR) 80 mg tablet Take 80 mg by mouth once daily. clopidogrel (PLAVIX) 75 mg tablet Take 75 mg by mouth once daily. lisinopril (ZESTRIL, PRINIVIL) 10 mg tablet Take 10 mg by mouth once daily. amoxicillin (AMOXIL) 875 mg tablet Take 1 tablet by mouth twice daily for 7 days. predniSONE (DELTASONE) 20 mg tablet Take 2 tablets by mouth once daily for 5 days. FAMILY HISTORY Problem Relation Age of Onset Emphysema Mother Psychiatry Father Bipolar dx and Schizophrenia Cancer Sister female organs Diabetes Maternal Grandmother Cancer Maternal Grandfather lung Social History Tobacco Use Smoking status: Every Day Packs/day: 0.50 Types: Cigarettes Smokeless tobacco: Never Vaping Use Vaping Use: Never used Substance Use Topics Alcohol use: Yes Comment: ocas ASSESSMENT/PLAN: 1. Non-recurrent acute suppurative otitis media of left ear without spontaneous rupture of tympanic membrane - ICD9: 382.00, ICD10: H66.002 Amoxicillin twice a day for 7 days. Prednisone daily for 5 days. Patient does not want a chest x-ray at this time he will follow-up if signs and symptoms seem to be getting worse. Prescription instructions reviewed with patient as applicable. Potential red flag symptoms discussed with the patient. Reviewed appropriate action plan to take if red flag symptoms occur. Patient agreeable to treatment plan. Shira Gasca APRN.[facility]09-13-2022 NoteHNO ID: [id number] Author: Blank Finn PA-C Service: ? Author Type: Physician [employer] Driver Type: Progress Notes Filed: 03/25/2022 12:39 AM Note Text: FOLLOW UP VISIT - HERNIA NAME: Lon Welsh [facility] NO.: [id number] DATE OF SERVICE: 03/19/2022 : 1985 REFERRING PHYSICIAN: No primary care provider on file. Lon is a patient I am following for an umbilical hernia. Dr. Bolivar performed a umbilical hernia repair on 02/26/22 at [facility]. The patient currently notes no major complaints. his appetite has been good. He denies fever, chills or abdominal pain. he does note some mild incisional discomfort. he notes no bulges at the operative site VITALS: Blood pressure 131/85, pulse 108, temperature 36.5 ?C (97.7 ?F), height 165.1 cm (5' 5"), weight 131.5 kg (290 lb). General: patient is alert, cooperative, pleasant and in no acute distress On examination, the abdomen is benign. The incision is healing well without signs of infection or inflammation. There are no signs of recurrent hernia formation. Assessment IMPRESSION: status post simple umbilical hernia repair PLAN: If the patient notes any problems, he should contact me immediately. he may return to his regular activities as tolerated, with the exception of no lifting greater than 20 pounds for the next 7 weeks. If patient feels the urge to cough or sneeze, they should brace against the repair site with their hands or a pillow. Diagnoses: (Z98.890, Z87.19) S/P hernia repair (primary encounter diagnosis) Return to Clinic: The patient is instructed to follow-up with me as needed Patient verbalized understanding of all above and agreed with the plan. [facility]-13-[facility] Instructions* Patient Instructions* Blank Finn PA-C - 03/19/2022 2:50 PM EDT The following instructions are important for you related to your office visit today with the [facility]. INSTRUCTIONS FOLLOWING YOUR RECENT HERNIA SURGERY You should be returning to your regular diet, If you have having persistent issues with tolerating your diet, please contact our office It is not unusual to have incisional pain for the first 1-2 weeks following surgery. If this persists beyond 2 weeks, contact the office You may return to your regular activities. You may drive if you are no longer taking narcotic pain medication. Climbing stairs is fine. Walking in encouraged. Sitting up from bed may be uncomfortable. Sitting up using your lateral abdominal muscles (sitting up sideways) is usually more comfortable. You should perform no lifting greater than 20lbs for the next 6-7 weeks. Usually 8 weeks total fromthe date of surgery. It is not unusual to have loose stools following surgery. This is usually self limited and related to the antibiotics that were given during your surgical procedure. Fiber supplementation and yogurt with active cultures may help you return to regular bowel activity. If you note loose stools persisting for over 2 weeks, or significant cramping or loose bloody stools, contact the office immediately. Contact the office immediately if any of your incisions become increasingly tender, red or have drainage. Again, if you have any difficulties or concerns, contact our office immediately. If you note any additional difficulties, questions, or concerns, you should contact our office immediately @ [phone] and ask to be transferred to the General Surgery department. documented in this encounterMercy [facility] Hospital09-13-2022 History of Present illness Narrative* Blank Finn PA-C - 03/19/2022 2:29 PM EDT FOLLOW UP VISIT - HERNIA NAME: Lon Welsh Piru [facility] NO.: [id number] DATE OF SERVICE: 03/19/2022 : 1985 REFERRING PHYSICIAN: No primary care provider on file. Lon is a patient I am following for an umbilical hernia. Dr. Bolivar performed a umbilical hernia repair on 02/26/22 at [facility]. The patient currently notes no major complaints. his appetite has been good. He denies fever, chills or abdominal pain. he does note some mild incisional discomfort. he notes no bulges at the operative site VITALS: Blood pressure 131/85, pulse 108, temperature 36.5 C (97.7 F), height 165.1 cm (5' 5"), weight 131.5 kg (290 lb). General: patient is alert, cooperative, pleasant and in no acute distress On examination, the abdomen is benign. The incision is healing well without signs of infection or inflammation. There are no signs of recurrent hernia formation. Assessment IMPRESSION: status post simple umbilical hernia repair PLAN: If the patient notes any problems, he should contact me immediately. he may return to his regular activities as tolerated, with the exception of no lifting greater than 20 pounds for the next 7 weeks. If patient feels the urge to cough or sneeze, they should brace against the repair site with theirhands or a pillow. Diagnoses: (Z98.890, Z87.19) S/P hernia repair (primary encounter diagnosis) Return to Clinic: The patient is instructed to follow-up with me as needed Patient verbalized understanding of all above and agreed with the plan. Blank Finn PA-C documented in this encounterMercy [facility] Hospital08-30-2022 Miscellaneous Notes* Telephone Encounter - Amanda Clifford - 03/05/2022 10:30 AM EDT Surgical Consult, Op Note faxed to Yolanda. Confirmatio received. * Telephone Encounter - Elizabeth Pereira LPN - 02/27/2022 11:32 AM EDT Yolanda called from [facility] for work injury. Ask for patient information to be faxed, C9 form, [employer] 14 form, surgical consult, op report. Workman comp. Yolanda to fax request over for need information. Yolanda # [phone] documented in this encounterMercy Memorial Hospital08-03-2022 Miscellaneous Notes* Telephone Encounter - Maura Bolivar MD - 02/06/2022 12:50 PM EDT Patient called to apologize about his conversation with me yesterday. I have told him that we will proceed with hernia repair if he wishes and will schedule at [facility] I have once again reiterated the likelihood of recurrence and he understands. He wishes to proceed at first earliest date available. I will have the childcare administrator contact patient for this. Patient acknowledges the above. documented in this encounterMercy [facility] Hospital08-03-2022 Miscellaneous Notes* Telephone Encounter - Elizabeth Pereira LPN - 02/06/2022 10:01 AM EDT Patient state had received a phone call from Dr Bolivar and was returning call. Patient ask Dr Osmel leonardo back at earliest convenience [phone] documented in this encounterMercy Memorial Hospital08-02-2022 NoteHNO ID: [id number] Author: Maura Bolivar MD Service: ? Author Type: Physician Type: Progress Notes Filed: 02/06/2022 12:47 PM Note Text: HISTORY AND PHYSICAL Lon Hand 1985 REFERRING PHYSICIAN: MD Samuel CHIEF COMPLAINT: Consult (ER WC, hernia) HPI: The patient is a 36 year old male who presents with symptomatic umbilical hernia. He notes this while lifting a heavy object at work, the incident occurred on February 03, according to patient. He felt a "pop" in the area of his mid abdomen and then he had continued aching pain sometimes sharp in the periumbilical area, and inferiorly. He denies gastrointestinal or urinary obstructive symptoms He presented to [facility] ED on February 04, 2022. CT scan was obtained which revealed small fat-containing umbilical hernia. The patient does have known CAD s/p coronary artery stent placements and is on Eliquis and aspirin. . PAST MEDICAL HISTORY Diagnosis Date - CAD (coronary artery disease) S/p LA. Dr. Glasgow - Childhood asthma - Tobacco use disorder PAST SURGICAL HISTORY Procedure Laterality Date - ESOPHAGOGASTRODUODENOSCOPY TRANSORAL DIAGNOSTIC 05/02/2014 EGD - STENTS (SPECIFY) 2013 2 cardiac Current Outpatient Medications Medication Sig - albuterol HFA (PROVENTIL HFA, VENTOLIN HFA) 90 mcg/actuation inhaler Inhale 2 Puffs as instructed every 6 hours as needed for Wheezing/Shortness of Breath. - metoprolol tartrate, short acting, (LOPRESSOR) 50 mg tablet Take 1 tablet by mouth twice daily. - aspirin, enteric coated 81 mg EC tablet Take 81 mg by mouth once daily. - amLODIPine (NORVASC) 5 mg tablet Take 10 mg by mouth once daily. - atorvastatin (LIPITOR) 80 mg tablet Take 80 mg by mouth once daily. - clopidogrel (PLAVIX) 75 mg tablet Take 75 mg by mouth once daily. - lisinopril (ZESTRIL) 10 mg tablet Take 10 mg by mouth once daily. ALLERGIES: Patient has no known allergies. PERSONAL HISTORY: Social History Tobacco Use - Smoking status: Current Every Day Smoker Packs/day: 0.50 Types: Cigarettes - Smokeless tobacco: Never Used Vaping Use - Vaping Use: Never used Substance Use Topics - Alcohol use: Yes Comment: ocas - Drug use: Not on file FAMILY HISTORY Problem Relation Age of Onset - Emphysema Mother - Psychiatry Father Bipolar dx and Schizophrenia - Cancer Sister female organs - Diabetes Maternal Grandmother - Cancer Maternal Grandfather lung The review of systems data was entered by the nurse and reviewed by me Nursing Notes: Elizabeth PereiraTEODORA 02/05/2022 8:59 AM Signed REVIEW OF SYSTEMS: General: The patient denies fatigue, denies weight loss, denies weight gain, denies feeling hot, and denies feelings of cold. Eyes: The patient denies glaucoma, denies eye injury/surgery, does not wear glasses or contacts. Ear/Nose/Throat: The patient denies allergies, denies hayfever, denies ear infections, and denies bloody noses. Cardiovascular: The patient denies chest pain, notes heart disease, notes high blood pressure,notes cardiac stent, notes prior heart attack, notes irregular heart beat, denies high cholesterol, notes poor circulation, notes heart failure, other cardiac issues, denies claudication, notes cold feet, notes peripheral arterial stent. Respiratory: The patient denies tuberculosis, denies pneumonia, notes frequent cough, denies pulmonary embolism, notes shortness of breath, and denies coughing up blood. Gastrointestinal: The patient denies difficulty swallowing, denies acid reflux, denies ulcers, notes vomiting, denies jaundice/hepatitis, denies gallbladder problems, denies black or tarry stools, denies hemorrhoids, denies bleeding from rectum, denies diverticulitis, denies constipation, notes diarrhea, denies loss of stool control, and notes hernias. Kidney/Bladder: The patient denies kidney stones, denies urine infections, and denies bloody urine. Skin: The patient denies a history of skin cancer, denies bleeding/changing moles, and denies a history of skin rash. Neurologic: The patient denies a history of epilepsy/convulsions, denies headaches, denies head/spinal injuries, and denies stroke/TIA. Psychiatric: The patient denies psychiatric medications, denies depression, and denies voices, denies substance abuse. Endocrine: The patient denies thyroid disorders, denies diabetes, and denies hormonal problems. Hematologic: The patient notes a history of bruising, denies bleeding, and denies anemia, denies blood clots. Infections: The patient denies a history of measles and mumps, denies rheumatic fever, and denies sexually transmitted diseases. Musculoskeletal: The patient denies back pain/injury, denies back problems, denies sciatica, denies knee/foot trouble, denies arthritis, or denies gout. hen was patient's last Mammogram screening? N/A Last Colonoscopy: none Elizabeth Pereira LPN PHYSICAL EXAMINATION: General: The patie (more content not included)...[facility] 02-05-2022 History of Present illness Narrative* Maura Bolivar MD - 02/05/2022 4:30 PM EDT HISTORY AND PHYSICAL Lon Anitha Yazan 1985 REFERRING PHYSICIAN: MD Samuel CHIEF COMPLAINT: Consult (ER [facility], hernia) HPI: The patient is a 36 year old male who presents with symptomatic umbilical hernia. He notes this while lifting a heavy object at work, the incident occurred on February 03, according to patient. He felt a "pop" in the area of his mid abdomen and then he had continued aching pain sometimes sharp in the periumbilical area, and inferiorly. He denies gastrointestinal or urinary obstructive symptoms He presented to [facility] ED on February 04, 2022. CT scan was obtained which revealed small fat-containing umbilical hernia. The patient does have known CAD s/p coronary artery stent placements and is on Eliquis and aspirin.. PAST MEDICAL HISTORY Diagnosis Date CAD (coronary artery disease) S/p LA. Dr. Glasgow Childhood asthma Tobacco use disorder PAST SURGICAL HISTORY Procedure Laterality Date ESOPHAGOGASTRODUODENOSCOPY TRANSORAL DIAGNOSTIC 05/02/2014 EGD STENTS (SPECIFY) 2013 2 cardiac Current Outpatient Medications Medication Sig albuterol HFA (PROVENTIL HFA, VENTOLIN HFA) 90 mcg/actuation inhaler Inhale 2 Puffs as instructed every 6 hours as needed for Wheezing/Shortness of Breath. metoprolol tartrate, short acting, (LOPRESSOR) 50 mg tablet Take 1 tablet by mouth twice daily. aspirin, enteric coated 81 mg EC tablet Take 81 mg by mouth once daily. amLODIPine (NORVASC) 5 mg tablet Take 10 mg by mouth once daily. atorvastatin (LIPITOR) 80 mg tablet Take 80 mg by mouth once daily. clopidogrel (PLAVIX) 75 mg tablet Take 75 mg by mouth once daily. lisinopril (ZESTRIL) 10 mg tablet Take 10 mg by mouth once daily. ALLERGIES: Patient has no known allergies. PERSONAL HISTORY: Social History Tobacco Use Smoking status: Current Every Day Smoker Packs/day: 0.50 Types: Cigarettes Smokeless tobacco: Never Used Vaping Use Vaping Use: Never used Substance Use Topics Alcohol use: Yes Comment: ocas Drug use: Not on file FAMILY HISTORY Problem Relation Age of Onset Emphysema Mother Psychiatry Father Bipolar dx and Schizophrenia Cancer Sister female organs Diabetes Maternal Grandmother Cancer Maternal Grandfather lung The review of systems data was entered by the nurse and reviewed by oh Nursing Notes: Elizabeth PereiraTEODORA 02/05/2022 8:59 AM Signed REVIEW OF SYSTEMS: General: The patient denies fatigue, denies weight loss, denies weight gain, denies feeling hot, and denies feelings of cold. Eyes: The patient denies glaucoma, denies eye injury/surgery, does not wear glasses or contacts. Ear/Nose/Throat: The patient denies allergies, denies hayfever, denies ear infections, and denies bloody noses. Cardiovascular: The patient denies chest pain, notes heart disease, notes high blood pressure,notescardiac stent, notes prior heart attack, notes irregular heart beat, denies high cholesterol, notespoor circulation, notes heart failure, other cardiac issues, denies claudication, notes cold feet, notes peripheral arterial stent. Respiratory: The patient denies tuberculosis, denies pneumonia, notes frequent cough, denies pulmonary embolism, notes shortness of breath, and denies coughing up blood. Gastrointestinal: The patient denies difficulty swallowing, denies acid reflux, denies ulcers, notes vomiting, denies jaundice/hepatitis, denies gallbladder problems, denies black or tarry stools, denies hemorrhoids, denies bleeding from rectum, denies diverticulitis, denies constipation, notes diarrhea, denies loss of stool control, and notes hernias. Kidney/Bladder: The patient denies kidney stones, denies urine infections, and denies bloody urine. Skin: The patient denies a history of skin cancer, denies bleeding/changing moles, and denies a history of skin rash. Neurologic: The patient denies a history of epilepsy/convulsions, denies headaches, denies head/spinal injuries, and denies stroke/TIA. Psychiatric: The patient denies psychiatric medications, denies depression, and denies voices, denies substance abuse. Endocrine: The patient denies thyroid disorders, denies diabetes, and denies hormonal problems. Hematologic: The patient notes a history of bruising, denies bleeding, and denies anemia, denies blood clots. Infections: The patient denies a history of measles and mumps, denies rheumatic fever, and denies sexually transmitted diseases. Musculoskeletal: The patient denies back pain/injury, denies back problems, denies sciatica, deniesknee/foot trouble, denies arthritis, or denies gout. hen was patient's last Mammogram screening? N/A Last Colonoscopy: none Elizabeth Pereira LPN PHYSICAL EXAMINATION: General: The patient is 36 year old male, well nourished, well hydrated in no acute distress. The patient is oriented to time, place, and person. VITALS: Blood pressure 110/80, pulse 89, temperature 36.1 C (96.9 F), height 167.6 cm (5' 6"), weight 133.4 kg (294 lb), SpO2 95 %. Body mass index is 47.45 kg/m . Head Normocephalic. EOM intact with sclera clear and no icterus noted. Neck - supple with no jugular venous distention noted. Trachea is midline. Lungs clear to auscultation. Normal breath sounds. No rales/rhonchi/wheezing noted. No labored breathing noted, such as retractions. No cough heard. Heart normal S1 and S2 auscultated. No rubs/clicks/murmurs noted. Regular rate. Abdomen soft and benign and protuberant. Cannot palpate fascial defect and difficult to determine if any masses or organomegaly due to body habitus. Extremities no calf tenderness noted. No pitting edema noted. Skin normal skin integrity. Neurological gait normal, no focal deficits noted. Psych calm and appropriate Assessment IMPRESSION: umbilical hernia by CT scan PLAN: I have discussed the above with the patient and his who is present with him. I have filled out [facility] paperwork for the patient. I have offered umbilical hernia repair, but I have stressed that this has a high likelihood of recurrence due to BMI and cigarettes usage. I have explained the procedure to the patient. I have counseled the patient as to the risks of the procedure, including but not limited to: infection, bleeding, injury to any blood vessels/nerves, scar tissue, injury to any intraabdominal organs, injury to bowel/bladder, intraabdominal abscess/bleeding, high likelihood of recurrence of hernia, wound infections, complications of anesthesia, etc. the patient understands. The patient wishes to proceed. I have answered all questions to the patient s satisfaction and the patient has no further questions. I have confirmed and edited as necessary, the PFSH and ROS obtained by others. . Diagnoses: (K42.9) Umbilical hernia without obstruction or gangrene (primary encounter diagnosis) Initially I had patient scheduled at [facility], but surgeon did not want to proceed with surgery. Therefore I will schedule at [facility]. He wanted to know why his surgery could not be done at [facility]. I explained to the patient that the surgeon was uncomfortable in proceeding with the surgery. Patient wanted to know the surgeon's name. He wanted to know why the surgeon was uncomfortable in proceeding with surgery. He was very insistent on this information. I told him the reason was because of cigarette usage. The patient was irate and stated that he was being discriminated against because of his cigarette smoking. I explained to the patient that often surgeons will not p erform surgery on patients because of their cigarettes usage because of concern of healing and I mentioned this numerous times. Patient had an angry tone and stated that he was going to call a lawyerin the morning as he was being discriminated against for smoking cigarettes and that this was wrong. I had repeatedly explained to patient that I would proceed with his surgery at [facility]. Yola schedule that tomorrow since it was late in the day and there was no administrative support toschedule this now. Patient continuously stated that he was being discriminated against for smoking cigarettes and that he was going to contact a message broker developer. He said that "everyone <all the doctors>blames everything on smoking" and he stated that for example - "if my toe hurts" then it is due to "smoking cigarettes". I continuously stated that I would do the surgery for the patient at [facility]. I told the patient that some surgeons have concerns about healing after surgery due to cigarette smoking. The patient states that he wants to know the name of the surgeon who refused the surgery (but I would not given him the name). I once again explained that a surgeon may be concerned about a patient's healing status after surgery due to patient's cigarette smoking. But patient states that he is being "discriminated" against, because he smokes cigarettes and that is "not right" and hewill contact a message broker developer in the morning. I continuously stressed that a surgeon is concerned about a patient's healing status after surgery and therefore cigarette smoking precludes surgery in an elective situation. The patient stated. "if a black man smokes cigarettes...." He states that <if> "Black lives matter...,yet I am discriminated against for smoking cigarettes..." I spent 20 minutes in the above phone conversation - not stating the surgeon's name, re-iterating that I would do the surgery at a closer location hospital and perhaps even a sooner time period and listened calmly to thepatient shouting that this is discrimination against his smoking cigarettes and that he was going to call his message broker developer. I spent a total of 52 minutes on the date of the service which included preparing to see the patient with review of any pertinent laboratory studies/radiological imaging/medical records from other medical facilities such as [facility], [id number] patient care, obtaining oral medical history from the patient in this encounter, performing a medically appropriate examination, counseling and educating the patient/family/caregiver, and ordering and/or scheduling of medications/tests/procedures, and completing appropriate medical documentation. Maura Bolivar MD documented in this encounterMercy [facility] Hospital08-02-2022 Nurse Note* Elizabeth Pereira, TEODORA - 02/05/2022 8:56 AM EDT REVIEW OF SYSTEMS: General: The patient denies fatigue, denies weight loss, denies weight gain, denies feeling hot, and denies feelings of cold. Eyes: The patient denies glaucoma, denies eye injury/surgery, does not wear glasses or contacts. Ear/Nose/Throat: The patient denies allergies, denies hayfever, denies ear infections, and denies bloody noses. Cardiovascular: The patient denies chest pain, notes heart disease, notes high blood pressure,notescardiac stent, notes prior heart attack, notes irregular heart beat, denies high cholesterol, notespoor circulation, notes heart failure, other cardiac issues, denies claudication, notes cold feet, notes peripheral arterial stent. Respiratory: The patient denies tuberculosis, denies pneumonia, notes frequent cough, denies pulmonary embolism, notes shortness of breath, and denies coughing up blood. Gastrointestinal: The patient denies difficulty swallowing, denies acid reflux, denies ulcers, notes vomiting, denies jaundice/hepatitis, denies gallbladder problems, denies black or tarry stools, denies hemorrhoids, denies bleeding from rectum, denies diverticulitis, denies constipation, notes diarrhea, denies loss of stool control, and notes hernias. Kidney/Bladder: The patient denies kidney stones, denies urine infections, and denies bloody urine. Skin: The patient denies a history of skin cancer, denies bleeding/changing moles, and denies a history of skin rash. Neurologic: The patient denies a history of epilepsy/convulsions, denies headaches, denies head/spinal injuries, and denies stroke/TIA. Psychiatric: The patient denies psychiatric medications, denies depression, and denies voices, denies substance abuse. Endocrine: The patient denies thyroid disorders, denies diabetes, and denies hormonal problems. Hematologic: The patient notes a history of bruising, denies bleeding, and denies anemia, denies blood clots. Infections: The patient denies a history of measles and mumps, denies rheumatic fever, and denies sexually transmitted diseases. Musculoskeletal: The patient denies back pain/injury, denies back problems, denies sciatica, deniesknee/foot trouble, denies arthritis, or denies gout. When was patient's last Mammogram screening? N/A Last Colonoscopy: none Elizabeth Pereira LPN documented in this [facility]Fire[facility] Author Dr. Ding [facility] August 31, 2022 3:39am Note Date/Time August 31, 2022 2:07am [facility] Medical Records Department [address] [place] [address] Emergency Department Summary 08/31/22 MR#: [id number] Acct: [id number] Name: LON HAND Jr. Rep #:[id number] : 1985 36 From: Delmar Ding MD PCP: PEDRO Kimball Status:ADM IN Location: [facility] [id number] HPI History of Present Illness Chief Complaint: Substance Abuse Detail of Chief Complaint: Requesting detox for alcohol abuse. Informant: patient Onset/Context/Timing Onset: Month(s) Context: Gradual Onset Timing: Continuous Current Severity: Mild Maximum Severity: Mild Associated Symptoms Associated Symptoms: Positive for vomiting* and diarrhea* Narrative Narrative: 36-year-old male history of prior LA with 2 cardiac stents. History of alcohol abuse. States he drinks 1/5 of whiskey every day drank today. He has chronic nausea vomiting and diarrhea but he believes from his alcoholism. Denies ever going through detox. Denies drug use. 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 Back pain Borderline diabetes mellitus Depression Essential (primary) hypertension Gastric reflux High cholesterol History of GI bleed Hyperlipidemia Nicotine dependence Obesity Obstructive sleep apnea Old anterior myocardial infarction Palpitations Smoker Ventricular fibrillation Wears glasses Home Medications aspirin 81 mg chewable tablet 81 mg PO DAILY 09/18/13 [History Last Taken 04/13/18] hydrocortisone acetate 25 mg rectal suppository (Anusol-HC) 25 mg OR BID PRN hemorrhoids #100 ea 08/12/19 [Rx Last Taken Unknown] clopidogrel 75 mg tablet 75 mg PO DAILY #90 tabs 11/13/21 [Rx Last Taken Unknown] isosorbide mononitrate 60 mg tablet,extended release 24 hr 60 mg PO DAILY #90 tabs 11/13/21 [Rx Last Taken Unknown] lisinopril 20 mg tablet 20 mg PO DAILY #90 tabs 11/13/21 [Rx Last Taken Unknown] ranolazine 500 mg tablet,extended release,12 hr (Ranexa) 500 mg PO BID #180 tabs11/15/21 [Rx Last Taken Unknown] albuterol sulfate 90 mcg/actuation aerosol inhaler 2 puff inhalation Q4H PRN SOB#8 grams 12/31/21 [Rx Last Taken Unknown] amlodipine 2.5 mg tablet 2.5 mg PO DAILY #90 tabs 12/31/21 [Rx Last Taken Unknown] atorvastatin 80 mg tablet 80 mg PO QHS #90 tabs 12/31/21 [Rx Last Taken Unknown] metoprolol tartrate 100 mg tablet 100 mg PO BID #180 tabs 01/18/22 [Rx Last Taken Unknown] nitroglycerin 0.4 mg sublingual tablet 0.4 mg sublingual Q5M PRN Chest Pain #25 tabs 02/11/22 [Rx Last Taken Unknown] hydrocodone-acetaminophen 5-325mg 5mg-325mg 1 tab PO Q8H 5 days #15 tabs 02/26/22 [Rx Last Taken Unknown] Allergy/AdvReac Type Severity Reaction Status Date / Time No Known Allergies Allergy Verified 02/26/22 10:30 Family History Mother Diabetes Heart disease Uncle Colon cancer Uncle Cancer lung Father Bowel disease Surgical History History of coronary artery stent placement (08/31/13) History of left heart catheterization (04/13/18) Hx of endoscopy Social History household members: significant other Smoking Status: Current every day smoker tobacco type: cigarettes alcohol intake: current alcohol intake frequency: 3 or more drinks per day Alcohol type: beer and hard liquor details: Heavy whiskey intake daily. substance use type: does not use what type of physical activity do you participate in: none ROS ROS ED ROS Narrative Nausea, vomiting and diarrhea. Review of Systems ROS Unobtainable: Denies due to encephalopathy Constitutional Constitutional ED: Denies chills or fever(s) Eyes Eyes: Denies blurry vision ENT ENT ED: Denies ear pain Cardiovascular Cardiovascular: Denies chest pain Respiratory/Chest Respiratory/Chest: Denies cough Gastrointestinal Gastrointestinal: Reports diarrhea, nausea and vomiting; Denies abdominal pain Genitourinary Genitourinary ED: Denies dysuria Musculoskeletal Musculoskeletal: Denies arthralgias Integumentary Denies abscess Neurologic Neurologic: Denies headache(s) Psychiatric Psychiatric: Denies anxiety Endocrine Endocrinology: Denies cold intolerance Hematologic/Lymphatic Hematologic/Lymphatic: Denies easy bleeding Allergic/Immunologic Allergic/Immunologic ED: Denies mouth swelling or tongue swelling EXAM Physical Exam Narrative Exam Narrative: 36-year-old male vital signs are stable he is tachycardic at 127 his initial blood pressure was 166/121. He does not look septic or toxic. He is in no distress. H EENT exam unremarkable. Neck nontender no lymphadenopathy. Lungs clear to auscultation bilaterally. Heart tachycardic rate about 125 no murmur. Chest wall nontender. Abdomen soft nontender. Moving all 4 extremities. Nontender no edema. Neurologically is awake and alert with no focal motor deficits. Clinically he may be intoxicated. Const Vital Signs: 08/31/22 01:40 Temperature 96.8 F L Temperature Source Temporal Pulse Rate 127 H Respiratory Rate 15 Blood Pressure 166/121 H Blood Pressure Mean 136 Pulse Ox 97 Oxygen Delivery Method Room Air Positive well nourished, well developed and obese; Negative for cachectic, contractures or unkempt General Appearance ED: well developed and NAD; Negative for unkempt, cachectic, contractures or pallor Nutritional Appearance: obese; Negative for cachectic HEENT Reports moist mucous membranes; Denies dry mucous membranes atraumatic; Negative for trauma or tenderness Mouth ED: No dry mucous membranes Mouth: No dry mucous membranes Eyes PERRL and EOMs intact bilaterally General Eye ED: Negative for pale conjunctiva or scleral icterus Neck no lymphadenopathy, supple and no JVD Thyroid: Negative for tender Lymph Lymphatic: no lymphadenopathy noted; Negative for lymphadenopathy Chest Wall inspection of chest normal and palpation of chest normal Chest: Negative for other Resp normal respiratory effort and clear to auscultation bilaterally Effort and Inspection: Negative for retractions Auscultation: Negative for rales, rhonchi or wheezes Cardio regular rhythm, S1 normal heart sound, S2 normal heart sound and no murmurs; Negative for regular rate Rate: tachycardic Rhythm: Negative for abnormal rhythm GI soft to palpation, non-tender, non-distended and no masses Back/Spine no CVA tenderness General Back: Negative for CVA tenderness Cervical Spine: Negative for cervical spine tenderness Thoracic Spine / Upper Back: Negative for thoracic spinal tenderness Lumbar Spine / Lower Back: Negative for lumbar spinal tenderness Coccyx: Negative for swelling Extremity General Extremety ED: Negative for edema or tenderness General Extremity: Negative for edema Neuro oriented x3 and CN's II-XII intact bilaterally Sensorium / Orientation: alert, oriented to person, oriented to place and oriented to time; Negative for confused, lethargic or stuporous Speech: speech normal Psych mental status grossly normal and thought process normal Appearance: Negative for unkempt Mood & Affect: Negative for anxious or tearful Skin General Skin Exam: Negative for jaundice or pallor Lesions: no lesions Rashes: no rashes MDM MDM MDM Narrative Medical decision making narrative: 36-year-old male requesting detox for alcohol abuse. Will undergo screening labs. I am obtaining an EKG due to tachycardia. Once his labs return I will speak to the hospitalist about admission for detox. I spoke to the hospitalist the patient will be admitted. He has been somewhat verbally abusive to the staff. Entitled and acting out. I explained to him that there are certain rules on the detox floor he can choose to follow them or he can leave if that is what he and his family prefer. I went in to reevaluate the patient multiple times. Spoke to he and family multiple times. He was actually quite rude to the staff. The hospitalist came down to see him to admit him for detox. He decided he did not like the rules and did not want to stay and walked out. Family was with him. I do not believehe was driving. Lab Data Attestation: I reviewed the patient's lab results. Lab results narrative: Electrolytes show a gap of 12 normal BUN of 12 and creatinine 0.85. Liver enzymes unremarkable. Glucose 146. CBC White count 12.2. H&H of 15.7 and 48. Platelets 310. Alcohol level is consistent with intoxication with an alcohol level of 296. Labs: Laboratory Results - last 24 hr 08/31/22 08/31/22 08/31/22 01:55 01:55 01:55 WBC 12.2 H RBC 5.30 Hgb 15.7 Hct 48.0 MCV 90.6 MCH 29.6 MCHC 32.7 RDW Std Deviation 45.1 H RDW Coeff of Melissa 13.6 Plt Count 310 MPV 10.7 Immature Gran % (Auto) 0.800 Neut % (Auto) 55.0 Lymph % (Auto) 34.5 [place] % (Auto) 5.7 Eos % (Auto) 3.3 Baso % (Auto) 0.7 Absolute Neuts (auto) 6.7 Absolute Lymphs (auto) 4.21 Nucleated RBC % 0 Differential Comment SCANNED Sodium 144 Potassium 3.7 Chloride 108 H Carbon Dioxide 24.0 Anion Gap 12 BUN 12 Creatinine 0.85 Estim Creat Clear Calc 102.50 Est GFR (MDRD) Af Amer 129 Est GFR (MDRD) Non-Af 107 BUN/Creatinine Ratio 14.1 Glucose 146 H Calcium 8.7 Phosphorus Magnesium Total Bilirubin 0.20 AST 33 ALT 59 Alkaline Phosphatase 99 Total Protein 8.1 Albumin 3.6 Globulin 4.5 H Albumin/Globulin Ratio 0.8 L Ethyl Alcohol 296.0 08/31/22 01:55 WBC RBC Hgb Hct MCV MCH MCHC RDW Std Deviation RDW Coeff of Melissa Plt Count MPV Immature Gran % (Auto) Neut % (Auto) Lymph % (Auto) [place] % (Auto) Eos % (Auto) Baso % (Auto) Absolute Neuts (auto) Absolute Lymphs (auto) Nucleated RBC % Differential Comment Sodium Potassium Chloride Carbon Dioxide Anion Gap BUN Creatinine Estim Creat Clear Calc Est GFR (MDRD) Af Amer Est GFR (MDRD) Non-Af BUN/Creatinine Ratio Glucose Calcium Phosphorus 3.2 Magnesium 2.6 Total Bilirubin AST ALT Alkaline Phosphatase Total Protein Albumin Globulin Albumin/Globulin Ratio Ethyl Alcohol Rhythm Strip Rhythm Strip: Sinus Tach Rate: 122 Ectopy: None EKG Initial EKG: Attestation: I personally reviewed and interpreted this EKG as follows: Interpretation: No Acute Injury Pattern and Sinus Tachycardia Comments: Sinus tachycardia rate of 122. No acute signs of LA or ischemia. Discharge Plan Triage Chief Complaint: Substance Abuse ED Provider: Delmar Ding Dx/Rx/DC Orders Clinical Impression: Acute alcoholism, Alcohol intoxication, Admitted to substance misuse detoxification center Primary Care Provider: Thomas Jackson NP Disposition Disposition: Home, Self Care What to do if you have Problems For any increased pain, shortness of breath, bleeding, nausea or vomiting, chestpain, or any unexpected problems, contact your Primary Care Provider. Call [facility] ([phone]) or report to the closest Emergency Room. Call 911 if necessary. 08/31/22 0339 <Electronically signed by Delmar Ding MD> Cosigner Signature (if applicable): CC: PEDRO Jackson ~ Signed [facility] Work Phone: Discharge summary Author Oliverio Naqvi [facility] March 19, 2023 5:26pm Note Date/Time March 19, 2023 5:24pm [facility] Medical Records Department [address] [place] [address] Instructions for Home/Discharge Instructions 03/19/23 1723 MR#: [id number] Acct: [id number] Name: LON HAND Jr. Rep #:[id number] : 1985 37 From: Oliverio cleaning MD PCP: Thomas Jackson NP-C Status:ADM IN Discharge Instructions Diet Discharge Diet: Low fat / Low cholesterol Activity Discharge Activity: Return to Normal Activity Return to work on:: 03/21/23 Dressing / Incision Call your doctor if you observe: Fever of 101 or Higher, Shortness of breath, Dizziness, Fainting spells, Swelling in the ankles, Chest pain and Increased palpitations (irregular heartbeat) Follow Up Care Test Results: Test results from this visit will be discussed in further detail at your follow- up appointment, if applicable. Discharge Plan Admission Admit Date/Time: 03/18/23 23:58 Attending Provider: Oliverio Naqvi Primary Care Provider: Thomas Jackson NP Consulting Providers: Kolton Glasgow; Cipriano Seymour Discharge Orders/Prescriptions Prescriptions: New amlodipine 5 mg Tablet 5 mg PO DAILY Qty: 30 0RF Continued aspirin 81 MG tablet,chewable 81 mg PO DAILY Patient Comments: blood thinner albuterol sulfate 90 mcg/actuation HFA aerosol inhaler 2 puff INHALATION Q4H PRN (Reason: SOB) Qty: 8 1RF metoprolol tartrate 100 mg tablet 100 mg PO BID Qty: 180 4RF nitroglycerin 0.4 mg tablet, sublingual 0.4 mg SUBLINGUAL Q5M PRN (Reason: Chest Pain) Qty: 25 3RF ranolazine 500 mg tablet extended release 12 hr See Rx Instructions .ROUTE .COMPLEX Qty: 60 0RF Dose Instruction: TAKE 1 TABLET BY MOUTH TWICE A DAY Rx Instructions: TAKE 1 TABLET BY MOUTH TWICE A DAY clopidogrel 75 mg tablet See Rx Instructions .ROUTE .COMPLEX Qty: 30 3RF Dose Instruction: TAKE 1 TABLET BY MOUTH EVERY DAY Rx Instructions: TAKE 1 TABLET BY MOUTH EVERY DAY lisinopril 20 mg tablet 20 mg PO DAILY Qty: 30 11RF atorvastatin 80 mg tablet 80 mg PO QHS Qty: 90 4RF Discontinued amlodipine 2.5 mg tablet 2.5 mg PO DAILY Qty: 90 4RF Referrals / Follow Up: Kolton Glasgow MD [Med Staff - Active Staff] - Within 3 Months Thomas Jackson NP, NP-C [Primary Care Provider] - Within 1 Week Disposition Disposition (needs filled in before D/C Order can be placed): Home, Self Care 03/19/231725<Electronically signed by Oliverio Naqvi MD>Oliverio Naqvi MD CC: PEDRO Jackson; Dr. Kolton Glasgow MD; Dr. Cipriano Seymour MD ~ Signed [facility] Work Phone: Discharge summary Author Oliverio Naqvi [facility] March 19, 2023 5:33pm Note Date/Time March 19, 2023 5:33pm [facility] Medical Records Department [address] [place] [address] Discharge Summary 03/19/231725 MR#: [id number] Acct: [id number] Name: LON HAND Rep #:[id number] : 1985 37 From: Oliverio cleaning MD PCP: PEDRO Kimball Status:ADM IN Location: [place] [address] Providers Date of Admission: 03/18/23 Primary Care Physician: PEDRO Kimball Consultations 03/19/23 00:49 Consult: Cardiology Routine Consulting Provider: Kolton Glasgow Reason for Consult: Chest Pain EMERGENT Consult: No MD Notified: Yes Date Notified: 03/19/23 Time Notified: 00:06 Method of Notification: ED Physician Initiated Reason For Visit: NSTEMI Diagnosis Discharge Diagnosis (1) Non-ST elevation LA (NSTEMI): Status: Acute Code(s): I21.4 - Non-ST elevation (NSTEMI) myocardial infarction (2) Atherosclerosis of coronary artery of [place] heart with angina pectoris: Status: Chronic Code(s): I25.119 - Atherosclerotic heart disease of [place] coronary artery with unspecified angina pectoris Qualifiers: Coronary Disease-Associated Artery/Lesion type: [place] artery QualifiedCode(s): I25.119 - Atherosclerotic heart disease of [place] coronary artery with unspecified angina pectoris (3) Essential (primary) hypertension: Status: Chronic Code(s): I10 - Essential (primary) hypertension (4) Hyperlipidemia: Status: Chronic Code(s): E78.5 - Hyperlipidemia, unspecified Qualifiers: Hyperlipidemia type: pure hypercholesterolemia Qualified Code(s): E78.00 - Pure hypercholesterolemia, unspecified; E78.0 - Pure hypercholesterolemia Medications at Discharge Home Medications aspirin 81 mg chewable tablet 81 mg PO DAILY heart health 09/18/13 albuterol sulfate 90 mcg/actuation aerosol inhaler 2 puff inhalation Q4H PRN SOB#8 grams 12/31/21 metoprolol tartrate 100 mg tablet 100 mg PO BID blood pressure #180 tabs 01/18/22 nitroglycerin 0.4 mg sublingual tablet 0.4 mg sublingual Q5M PRN Chest Pain #25 tabs 02/11/22 clopidogrel 75 mg tablet See Rx Instructions .Route .COMPLEX anti platelet #30 tabs 12/23/22 ranolazine 500 mg tablet,extended release,12 hr See Rx Instructions .Route .COMPLEX chest pain #60 tabs 12/23/22 lisinopril 20 mg tablet 20 mg PO DAILY Pt needs to keep appt in january for furtherrefills. #30 tabs 01/02/23 atorvastatin 80 mg tablet 80 mg PO QHS cholesterol #90 tabs 03/03/23 amlodipine 5 mg tablet 5 mg PO DAILY #30 tabs 03/19/23 Hospital Course Operations None Procedures Cardiac catheterization Summary of Care Provided Minutes Spent on Discharge: 32 Hospital Course: Per HPI: LON HAND, is a 37 M with a significant history of CAD s/p 2 stents; and multiple cardiac arrest who presents emergency department with chestpain that started a day before presentation. His chest pain is substernal and it radiates to both shoulders and both arms where he feels like electric shock. He described chest pain as a burning sensation. He rates his chest pain about as 6 out of 10. Sitting up and lying on his left side worsens the chest pain. Lying on his back improved the chest pain. Patient was scheduled to see his cardiology the day after this presentation. A day before his presentation he took a Tums and 2 nitroglycerin which helped with his pain. On the day of presentation he did not get any improvement with nitroglycerin so he told his to bring him to the emergency department. While at the emergency department patient was found to have tachycardia. However he had an episode where he vagal down. Troponin returned elevated. Emergency department discussed the case with cardiology and patient was started on heparin drip. Also half of an inch of nitroglycerin and metoprolol IV was given. Hospital Course: 1. Non-STEMI/CAD status post stent/HTN/HLD?37-year-old male with a history of coronary artery disease has had 2 stents in the past presents to the hospital with chest pain that was radiating to both arms. Initial troponins were elevated with a peak to 228. Given his cardiac history cardiology was consultedwho recommended heart cath today. They were able to evaluate him for in-stent stenosis and were able to do an angioplasty with good results, his symptoms havecompletely resolved post cath. We will discontinue his isosorbide mononitrate and increase his Norvasc from 2-1/2 mg daily to 5 mg daily. These changes were discussed with him and his . I discussed with him the plan for discharge today and they expressed understanding of the risk and benefits of going home and like to go home today. I do recommend outpatient follow-up with your PCP in3 to 5 days and also cardiology as an outpatient for further evaluation and monitoring with echocardiography. Physical Exam Narrative General: Alert, Oriented x3, Cooperative, No apparent distress HEENT: Atraumatic, PERRLA, EOMI, Normocephalic Oral: Moist Mucosa Neck: Supple, No JVD Lungs: Clear to auscultation, Normal air movement, No rhonchi, No wheeze, No rales Cardiovascular: Regular rate, Regular Rhythm, Normal S1, Normal S2, No murmurs Abdomen: Soft, Non Tender, Non-Distended, No Hepato-splenomegaly Extremities: No edema, Capillary Refill Less than 3 Seconds Skin: No rashes, No breakdown Musculoskeletal: No Tenderness to Palpation of Joints or Extremities Neurological: Cranial nerves II-XII grossly intact, Motor Exam 5/5 strength throughout, Sensory exam intact to light touch and pain Psych/Mental Status: Normal Affect, Appropriate Weight / BMI Weight Weight: 298 lb 8.094 oz Body Mass Index (BMI) 48.2 ABG / Lab / Microbiology Data 03/19/23 05:04 03/19/23 05:04 Laboratory: Laboratory Results - last 24 hr 03/18/23 22:30: WBC 11.8 H, RBC 5.03, Hgb 14.7, Hct 45.9, MCV 91.3, MCH 29.2, MCHC 32.0, RDW Std Deviation 46.9 H, RDW Coeff of Melissa 14.2, Plt Count 313, MPV 10.8, Immature Gran % (Auto) 0.400, Neut % (Auto) 59.1, Lymph % (Auto) 27.5, [place] % (Auto) 8.2, Eos % (Auto) 4.0, Baso % (Auto) 0.8, Absolute Neuts (auto) 7.0, Absolute Lymphs (auto) 3.26, Nucleated RBC % 0, PT 12.6, INR 0.9, APTT 28.2, D-Dimer Quant (PE/DVT) 0.33, Sodium 140, Potassium 3.3 L, Chloride 104, Carbon Dioxide 25.0, Anion Gap 11, BUN 16, Creatinine 0.92, Estim Creat Clear Calc 93.77, Est GFR (MDRD) Af Amer 118, Est GFR (MDRD) Non-Af 98, BUN/Creatinine Ratio 17.4, Glucose 186 H, Calcium 8.9, Troponin I High Sens 153 H* 03/19/23 00:50: Troponin I High Sens 132 H* 03/19/23 05:04: WBC 12.6 H, RBC 4.69, Hgb 13.7, Hct 43.0, MCV 91.7, MCH 29.2, MCHC 31.9 L, RDW Std Deviation 48.2 H, RDW Coeff of Melissa 14.3, Plt Count 261, MPV10.7, Sodium 139, Potassium 4.4, Chloride 108 H, Carbon Dioxide 26.0, Anion Gap 5, BUN 17, Creatinine 0.76, Estim Creat Clear Calc 117.76, Est GFR (MDRD) Af Amer 146, Est GFR (MDRD) Non-Af 121, BUN/Creatinine Ratio 22.3 H, Glucose 150 H,Calcium 8.9, Troponin I High Sens 228 H*, Triglycerides 539 H, Cholesterol 254 H, LDL Cholesterol TNP, VLDL Cholesterol TNP, HDL Cholesterol 39 L 03/19/23 06:07: APTT 32.2 Radiography Diagnostic Testing: Radiology Impression Chest X-Ray 03/18/23 22:37 IMPRESSION: Normal x-ray examination of the chest for age. Electronically Signed: Katelynn Roca MD at 23:02 EDT Reading Location ID and State: [facility] / ID , Service support , D/C Instructions Discharge Diet: Low fat / Low cholesterol Return to work on: 03/21/23 Call your doctor if you observe: Fever of 101 or Higher, Shortness of breath, Dizziness, Fainting spells, Swelling in the ankles, Chest pain and Increased palpitations (irregular heartbeat) Meaningful Use Info Meaningful Use Diagnoses (Choose all that apply): None applicable Discharge Plan Admission Admit Date/Time: 03/18/23 23:58 Attending Provider: Oliverio Naqvi Primary Care Provider: Thomas Jackson NP Consulting Providers: Kolton Glasogw; Cipriano Seymour Discharge Orders/Prescriptions Prescriptions: New amlodipine 5 mg Tablet 5 mg PO DAILY Qty: 30 0RF Continued aspirin 81 MG tablet,chewable 81 mg PO DAILY Patient Comments: blood thinner albuterol sulfate 90 mcg/actuation HFA aerosol inhaler 2 puff INHALATION Q4H PRN (Reason: SOB) Qty: 8 1RF metoprolol tartrate 100 mg tablet 100 mg PO BID Qty: 180 4RF nitroglycerin 0.4 mg tablet, sublingual 0.4 mg SUBLINGUAL Q5M PRN (Reason: Chest Pain) Qty: 25 3RF ranolazine 500 mg tablet extended release 12 hr See Rx Instructions .ROUTE .COMPLEX Qty: 60 0RF Dose Instruction: TAKE 1 TABLET BY MOUTH TWICE A DAY Rx Instructions: TAKE 1 TABLET BY MOUTH TWICE A DAY clopidogrel 75 mg tablet See Rx Instructions .ROUTE .COMPLEX Qty: 30 3RF Dose Instruction: TAKE 1 TABLET BY MOUTH EVERY DAY Rx Instructions: TAKE 1 TABLET BY MOUTH EVERY DAY lisinopril 20 mg tablet 20 mg PO DAILY Qty: 30 11RF atorvastatin 80 mg tablet 80 mg PO QHS Qty: 90 4RF Discontinued amlodipine 2.5 mg tablet 2.5 mg PO DAILY Qty: 90 4RF Referrals / Follow Up: Kolton Glasgow MD [Med Staff - Active Staff] - Within 3 Months Thomas Jackson NP, RAT TRAPPER-C [Primary Care Provider] - Within 1 Week Disposition Disposition (needs filled in before D/C Order can be placed): Home, Self Care Charges/Coding Visit Charges Inpatient E&M: 47174 Disch Hosp >30min 03/19/23 2452 <Electronically signed by Oliverio Naqvi MD> Cosigner Signature (if applicable): CC: RAT TRAPPER-C Thomas Jackson; Dr. Oliverio Naqvi MD~ Signed [facility] Work Phone: Evaluation note* Diagnosis Umbilical hernia without obstruction or gangrene- Primary Umbilical hernia without mention of obstruction or gangrene [facility] Diagnosis Onset Date Resolution Status Gastroenteritis acute [facility] Work Phone: Evaluation note* Diagnosis S/P hernia repair- Primary Other postprocedural status [facility]No assessment information availableWTriHealth Work Phone: Evaluation note* Diagnosis Onset Date Resolution Status Non-ST elevation LA (NSTEMI) acute [facility] Work Phone: Evaluation note* Diagnosis Onset Date Resolution Status Acute alcoholism acute Non-ST elevation LA (NSTEMI) acute Atherosclerosis of coronary artery of [place] heart with angina pectoris chronic Essential (primary) hypertension chronic Hyperlipidemia chronic Nicotine dependence chronic [facility] Work Phone: History and physical note Author Dr. Rojas [facility] August 31, 2022 3:41am Note Date/Time August 31, 2022 2:29am [facility] Medical Records Department [address] [place] [address] History & Physical Exam 08/31/22 0225 MR#: [id number] Acct: [id number] Name: LON HAND Jr. Rep #:[id number] : 1985 36 From: Reema Rojas MD PCP: PEDRO Kimball Status:ADM IN Location: MS3 AB537-6 HPI - General General Date of Admission: 08/31/22 Date of Service: 08/31/22 Chief Complaint: EtOH abuse, withdrawal, requesting detoxification. HPI Narrative The patient is a 36 y/o M w/ PMHx: GIACOMO, Obesity, Depression and Anxiety, CAD s/pPCI, HTN, HLD, GERD w/ Hx GI bleed, Pre-Diabetes mellitus type II, Tobacco use, EtOH abuse (5th whiskey daily, last intake just prior to ED presentation) who presents to the [facility] 08/[facility]22 w/ his mother who brought him secondary to his request for evaluation for alcohol detoxification with last intake just prior topresentation. He does admit to being currently intoxicated. When asked why he presented now for alcohol withdrawal treatment he notes being tired of always being intoxicated and alcoholic. In the emergency room several issues did ariseand security was required at one point to help calm the patient as he intermittently would be very belligerent and angry. He does admit to being angry especially when he is intoxicated and withdrawing. He even and at one point threatened to punch a hole in the wall if he was told that he needed to stay in his room. Following evaluation it is unclear if patient will remain or if he will leave the emergency room. Work-up in the ED included T96.8, heart rate 127, BP 166/121, respiratory rate 15, 97% on room air, CBC with WC 12.2, hemoglobin 15.7, platelet 310 without marked shift, CMP with chloride 108, glucose 146 otherwise hepatic profile unremarkable, EKG with sinus tachycardia with no acute evidence of ischemia. 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 Back pain Borderline diabetes mellitus Depression Essential (primary) hypertension Gastric reflux High cholesterol History of GI bleed Hyperlipidemia Nicotine dependence Obesity Obstructive sleep apnea Old anterior myocardial infarction Palpitations Smoker Ventricular fibrillation Wears glasses Home Medications aspirin 81 mg chewable tablet 81 mg PO DAILY 09/18/13 [History Last Taken 04/13/18] hydrocortisone acetate 25 mg rectal suppository (Anusol-HC) 25 mg OR BID PRN hemorrhoids #100 ea 08/12/19 [Rx Last Taken Unknown] clopidogrel 75 mg tablet 75 mg PO DAILY #90 tabs 11/13/21 [Rx Last Taken Unknown] isosorbide mononitrate 60 mg tablet,extended release 24 hr 60 mg PO DAILY #90 tabs 11/13/21 [Rx Last Taken Unknown] lisinopril 20 mg tablet 20 mg PO DAILY #90 tabs 11/13/21 [Rx Last Taken Unknown] ranolazine 500 mg tablet,extended release,12 hr (Ranexa) 500 mg PO BID #180 tabs11/15/21 [Rx Last Taken Unknown] albuterol sulfate 90 mcg/actuation aerosol inhaler 2 puff inhalation Q4H PRN SOB#8 grams 12/31/21 [Rx Last Taken Unknown] amlodipine 2.5 mg tablet 2.5 mg PO DAILY #90 tabs 12/31/21 [Rx Last Taken Unknown] atorvastatin 80 mg tablet 80 mg PO QHS #90 tabs 12/31/21 [Rx Last Taken Unknown] metoprolol tartrate 100 mg tablet 100 mg PO BID #180 tabs 01/18/22 [Rx Last Taken Unknown] nitroglycerin 0.4 mg sublingual tablet 0.4 mg sublingual Q5M PRN Chest Pain #25 tabs 02/11/22 [Rx Last Taken Unknown] hydrocodone-acetaminophen 5-325mg 5mg-325mg 1 tab PO Q8H 5 days #15 tabs 02/26/22 [Rx Last Taken Unknown] Allergy/AdvReac Type Severity Reaction Status Date / Time No Known Allergies Allergy Verified 02/26/22 10:30 Family History Mother Diabetes Heart disease Uncle Colon cancer Uncle Cancer lung Father Bowel disease Surgical History History of coronary artery stent placement (08/31/13) History of left heart catheterization (04/13/18) Hx of endoscopy Social History household members: significant other Smoking Status: Current every day smoker tobacco type: cigarettes alcohol intake: current alcohol intake frequency: 3 or more drinks per day Alcohol type: beer and hard liquor details: Heavy whiskey intake daily. substance use type: does not use what type of physical activity do you participate in: none ROS ROS Narrative Admission Review of Systems: CONSTITUTIONAL: No weight loss, fever, chills, + weakness or fatigue. HEENT: Eyes: No visual loss, blurred vision, double vision or yellow sclerae. Ears, Nose, Throat: No hearing loss, sneezing, congestion, runny nose or sore throat. SKIN: No rash or itching, lesions, wounds. CARDIOVASCULAR: + Chronic intermittent chest pain. No palpitations, edema, orthopnea, syncopal events. RESPIRATORY: No shortness of breath, cough or sputum, wheezing, hemoptysis. GASTROINTESTINAL: No anorexia, nausea, vomiting or diarrhea, abdominal pain, melena, BRBPR. GENITOURINARY: No dysuria, frequency, urgency or retention. NEUROLOGICAL: No headache, dizziness, syncope, paralysis, ataxia, numbness or tingling in the extremities, focal weakness, change in bowel or bladder control, seizure. MUSCULOSKELETAL: + muscle, back pain, joint pain or stiffness. HEMATOLOGIC: + Easy bleeding or bruising. LYMPHATICS: No enlarged nodes. No history of splenectomy. PSYCHIATRIC: + history of severe explosive anger/behavioral disturbance. ENDOCRINOLOGIC: No reports of sweating, cold or heat intolerance. No polyuria orpolydipsia. ALLERGIES: No history of asthma, hives, eczema or rhinitis. Vital Signs Vital Signs Vital Signs: 08/31/22 01:40 Temperature 96.8 F L Temperature Source Temporal Pulse Rate 127 H Respiratory Rate 15 Blood Pressure 166/121 H Blood Pressure Mean 136 Pulse Ox 97 Oxygen Delivery Method Room Air Weight Weight: 211 lb 3.245 oz Body Mass Index (BMI) 35.1 Physical Exam Narrative Physical Examination: General: Awake, alert, oriented to self, place and recent events, patient is visibly intoxicated, seated upright in the ED bed, intermittently angry althoughdid calm down and have discussion but became following agitated again with staffand reporting displeasure about required compliance with alcohol withdrawal detoxification program Skin: Normal color, normal turgor, no icterus, no cyanosis. HEENT: AT/NC, EOMI, PERRLA, mildly dry MM, no carotid bruits or JVD noted; however thickened neck makes evaluation difficult. Lungs: Distant likely secondary to habitus, diminished, greater bases, no rales,ronchi or wheezing. Heart: Tachycardic with regular rhythm; no gallop, rub audible. Abdomen: Soft, obese, NTTP, ND, mildly hyperactive BS, difficult to assess HSM given habitus Extremities: No cyanosis, clubbing, or edema. Neurological: Patient awake, alert, oriented as noted, cognitive function appears intact although patient is intoxicated and mood is more labile; pupils equally reactive to light and accommodation, cranial nerves II-XII grossly normal, moving all 4 extremities, no focal deficits, strength mildly to moderately global decrease secondary to acute presentation Psychiatric: Affect appears intermittently agitated and angry, admits to having an underlying explosive/anger disorder issue. Results Lab / Micro Data Result Diagrams: 08/31/22 01:55 08/31/22 01:55 Assessment & Plan Assessment/Plan (1) Admitted to substance misuse detoxification center: PLAN: Plan The patient is a 36 y/o M w/ PMHx: GIACOMO, Obesity, Depression and Anxiety, CAD s/pPCI, HTN, HLD, GERD w/ Hx GI bleed, Pre-Diabetes mellitus type II, Tobacco use, EtOH abuse (5th whiskey daily, last intake just prior to ED presentation) who presents to the [facility] on 08/31/22 ongoing heavy intake EtOH as noted for acute detoxification. #1. Acute EtOH Abuse with Impending Withdrawal: Will admit to MS, routine labs obtained in the ED upon presentation and notable for []. Given interest in sobriety, will initiate and continue on protocol with taper course of Phenobarbital, scheduled gabapentin for seizure prophylaxis, as needed Catapres, Bentyl, Vistaril, IV fluids, IV antiemetics, Tylenol as needed for pain. Will consult Case management for assistance for transition to next level of rehabilitation care. Mag, phos pending. Maintain on CIWA protocol concurrently. Discussed at length with patient that he would have to comply with the rules of the program and that staff would need to feel safe and unthreatened. #2. CAD w/ Hx VF Cardiac arrest x 3: Status post PCI, most recent prior stress testing noted in [facility] 04/13/2018 with patent previously placed stent in the mid to distal LAD, mild to moderate disease in the dominant left circumflex with nonobstructive disease noted with recommendation at that time for medical therapy, will continue patient home aspirin, Plavix, statin, metoprolol, lisinopril regimen. Temporarily hold ranexa while using phenobarbital taper given interaction. Patient per review of records does have intermittent chronic chest pain. EKG with sinus tachycardia with no acute evidence of ischemia. #3. Pre-Diabetes mellitus type II: Per most current list on a regimen, will maintain on ADA diet and accu checks w/ ISS. #4. Hypertension: Continue home regimen including metoprolol, amlodipine, lisinopril, isosorbide, PRN hydralazine. #5. Hyperlipidemia: We will continue patient on statin therapy. #6. Depression and anxiety: Per current list not on any chronic regimen, likely contributing greatly to his substance alcohol abuse, case management consult as well as 180 and patient would benefit from evaluation and counseling. #7. Tobacco Abuse: Encouraged cessation, inpatient consultation per RT, NR if desired. #8. Obesity: Weight loss and lifestyle changes encouraged. #9. GERD with history of GI bleed: We will maintain on PPI. #10. GIACOMO: CPAP nightly. #11. DVT prophylaxis: Given presentation for alcohol withdrawal lower risk, encourage ambulation. Admission Evaluation Time spent evaluating chart, patient history, patient evaluation, care planning and discussion with specialists: 75 minutes. Charges/Coding Visit Charges Inpatient E&M: 31473 Init Hosp L3 08/31/22330 <Electronically signed by Reema Rojas MD> Cosigner Signature (if applicable): CC: PEDRO Jackson; Dr. Reema Rojas MD~ Signed ADDENDUM by Dr. Reema Rojas MD on 08/31/22 at 0341 Addendum Notified by ED staff that patient decided to leave AGAINST MEDICAL ADVICE secondary to his displeasure with rules and regulations of withdrawal/treatment program. 08/31/22 034<Electronically signed by Reema Rojas MD> Cosigner Signature (if applicable): cc: PEDRO Jackson; Dr. Reema Rojas MD ~* Signed [facility] Work Phone: Hospital Discharge instructions Additional Instructions Recommended pain control regimen - May take 600 mg ibuprofen (Motrin) and then in 3-4 hours, may take 650 mg acetaminophen (Tylenol), then in 3-4 hours may take 600 mg ibuprofen, then in 3-4 hours may take 650 mg acetaminophen and so on for 2-3 days May take narcotic pain medication for pain that is not controlled by above and at night for comfort through the night Leave dressings in place May shower, do not scrub in the areas of the dressings as they may unravel. If they become overly soiled you may remove them but leave incision site open to air. Do not soak - no tub baths/swimming Ice applied to areas of discomfort may help No lifting/pushing/pulling greater than 20 pounds for a month. Regular diet as tolerated, drink plenty of fluids. Avoid carbonated beverages for a few days as this will cause abdominal bloating and thus discomfort after our surgery. Please call my office for an appointment to see me in 1-2 weeks. Office number is If any questions, please call my office at and ask the stamping operator for the general surgery nurses deskProtestant Hospital Work Phone: Reason for referral (narrative)No reason for referral information availableProtestant Hospital Work Phone: Chief Complaint and Reason for Visit Chief Complaint DIARREAH/ILL >24 HRS /SYMPTOMS AFTER EATING abdominal pain UMBILICAL HERNIA REPAIR Reason for Visit Gastroenteritis Chief Complaint DETOX ETOH WITHDRAWAL Chief Complaint Amb Documentation NSTEMI Reason for Visit Non-ST elevation LA (NSTEMI) Chief Complaint Amb Documentation NSTEMI NSTEMI NSTEMI Reason for Visit Acute alcoholism Non-ST elevation LA (NSTEMI) Atherosclerosis of coronary artery of burns [place] heart with angina pectoris Essential (primary) hypertension Hyperlipidemia Nicotine dependence Chief Complaint Amb Documentation NSTEMI NSTEMI NSTEMI NSTEMI S/P [facility] 03/2023 [facility] Reason for Visit Non-ST elevation LA (NSTEMI) Chest pain History of PTCA Hypersomnolence Obesity History of coronary artery stent placement Chief Complaint Admit Date PAIN October 09, 2024 4:30 pm Family History No Family History Records Found Relationship Condition Age at Onset Recorded Date/T jani mother Diabetes mellitus Unknown Cardiac disease Unknown uncle Malignant neoplasm of colon Unknown uncle Malignant neoplasm Unknown father Disorder of intestine Unknown Advance Directives No Advanced Directives Records Found Advance Directive Response Recorded Date/ Time Advance Directives No April 13, 2018 8:49am Living Will No February 19 9:27am Power of Back End Web Developer No February 19 022 9:27am Advance Directive Response Recorded Date/ Time Advance Directives No April 13, 2018 7:49am Living Will No August 31, 023 1:46am Power of Back End Web Developer No August 31, 2022 1:46am Advance Directive Response Recorded Date/ Time Advance Directives No April 13, 2018 8:49am Living Will No March 18, 2023 10:28pm Power of Back End Web Developer No March 10:28pm Advance Directive Response Recorded Date/ Time Advance Directives No April 13, 2018 8:49am Living Will No March 19, 2023 1:04am Power of Back End Web Developer No March 1:04am Advance Directive Response Recorded Date/ Time Advance Directives No April 13, 2018 7:49am Living Will No March 19, 2023 12:04am Power of Back End Web Developer No March 12:04am Advance Directive Response Recorded Date/ Time Living Will No October 09, 2024 4:45pm Do you have a Healthcare Power of Back End Web Developer? No October 09, 2024 4:45pm Advance Directives No April 13, 2018 8:49am Summary Purpose Additional Source Comments Source Comments (unrecognize d section and content) In the event this informatio n is protected by the Federal Confidentiality of Alcohol and Drug Abuse Patient Records regulations: The Federal rules restrict any use of the information to criminally investigate or prosecute any alcohol or drug abuse patient.[facility] Hospital[facility] the event this information is protected by the Federal Confidentiality of Alcohol and Drug Abuse Patient Records regulations: The Federal rules restrict any use of the information to criminally investigate or prosecute any alcohol or drug abuse patient.[facility] HospitalIn the event this information is protected by the Federal Confidentiality of Alcohol and Drug Abuse Patient Records regulations: The Federal rules restrict any use of the information to criminally investigate or prosecute any alcohol or drug abuse patient.[facility] HospitalIn the event this information is protected by the Federal Confidentiality of Alcohol and Drug Abuse Patient Records regulations: The Federal rules restrict any use of the information to criminally investigate or prosecute any alcohol or drug abuse patient.[facility] HospitalIn the event this information is protected by the Federal Confidentiality of Alcohol and Drug Abuse Patient Records regulations: The Federal rules restrict any use of the information to criminally investigate or prosecute any alcohol or drug abuse patient.[facility] HospitalIn the event this information is protected by the Federal Confidentiality of Alcohol and Drug Abuse Patient Records regulations: The Federal rules restrict any use of the information to criminally investigate or prosecute any alcohol or drug abuse patient.[facility] HospitalIn the event this information is protected by the Federal Confidentiality of Alcohol and Drug Abuse Patient Records regulations: The Federal rules restrict any use of the information to criminally investigate or prosecute any alcohol or drug abuse patient.[facility] HospitalIn the event this information is protected by the Federal Confidentiality of Alcohol and Drug Abuse Patient Records regulations: The Federal rules restrict any use of the information to criminally investigate or prosecute any alcohol or drug abuse patient.[facility] HospitalIn the event this information is protected by the Federal Confidentiality of Alcohol and Drug Abuse Patient Records regulations: The Federal rules restrict any use of the information to criminally investigate or prosecute any alcohol or drug abuse patient.[facility] HospitalIn the event this information is protected by the Federal Confidentiality of Alcohol and Drug Abuse Patient Records regulations: The Federal rules restrict any use of the information to criminally investigate or prosecute any alcohol or drug abuse patient.[facility] Reason for Visit (unrecogniz ed section and content) Reason Comments Consult ER [facility], hernia Specialty Diagnoses / Procedures Referred By Contac t Referred To Contact General Surgery / GENERAL SURGERY Diagnoses ER [facility] 02/03/22, hernia Procedures REFERRAL TO [facility]DI PATIENT Self, MD Bolivar, Maura Tejeda MD [address] [place] [address] Referral ID Status Reason Start Date Expiration Date V isits Requested Visits Authorized [id number] Outside PCP 02/05/2022 04/06/2022 1 1 Reason Comments Patient Update Reason Comments Information [facility], C9 Reason Comments Post Op Umbilical Hernia rep air 02/26/2022 Specialty Diagnoses / Procedures Referred By Contac t Referred To Contact General Surgery / GENERAL SURGERY Diagnoses post op hernia viviane - montoya 02/20 Procedures REFERRAL TO [facility] POST OP DDI Self Blank Finn PA-C [address] [place] [address] Referral ID Status Reason Start Date Expiration Date V isits Requested Visits Authorized [id number] Outside PCP 02/27/2022 05/28/2022 1 1 Reason Comments Release Of Medical Records [facility] Reason Comments Bwc (Worker's Comp) Reason Comments workers comp denial Reason Comments Requesting Medical Records MCO requestin g additional medical records Care Teams (unrecognized sec tion and content) Driver Merchandiser Relationship Specialty Start Date End Date Lon Jackson RN PCP - General 03/27/22 Driver Merchandiser Relationship Specialty Start Date End Date Lon Jackson RN PCP - General 03/27/22 Driver Merchandiser Relationship Specialty Start Date End Date Lon Jackson RN PCP - General 03/27/22 Driver Merchandiser Relationship Specialty Start Date End Date Lon Jackson RN PCP - General 03/27/22 Team Status: Active Member Role Status Dates No Primary Care Physician Family Provider Active Thomas Benitoder RAT TRAPPER, RAT TRAPPER-C Primary Care Provider Active Team Status: Active Member Role Status Dates Thomas Renetta RAT TRAPPER, RAT TRAPPER-C Primary Care Provider Active Dr. Delmar Ding MD Emergency Provider Active Dr. Reema Rojas MD Admit Provider, Attending Provider, Other Provider Active Team Status: Inactive Member Role Status Dates Thomas Benitoder RAT TRAPPER, RAT TRAPPER-C Primary Care Provider Active Dr. Delmar Ding MD Emergency Provider Active Dr. Reema Rojas MD Attending Provider Active Team Status: Active Member Role Status Dates Thomas Benitoder RAT TRAPPER, RAT TRAPPER-C Primary Care Provider Active Gayla Wong RN Attending Provider Active Team Status: Active Member Role Status Dates Thomas Renetta RAT TRAPPER, RAT TRAPPER-C Primary Care Provider Active Dr. Nirmala Armas MD Emergency Provider Active Dr. Cipriano Seymour MD Admit Provider, Attending Pro vider Active Team Status: Active Member Role Status Dates Thomas Renetta RAT TRAPPER, RAT TRAPPER-C Primary Care Provider Active Dr. Nirmala Armas MD Emergency Provider Active Dr. Cipriano Seymour MD Admit Provider, Attending Provider, Other Provider Active Dr. Kolton Glasgow MD Other Provider Active Team Status: Active Member Role Status Dates Thomas Renetta RAT TRAPPER, RAT TRAPPER-C Primary Care Provider Active Dr. Nirmala Armas MD Emergency Provider Active Dr. Cipirano Seymour MD Admit Provider, Other Provide r Active Dr. Kolton Glasgow MD Attending Provider, Other Provide r Active Dr. Oliverio Naqvi MD Other Provider Active Team Status: Inactive Member Role Status Dates Thomas Renetta RAT TRAPPER, RAT TRAPPER-C Primary Care Provider Active Dr. Nirmala Armas MD Emergency Provider Active Dr. Cipriano Seymour MD Admit Provider, Other Provide r Active Dr. Kolton Glagsow MD Other Provider Active Dr. Oliverio Naqvi MD Attending Provider Active Team Status: Active Member Role Status Dates No Primary Care Physician Family Provider Active Reyna Stephens DO Primary Care Provider Active Team Status: Active Member Role Status Dates Thomas Benitoder RAT TRAPPER, RAT TRAPPER-C Primary Care Provider Active Dr. Kolton Glasgow MD Attending Provider Active Team Status: Active Member Role Status Dates Thomas Renetta RAT TRAPPER, RAT TRAPPER-C Primary Care Provider Active Dr. Camille Duenas MD Attending Provider, Refe rring Provider Active Team Status: Inactive Member Role Status Dates Thomas Jackson RAT TRAPPER, RAT TRAPPER-C Referring Provider Active Jelly Watkins PA, PA Active Emerson Larios RAT TRAPPER, RAT TRAPPER-C Attending Provider Active Reyna Stephens , Primary Care Provider Active Team Status: Inactive Member Role Status Dates Reyna Stephens , Primary Care Provider Active Emerson Larios RAT TRAPPER, RAT TRAPPER-C Attending Provider, Referring Pro vider Active Team Status: Active Member Role Status Dates No Primary Care Physician Primary Care Provider Active Team Status: Inactive Member Role Status Dates No Primary Care Physician Primary Care Provider Active Start: October 09, 2024 End: October 09, 2024 Rafita Xavier MD Emergency Provider Active Star t: October 09, 2024 End: October 09, 2024 (unrecognized sect ion and content) No Status Records FoundNo Status Records Found INFORMATION SOURCE (unrecogn ized section and content) DATE CREATED AUTHOR 06/07/2022 [facility] DATE CREATED AUTHOR AUTHOR'S ORGANIZ ATION 10/15/2024 [facility] Goals (unrecognized section and content) Goals may be documented in a n alternate sectionGoals may be documented in an alternate sectionGoals may be documented in an alternate section FOR RECORDS PERTAINING TO PATIENTS WHO ARE OR HAVE BEEN ENROLLED IN A CHEMICAL DEPENDENCY/SUBSTANCEABUSE PROGRAM, SOME INFORMATION MAY BE OMITTED. This clinical summary was aggregated from multiple sources. Caution should be exercised in using it in the provision of clinical care. This summary normalizes information from multiple sources, and as a consequence, information in this document may materially change the coding, format and clinical context of patient data. In addition, data may be omitted in some cases. CLINICAL DECISIONS SHOULD BE BASED ON THE PRIMARY CLINICAL RECORDS. [employer] provides no warranty or guarantee of the accuracy or completeness of information in this document.
--- NOTE | 2025-01-26 06:23 | EKG12_ITS ---
Test Reason : CP Blood Pressure : */* mmHG Vent. Rate : 101 BPM Atrial Rate : 101 BPM P-R Int : 148 ms QRS Dur : 74 ms QT Int : 364 ms P-R-T Axes : 76 46 17 degrees QTcB Int : 471 ms Sinus tachycardia Otherwise normal ECG Confirmed by AIDAN BUI, KULDEEP ([id number]), story editor SUSAN TONY ([id number]) on 01/28/2025 1:16:59 PM Referred By: JOHN Confirmed By: KULDEEP BERMUDEZ MD
[2025-01-26 07:00] VITALS: BP 113/52; PULSE 78; RESP 16; O2SAT 98
[2025-01-26 07:33] LABS: Troponin T High Sens 2 HR < 6 ng/L (<=22)
[2025-01-26 07:41] VITALS: BP 138/87; PULSE 78; RESP 16; TEMP 36.9; O2SAT 100
== END 2025-01-26 07:42 | disposition home or self-care (01) ==
PROVIDERS: Emergency Provider Emergency Medicine; Visit Provider Emergency Medicine
DX: R07.9 Chest pain, unspecified (principal); I25.10 Atherosclerotic heart disease of native coronary artery without angina pectoris; F17.210 Nicotine dependence, cigarettes, uncomplicated; E78.5 Hyperlipidemia, unspecified; I10 Essential (primary) hypertension; R11.2 Nausea with vomiting, unspecified; I25.2 Old myocardial infarction; E66.9 Obesity, unspecified; Z95.5 Presence of coronary angioplasty implant and graft; F10.10 Alcohol abuse, uncomplicated
CPT/HCPCS: 71046; 80048; 83735; 84484; 85025; 85379; 93005; 96374; 99284; A4216

== ENCOUNTER → 2025-02-22 | Outpatient (CLI) | payer OTHER, SELFPAY | END | disposition home or self-care (01) | LOC: LAB 10:41 | PROVIDERS: Referring Provider Nurse Practitioner Family; Visit Provider Nurse Practitioner Family | DX: R07.89 Other chest pain (principal); E66.9 Obesity, unspecified; Z95.5 Presence of coronary angioplasty implant and graft | CPT/HCPCS: 36415; 83036 ==

== ENCOUNTER → 2025-03-23 | Outpatient (CLI) | payer OTHER, SELFPAY ==
--- OUTSIDE RECORDS SUMMARY | 2025-03-23 06:07 | XMS RPT_ITS | CCD ---
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 as tightness and pressure. This has occurred both at rest and with activity. He has taken NTG to assist. This did help the pain. He is concerned that this is similar pain as previous. This is becoming more often. He denies arm, jaw, or neck discomfort. He denies palpitations. He denies bilateral lower extremity edema. He denies claudication. He states shortness of breath with activity and shortness of breath at rest. He denies orthopnea. He states snoring. He states PND. He denies chronic cough. He denies significant, sudden weight gain. He denies lightheadedness, dizziness, near-syncope, or syncope. He denies blood in urine, blood in stool, or epistaxis. He denies fever with chills. He denies myalgia. He denies fatigue. His exercise level has remained stable and limited on account of shortness of breath and leg weakness/cramps. 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 Required: No Is patient in pain?: No Allergies No Known Allergies Allergy (Verified 01/26/25 04:51) Medications ???Medication ???Instructions ???Recorded ???Confirmed ???Type aspirin 81 mg chewable tablet 81 mg PO DAILY heart health 02/22/25 History albuterol sulfate 90 mcg/actuation 2 puff PO Q4H PRN PRN for dyspne a 09/30/24 02/22/25 Rx aerosol inhaler #6.7 ea amlodipine 5 mg tablet 5 mg PO DAILY #90 tabs 09/30/24 Rx atorvastatin 80 mg tablet 80 mg PO QHS cholesterol #90 tabs 09/30/24 02/22/25 Rx clopidogrel 75 mg tablet See Rx Instructions .Route 5 02/22/25 Rx .COMPLEX anti platelet #90 tabs metoprolol tartrate 100 mg tablet 100 mg PO BID blood pressure #180 09/30/24 02/22/25 Rx tabs nitroglycerin 0.4 mg sublingual 0.4 mg sublingual Q5M PRN Chest 02/22/25 Rx tablet Pain #25 tabs ranolazine 500 mg tablet,extended 500 mg PO BID chest pain #180 tab s 09/30/24 02/22/25 Rx release,12 hr lisinopril 40 mg tablet 40 mg PO QDAY 02/22/25 02/22/25 Hi story Ejection fraction %: 55 Have you fallen in the past year?: No PFSH Medical History Acute alcoholism Wears glasses Depression Back pain History of GI bleed Gastric reflux Smoker Old anterior myocardial infarction 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 pectoris Nicotine dependence Essential (primary) hypertension Ventricular fibrillation Obstructive sleep apnea Palpitations Obesity Borderline diabetes mellitus Hyperlipidemia Surgical History History of PTCA (03/20/23) Hx of endoscopy History of left heart catheterization (04/13/18) History of coronary artery stent placement (08/21/13) Family History Mother Diabetes (more content not included)... Normal [facility] Hemoglobin A1con 02-22-2025 HbA1c (Bld) [Mass fraction] 6.8 % High <=5.6 [facility] Comment on above: Result Comment: Norm al < 5.7 % Prediabetic 5.7 - 6.4 % Diabetic >or= 6.5 % Please note range changes. Performed By: #### L 501.9985 ####[facility] [address] [facility]. [place], [place], [address] Hemoglobin A1c percentageOrd ered By: Emerson Larios on 02-22-2025 HbA1c (Bld) [Mass fraction] 6.8 % High <5.7 [facility] Comment on above: Normal < 5.7 % Predi abetic 5.7 - 6.4 % Diabetic >or= 6.5 % Please note range changes. 12 Lead EKGon 01-26-2025 12 Lead EKG [facility] Cardiovascular Services [address] [place] [address] 12 Lead EKG 01/26/25 0450 MR#: [id number] Acct: [id number] Name: LON HAND JrArin Rep #: [id number] : 1985 39 From: Camille Duenas MD Attending Dr: Status: DEP ER Ordering Dr: Bakari Gonzalez DO Date: 01/26/25 Location: ED Sex: M C Admitted: Test Reason : CP Blood Pressure : */* mmHG Vent. Rate : 101 BPM Atrial Rate : 101 BPM P-R Int : 148 ms QRS Dur : 74 ms QT Int : 364 ms P-R-T Axes : 76 46 17 degrees QTcB Int : 471 ms Sinus tachycardia Otherwise normal ECG Confirmed by AIDAN BUI, KULDEEP ([id number]), rewrite editor SUSAN TONY ([id number]) on 01/28/2025 1:16:59 PM Referred By: JOHN Confirmed By: KULDEEP DUENAS MD 01/28/25 6769 Date Camille Duenas MD CC: Bakari Gonzalez, DO; No Primary Care Physician Signed Normal [facility] Absolute lymphocyte countOrd ered By: Bakari Gonzalez on 01-26-2025 Lymphocytes Auto (Unsp spec) [#/Vol] 3.49 10*3/uL 0.83-4.51 [facility] Absolute neutrophil countOrd ered By: Bakari Gonzalez on 01-26-2025 Neutrophils (Bld) [#/Vol] 8.4 10*3/uL High 2.0-7.7 [facility] Anion gap in Serum or Plasma Ordered By: Bakari Gonzalez on 01-26-2025 Anion gap [Moles/Vol] 14 mmol/L 5-15 [facility] Automated lymphocyte count a s percentage of total leukocytesOrdered By: Bakari Gonzalez on 01-26-2025 Lymphocytes/100 WBC Auto (Unsp spec) 25.9 % 19-41 [facility] BUN/creatinine ratioOrdered By: Bakari Gonzalez on 01-26-2025 Urea nitrogen/Creatinine [Mass ratio] 17.0 mg/mg 10- [facility] Basic Metabolic Profile (BMP )on 01-26-2025 BUN/CRE 17.0 RATIO Normal - [facility] Comment on above: Performed By: #### L 501.4021, L500.2500, L501.5200, L100.0100, L300.8000 ####[facility] [address] [place], [address] Calcium [Mass/Vol] 9.5 mg/dL Normal 7.6-11.0 [facility] Comment on above: Performed By: #### L 501.4021, L500.2500, L501.5200, L100.0100, L300.8000 ####[facility] [address] [place], [address] Chloride [Moles/Vol] 100 mmol/L Normal 98-108 [facility] Comment on above: Performed By: #### L 501.4021, L500.2500, L501.5200, L100.0100, L300.8000 ####[facility] [address] [place], [address] CO2 [Moles/Vol] 19.9 mmol/L Low 21.0-32.0 [facility] Comment on above: Performed By: #### L 501.4021, L500.2500, L501.5200, L100.0100, L300.8000 ####[facility] [address] [place], [address] Creatinine [Mass/Vol] 0.92 mg/dL Normal 0.70-1.20 [facility] Comment on above: Performed By: #### L 501.4021, L500.2500, L501.5200, L100.0100, L300.8000 ####[facility] [address] [place], [address] ECRCL 137.20 ml/min Normal 50-250 [facility] Comment on above: Performed By: #### L 501.4021, L500.2500, L501.5200, L100.0100, L300.8000 ####[facility] [address] [place], [address] GAP 14 Normal 5-15 [facility] Comment on above: Performed By: #### L 501.4021, L500.2500, L501.5200, L100.0100, L300.8000 ####[facility] [address] [place], [address] GFR/1.73 sq M.predicted among non-blacks MDRD (S/P/Bld) [Vol rate/Area] 107 mL/min/{1.73_m2} Normal >60 [facility] Comment on above: Result Comment: mL/m in/1.73m2 CKD-EPI Creatinine Equation (2020) Performed By: #### L 501.4021, L500.2500, L501.5200, L100.0100, L300.8000 ####[facility] [address] [place], [address] Glucose [Mass/Vol] 171 mg/dL High 70-99 [facility] Comment on above: Performed By: #### L 501.4021, L500.2500, L501.5200, L100.0100, L300.8000 ####[facility] [address] [place], [address] Potassium [Moles/Vol] 4.4 mmol/L Normal 3.3-5.1 [facility] Comment on above: Performed By: #### L 501.4021, L500.2500, L501.5200, L100.0100, L300.8000 ####[facility] [address] [place], [address] Sodium [Moles/Vol] 134 mmol/L Normal 133-145 [facility] Comment on above: Performed By: #### L 501.4021, L500.2500, L501.5200, L100.0100, L300.8000 ####[facility] [address] [place], [address] Urea nitrogen [Mass/Vol] 16 mg/dL Normal 4-19 [facility] Comment on above: Performed By: #### L 501.4021, L500.2500, L501.5200, L100.0100, L300.8000 ####[facility] [address] [place], [address] Basophil percentageOrdered B y: Bakari Gonzalez on 01-26-2025 Basophils/100 WBC (Bld) 0.5 % 0-1 [facility] CBC W/Diff, Automatedon 01-05 Absolute Lymph 3.49 X10 3/uL Normal 0.83-4.51 [facility] Comment on above: Performed By: #### L 501.4021, L500.2500, L501.5200, L100.0100, L300.8000 #### [facility] [address] [place], [address] Absolute Neut 8.4 X10 3/uL High 2.0-7.7 [facility] Comment on above: Performed By: #### L 501.4021, L500.2500, L501.5200, L100.0100, L300.8000 #### [facility] [address] [place], [address] Basophils/100 WBC (Bld) 0.5 % Normal 0-1 [facility] Comment on above: Performed By: #### L 501.4021, L500.2500, L501.5200, L100.0100, L300.8000 #### [facility] [address] [place], [address] Eosinophils/100 WBC (Bld) 3.3 % Normal 0-5 [facility] Comment on above: Performed By: #### L 501.4021, L500.2500, L501.5200, L100.0100, L300.8000 #### [facility] [address] [place], [address] Erythrocyte distribution width (RBC) [Ratio] 13.9 % Normal 11.6-14.6 [facility] Comment on above: Performed By: #### L 501.4021, L500.2500, L501.5200, L100.0100, L300.8000 #### [facility] [address] [place], [address] Hematocrit (Bld) [Volume fraction] 42.8 % Normal 40-54 [facility] Comment on above: Performed By: #### L 501.4021, L500.2500, L501.5200, L100.0100, L300.8000 #### [facility] [address] [place], [address] Hemoglobin (Bld) [Mass/Vol] 13.8 g/dL Normal 13.0-16.5 [facility] Comment on above: Performed By: #### L 501.4021, L500.2500, L501.5200, L100.0100, L300.8000 #### [facility] [address] [place], [address] IG% 0.500 Normal 0.0-0.9 [facility] Comment on above: Result Comment: IG% - Immature Granulocytes (promyelocytes, myelocytes and metamyelocytes) > 1% indicates that a LEFT SHIFT is Present. Performed By: #### L 501.4021, L500.2500, L501.5200, L100.0100, L300.8000 #### [facility] [address] [facility] [place], [address] Lymphocytes/100 WBC (Bld) 25.9 % Normal 19-41 [facility] Comment on above: Performed By: #### L 501.4021, L500.2500, L501.5200, L100.0100, L300.8000 #### [facility] [address] [place], [address] MCH (RBC) [Entitic mass] 29.6 pg Normal 27.0-32.0 [facility] Comment on above: Performed By: #### L 501.4021, L500.2500, L501.5200, L100.0100, L300.8000 #### [facility] [address] [place], [address] MCHC (RBC) [Mass/Vol] 32.2 g/dL Normal 32-36 [facility] Comment on above: Performed By: #### L 501.4021, L500.2500, L501.5200, L100.0100, L300.8000 #### [facility] [address] [place], [address] MCV (RBC) [Entitic vol] 91.6 fL Normal 80-94 [facility] Comment on above: Performed By: #### L 501.4021, L500.2500, L501.5200, L100.0100, L300.8000 #### [facility] [address] [place], [address] Monocytes/100 WBC (Bld) 7.4 % Normal 0-10 [facility] Comment on above: Performed By: #### L 501.4021, L500.2500, L501.5200, L100.0100, L300.8000 #### [facility] [address] [place], [address] Neutrophils/100 WBC (Bld) 62.4 % Normal 47-70 [facility] Comment on above: Performed By: #### L 501.4021, L500.2500, L501.5200, L100.0100, L300.8000 #### [facility] [address] [place], [address] Nucleated RBC (Bld) [#/Vol] 0 10*3/uL Normal 0-5 [facility] Comment on above: Performed By: #### L 501.4021, L500.2500, L501.5200, L100.0100, L300.8000 #### [facility] [address] [place], [address] Platelet mean volume (Bld) [Entitic vol] 10.6 fL Normal 6.2-12.0 [facility] Comment on above: Performed By: #### L 501.4021, L500.2500, L501.5200, L100.0100, L300.8000 #### [facility] [address] [place], [address] Platelets (Bld) [#/Vol] 310 10*3/uL Normal 150-450 [facility] Comment on above: Performed By: #### L 501.4021, L500.2500, L501.5200, L100.0100, L300.8000 #### [facility] [address] [place], [address] RBC (Bld) [#/Vol] 4.67 10*6/uL Normal 4.6-6.2 [facility] Comment on above: Performed By: #### L 501.4021, L500.2500, L501.5200, L100.0100, L300.8000 #### [facility] [address] [place], [address] RDW SD 46.9 fl High 35.1-43.9 [facility] Comment on above: Performed By: #### L 501.4021, L500.2500, L501.5200, L100.0100, L300.8000 #### [facility] [address] [facility] [place], [address] WBC (Bld) [#/Vol] 13.5 10*3/uL High 4.4-11.0 [facility] Comment on above: Performed By: #### L 501.4021, L500.2500, L501.5200, L100.0100, L300.8000 #### [facility] [address] [place], [address] Carbon dioxide, total [Moles /volume] in Central venous bloodOrdered By: Bakari Gonzalez on 01-26-2025 CO2 [Moles/Vol] 19.9 mmol/L Low 21.0-32.0 [facility] Chest PA and Lateralon 01-26 Chest PA and Lateral [facility] Imaging Services [address] [facility] [place] [address] Chest PA and Lateral MR#: [id number] Acct: [id number] Name: LON HAND Jr. Rep #: [id number] : 1985 M 39 From: Ramon Cummins MD PCP: Care Physician,No Primary Status: PRE ER Study: Chest PA and Lateral Date of Exam: 01/26/25 Exam# [id number] Ordering Dr: Bakari Gonzalez DO PROCEDURE: CHEST PA AND LATERAL 01/26/2025 REASON FOR EXAM: CHEST PAIN TECHNIQUE: CHEST PA AND LATERAL COMPARISON: 10/09/2024 FINDINGS: Normal heart size. Status post coronary stenting. Well inflated lungs. No consolidation, effusion, or pneumothorax. RAD/Chest PA and Lateral IMPRESSION: No acute chest findings. Reading [facility] CC: Bakari Gonzalez DO; No Primary Care Physician Cardiac Monitor: Signed Normal [facility] Chloride assayOrdered By: Christin Gonzalez on 01-26-2025 Chloride [Moles/Vol] 100 mmol/L 98-108 [facility] D-Dimer Quantitative (DVT/PE )on 01-26-2025 D-DIMER QUANT < 0.27 Low 0.27-0.49 [facility] Comment on above: Result Comment: NORM AL D-Dimer level (<0.50) indicates no DVT or PE. Performed By: #### L 501.4021, L500.2500, L501.5200, L100.0100, L300.8000 #### [facility] [address] [facility] [place], [address] Emergency Department Summary on 01-26-2025 Emergency Department Summary [facility] Medical Records Department [address] [place] [address] Emergency Department Summary 01/26/25 MR#: [id number] Acct: [id number] Name: LON HAND Rep #: [id number] : 1985 39 From: Bakari Gonzalez DO PCP: Care Physician,No Primary Status:REG ER Location: ED HPI History of Present Illness Chief Complaint: Chest Pain Informant: patient and spouse/S.O. Narrative Narrative: Patient is a 39-year-old male with past medical history of coronary artery disease status post 2 stents placed in 2013. He last had a cath in 2018 which showed patent stents. Patient reports that on Friday he had a bout of midsternal to left-sided chest discomfort described as more of a sense of pressure and with this he had bouts of nausea and vomiting. He states those symptoms resolved completely and he continued with his normal medication and daily routine. However beginning late Friday evening he developed similar symptoms with another bout of nausea and vomiting. He states he took a home nitro with symptom improvement however the pain never completely resolved. It has persisted into the morning and with concern this could be a repeat cardiac event he presents for evaluation. [facility] Medical History Acute alcoholism Wears glasses Depression Back pain History of GI bleed Gastric reflux Smoker Old anterior myocardial infarction 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 pectoris Nicotine dependence Essential [...] / Time No Known Allergies Allergy Verified 01/26/25 04:51 Family History Mother Diabetes Heart disease Uncle [...] none ROS ROS ED Constitutional Constitutional ED: Reports sweats; Denies chills or fever(s) Eyes Eyes: Denies blurry vision or change in vision ENT ENT ED: Denies sore throat Cardiovascular Cardiovascular: Reports chest pain; Denies palpitations or racing heartbeat Respiratory/Chest Respiratory/Chest: Denies cough or dyspnea Gastrointestinal Gastrointestinal: Reports nausea and vomiting; Denies abdominal pain or diarrhea Musculoskeletal Musculoskeletal: Denies back pain Integumentary Denies rash Neurologic Neurologic: Denies headache(s) Hematologic/Lymphatic Hematologic/Lymphatic: Denies easy bleeding or easy bruising EXAM Physical Exam Const Vital Signs: 01/26/25 04:46 01/26/25 04:50 01/26/25 05:46 Temperature 98.3 F Temperature Source Oral Pulse Rate 109 H 83 Respiratory Rate 19 H 18 Respiratory Effort Non-Labored Blood Pressure 144/87 H 116/65 Blood Pressure Mean 106 82 Pulse Ox 98 98 Oxygen Delivery Method Room Air Room Air 01/26/25 06:00 01/26/25 07:00 Temperature Temperature Source Pul (more content not included)... Normal [facility] Eosinophil percentageOrdered By: Bakari Gonzalez on 01-26-2025 Eosinophils/100 WBC (Bld) 3.3 % 0-5 [facility] Erythrocyte distribution wid th ratioOrdered By: Bakari Gonzalez on 01-26-2025 Erythrocyte distribution width (RBC) [Ratio] 13.9 % 11.6-14.6 [facility] Erythrocyte distribution wid th standard deviationOrdered By: Bakari Gonzalez on 01-26-2025 Erythrocyte distribution width (RBC) [Ratio] 46.9 fl High 35.1-43.9 [facility] Glomerular filtration rate ( GFR) estimation/1.73 sq m using serum, plasma, or whole bOrdered By: Bakari Gonzalez on 01-26-2025 GFR/1.73 sq M.predicted among non-blacks MDRD (S/P/Bld) [Vol rate/Area] 107 mL/min/{1.73_m2} >60 [facility] Comment on above: mL/min/1.73m2 CKD-EP I Creatinine Equation (2020) Hematocrit Auto (Bld) [Volum e fraction]Ordered By: Bakari Gonzalez on 01-26-2025 Hematocrit (Bld) [Volume fraction] 42.8 % 40-54 [facility] Hemoglobin measurementOrdere d By: Bakari Gonzalez on 01-26-2025 Hemoglobin (Bld) [Mass/Vol] 13.8 g/dL 13.0-16.5 [facility] Immature granulocytes/100 WB C Auto (Bld)Ordered By: Bakari Gonzalez on 01-26-2025 Immature granulocytes/100 WBC (Bld) 0.500 % 0.0-0.9 [facility] Comment on above: IG% - Immature Granu locytes (promyelocytes, myelocytes and metamyelocytes) > 1% indicates that a LEFT SHIFT is Present. L501.4021on 01-26-2025 Trop T High Sen < 6 Normal <=22 [facility] Comment on above: Performed By: #### L 501.4021, L500.2500, L501.5200, L100.0100, L300.8000 ####[facility] [address] [place], [place], [id number] MCV (mean corpuscular volume ) determinationOrdered By: Bakari Gonzalez on 01-26-2025 MCV (RBC) [Entitic vol] 91.6 fL 80-94 [facility] Magnesiumon 01-26-2025 Magnesium [Mass/Vol] 2.1 mg/dL Normal 1.5-2.2 [facility] Comment on above: Performed By: #### L 501.4021, L500.2500, L501.5200, L100.0100, L300.8000 ####[facility] [address] [place], [address] Magnesium measurement (mass/ volume)Ordered By: Bakari Gonzalez on 01-26-2025 Magnesium (Unsp spec) [Mass/Vol] 2.1 mg/dL 1.5-2.2 [facility] Mean corpuscular hemoglobin (MCH) determinationOrdered By: Bakari Gonzalez on 01-26-2025 MCH (RBC) [Entitic mass] 29.6 pg 27.0-32.0 [facility] Mean corpuscular hemoglobin concentration (MCHC) determinationOrdered By: Bakari Gonzalez on 01-26-2025 MCHC (RBC) [Mass/Vol] 32.2 g/dL 32-36 [facility] Mean platelet volume determi nationOrdered By: Bakari Gonzalez on 01-26-2025 Platelet mean volume (Bld) [Entitic vol] 10.6 fL 6.2-12.0 [facility] Monocyte percentageOrdered B y: Bakari Gonzalez on 01-26-2025 Monocytes/100 WBC (Bld) 7.4 % 0-10 [facility] Neutrophil percentageOrdered By: Bakari Gonzalez on 01-26-2025 Neutrophils/100 WBC (Bld) 62.4 % 47-70 [facility] Nucleated red blood cell per centageOrdered By: Bakari Gonzalez on 01-26-2025 Nucleated RBC/100 WBC (Bld) [Ratio] 0 % 0-5 [facility] Platelet countOrdered By: Christin Gonzalez on 01-26-2025 Platelets (Bld) [#/Vol] 310 10*3/uL 150-450 [facility] Potassium measurement (mass/ volume)Ordered By: Bakari Gonzalez on 01-26-2025 Potassium (Unsp spec) [Mass/Vol] 4.4 mmol/L 3.3-5.1 [facility] RBC Auto (Bld) [#/Vol]Ordere d By: Bakari Gonzalez on 01-26-2025 RBC (Bld) [#/Vol] 4.67 10*6/uL 4.6-6.2 [facility] Serum creatinine measurement (mass/volume)Ordered By: Bakari Gonzalez on 01-26-2025 Creatinine [Mass/Vol] 0.92 mg/dL 0.70-1.20 [facility] Serum glucose measurement (m ass/volume)Ordered By: Bakari Gonzalez on 01-26-2025 Glucose [Mass/Vol] 171 mg/dL High 70-99 [facility] Serum or plasma calcium jeramie urement (mass/volume)Ordered By: Bakari Gonzalez on 01-26-2025 Calcium [Mass/Vol] 9.5 mg/dL 7.6-11.0 [facility] Serum or plasma urea nitroge n measurement (mass/volume)Ordered By: Bakari Gonzalez on 01-26-2025 Urea nitrogen [Mass/Vol] 16 mg/dL 4-19 [facility] Sodium levelOrdered By: Jens Gonzalez on 01-26-2025 Sodium [Moles/Vol] 134 mmol/L 133-145 [facility] Troponin T HS 2 HRon 025 Trop T High Sen < 6 Normal <=22 [facility] Comment on above: Performed By: #### L 499.0042 #### [facility] [address] [facility] [id number] (375) Troponin T HS 4 HRon 025 Trop T High Sen Normal <=22 [facility] Comment on above: Result Comment: Erica rodas via OM: Ordered Performed By: #### L 499.0043 ####[facility] [address] [facility] [place], [address] Troponin T.cardiac [Mass/vol ume] in Serum or Plasma by High sensitivity methodOrdered By: Bakari Gonzalez on 01-26-2025 Troponin T.cardiac High sensitivity method [Mass/Vol] < 6 ng/L <22 [facility] Troponin T.cardiac High sensitivity method [Mass/Vol] < 6 ng/L <22 [facility] White blood cell (WBC) count Ordered By: Bakari Gonzalez on 01-26-2025 WBC (Bld) [#/Vol] 13.5 10*3/uL High 4.4-11.0 [facility] 12 Lead EKGon 10-09-2024 12 Lead EKG [facility] Cardiovascular Services [address] [place] [address] 12 Lead EKG 10/09/24 1654 MR#: [id number] Acct: [id number] Name: YAZNALON RAEANN Peralta Rep #: [id number] : 1985 38 From: Camille Duenas MD [...] ECG Confirmed by AIDAN BUI, KULDEEP ([id number]), rewrite editor BLANK FRANKLIN ([id number]) on 10/11/2024 6:01:50 AM Referred By: Confirmed By: KULDEEP DUENAS MD 10/11/24 0601 Date Camille Duenas MD CC: Dr. Rafita Xavier MD; No Primary Care Physician Signed [facility] Abd Decub and/or Erect(Betzy blon 10-09-2024 Abd Decub and/or Erect([facility] Imaging Services [address] [facility] [address] [place], [place] [address] Abd Decub and/or Erect([facility] MR#: [id number] Acct: [id number] Name: YAZAN,LON RAEANN Peralta Rep #: [id number] : 1985 M 38 From: Luz Elena Church DO PCP: Care Physician,No Primary Status: REG ER Study: Abd Decub and/or Erect(Portabl Date of Exam: 0 10/09/24 Exam# [id number] Ordering Dr: Rafita Xavier MD PROCEDURE: ABD [...] Rafita Xavier MD; No Primary Care Physician Cardiac Monitor: Signed Normal [facility] Abdomen/Pelvis W IV Cont ONL Yon 10-09-2024 Abdomen/Pelvis W IV Cont ONLY [facility] Imaging Services [address] [place] [id number] Abdomen/Pelvis W IV Cont ONLY MR#: [id number] Acct: [id number] Name: LON HAND Rep #: [id number] : 1985 M 38 From: Luz Elena Church DO PCP: Care Physician,No Primary Status: REG ER Study: Abdomen/Pelvis W IV Cont ONLY Date of Exam: Exam# [id number] Ordering Dr: Rafita Xavier MD PROCEDURE: ABDOMEN/PELVIS [...] the bowel loops are demonstrated. Reading [facility] CC: Dr. Rafita Xavier MD; No Primary Care Physician Cardiac Monitor: Signed Normal [facility] Absolute lymphocyte countOrd ered By: Rafita Xavier on 10-09-2024 Lymphocytes Auto (Unsp spec) [#/Vol] 2.76 10*3/uL 0.83-4.51 [facility] Absolute neutrophil countOrd ered By: Rafita Xavier on 10-09-2024 Neutrophils (Bld) [#/Vol] 7.6 10*3/uL 2.0-7.7 [facility] Anion gap in Serum or Plasma Ordered By: Rafita Xavier on 10-09-2024 Anion gap [Moles/Vol] 17 mmol/L High 5-15 [facility] Automated lymphocyte count a s percentage of total leukocytesOrdered By: Rafita Xavier on 10-09-2024 Lymphocytes/100 WBC Auto (Unsp spec) 23.8 % 19-41 [facility] BUN/creatinine ratioOrdered By: Rafita Xavier on 10-09-2024 Urea nitrogen/Creatinine [Mass ratio] 14.3 mg/mg 10-20 [facility] Basophil percentageOrdered B y: Rafita Xavier on 10-09-2024 Basophils/100 WBC (Bld) 0.8 % 0-1 [facility] Bilirubin, totalOrdered By: Rafita Xavier on 10-09-2024 Bilirubin [Mass/Vol] 0.25 mg/dL 0.00-1.30 [facility] CBC W/Diff, Automatedon 04-0 -2024 Absolute Lymph 2.76 X10 3/uL Normal 0.83-4.51 [facility] Comment on above: Performed By: #### L 100.0100, L500.4050, L501.2450 #### [facility] [address] [place], [address] Absolute Neut 7.6 X10 3/uL Normal 2.0-7.7 [facility] Comment on above: Performed By: #### L 100.0100, L500.4050, L501.2450 #### [facility] [address] [place], [address] Basophils/100 WBC (Bld) 0.8 % Normal 0-1 [facility] Comment on above: Performed By: #### L 100.0100, L500.4050, L501.2450 #### [facility] [address] [place], [address] Eosinophils/100 WBC (Bld) 3.0 % Normal 0-5 [facility] Comment on above: Performed By: #### L 100.0100, L500.4050, L501.2450 #### [facility] [address] [place], [address] Erythrocyte distribution width (RBC) [Ratio] 13.7 % Normal 11.6-14.6 [facility] Comment on above: Performed By: #### L 100.0100, L500.4050, L501.2450 #### [facility] [address] [place], [address] Hematocrit (Bld) [Volume fraction] 44.5 % Normal 40-54 [facility] Comment on above: Performed By: #### L 100.0100, L500.4050, L501.2450 #### [facility] [address] [place], [address] Hemoglobin (Bld) [Mass/Vol] 14.9 g/dL Normal 13.0-16.5 [facility] Comment on above: Performed By: #### L 100.0100, L500.4050, L501.2450 #### [facility] [address] [place], [address] IG% 0.300 Normal 0.0-0.9 [facility] Comment on above: Result Comment: IG% - Immature Granulocytes (promyelocytes, myelocytes and metamyelocytes) > 1% indicates that a LEFT SHIFT is Present. Performed By: #### L 100.0100, L500.4050, L501.2450 #### [facility] [address] [place], [address] Lymphocytes/100 WBC (Bld) 23.8 % Normal 19-41 [facility] Comment on above: Performed By: #### L 100.0100, L500.4050, L501.2450 #### [facility] [address] [place], [address] MCH (RBC) [Entitic mass] 30.4 pg Normal 27.0-32.0 [facility] Comment on above: Performed By: #### L 100.0100, L500.4050, L501.2450 #### [facility] [address] [place], [address] MCHC (RBC) [Mass/Vol] 33.5 g/dL Normal 32-36 [facility] Comment on above: Performed By: #### L 100.0100, L500.4050, L501.2450 #### [facility] [address] [place], [address] MCV (RBC) [Entitic vol] 90.8 fL Normal 80-94 [facility] Comment on above: Performed By: #### L 100.0100, L500.4050, L501.2450 #### [facility] [address] [place], [address] Monocytes/100 WBC (Bld) 6.6 % Normal 0-10 [facility] Comment on above: Performed By: #### L 100.0100, L500.4050, L501.2450 #### [facility] [address] [place], [address] Neutrophils/100 WBC (Bld) 65.5 % Normal 47-70 [facility] Comment on above: Performed By: #### L 100.0100, L500.4050, L501.2450 #### [facility] [address] [place], [address] Nucleated RBC (Bld) [#/Vol] 0 10*3/uL Normal 0-5 [facility] Comment on above: Performed By: #### L 100.0100, L500.4050, L501.2450 #### [facility] [address] [place], [address] Platelet mean volume (Bld) [Entitic vol] 10.9 fL Normal 6.2-12.0 [facility] Comment on above: Performed By: #### L 100.0100, L500.4050, L501.2450 #### [facility] [address] [place], [address] Platelets (Bld) [#/Vol] 301 10*3/uL Normal 150-450 [facility] Comment on above: Performed By: #### L 100.0100, L500.4050, L501.2450 #### [facility] [address] [place], [address] RBC (Bld) [#/Vol] 4.90 10*6/uL Normal 4.6-6.2 [facility] Comment on above: Performed By: #### L 100.0100, L500.4050, L501.2450 #### [facility] [address] [place], [address] RDW SD 45.0 fl High 35.1-43.9 [facility] Comment on above: Performed By: #### L 100.0100, L500.4050, L501.2450 #### [facility] [address] [place], [address] WBC (Bld) [#/Vol] 11.6 10*3/uL High 4.4-11.0 [facility] Comment on above: Performed By: #### L 100.0100, L500.4050, L501.2450 #### [facility] [address] [place], [address] Carbon dioxide, total [Moles /volume] in Central venous bloodOrdered By: Rafita Xavier on 10-09-2024 CO2 [Moles/Vol] 18.6 mmol/L Low 21.0-32.0 [facility] Chloride assayOrdered By: London Xavier on 10-09-2024 Chloride [Moles/Vol] 102 mmol/L 98-108 [facility] Comprehensive Metabolic Prof ilon 10-09-2024 Albumin [Mass/Vol] 4.1 g/dL Normal 3.5-5.0 [facility] Comment on above: Performed By: #### L 100.0100, L500.4050, L501.2450 #### [facility] [address] [place], [address] Albumin/Globulin [Mass ratio] 1.4 {ratio} Normal 0.9-2.4 [facility] Comment on above: Performed By: #### L 100.0100, L500.4050, L501.2450 #### [facility] [address] [place], [address] ALK PHOS 110 U/L Normal 40-129 [facility] Comment on above: Performed By: #### L 100.0100, L500.4050, L501.2450 #### [facility] [address] [place], [address] ALT [Catalytic activity/Vol] 31 U/L Normal <=46 [facility] Comment on above: Performed By: #### L 100.0100, L500.4050, L501.2450 #### [facility] [address] [place], [address] AST [Catalytic activity/Vol] 30 U/L Normal <=37 [facility] Comment on above: Performed By: #### L 100.0100, L500.4050, L501.2450 #### [facility] [address] [place], [address] Bilirubin [Mass/Vol] 0.25 mg/dL Normal 0.00-1.30 [facility] Comment on above: Performed By: #### L 100.0100, L500.4050, L501.2450 #### [facility] [address] [place], [address] BUN/CRE 14.3 RATIO Normal 10-20 [facility] Comment on above: Performed By: #### L 100.0100, L500.4050, L501.2450 #### [facility] [address] [place], [address] Calcium [Mass/Vol] 9.2 mg/dL Normal 7.6-11.0 [facility] Comment on above: Performed By: #### L 100.0100, L500.4050, L501.2450 #### [facility] [address] [place], [address] Chloride [Moles/Vol] 102 mmol/L Normal 98-108 [facility] Comment on above: Performed By: #### L 100.0100, L500.4050, L501.2450 #### [facility] [address] [place], [address] CO2 [Moles/Vol] 18.6 mmol/L Low 21.0-32.0 [facility] Comment on above: Performed By: #### L 100.0100, L500.4050, L501.2450 #### [facility] [address] [place], [address] Creatinine [Mass/Vol] 0.90 mg/dL Normal 0.70-1.20 [facility] Comment on above: Performed By: #### L 100.0100, L500.4050, L501.2450 #### [facility] [address] [place], [address] ECRCL 141.67 ml/min Normal 50-250 [facility] Comment on above: Performed By: #### L 100.0100, L500.4050, L501.2450 #### [facility] [address] [place], [address] GAP 17 High 5-15 [facility] Comment on above: Performed By: #### L 100.0100, L500.4050, L501.2450 #### [facility] [address] [place], [address] GFR/1.73 sq M.predicted among non-blacks MDRD (S/P/Bld) [Vol rate/Area] 110 mL/min/{1.73_m2} Normal >60 [facility] Comment on above: Result Comment: mL/m in/1.73m2 CKD-EPI Creatinine Equation (2020) Performed By: #### L 100.0100, L500.4050, L501.2450 #### [facility] [address] [place], [address] Globulin (S) [Mass/Vol] 2.9 g/dL Normal 2.2-4.2 [facility] Comment on above: Performed By: #### L 100.0100, L500.4050, L501.2450 #### [facility] [address] [place], [address] Glucose [Mass/Vol] 140 mg/dL High 70-99 [facility] Comment on above: Performed By: #### L 100.0100, L500.4050, L501.2450 #### [facility] [address] [place], [address] Potassium [Moles/Vol] 3.8 mmol/L Normal 3.3-5.1 [facility] Comment on above: Performed By: #### L 100.0100, L500.4050, L501.2450 #### [facility] [address] [place], [address] Sodium [Moles/Vol] 138 mmol/L Normal 133-145 [facility] Comment on above: Performed By: #### L 100.0100, L500.4050, L501.2450 #### [facility] [address] [place], [address] T PROT 7.0 g/dL Normal 5.9-8.4 [facility] Comment on above: Performed By: #### L 100.0100, L500.4050, L501.2450 #### [facility] [address] [place], [address] Urea nitrogen [Mass/Vol] 13 mg/dL Normal 4-19 [facility] Comment on above: Performed By: #### L 100.0100, L500.4050, L501.2450 #### [facility] [address] [place], [address] Emergency Department Summary on 10-09-2024 Emergency Department Summary [facility] Medical Records Department [address] [place] [address] Emergency Department Summary 10/09/24 MR#: [id number] Acct: [id number] Name: LON HAND Jr. Rep #: [id number] : 1985 38 From: Rafita Xavier MD [...] exactly what happened when he had his [facility] a few years ago. He presents mainly because of the right sided rib pain, and the pain in his right abdomen. He denies any other exacerbating or alleviating factors. He was concerned because he became diaphoretic after he felt a pop in his abdomen. No vomiting or problems with bowel movements. [facility] Medical History Acute alcoholism Wears glasses Depression Back pain History of GI bleed Gastric reflux Smoker Old anterior myocardial infarction 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 pectoris Nicotine dependence Essential [...] tablet 5 mg PO DAILY #90 tabs 03/27/25 Un known Rx atorvastatin 80 mg tablet [...] examination nonfo (more content not included)... Normal [facility] Eosinophil percentageOrdered By: Rafita Xavier on 10-09-2024 Eosinophils/100 WBC (Bld) 3.0 % 0-5 [facility] Erythrocyte distribution wid th (RBC) [Ratio]Ordered By: Rafita Xavier on 10-09-2024 Erythrocyte distribution width (RBC) [Entitic vol] 45.0 fL High 35.1-43.9 [facility] Erythrocyte distribution wid th ratioOrdered By: Rafita Xavier on 10-09-2024 Erythrocyte distribution width (RBC) [Ratio] 13.7 % 11.6-14.6 [facility] Erythrocyte distribution wid th standard deviationOrdered By: Rafita Xavier on 10-09-2024 Erythrocyte distribution width (RBC) [Ratio] 45.0 fl High 35.1-43.9 [facility] Estimation of creatinine anastasia aranceOrdered By: Rafita Xavier on 10-09-2024 Estimated Creatinine Clearance Calc 141.67 ml/min 50-250 [facility] GFR/1.73 sq M.predicted barber g non-blacks MDRD (S/P/Bld) [Vol rate/Area]Ordered By: Rafita Xavier on 10-09-2024 Estimated GFR (MDRD) Non-Af Amer 110 >60 [facility] Comment on above: mL/min/1.73m2 CKD-EP I Creatinine Equation (2020) Glomerular filtration rate ( GFR) estimation/1.73 sq m using serum, plasma, or whole bOrdered By: Rafita Xavier on 10-09-2024 GFR/1.73 sq M.predicted among non-blacks MDRD (S/P/Bld) [Vol rate/Area] 110 mL/min/{1.73_m2} >60 [facility] Comment on above: mL/min/1.73m2 CKD-EP I Creatinine Equation (2020) Hematocrit Auto (Bld) [Volum e fraction]Ordered By: Rafita Xavier on 10-09-2024 Hematocrit (Bld) [Volume fraction] 44.5 % 40-54 [facility] Hemoglobin measurementOrdere d By: Rafita Xavier on 10-09-2024 Hemoglobin (Bld) [Mass/Vol] 14.9 g/dL 13.0-16.5 [facility] Immature granulocytes/100 WB C Auto (Bld)Ordered By: Rafita Xavier on 10-09-2024 Immature granulocytes/100 WBC (Bld) 0.300 % 0.0-0.9 [facility] Comment on above: IG% - Immature Granu locytes (promyelocytes, myelocytes and metamyelocytes) > 1% indicates that a LEFT SHIFT is Present. Laboratory - Chemistry and C hemistry - challengeOrdered By: Rafita Xavier on 10-09-2024 AST [Catalytic activity/Vol] 30 U/L <38 [facility] Lipaseon 10-09-2024 Lipase [Catalytic activity/Vol] 20 U/L Normal 13-75 [facility] Comment on above: Result Comment: Luz amin note: LIPASE revised reference range effective 22. New Lipase methodology. Expected to produce lower values than the previous assay method. NEW Reference Range: 13 - 75 U/L Performed By: #### L 100.0100, L500.4050, L501.2450 #### [facility] [address] [place] [address], [address] Lipase measurementOrdered By : Rafita Xavier on 10-09-2024 Lipase [Catalytic activity/Vol] 20 U/L 13-75 [facility] Comment on above: Please note:LIPASE r evised reference range effective 22. New Lipase methodology. Expected to produce lower values than the previous assay method. NEW Reference Range: 13 - 75 U/L Lymphocytes Auto (Unsp spec) [#/Vol]Ordered By: Rafita Xavier on 10-09-2024 Lymphocytes (Bld) [#/Vol] 2.76 10*3/uL 0.83-4.51 [facility] Lymphocytes/100 WBC Auto (Un sp spec)Ordered By: Rafita Xavier on 10-09-2024 Lymphocytes/100 WBC (Bld) 23.8 % 19-41 [facility] MCV (mean corpuscular volume ) determinationOrdered By: Rafita Xavier on 10-09-2024 MCV (RBC) [Entitic vol] 90.8 fL 80-94 [facility] Mean corpuscular hemoglobin (MCH) determinationOrdered By: Rafita Xavier on 10-09-2024 MCH (RBC) [Entitic mass] 30.4 pg 27.0-32.0 [facility] Mean corpuscular hemoglobin concentration (MCHC) determinationOrdered By: Rafita Xavier on 10-09-2024 MCHC (RBC) [Mass/Vol] 33.5 g/dL 32-36 [facility] Mean platelet volume determi nationOrdered By: Rafita Xavier on 10-09-2024 Platelet mean volume (Bld) [Entitic vol] 10.9 fL 6.2-12.0 [facility] Monocyte percentageOrdered B y: Rafita Xavier on 10-09-2024 Monocytes/100 WBC (Bld) 6.6 % 0-10 [facility] Neutrophil percentageOrdered By: Rafita Xavier on 10-09-2024 Neutrophils/100 WBC (Bld) 65.5 % 47-70 [facility] Nucleated red blood cell per centageOrdered By: Rafita Xavier on 10-09-2024 Nucleated RBC/100 WBC (Bld) [Ratio] 0 % 0-5 [facility] Platelet countOrdered By: London Xavier on 10-09-2024 Platelets (Bld) [#/Vol] 301 10*3/uL 150-450 [facility] Potassium (Unsp spec) [Mass/ Vol]Ordered By: Rafita Xavier on 10-09-2024 Potassium [Moles/Vol] 3.8 mmol/L 3.3-5.1 [facility] Potassium measurement (mass/ volume)Ordered By: Rafita Xavier on 10-09-2024 Potassium (Unsp spec) [Mass/Vol] 3.8 mmol/L 3.3-5.1 [facility] RBC Auto (Bld) [#/Vol]Ordere d By: Rafita Xavier on 10-09-2024 RBC (Bld) [#/Vol] 4.90 10*6/uL 4.6-6.2 [facility] Ribs Uni Min 3V w/PA Cheston 10-09-2024 Ribs Uni Min 3V w/PA Chest [facility] Imaging Services [address] [place] [address] Ribs Uni Min 3V w/PA Chest MR#: [id number] Acct: [id number] Name: LON HAND Jr. Rep #: [id number] : 1985 M 38 From: Luz Elena Church DO PCP: Care Physician,No Primary Status: REG ER Study: Ribs Uni Min 3V w/PA Chest Date of Exam: 10/09 Exam# [id number] Ordering Dr: Rafita Xavier MD PROCEDURE: RIBS [...] Rafita Xavier MD; No Primary Care Physician Cardiac Monitor: Signed Normal [facility] Serum creatinine measurement (mass/volume)Ordered By: Rafita Xavier on 10-09-2024 Creatinine [Mass/Vol] 0.90 mg/dL 0.70-1.20 [facility] Serum globulin measurementOr dered By: Rafita Xavier on 10-09-2024 Globulin (S) [Mass/Vol] 2.9 g/dL 2.2-4.2 [facility] Serum glucose measurement (m ass/volume)Ordered By: Rafita Xavier on 10-09-2024 Glucose [Mass/Vol] 140 mg/dL High 70-99 [facility] Serum or plasma alanine rajput otransferase (ALT) measurementOrdered By: Rafita Xavier on 10-09-2024 ALT [Catalytic activity/Vol] 31 U/L <47 [facility] Serum or plasma albumin jeramie urement (mass/volume)Ordered By: Rafita Xavier on 10-09-2024 Albumin [Mass/Vol] 4.1 g/dL 3.5-5.0 [facility] Serum or plasma albumin/glob ulin mass ratioOrdered By: Rafita Xavier on 10-09-2024 Albumin/Globulin [Mass ratio] 1.4 {ratio} 0.9-2.4 [facility] Serum or plasma alkaline aryan sphatase measurementOrdered By: Rafita Xavier on 10-09-2024 ALP [Catalytic activity/Vol] 110 U/L 40-129 [facility] Serum or plasma calcium jeramie urement (mass/volume)Ordered By: Rafita Xavier on 10-09-2024 Calcium [Mass/Vol] 9.2 mg/dL 7.6-11.0 [facility] Serum or plasma urea nitroge n measurement (mass/volume)Ordered By: Rafita Xavier on 10-09-2024 Urea nitrogen [Mass/Vol] 13 mg/dL 4-19 [facility] Sodium levelOrdered By: Rafita Xavier on 10-09-2024 Sodium [Moles/Vol] 138 mmol/L 133-145 [facility] Total proteinOrdered By: Kaitlin Xavier on 10-09-2024 Protein [Mass/Vol] 7.0 g/dL 5.9-8.4 [facility] White blood cell (WBC) count Ordered By: Rafita Xavier on 10-09-2024 WBC (Bld) [#/Vol] 11.6 10*3/uL High 4.4-11.0 [facility] Basophil percentageOrdered B y: Emerson Harriet on 06-05-2023 Chloride [Moles/Vol] 101 mmol/L 98-107 [facility] Glucose [Mass/Vol] 104 mg/dL 74-106 [facility] Comment on above: Fasting Glucose resu lt from 100 to 125 mg/dL suggests IMPAIRED HOMEOSTASIS per A.D.A. criteria. Potassium [Moles/Vol] 4.6 mmol/L 3.5-5.1 [facility] Sodium [Moles/Vol] 137 mmol/L 136-145 [facility] Laboratory - Chemistry and C hemistry - challengeOrdered By: Emerson Larios on 06-05-2023 CO2 [Moles/Vol] 27.0 mmol/L 21.0-32.0 [facility] Natriuretic peptide B (Bld) [Mass/Vol] 2.4 pg/mL 0-100 [facility] Urea nitrogen/Creatinine [Mass ratio] 18.2 mg/mg 10-20 [facility] No Panel InformationOrdered By: Emerson Larios on 06-05-2023 Estimated GFR (MDRD) Amer 133 mL/min >60 [facility] Comment on above: GFR Calc Estimated GFR (MDRD) Non-Af Amer 110 mL/min >60 [facility] Comment on above: Non- GFR Calc Serum or plasma calcium jeramie urement (mass/volume)Ordered By: Emerson Larios on 06-05-2023 Calcium [Mass/Vol] 9.7 mg/dL 8.5-10.1 [facility] Serum or plasma creatinine m easurement (mass/volume)Ordered By: Emerson Larios on 06-05-2023 Creatinine [Mass/Vol] 0.82 mg/dL 0.70-1.30 [facility] Comment on above: The validity of the calculated GFR & GFRAA in patients over 70 years has not been determined. Clinical correlation is essential. Serum or plasma urea nitroge n measurement (mass/volume)Ordered By: Emerson Larios on 06-05-2023 Urea nitrogen [Mass/Vol] 15 mg/dL 7-18 [facility] Thin prep Papanicolaou smear with manual screeningOrdered By: Emerson Larios on 06-05-2023 Thin prep Papanicolaou smear with manual screening 9 5-15 [facility] Whole blood hemoglobin A1c/t otal hemoglobin ratio (mass fraction)Ordered By: Emerson Larios on 06-05-2023 HbA1c (Bld) [Mass fraction] 6.3 % 3.8-5.6 [facility] Comment on above: Normal < 5.7 % Predi abetic 5.7 - 6.4 % Diabetic >or= 6.5 % Please note range changes. Basophil percentageOrdered B y: Cipriano Seymour on 03-19-2023 Chloride [Moles/Vol] 108 mmol/L 98-107 [facility] Cholesterol [Mass/Vol] 254 mg/dL <200 [facility] Comment on above: <200 mg/dL Desirable 200-240 mg/dL Borderline >240 mg/dL High Risk Glucose [Mass/Vol] 150 mg/dL 74-106 [facility] Comment on above: Fasting Glucose resu lt greater than or equal to 126 mg/dL suggests DIABETES MELLITUS per A.D.A. criteria. Potassium [Moles/Vol] 4.4 mmol/L 3.5-5.1 [facility] Sodium [Moles/Vol] 139 mmol/L 136-145 [facility] Triglyceride [Mass/Vol] 539 mg/dL <199 [facility] Comment on above: The drugs N-Acetylcy steine and Metamizole may falsely depress this assay. TRIGLYCERIDE IS GREATER THAN 400 mg/dL. LDL RESULT IS INVALID AND WILL NOT BE REPORTED.Serum Triglycerides Reference Interval Normal <150 mg/dL Borderline high 150 - 199 mg/dL High 200 - 499 mg/dL Very High > or = 500 mg/dL WBC (Bld) [#/Vol] 12.6 10*3/uL 4.4-11.0 [facility] Blood erythrocytes count (nu mber/volume)Ordered By: Cipriano Seymour on 03-19-2023 RBC (Bld) [#/Vol] 4.69 10*6/uL 4.6-6.2 [facility] Blood hemoglobin measurement (mass/volume)Ordered By: Cipriano Seymour on 03-19-2023 Hemoglobin (Bld) [Mass/Vol] 13.7 g/dL 13.0-16.5 [facility] Blood platelet mean volumeOr dered By: Cipriano Seymour on 03-19-2023 Platelet mean volume (Bld) [Entitic vol] 10.7 fL 6.2-12.0 [facility] Determination of erythrocyte mean corpuscular volume (MCV)Ordered By: Cipriano Seymour on 03-19-2023 MCV (RBC) [Entitic vol] 91.7 fL 80-94 [facility] Hematocrit Auto (Bld) [Volum e fraction]Ordered By: Cipriano Seymour on 03-19-2023 Hematocrit (Bld) [Volume fraction] 43.0 % 40-54 [facility] - Chemistry and C hemistry - challengeOrdered By: Cipriano Seymour on 03-19-2023 CO2 [Moles/Vol] 26.0 mmol/L 21.0-32.0 [facility] Urea nitrogen/Creatinine [Mass ratio] 22.3 mg/mg 10-20 [facility] - CoagulationOrde red By: Nirmala Armas on 03-19-2023 aPTT Coag (Bld) [Time] 32.2 s 24.1-36.2 [facility] - Hematology and Cell countsOrdered By: Cipriano Seymour on 03-19-2023 Erythrocyte distribution width (RBC) [Entitic vol] 48.2 fL 35.1-43.9 [facility] Erythrocyte distribution width (RBC) [Ratio] 14.3 % 11.6-14.6 [facility] MCH (RBC) [Entitic mass] 29.2 pg 27.0-32.0 [facility] MCHC Auto (RBC) [Mass/Vol]Or dered By: Cipriano Seymour on 03-19-2023 MCHC (RBC) [Mass/Vol] 31.9 g/dL 32-36 [facility] No Panel InformationOrdered By: Cipriano Seymour on 03-19-2023 Estimated Creatinine Clearance Calc 117.76 ml/min [facility] Estimated GFR (MDRD) Amer 146 mL/min >60 [facility] Comment on above: GFR Calc Estimated GFR (MDRD) Non-Af Amer 121 mL/min >60 [facility] Comment on above: Non- GFR Calc Troponin I High Sensitivity 228 pg/mL 3.0-78.0 [facility] Comment on above: Critical Result(s) C alled at: 05:53:29 03/19/2023 by: Benjamin Cortez TO ASTRID MENA RN (U) Results read back by same. Please Note: New Test Units and Gender Specific Reference Ranges. For more information see Policy Stat Procedure [place] High Sensitivity Troponin (TNIH) and attachments. Platelets bldOrdered By: Shay Seymour on 03-19-2023 Platelets (Bld) [#/Vol] 261 10*3/uL 150-450 [facility] Serum or plasma calcium jeramie urement (mass/volume)Ordered By: Cipriano Seymour on 03-19-2023 Calcium [Mass/Vol] 8.9 mg/dL 8.5-10.1 [facility] Serum or plasma cholesterol in HDL measurement (mass/volume)Ordered By: Cipriano Seymour on 03-19-2023 Cholesterol in HDL [Mass/Vol] 39 mg/dL >40 [facility] Comment on above: The drugs N-Acetylcy steine and Metamizole may falsely depress this assay. Reference Range HDL <40 mg/dL Low HDL Cholesterol HDL >or= 60 mg/dL High HDL Cholesterol Serum or plasma cholesterol in VLDL measurement (mass/volume)Ordered By: Cipriano Seymour on 03-19-2023 Cholesterol in VLDL [Mass/Vol] [facility] Comment on above: Test not performed Serum or plasma creatinine m easurement (mass/volume)Ordered By: Cipriano Seymour on 03-19-2023 Creatinine [Mass/Vol] 0.76 mg/dL 0.70-1.30 [facility] Comment on above: The validity of the calculated GFR & GFRAA in patients over 70 years has not been determined. Clinical correlation is essential. Serum or plasma low density lipoprotein (LDL) cholesterol measurement (mass/volume)Ordered By: Cipriano Seymour on 03-19-2023 Cholesterol in LDL [Mass/Vol] [facility] Comment on above: Test not performed Serum or plasma urea nitroge n measurement (mass/volume)Ordered By: Cipriano Seymour on 03-19-2023 Urea nitrogen [Mass/Vol] 17 mg/dL 7-18 [facility] Thin prep Papanicolaou smear with manual screeningOrdered By: Cipriano Seymour on 03-19-2023 Thin prep Papanicolaou smear with manual screening 5 5-15 [facility] Absolute lymphocyte countOrd ered By: Nirmala Armas on 03-18-2023 Lymphocytes Auto (Unsp spec) [#/Vol] 3.26 10*3/uL 0.83-4.51 [facility] Basophil percentageOrdered B y: Nirmala Armas on 03-18-2023 Basophils/100 WBC (Bld) 0.8 % 0-1 [facility] Chloride [Moles/Vol] 104 mmol/L 98-107 [facility] Eosinophils/100 WBC (Bld) 4.0 % 0-5 [facility] Glucose [Mass/Vol] 186 mg/dL 74-106 [facility] Comment on above: Fasting Glucose resu lt greater than or equal to 126 mg/dL suggests DIABETES MELLITUS per A.D.A. criteria. Neutrophils (Bld) [#/Vol] 7.0 10*3/uL 2.0-7.7 [facility] Neutrophils/100 WBC (Bld) 59.1 % 47-70 [facility] Potassium [Moles/Vol] 3.3 mmol/L 3.5-5.1 [facility] Sodium [Moles/Vol] 140 mmol/L 136-145 [facility] WBC (Bld) [#/Vol] 11.8 10*3/uL 4.4-11.0 [facility] Blood erythrocytes count (nu mber/volume)Ordered By: Nirmala Armas on 03-18-2023 RBC (Bld) [#/Vol] 5.03 10*6/uL 4.6-6.2 [facility] Blood hemoglobin measurement (mass/volume)Ordered By: Nirmala Armas on 03-18-2023 Hemoglobin (Bld) [Mass/Vol] 14.7 g/dL 13.0-16.5 [facility] Blood lymphocytes/100 leukoc ytesOrdered By: Nirmala Armas on 03-18-2023 Lymphocytes/100 WBC (Bld) 27.5 % 19-41 [facility] Blood monocytes/100 leukocyt esOrdered By: Nirmala Armas on 03-18-2023 Monocytes/100 WBC (Bld) 8.2 % 0-10 [facility] Blood platelet mean volumeOr dered By: Nirmala Armas on 03-18-2023 Platelet mean volume (Bld) [Entitic vol] 10.8 fL 6.2-12.0 [facility] Determination of erythrocyte mean corpuscular volume (MCV)Ordered By: Nirmala Armas on 03-18-2023 MCV (RBC) [Entitic vol] 91.3 fL 80-94 [facility] Hematocrit Auto (Bld) [Volum e fraction]Ordered By: Nirmala Armas on 03-18-2023 Hematocrit (Bld) [Volume fraction] 45.9 % 40-54 [facility] INR in Blood by Coagulation assayOrdered By: Nirmala Armas on 03-18-2023 INR Coag (Bld) [Relative time] 0.9 {INR} [facility] Laboratory - Chemistry and C hemistry - challengeOrdered By: Nirmala Armas on 03-18-2023 CO2 [Moles/Vol] 25.0 mmol/L 21.0-32.0 [facility] Urea nitrogen/Creatinine [Mass ratio] 17.4 mg/mg 10-20 [facility] Laboratory - CoagulationOrde red By: Nirmala Armas on 03-18-2023 aPTT Coag (Bld) [Time] 28.2 s 24.1-36.2 [facility] PT Coag (PPP) [Time] 12.6 s 11.7-14.9 [facility] Laboratory - Hematology and Cell countsOrdered By: Nirmala Armas on 03-18-2023 Erythrocyte distribution width (RBC) [Entitic vol] 46.9 fL 35.1-43.9 [facility] Erythrocyte distribution width (RBC) [Ratio] 14.2 % 11.6-14.6 [facility] Immature granulocytes/100 WBC (Bld) 0.400 % 0.0-0.9 [facility] Comment on above: IG% - Immature Granu locytes (promyelocytes, myelocytes and metamyelocytes) > 1% indicates that a LEFT SHIFT is Present. MCH (RBC) [Entitic mass] 29.2 pg 27.0-32.0 [facility] Nucleated RBC/100 WBC (Bld) [Ratio] 0 % 0-5 [facility] MCHC Auto (RBC) [Mass/Vol]Or dered By: Nirmala Armas on 03-18-2023 MCHC (RBC) [Mass/Vol] 32.0 g/dL 32-36 [facility] No Panel InformationOrdered By: Nirmala Armas on 03-18-2023 D-Dimer Quantitative (PE/DVT) 0.33 FEU/ug/m 0.27-0.49 [facility] Comment on above: NORMAL D-Dimer level (<0.50) indicates no DVT or PE. Estimated Creatinine Clearance Calc 93.77 ml/min [facility] Estimated GFR (MDRD) Amer 118 mL/min >60 [facility] Comment on above: GFR Calc Estimated GFR (MDRD) Non-Af Amer 98 mL/min >60 [facility] Comment on above: Non- GFR Calc Troponin I High Sensitivity 153 pg/mL 3.0-78.0 [facility] Comment on above: Critical Result(s) C alled at: 23:22:41 03/18/2023 by: HERBERT RAMÍREZ. TO ELVER WRIGHT RN ERResults read back by same. Please Note: New Test Units and Gender Specific Reference Ranges. For more information see Policy Stat Procedure [place] High Sensitivity Troponin (TNIH) and attachments. Platelets bldOrdered By: Rachelle Armas on 03-18-2023 Platelets (Bld) [#/Vol] 313 10*3/uL 150-450 [facility] Serum or plasma calcium jeramie urement (mass/volume)Ordered By: Nirmala Armas on 03-18-2023 Calcium [Mass/Vol] 8.9 mg/dL 8.5-10.1 [facility] Serum or plasma creatinine m easurement (mass/volume)Ordered By: Nirmala Armas on 03-18-2023 Creatinine [Mass/Vol] 0.92 mg/dL 0.70-1.30 [facility] Comment on above: The validity of the calculated GFR & GFRAA in patients over 70 years has not been determined. Clinical correlation is essential. Serum or plasma urea nitroge n measurement (mass/volume)Ordered By: Nirmala Armas on 03-18-2023 Urea nitrogen [Mass/Vol] 16 mg/dL 7-18 [facility] Thin prep Papanicolaou smear with manual screeningOrdered By: Nirmala Armas on 03-18-2023 Thin prep Papanicolaou smear with manual screening 11 5-15 [facility] Absolute lymphocyte countOrd ered By: Dr. Ding on 08-31-2022 Lymphocytes Auto (Unsp spec) [#/Vol] 4.21 10*3/uL 0.83-4.51 [facility] Basophil percentageOrdered B y: Dr. Rojas on 08-31-2022 Basophil percentage 3.2 mg/dL 2.5-4.9 [facility] Basophil percentageOrdered B y: Dr. Ding on 08-31-2022 Basophils/100 WBC (Bld) 0.7 % 0-1 [facility] Bilirubin [Mass/Vol] 0.20 mg/dL 0.20-1.00 [facility] Comment on above: For patients on eltr ombopag therapy, use of Dimension [place] TBIL is not recommended. Chloride [Moles/Vol] 108 mmol/L 98-107 [facility] Eosinophils/100 WBC (Bld) 3.3 % 0-5 [facility] Glucose [Mass/Vol] 146 mg/dL 74-106 [facility] Comment on above: Fasting Glucose resu lt greater than or equal to 126 mg/dL suggests DIABETES MELLITUS per A.D.A. criteria. Neutrophils (Bld) [#/Vol] 6.7 10*3/uL 2.0-7.7 [facility] Neutrophils/100 WBC (Bld) 55.0 % 47-70 [facility] Potassium [Moles/Vol] 3.7 mmol/L 3.5-5.1 [facility] Protein [Mass/Vol] 8.1 g/dL 6.4-8.2 [facility] Sodium [Moles/Vol] 144 mmol/L 136-145 [facility] WBC (Bld) [#/Vol] 12.2 10*3/uL 4.4-11.0 [facility] Blood erythrocytes count (nu mber/volume)Ordered By: Dr. Ding on 08-31-2022 RBC (Bld) [#/Vol] 5.30 10*6/uL 4.6-6.2 [facility] Blood hemoglobin measurement (mass/volume)Ordered By: Dr. Ding on 08-31-2022 Hemoglobin (Bld) [Mass/Vol] 15.7 g/dL 13.0-16.5 [facility] Blood lymphocytes/100 leukoc ytesOrdered By: Dr. Ding on 08-31-2022 Lymphocytes/100 WBC (Bld) 34.5 % 19-41 [facility] Blood manual differential co mment interpretation (narrative result)Ordered By: Dr. Ding on 08-31-2022 Manual differential comment Maged (Bld) [Interp] SCANNED [facility] Blood monocytes/100 leukocyt esOrdered By: Dr. Ding on 08-31-2022 Monocytes/100 WBC (Bld) 5.7 % 0-10 [facility] Blood platelet mean volumeOr dered By: Dr. Ding on 08-31-2022 Platelet mean volume (Bld) [Entitic vol] 10.7 fL 6.2-12.0 [facility] Determination of erythrocyte mean corpuscular volume (MCV)Ordered By: Dr. Ding on 08-31-2022 MCV (RBC) [Entitic vol] 90.6 fL 80-94 [facility] Hematocrit Auto (Bld) [Volum e fraction]Ordered By: Dr. Ding on 08-31-2022 Hematocrit (Bld) [Volume fraction] 48.0 % 40-54 [facility] Laboratory - Chemistry and C hemistry - challengeOrdered By: Dr. Ding on 08-31-2022 ALP [Catalytic activity/Vol] 99 U/L 45-117 [facility] ALT [Catalytic activity/Vol] 59 U/L 16-61 [facility] CO2 [Moles/Vol] 24.0 mmol/L 21.0-32.0 [facility] Globulin (S) [Mass/Vol] 4.5 g/dL 2.2-4.2 [facility] Urea nitrogen/Creatinine [Mass ratio] 14.1 mg/mg 10-20 [facility] - Chemistry and C hemistry - challengeOrdered By: Dr. Rojas on 08-31-2022 Magnesium [Mass/Vol] 2.6 mg/dL 1.6-2.6 [facility] Laboratory - Hematology and Cell countsOrdered By: Dr. Ding on 08-31-2022 Erythrocyte distribution width (RBC) [Entitic vol] 45.1 fL 35.1-43.9 [facility] Erythrocyte distribution width (RBC) [Ratio] 13.6 % 11.6-14.6 [facility] Immature granulocytes/100 WBC (Bld) 0.800 % 0.0-0.9 [facility] Comment on above: IG% - Immature Granu locytes (promyelocytes, myelocytes and metamyelocytes) > 1% indicates that a LEFT SHIFT is Present. MCH (RBC) [Entitic mass] 29.6 pg 27.0-32.0 [facility] Nucleated RBC/100 WBC (Bld) [Ratio] 0 % 0-5 [facility] MCHC Auto (RBC) [Mass/Vol]Or dered By: Dr. Ding on 08-31-2022 MCHC (RBC) [Mass/Vol] 32.7 g/dL 32-36 [facility] No Panel InformationOrdered By: Dr. Ding on 08-31-2022 Estimated Creatinine Clearance Calc 102.50 ml/min [facility] Estimated GFR (MDRD) Amer 129 mL/min >60 [facility] Comment on above: GFR Calc Estimated GFR (MDRD) Non-Af Amer 107 mL/min >60 [facility] Comment on above: Non- GFR Calc Ethyl Alcohol Level 296.0 mg/dL [facility] Comment on above: The serum:whole bloo d ethanol ratio is approximately 1.14and varies slightly with hematocrit. Medical Alcohol reference interval and critical value innon-tolerant individuals; 50 - 100 Impairment 100 Intoxication 100 - 250 Severe Poisoning 250 - 400 Deep/possible fatal coma Platelets bldOrdered By: Dr. Ding on 08-31-2022 Platelets (Bld) [#/Vol] 310 10*3/uL 150-450 [facility] Serum or plasma albumin jeramie urement (mass/volume)Ordered By: Dr. Ding on 08-31-2022 Albumin [Mass/Vol] 3.6 g/dL 3.2-5.0 [facility] Serum or plasma albumin/glob ulin mass ratioOrdered By: Dr. Ding on 08-31-2022 Albumin/Globulin [Mass ratio] 0.8 {ratio} 0.9-2.4 [facility] Serum or plasma calcium jeramie urement (mass/volume)Ordered By: Dr. Ding on 08-31-2022 Calcium [Mass/Vol] 8.7 mg/dL 8.5-10.1 [facility] Serum or plasma creatinine m easurement (mass/volume)Ordered By: Dr. Ding on 08-31-2022 Creatinine [Mass/Vol] 0.85 mg/dL 0.70-1.30 [facility] Comment on above: The validity of the calculated GFR & GFRAA in patients over 70 years has not been determined. Clinical correlation is essential. Serum or plasma urea nitroge n measurement (mass/volume)Ordered By: Dr. Ding on 08-31-2022 Urea nitrogen [Mass/Vol] 12 mg/dL 7-18 [facility] Thin prep Papanicolaou smear with manual screeningOrdered By: Dr. Ding on 08-31-2022 Thin prep Papanicolaou smear with manual screening 33 U/L 15-37 [facility] Thin prep Papanicolaou smear with manual screening 12 5-15 [facility] CNPNon 05-29-2022 CNPN Telephone (EducerusS) LON HAND ([id number]) 1985 M Date Time Provider Department 05/29/22 MAURA BOLIVAR During your visit today, we recorded the following information about you: Lizet Scales RN 05/29/2022 8:12 AM Signed Received a fax from Cher Monroe, [facility], requesting additional medical records for the C9 that was sent asking for an additional allowance on [employer] claim. Faxed the following: original FROI completed by [facility], emergency room visit, CT scan, Dr. Bolivar's initial consultation, operative report and post-op visit with FLORENCIA Burgos. Fax confirmation sheet received. DOLORES Vargas 06/05/2022 12:58 PM Signed Cher Monroe calling again from [place] stating that they need additional information on the R42.0. Apparently it cannot just say additional allowance. It needs to be specific. Please call Cher directly at [phone] with any questions. Lou Scales RN 06/06/2022 10:48 AM Signed New C-9 faxed to Naila Monroe at [place] on 06/05/2022. Fax confirmation sheet received. Lizet Scales RN Allergies As of Date: 05/29/2022 (No Known Allergies) Date Reviewed: 03/27/2022 Reviewed by: Shirin Boswell MA - Fully Assessed Reason for Visit: Requesting Medical Records [Other] Cmt: O requesting additional medical records Prescriptions as of [...] Encounter Status:Closed by LIZET SCALES on 05/29/[address] [facility] 05-23-2022 CNPN Telephone (Ayi Laile) LON HAND ([id number]) 1985 M Date Time Provider Department 05/23/22 MAURA BOLIVAR During your visit today, we recorded the following information about you: Amira Glass RN 05/23/2022 4:30 PM Signed Fax received from [facility] asking for the C-9 be updated. [facility] claim was denied with current diagnosis. Trying to make contact with someone who can help me with this.DOLORES So RN 05/27/2022 10:25 AM Signed C9, op report, AND CT scan faxed to [facility] asking for additional allowance on Surgery done by Dr. Bolivar at [facility].Amira Glass RN Allergies As of Date: [...] Encounter Status:Closed by AMIRA GLASS on 05/27/22 [facility] 04-02-2022 [facility] Telephone (GENSWS) LON HAND ([id number]) 1985 M Date Time Provider Department 04/02/22 MAURA BOLIVAR During your visit today, we recorded the following information about you: Susanna Fontaine RN 04/02/2022 10:37 AM Signed Received phone call from Mai with [place]. Mai requesting [employer] to cover 02/05 - 02/26. She states patient was off work during this time and the only [employer] 14 received was for 02/26 - 03/24. Mai can be reached at [phone]. Fax number is [phone]. Lizet Scales RN 04/02/2022 11:20 AM Signed [employer]-14 printed, completed and put in Dr. Bolivar's mailbox for a signature. DOLORES Vargas RN 04/03/2022 4:23 PM Signed [employer] signed and faxed to Alva Velázquez at [place] at [phone]. Fax confirmation sheet received. Lizet Scales RN Allergies As of Date: 04/02/2022 (No Known Allergies) Date Reviewed: 03/27/2022 Reviewed by: Shirin Boswell MA - Fully Assessed Reason for Visit: Bwc (Worker's Comp) [9145] Prescriptions as of 04/03/2022 - amoxicillin (AMOXIL) [...] Encounter Status:Closed by LIZET SCALES on 04/03/22 [facility] 04-01-2022 [facility] (GENSmartisanS[facility] LON HAND ([id number]) 1985 M Date Time Provider Department 04/01/22 MAURA BOLIVAR [facility] During your visit today, we recorded the following information about you: Lizet Scales RN 04/01/2022 11:01 AM Signed Received fax from Alva Velázquez from [facility], requesting that an area on the previously [...] Encounter Status:Closed by LIZET SCALES on 04/01/[address] [facility] NELOVon 03-27-2022 CNOV Office Visit (UCWSTR ) LON HAND ([id number]) 1985 M Date Time Provider Department 03/27/22 10:30 AM [address] GASCA [facility] During your visit today, we recorded the following information about you: Temperature Pulse Respiration Blood pressure 97.9 degrees 98/minute 20/minute 122/84 Weight 133.9 kg Shira Gasca APRN.RACK WORKER 03/27/2022 10:57 AM Signed CC: Patient presents [...] Diagnosis Date CAD (coronary artery disease) S/p [facility] Dr[facility] Glasgow Childhood asthma Tobacco use disorder [...] Patient agreeable to treatment plan. Shira Gasca APRN.RACK WORKER Referring Provider: SELF [200] Allergies As of [...] tablet Take (more content not included)... Normal [facility] 03-25-2022 [facility] Telephone (Reading RoomS) YAZANLON Welsh ([id number]) 1985 M Date Time Provider Department 03/25/22 MAURA BOLIVAR During your visit today, we recorded the following information about you: Bess Dominguez Ma 03/25/2022 9:15 AM Signed Received a call from Alejandra from [place]. She did receive office notes for patient, but she also needs a [employer] 14 for this patient. Amanda Clifford 03/25/2022 9:40 AM Signed [employer] 14 is workers compensation paperwork. I will have sign paperwork and fax it to [place]. Amanda Clifford 03/27/2022 4:03 PM Signed [employer] 14 faxed to Claudio Kwan at [place]. Confirmation received. Allergies As of Date: 03/25/2022 [...] Encounter Status:Closed by AMANDA CLIFFORD on 03/27/22 [facility] 03-21-2022 [facility] Telephone (Ayi Laile) LON HAND ([id number]) 1985 M Date Time Provider Department 03/21/22 MAURA BOLIVAR During your visit today, we recorded the following information about you: Amanda Clifford 03/21/2022 12:44 PM Signed Post op office visit note faxed to [employer] management. Confirmation received. Allergies As of Date: 03/21/2022 (No Known Allergies) Date Reviewed: 03/19/2022 Reviewed by: Blank Finn PA-C - Fully Assessed Reason for Visit: [place] of Workers Compensation [Other] Cmt: Office visit [...] Encounter Status:Closed by AMANDA CLIFFORD on 03/21/[address] [facility] CNOVon 03-19-2022 CNOV Office Visit (SWS ) YAZANLON SANTOS ([id number]) 1985 M Date Time Provider Department 03/19/22 2:30 PM BLANK FINN During your visit today, we recorded the following information about you: Temperature Pulse Blood pressure Weight 97.7 degrees 108/minute 131/85 131.5 kg Height 1.651 m Blank Finn PA-C 03/25/2022 12:39 AM Signed FOLLOW UP VISIT - HERNIA NAME: Lon Welsh [facility] NO.: [id number] DATE OF SERVICE: 03/19/2022 : 1985 REFERRING PHYSICIAN: No primary care provider on file. Lon is a patient I am following for an umbilical hernia. Dr. Bolivar performed a umbilical hernia repair on 02/26/22 at [facility]. The patient currently notes no major complaints. his appetite has been good. He denies fever, chills or abdominal pain. he does note some mild incisional discomfort. he notes no bulges at the operative site VITALS: Blood pressure 131/85, pulse 108, temperature 36.5 ?C (97.7 ?F), height 165.1 cm (5' 5), weight 131.5 kg (290 lb). General: patient [...] to your office visit today with the [facility]geons. INSTRUCTIONS FOLLOWING YOUR RECENT [...] you should contact our office immediately @ [phone] and ask to be transferred to the [...] [R73.9] 03/07 (more content not included)... Normal [facility] Nicholas 02-27-2022 [facility] Telephone (GENSmartisanS) YAZANLON ([id number]) 1985 M Date Time Provider Department 02/27/22 MAURA BOLIVAR During your visit today, we recorded the following information about you: Elizabeth Pereira LPN 02/27/2022 11:40 AM Signed Yolanda called from [facility] for work injury. Ask for patient information to be faxed, C9 form, [employer] 14 form, surgical consult, op report. [employer] comp. Guerrero to fax request over for need information. Yolanda # [phone] Amanda Clifford 03/05/2022 10:32 AM Signed Surgical Consult, Op Note faxed to Yolanda. Confirmatio received. Allergies As of Date: 02/27/2022 (No Known Allergies) Date Reviewed: 02/05/2022 Reviewed by: Elizabeth Pereira LPN - Fully Assessed Reason for Visit: Information [1328] Cmt: [employer] 14, C9 Prescriptions as of 03/05/2022 - [...] by AMANDA CLIFFORD on 03/05/[address] [facility] [place] 02-06-2022 [facility] Telephone (GENSWS) YAZANLON ([id number]) 1985 M Date Time Provider Department 02/06/22 MAURA BOLIVAR During your visit today, we recorded the following information about you: Maura Bolivar MD 02/06/2022 12:51 PM Signed Patient called to apologize about his conversation with me yesterday. I have told him that we will proceed with hernia repair if he wishes and will schedule at [facility] I have once again reiterated the likelihood of recurrence and he understands. He wishes to proceed at first earliest date available. I will have the regulatory administrator contact patient for this. Patient acknowledges [...] Encounter Status:Closed by MAURA BOLIVAR on 02/06/22 [facility] Telephone (EducerusS) LON HAND ([id number]) 1985 M Date Time Provider Department 02/06/22 MAURA BLOIVAR During your visit today, we recorded the following information about you: Elizabeth Pereira LPN 02/06/2022 10:03 AM Signed Patient state had received a phone call from Dr Bolivar and was returning call. Patient ask Dr Bolivar to call back at earliest convenience [phone] Allergies As of Date: 02/06/2022 (No Known [...] Encounter Status:Closed by VANESSA HARKINS on 02/06/22 Normal [facility] CNOVon 02-05-2022 CNOV Office Visit (SOCRATESS ) LON HAND ([id number]) 1985 M Date Time Provider Department 02/05/22 8:40 AM MAURA BOLIVAR During your visit today, we recorded the following information about you: Temperature Pulse Blood pressure Weight 96.9 degrees 89/minute 110/80 133.4 kg Height 1.676 m Elizabeth PereiraTEODORA 02/05/2022 8:59 AM Signed REVIEW [...] 12:47 PM Signed HISTORY AND PHYSICAL Lon Anitha Yazan 1985 REFERRING PHYSICIAN: MD Samuel CHIEF COMPLAINT: Consult (ER [facility], hernia) HPI: The patient is a 36 year old male who presents with symptomatic umbilical hernia. He notes this while lifting a heavy object at work, the incident occurred on February 03, according to patient. He felt a pop in the area of his mid abdomen and then he had continued aching pain sometimes sharp in the periumbilical area, and inferiorly. He denies gastrointestinal or urinary obstructive symptoms He presented to [facility] ED on February 04, 2022. CT scan was obtained which revealed small fat-containing umbilical hernia. The patient does have known CAD s/p coronary artery stent placements and is on Eliquis and aspirin. . PAST MEDICAL HISTORY Diagnosis Date - CAD (coronary artery disease) S/p [facility] Dr[facility] Glasgow - Childhood asthma - Tobacco [...] - Psychiatr (more content not included)... Normal [facility] Absolute lymphocyte counton 02-04-2022 Lymphocytes Auto (Unsp spec) [#/Vol] 3.33 10*3/uL 0.83-4.51 [facility] Work Phone: Basophil percentageon 2021 Basophil percentage 0 SEEN /hpf 0-5 [facility] Work Phone: Basophils/100 WBC (Bld) 1.1 % 0-1 [facility] Work Phone: Bilirubin [Mass/Vol] 0.20 mg/dL 0.20-1.00 [facility] Work Phone: Comment on above: For patients on eltr ombopag therapy, use of Dimension [place] TBIL is not recommended. Chloride [Moles/Vol] 110 mmol/L 98-107 [facility] Work Phone: Eosinophils/100 WBC (Bld) 5.9 % 0-5 [facility] Work Phone: Glucose [Mass/Vol] 139 mg/dL 74-106 [facility] Work Phone: [phone] Comment on above: Fasting Glucose resu lt greater than or equal to 126 mg/dL suggests DIABETES MELLITUS per A.D.A. criteria. Neutrophils (Bld) [#/Vol] 4.8 10*3/uL 2.0-7.7 [facility] Work Phone: Neutrophils/100 WBC (Bld) 50.1 % 47-70 [facility] Work Phone: Potassium [Moles/Vol] 3.8 mmol/L 3.5-5.1 [facility] Work Phone: Protein [Mass/Vol] 7.0 g/dL 6.4-8.2 [facility] Work Phone: Sodium [Moles/Vol] 142 mmol/L 136-145 [facility] Work Phone: WBC (Bld) [#/Vol] 9.5 10*3/uL 4.4-11.0 [facility] Work Phone: [phone] Bilirubin Test strip Ql (U)o n 02-04-2022 Bilirubin Ql (U) Negative Negative [facility] Work Phone: Blood erythrocytes count (nu mber/volume)on 02-04-2022 RBC (Bld) [#/Vol] 4.87 10*6/uL 4.6-6.2 [facility] Work Phone: Blood hemoglobin measurement (mass/volume)on 02-04-2022 Hemoglobin (Bld) [Mass/Vol] 14.4 g/dL 13.0-16.5 [facility] Work Phone: Blood lymphocytes/100 leukoc yteson 02-04-2022 Lymphocytes/100 WBC (Bld) 35.0 % 19-41 [facility] Work Phone: Blood monocytes/100 leukocyt eson 02-04-2022 Monocytes/100 WBC (Bld) 7.5 % 0-10 [facility] Work Phone: Blood platelet mean volumeon 02-04-2022 Platelet mean volume (Bld) [Entitic vol] 10.7 fL 6.2-12.0 [facility] Work Phone: Determination of erythrocyte mean corpuscular volume (MCV)on 02-04-2022 MCV (RBC) [Entitic vol] 93.0 fL 80-94 [facility] Work Phone: Hematocrit Auto (Bld) [Volum e fraction]on 02-04-2022 Hematocrit (Bld) [Volume fraction] 45.3 % 40-54 [facility] Work Phone: [phone] Ketones Test strip Ql (U)on 02-04-2022 Ketones Ql (U) Negative Negative [facility] Work Phone: [phone] Laboratory - Chemistry and C hemistry - challengeon 02-04-2022 ALP [Catalytic activity/Vol] 100 U/L 45-117 [facility] Work Phone: [phone] ALT [Catalytic activity/Vol] 91 U/L 16-61 [facility] Work Phone: [phone] CO2 [Moles/Vol] 22.0 mmol/L 21.0-32.0 [facility] Work Phone: Globulin (S) [Mass/Vol] 3.8 g/dL 2.2-4.2 [facility] Work Phone: [phone] Lipase [Catalytic activity/Vol] 71 U/L 73-393 [facility] Work Phone: [phone] Urea nitrogen/Creatinine [Mass ratio] 6.1 mg/mg 10-20 [facility] Work Phone: [phone] Laboratory - Hematology and Cell countson 02-04-2022 Erythrocyte distribution width (RBC) [Entitic vol] 46.0 fL 35.1-43.9 [facility] Work Phone: Erythrocyte distribution width (RBC) [Ratio] 13.4 % 11.6-14.6 [facility] Work Phone: Immature granulocytes/100 WBC (Bld) 0.400 % 0.0-0.9 [facility] Work Phone: Comment on above: IG% - Immature Granu locytes (promyelocytes, myelocytes and metamyelocytes) > 1% indicates that a LEFT SHIFT is Present. MCH (RBC) [Entitic mass] 29.6 pg 27.0-32.0 [facility] Work Phone: Nucleated RBC/100 WBC (Bld) [Ratio] 0 % 0-5 [facility] Work Phone: MCHC Auto (RBC) [Mass/Vol]on 02-04-2022 MCHC (RBC) [Mass/Vol] 31.8 g/dL 32-36 [facility] Work Phone: Mucus LM Ql (Urine sed)on Mucus Ql (Urine sed) 0 SEEN /hpf [facility] Work Phone: Nitrite Test strip Ql (U)on 02-04-2022 Nitrite Ql (U) Negative Negative [facility] Work Phone: No Panel Informationon 02-04 Estimated Creatinine Clearance Calc 91.30 ml/min [facility] Work Phone: Estimated GFR (MDRD) Amer 109 mL/min >60 [facility] Work Phone: Comment on above: GFR Calc Estimated GFR (MDRD) Non-Af Amer 90 mL/min >60 [facility] Work Phone: Comment on above: Non- GFR Calc Platelets bldon 02-04-2022 Platelets (Bld) [#/Vol] 272 10*3/uL 150-450 [facility] Work Phone: Protein Test strip Ql (U)on 02-04-2022 Protein Ql (U) Negative Negative [facility] Work Phone: Serum or plasma albumin jeramie urement (mass/volume)on 02-04-2022 Albumin [Mass/Vol] 3.2 g/dL 3.2-5.0 [facility] Work Phone: Serum or plasma albumin/glob ulin mass ratioon 02-04-2022 Albumin/Globulin [Mass ratio] 0.8 {ratio} 0.9-2.4 [facility] Work Phone: Serum or plasma calcium jeramie urement (mass/volume)on 02-04-2022 Calcium [Mass/Vol] 8.4 mg/dL 8.5-10.1 [facility] Work Phone: Serum or plasma creatinine m easurement (mass/volume)on 02-04-2022 Creatinine [Mass/Vol] 0.99 mg/dL 0.70-1.30 [facility] Work Phone: Comment on above: The validity of the calculated GFR & GFRAA in patients over 70 years has not been determined. Clinical correlation is essential. Serum or plasma urea nitroge n measurement (mass/volume)on 02-04-2022 Urea nitrogen [Mass/Vol] 6 mg/dL 7-18 [facility] Work Phone: Squamous epithelial cells de tection in urine sediment by light microscopyon 02-04-2022 Epithelial cells.squamous LM Ql (Urine sed) 0 SEEN /hpf 0-5 [facility] Work Phone: Thin prep Papanicolaou smear with manual screeningon 02-04-2022 Thin prep Papanicolaou smear with manual screening 56 U/L 15-37 [facility] Work Phone: Thin prep Papanicolaou smear with manual screening 10 5-15 [facility] Work Phone: Urine blood detectionon 08-0 RBC Ql (U) Negative Negative [facility] Work Phone: RBC Ql (U) 0 SEEN /hpf 0-5 [facility] Work Phone: Urine clarityon 02-04-2022 Clarity (U) Clear Clear [facility] Work Phone: Urine color determinationon 02-04-2022 Color (U) Yellow Yellow [facility] Work Phone: Urine glucose detectionon Glucose Ql (U) Normal mg/dl Normal [facility] Work Phone: Urine leukocyte esterase det ection by dipstickon 02-04-2022 Leukocyte esterase Test strip Ql (U) Negative Negative [facility] Work Phone: Urine pHon 02-04-2022 pH (U) 6.0 [pH] 5.0 - 8.0 [facility] Work Phone: Urine sediment bacteria coun t by microscopy (number/high power field)on 02-04-2022 Bacteria LM.HPF (Urine sed) [#/Area] RARE /hpf None Seen [facility] Work Phone: Urine specific gravity measu rementon 02-04-2022 Specific gravity (U) [Rel density] 1.010 1.002-1.03 0 [facility] Work Phone: Urobilinogen Auto test strip Ql (U)on 02-04-2022 Urobilinogen Ql (U) Normal mg/dl Normal [facility] Work Phone: Office Visit: [facility] 02-26-20 17 Dietary management education, guidance, and counseling (procedure) yes Invalid Interpretation Code [facility] Work Phone: Documentation of current medications (procedure) Done Invalid Interpretation Code [facility] Work Phone: Protein mass conc Done [facility] Work Phone: Office Visit: [facility] 08-03-19 16 Tobacco smoking status NHIS Former smoker [facility] [employer] Work Phone: Tobacco use CPHS Former smoker Invalid Interpretation Code [facility] Work Phone: Replaced Document: Tessie E CG Observationson 02-03-2015 EKG QRS axis 16 deg [facility] Work Phone: electrocardiogram interpretation Sinus Rhythm Low voltage in precordial leads. -RSR(V1) -nondiagnostic. ABNORMAL Invalid Interpretation Code [facility] Work Phone: GE use only - for [employer] import when terms are not otherwise specified 402 ms Invalid Interpretation Code [facility] Work Phone: Interpretation Sinus Rhythm Low vol tage in precordial leads. -RSR(V1) -nondiagnostic. ABNORMAL [facility] Work Phone: P [place] 20 deg [facility] Work Phone: P wave axis, electrocardiogram 20 deg Invalid Interpretation Code [facility] Work Phone: OH Interval 148 ms [facility] Work Phone: OH interval, electrocardiogram 148 ms Invalid Interpretation Code [facility] Work Phone: Pulse (Heart Rate) 76 /min Invalid Interpretation Code [facility] Work Phone: QRS axis, electrocardiogram 16 deg Invalid Interpretation Code [facility] Work Phone: QRS Duration 84 ms [facility] Work Phone: QRS duration, electrocardiogram 84 ms Invalid Interpretation Code [facility] Work Phone: QT Interval new path ms [facility] Work Phone: QT interval, electrocardiogram new path ms Invalid Interpretation Code [facility] Work Phone: QTc Hector 402 ms [facility] Work Phone: T [place] 6 deg [facility] Work Phone: T wave axis, electrocardiogram 6 deg Invalid Interpretation Code [facility] Work Phone: [phone] Clinical Lists Update: Prelo cherry dipper 08-16-2014 Alkaline phosphatase (ALP) 108 U/L Invalid Interpretation Code [facility] Work Phone: [phone] ALP enzyme act/vol (Bld) 108 U/L [facility] Work Phone: [phone] ALT enzyme act/vol 38 U/L Invalid Interpretation Code [facility] Work Phone: [phone] AST enzyme act/vol 22 U/L Invalid Interpretation Code [facility] Work Phone: [phone] Cholesterol in HDL mass conc 25 mg/dL Low [facility] Work Phone: [phone] Cholesterol in LDL mass conc 53 mg/dL Invalid Interpretation Code [facility] Work Phone: [phone] Cholesterol mass conc 141 mg/dL Invalid Interpretation Code [facility] Work Phone: [phone] Lipoprotein.pre-beta mass conc 63 mg/dL High [facility] Work Phone: [phone] Triglyceride mass conc 314 mg/dL High [facility] Work Phone: [phone] Clinical Lists Update: Prelo cherry dipper 08-15-2014 Erythrocyte distribution width Ratio (RBC) 13.7 % [facility] Work [phone] Erythrocytes (RBC) 4.73 10*6/uL Invalid Interpretation Code [facility] Work Phone: [phone] Hematocrit (HCT) 40.3 % Invalid Interpretation Code [facility] Work [phone] Hematocrit Volume Fraction (Bld) 40.3 % [facility] Work [phone] Hemoglobin mass conc (Bld) 13.1 g/dL Invalid Interpretation Code [facility] Work Phone: [phone] MCH 27.7 pg Invalid Interpretation Code [facility] Work Phone: [phone] MCH Entitic mass (RBC) 27.7 pg [facility] Work Phone: [phone] MCHC 32.5 g/dL Invalid Interpretation Code [facility] Work Phone: [phone] MCHC mass conc (RBC) 32.5 g/dL [facility] Work Phone: [phone] MCV 85.2 fL Invalid Interpretation Code [facility] Work Phone: [phone] MCV Entitic volume (RBC) 85.2 fL [facility] Work Phone: [phone] Platelets 265 10*3/mm3 Invalid Interpretation Code [facility] Work Phone: [phone] Platelets #/vol (Bld) 265 10*3/mm3 [facility] Work [phone] RBC #/vol (Bld) 4.73 10*6/uL [facility] Work Phone: [phone] RDW-CA 13.7 % Invalid Interpretation Code [facility] Work [phone] WBC #/vol (Bld) 10.5 10*3/uL [facility] Work Phone: [phone] WBC (Leukocytes) 10.5 10*3/uL Invalid Interpretation Code [facility] Work Phone: [phone] Clinical Lists Update: Prelo cherry dipper 08-09-2014 Albumin mass conc 4.2 g/dL Invalid Interpretation Code [facility] Work [phone] Anion gap 12 mmol/L Invalid Interpretation Code [facility] Work Phone: [phone] Anion gap molar conc 12 mmol/L [facility] Work [phone] Bilirubin mass conc 0.2 mg/dL Invalid Interpretation Code [facility] Work Phone: [phone] Bilirubin.direct mass conc mg/dL Invalid Interpretation Code [facility] Work [phone] Calcium mass conc 9.9 mg/dL Invalid Interpretation Code [facility] Work Phone: [phone] Chloride molar conc 99 mmol/L Invalid Interpretation Code [facility] Work Phone: [phone] Cholesterol in LDL/Cholesterol in HDL mass ratio 2.92 Invalid Interpretation Code [facility] Work Phone: [phone] Cholesterol.total/Chol esterol in HDL mass ratio 4.81 {ratio} Invalid Interpretation Code [facility] Work Phone: [phone] CO2 27 mmol/L Invalid Interpretation Code [facility] Work Phone: [phone] CO2 ppres (BldV) 27 mmol/L [facility] Work Phone: [phone] Creatinine mass conc 1.00 mg/dL Invalid Interpretation Code [facility] Work [phone] Glucose 104 mg/dL High [facility] Work Phone: [phone] Glucose mass conc 104 mg/dL High [facility] Work Phone: [phone] Potassium molar conc 4.4 mmol/L Invalid Interpretation Code [facility] Work Phone: [phone] Protein mass conc 7.1 g/dL Invalid Interpretation Code [facility] Work Phone: [phone] Sodium molar conc 138 mmol/L Invalid Interpretation Code [facility] Work Phone: [phone] Urea nitrogen mass conc 18 mg/dL Invalid Interpretation Code [facility] Work Phone: [phone] Office Visit: [facility] 08-09-19 Tobacco smoking status NHIS Never Invalid Interpretation Code [facility] Work Phone: [phone] Office Visiton 06-16-2014 cardiac risk group C Invalid Interpretation Code [facility] Work Phone: [phone] cardiovascular disease 10Y risk [#] [place].D'Agostfelix N/A Invalid Interpretation Code [facility] Work Phone: [phone] Replaced Document: Tessie Mcnamara CG Observationson 02-10-2014 Pulse (Heart Rate) 404 ms Invalid Interpretation Code [facility] Work Phone: [phone] Lab Report: TROP - copyon Troponin I.cardiac mass conc ng/mL Normal <0.06 [facility] Work Phone: [phone] Lab Report: BMP - copyon eGFR (non-black) 102 mL/min/{1.73_m2} Normal >60 [facility] Work Phone: [phone] GFR/1.73 sq M predicted among non-blacks MDRD vol rate/area (S/P/Bld) 84 mL/min/{1.73_m2} Normal >60 [facility] Work Phone: [phone] GFRAA 102 mL/min Normal >60 [facility] Work Phone: [phone] Urea nitrogen/Creatinine mass ratio 11.8 RATIO Normal 10-20 [facility] Work Phone: [phone] Lab Report: CBCD - copyon Absolute Neutrophil count 9.7 X10 3/UL High 2.0-7.7 [facility] [employer] Work Phone: [phone] ANC 9.7 X10 3/UL High 2.0-7.7 [facility] Work Phone: [phone] Platelet mean volume Entitic volume (Bld) 11.0 fL Normal 6.2-12.0 [facility] Work Phone: [phone] PMV by Alexa 11.0 fL Normal 6.2-12.0 [facility] Work Phone: [phone] Lab Report: DDIMQ - copyon 0 09-18-2013 D-dimer quantitative mcg/mL 0.32 FEUUG/ML Normal 0.27-0.48 [facility] Work Phone: [phone] DDIMQ 0.32 FEUUG/ML Normal 0.27-0.48 [facility] Work Phone: [phone] Lab Report: LIPASEon 014 LIPASE 72 U/L Normal 70-290 [facility] Work Phone: [phone] lipase, serum 72 U/L Normal 70-290 [facility] Work Phone: [phone] Office Visiton 09-15-2013 Alcoholism counseling (procedure) no Invalid Interpretation Code [facility] Work Phone: [phone] Protein mass conc no [facility] Work Phone: [phone] Clinical Lists Update: Prelo cherry dipper 09-02-2013 Magnesium mass conc 1.8 mg/dL Invalid Interpretation Code [facility] Work Phone: [phone] Vital Signs Date Time Vital Sign Value Performing Clinician Facility 02-22-2025 09:51-0400 Body height 167.64 cm No Primary Care Physician [facility] 02-22-2025 09:51-0400 Body mass index (BMI) [Ratio] 47.1 kg/m2 No Primary Care Physician [facility] 02-22-2025 09:51-0400 Body weight 132.44 kg No Primary Care Physician [facility] 02-22-2025 09:51-0400 Diastolic blood pressure 83 mm[Hg] No Primary Care Physician [facility] 02-22-2025 09:51-0400 Heart rate 96 /min No Primary Care Physician [facility] 02-22-2025 09:51-0400 Respiratory rate 18 /min No Primary Care Physician [facility] 02-22-2025 09:51-0400 Systolic blood pressure 131 mm[Hg] No Primary Care Physician [facility] 01-26-2025 07:41-0400 Body temperature 98.4 [degF] No Primary Care Physician [facility] 01-26-2025 07:41-0400 Diastolic blood pressure 87 mm[Hg] No Primary Care Physician [facility] 01-26-2025 07:41-0400 Heart rate 78 /min No Primary Care Physician [facility] 01-26-2025 07:41-0400 Respiratory rate 16 /min No Primary Care Physician [facility] 01-26-2025 07:41-0400 SaO2% (BldA) [Mass fraction] 100 % No Primary Care Physician [facility] 01-26-2025 07:41-0400 Systolic blood pressure 138 mm[Hg] No Primary Care Physician [facility] 01-26-2025 04:46-0400 Body height 167.64 cm No Primary Care Physician [facility] 01-26-2025 04:46-0400 Body mass index (BMI) [Ratio] 47.6 kg/m2 No Primary Care Physician [facility] 01-26-2025 04:46-0400 Body weight 133.8 kg No Primary Care Physician [facility] 10-09-2024 20:08-0400 Body temperature 98 [degF] No Primary Care Physician [facility] 10-09-2024 20:08-0400 Diastolic blood pressure 84 mm[Hg] No Primary Care Physician [facility] 10-09-2024 20:08-0400 Heart rate 87 /min No Primary Care Physician [facility] 10-09-2024 20:08-0400 Respiratory rate 16 /min No Primary Care Physician [facility] 10-09-2024 20:08-0400 SaO2% (BldA) [Mass fraction] 98 % No Primary Care Physician [facility] 10-09-2024 20:08-0400 Systolic blood pressure 130 mm[Hg] No Primary Care Physician [facility] 10-09-2024 16:31-0400 Body height 167.64 cm No Primary Care Physician [facility] 10-09-2024 16:31-0400 Body mass index (BMI) [Ratio] 47.6 kg/m2 No Primary Care Physician [facility] 10-09-2024 16:31-0400 Body weight 133.8 kg No Primary Care Physician [facility] 06-05-2023 09:15-0500 Body height 167.64 cm [employer] Thomas Jackson [employer] Work Phone: [facility] 06-05-2023 09:15-0500 Body mass index (BMI) [Ratio] 48.4 kg/m2 [employer] Thomas Jackson [employer] Work Phone: [facility] 06-05-2023 09:15-0500 Body weight 136.07 kg [employer] Thomas Jackson [employer] Work Phone: [facility] 06-05-2023 09:15-0500 Diastolic blood pressure 85 mm[Hg] [employer] Thomas Jackson [employer] Work Phone: [facility] 06-05-2023 09:15-0500 Heart rate 98 /min [employer] Thomas Jackson [employer] Work Phone: [facility] 06-05-2023 09:15-0500 Respiratory rate 20 /min [employer] Thomas Jackson [employer] Work Phone: [facility] 06-05-2023 09:15-0500 SaO2% (BldA) [Mass fraction] 97 % [employer] Thomas Jackson [employer] Work Phone: [facility] 06-05-2023 09:15-0500 Systolic blood pressure 126 mm[Hg] [employer] Thomas Jackson [employer] Work Phone: [facility] 03-19-2023 15:54-0400 Body height 167.64 cm [employer] Thomas Jackson [employer] Work Phone: [facility] 03-19-2023 15:54-0400 Body weight 135.4 kg [employer] Thomas Jackson [employer] Work Phone: [facility] 03-19-2023 15:00-0400 Body temperature 98.5 [degF] [employer] Thomas Jackson [employer] Work Phone: [facility] 03-19-2023 15:00-0400 Diastolic blood pressure 66 mm[Hg] [employer] Thomas Jackson [employer] Work Phone: [facility] 03-19-2023 15:00-0400 Heart rate 80 /min [employer] Thomas Jackson [employer] Work Phone: [facility] 03-19-2023 15:00-0400 SaO2% (BldA) [Mass fraction] 98 % [employer] Thomas Jackson [employer] Work Phone: [facility] 03-19-2023 15:00-0400 Systolic blood pressure 114 mm[Hg] [employer] Thomas Jackson [employer] Work Phone: [facility] 03-19-2023 09:43-0400 Diastolic blood pressure 86 mm[Hg] [employer] Thomas Jackson [employer] Work Phone: [facility] 03-19-2023 09:43-0400 Heart rate 68 /min [employer] Thomas Jackson [employer] Work Phone: [facility] 03-19-2023 09:43-0400 Systolic blood pressure 133 mm[Hg] [employer] Thomas Jackson [employer] Work Phone: [facility] 03-19-2023 09:37-0400 Body temperature 98.1 [degF] [employer] Thomas Jackson [employer] Work Phone: [facility] 03-19-2023 09:37-0400 Respiratory rate 16 /min [employer] Thomas Jackson [employer] Work Phone: [facility] 03-19-2023 09:37-0400 SaO2% (BldA) [Mass fraction] 97 % [employer] Thomas Jackson [employer] Work Phone: [facility] 03-19-2023 06:30-0400 Inhaled oxygen flow rate 2 L/min [employer] Thomas Jackson [employer] Work Phone: [facility] 03-19-2023 00:58-0400 Body mass index (BMI) [Ratio] 48.2 kg/m2 [employer] Thomas Jackson [employer] Work Phone: [facility] 03-19-2023 00:12-0400 Body temperature 96.3 [degF] [employer] Thomas Jackson [employer] Work Phone: [facility] 03-19-2023 00:12-0400 Diastolic blood pressure 73 mm[Hg] [employer] Thomas Jackson [employer] Work Phone: [facility] 03-19-2023 00:12-0400 Heart rate 89 /min [employer] Thomas Jackson [employer] Work Phone: [facility] 03-19-2023 00:12-0400 Inhaled oxygen flow rate 2 L/min [employer] Thomas Jackson [employer] Work Phone: [facility] 03-19-2023 00:12-0400 Respiratory rate 25 /min [employer] Thomas Jackson [employer] Work Phone: [facility] 03-19-2023 00:12-0400 SaO2% (BldA) [Mass fraction] 94 % [employer] Thomas Jackson [employer] Work Phone: [facility] 03-19-2023 00:12-0400 Systolic blood pressure 130 mm[Hg] [employer] Thomas Jackson [employer] Work Phone: [facility] 03-18-2023 22:06-0400 Body height 165.1 cm [employer] Thomas Jackson [employer] Work Phone: [facility] 03-18-2023 22:06-0400 Body mass index (BMI) [Ratio] 49.7 kg/m2 [employer] Thomas Jackson [employer] Work Phone: [facility] 03-18-2023 22:06-0400 Body weight 135.62 kg [employer] Thomas Jackson [employer] Work Phone: [facility] 08-31-2022 01:40-0500 Body height 165.1 cm [employer] Thomas Jackson [employer] Work Phone: [facility] 08-31-2022 01:40-0500 Body mass index (BMI) [Ratio] 35.1 kg/m2 [employer] Thomas Jackson [employer] Work Phone: [facility] 08-31-2022 01:40-0500 Body temperature 96.8 [degF] [employer] Thomas Jackson [employer] Work Phone: [facility] 08-31-2022 01:40-0500 Body weight 95.8 kg [employer] Thomas Jackson [employer] Work Phone: [facility] 08-31-2022 01:40-0500 Diastolic blood pressure 121 mm[Hg] [employer] Thomas Jackson [employer] Work Phone: [facility] 08-31-2022 01:40-0500 Heart rate 127 /min [employer] Thomas Jackson [employer] Work Phone: [facility] 08-31-2022 01:40-0500 Respiratory rate 15 /min [employer] Thomas Jackson [employer] Work Phone: [facility] 08-31-2022 01:40-0500 SaO2% (BldA) [Mass fraction] 97 % [employer] Thomas Jackson [employer] Work Phone: [facility] 08-31-2022 01:40-0500 Systolic blood pressure 166 mm[Hg] [employer] Thomas Jackson [employer] Work Phone: [facility] 03-19-2022 14:22-0400 Body height 165.1 cm Blank Chatom PA-C Work Phone: [facility] 03-19-2022 14:22-0400 Body temperature 97.7 [degF] Blank Finn PA-C Work Phone: [facility] 03-19-2022 14:22-0400 Body weight 131.54 kg Blank Chatom PA-C Work Phone: [facility] 03-19-2022 14:22-0400 Diastolic blood pressure 85 mm[Hg] Blank Chatom PA-C Work Phone: [facility] 03-19-2022 14:22-0400 Heart rate 108 /min Blank Chatom PA-C Work Phone: [facility] 03-19-2022 14:22-0400 Systolic blood pressure 131 mm[Hg] Blank Finn PA-C Work Phone: [facility] 02-26-2022 14:38-0400 Body temperature 97.9 [degF] [employer] Thomas Jackson [employer] Work Phone: [facility] Work Phone: 02-26-2022 14:38-0400 Diastolic blood pressure 89 mm[Hg] [employer] Thomas Jackson [employer] Work Phone: [facility] Work Phone: 02-26-2022 14:38-0400 Heart rate 82 /min [employer] Thomas Jackson [employer] Work Phone: [facility] Work Phone: 02-26-2022 14:38-0400 Respiratory rate 16 /min [employer] Thomas Jackson [employer] Work Phone: [facility] Work Phone: 02-26-2022 14:38-0400 SaO2% (BldA) [Mass fraction] 93 % [employer] Thomas Jackson [employer] Work Phone: [facility] Work Phone: 02-26-2022 14:38-0400 Systolic blood pressure 127 mm[Hg] [employer] Thomas Jackson [employer] Work Phone: [facility] Work Phone: 02-26-2022 10:26-0400 Body height 167.64 cm [employer] Thomas Jackson [employer] Work Phone: [facility] Work Phone: 02-26-2022 10:26-0400 Body mass index (BMI) [Ratio] 46.9 kg/m2 [employer] Thomas Jackson [employer] Work Phone: [facility] Work Phone: 02-26-2022 10:26-0400 Body weight 131.8 kg [employer] Thomas Jackson [employer] Work Phone: [facility] Work Phone: 02-05-2022 08:54-0400 Body height 167.6 cm Maura Bolivar MD Work Phone: [facility] 02-05-2022 08:54-0400 Body temperature 96.91 [degF] Maura Bolivar MD Work Phone: [facility] 02-05-2022 08:54-0400 Body weight 133.36 kg Maura Bolivar MD Work Phone: [facility] 02-05-2022 08:54-0400 Diastolic blood pressure 80 mm[Hg] Maura Bolivar MD Work Phone: [facility] 02-05-2022 08:54-0400 Heart rate 89 /min Maura Bolivar MD Work Phone: [facility] 02-05-2022 08:54-0400 SaO2% (BldA) [Mass fraction] 95 % Maura Bolivar MD Work Phone: [facility] 02-05-2022 08:54-0400 Systolic blood pressure 110 mm[Hg] Maura Bolivar MD Work Phone: [facility] 02-04-2022 03:34-0400 Diastolic blood pressure 89 mm[Hg] [employer]ACTICE BUSINESS [employer]-C Thomas Jackson PRACTICE BUSINESS ASST Work Phone: [facility] Work Phone: 02-04-2022 03:34-0400 Heart rate 101 /min [employer]ACTICE [employer] AS[employer]-C Thomas Jackson PRACTICE BUSINESS ASST Work Phone: [facility] Work Phone: 02-04-2022 03:34-0400 Respiratory rate 16 /min [employer]ACT[employer] AS[employer]-C Thomas Jackson PRACTICE BUSINESS ASST Work Phone: [facility] Work Phone: 02-04-2022 03:34-0400 SaO2% (BldA) [Mass fraction] 97 % [employer]ACT[facility] [employer] AS[employer]-C Thomas Jackson PRACTICE BUSINESS ASST Work Phone: [facility] Work Phone: 02-04-2022 03:34-0400 Systolic blood pressure 143 mm[Hg] [employer]ACTICE BUSINESS ASST-C Thomas Jackson PRACTICE BUSINESS ASST Work Phone: [facility] Work Phone: 02-04-2022 01:28-0400 Body mass index (BMI) [Ratio] 47.7 kg/m2 [employer]ACT[employer]-C Thomas Jackson PRACTICE BUSINESS ASST Work Phone: [facility] Work Phone: 02-04-2022 01:28-0400 Body temperature 97.8 [degF] [employer]ACTICE BUSINESS AS[employer]-C Thomas Jackson PRACTICE BUSINESS ASST Work Phone: [facility] Work Phone: 02-04-2022 01:28-0400 Body weight 134.1 kg [employer]ACT[employer] AS[employer]-C Thomas Jackson PRACTICE BUSINESS ASST Work Phone: [facility] Work Phone: 01-08-2022 09:49-0400 Body mass index (BMI) [Ratio] 46.7 kg/m2 [employer] [employer]C Thomas Jackson PRACTICE BUSINESS ASST Work Phone: [facility] Work Phone: 01-08-2022 09:49-0400 Body temperature 97.7 [degF] [employer]ACTICE BUSINESS AS[employer]-C Thomas Jackson PRACTICE BUSINESS ASST Work Phone: [facility] Work Phone: 01-08-2022 09:49-0400 Body weight 131.54 kg [employer]ACTICE [employer] AS[employer]-C Thomas Jackson PRACTICE BUSINESS ASST Work Phone: [facility] Work Phone: 01-08-2022 09:49-0400 Diastolic blood pressure 90 mm[Hg] [employer]ACTICE BUSINESS AS[employer]-C Thomas Jackson PRACTICE BUSINESS ASST Work Phone: [facility] Work Phone: 01-08-2022 09:49-0400 Heart rate 133 /min [employer]ACT[employer] AS[employer]-C Thomas Jackson PRACTICE BUSINESS ASST Work Phone: [facility] Work Phone: 01-08-2022 09:49-0400 Respiratory rate 16 /min [employer]ACT[employer]-C Thomas Jackson PRACTICE BUSINESS ASST Work Phone: [facility] Work Phone: 01-08-2022 09:49-0400 SaO2% (BldA) [Mass fraction] 99 % [employer]ACT[employer] AS[employer]-C Thomas Jackson PRACTICE BUSINESS ASST Work Phone: [facility] Work Phone: 01-08-2022 09:49-0400 Systolic blood pressure 152 mm[Hg] PRACTICE BUSINESS ASST-C Thomas Jackson PRACTICE BUSINESS ASST Work Phone: [facility] Work Phone: 02-25-2017 10:41-0400 BMI (Body Mass Index) 46.19 kg/m2 [facility] Work Phone: 02-25-2017 10:41-0400 BP Diastolic 70 mm[Hg] [facility] Work Phone: 02-25-2017 10:41-0400 BP Systolic 122 mm[Hg] [facility] Work Phone: 02-25-2017 10:41-0400 Height 167.64 cm [facility] Work Phone: 02-25-2017 10:41-0400 Pulse (Heart Rate) 70 /min [facility] Work Phone: 02-25-2017 10:41-0400 Weight 129.82 kg [facility] Work Phone: 08-03-2015 12:53-0500 BP Diastolic 66 mm[Hg] [facility] Work Phone: 08-03-2015 12:53-0500 BP Diastolic 62 mm[Hg] [facility] Work Phone: 08-03-2015 12:53-0500 BP Systolic 90 mm[Hg] [facility] Work Phone: 08-03-2015 12:53-0500 BP Systolic 100 mm[Hg] [facility] Work Phone: 08-03-2015 12:53-0500 BSA (Body Surface Area) 2.37 m2 [facility] Work Phone: 08-03-2015 12:53-0500 Pulse (Heart Rate) 72 /min [facility] Work Phone: 08-03-2015 12:53-0500 Pulse (Heart Rate) 80 /min [facility] Work Phone: 08-03-2015 12:53-0500 Respiratory Rate 16 /min [facility] Work Phone: 02-03-2015 13:58-0400 Heart rate 76 /min [facility] Work Phone: 02-10-2014 15:17-0400 Heart rate 404 ms [facility] Work Phone: Encounters Encounter Date Encounter Type Care Provider Facility Start: 03-23-2025 ambulatory Emerson Larios PRACTICE BUSINESS ASST [facility] Start: 02-22-2025 End: 02-22-2025 ambulatory No Primary Care Physician -Laboratory Start: 02-22-2025 End: 02-22-2025 Patient encounter procedure Emerson Larios PRACTICE BUSINESS ASST-C -Laboratory Work Phone: Start: 02-22-2025 End: 02-22-2025 Patient encounter procedure Emerson Larios PRACTICE BUSINESS ASST-C [facility] Work Phone: Start: 02-22-2025 End: 02-22-2025 ambulatory No Primary Care Physician -[facility] Start: 02-22-2025 End: 02-22-2025 ambulatory Emerson Larios PRACTICE BUSINESS ASST Facility:[facility] Start: 01-26-2025 End: 01-26-2025 Emergency department patient visit No Primary Care Physician -Emergency Department Work Phone: Start: 10-09-2024 End: 10-09-2024 Emergency department patient visit No Primary Care Physician -Emergency Department Work Phone: Start: 06-05-2023 End: 06-05-2023 ambulatory [employer] [employer] [facility]-C Thomas Jackson PRACTICE BUSINESS ASST Work Phone: [facility] Work Phone: Start: 06-05-2023 End: 06-05-2023 Patient encounter procedure [employer]ACT[facility] [employer] AS[facility]-C Thomas Jackson PRACTICE BUSINESS ASST Work Phone: [facility] Work Phone: Start: 06-05-2023 End: 06-05-2023 Patient encounter procedure [employer]ACTICE [employer] AS[facility]-C Thomas Benitoder PRACTICE BUSINESS ASST Work Phone: [facility] Work Phone: Start: 03-20-2023 Non-patient / Non-visit PRACTICE [employer] AS[facility]-C Maldonado sally Jackson PRACTICE BUSINESS ASST Work Phone: [facility] Start: 03-19-2023 Non-patient / Non-visit [employer]ACT[facility] [employer] AS[facility]-C Maldonado sally Jackson PRACTICE BUSINESS ASST Work Phone: [facility] Start: 03-19-2023 End: 03-19-2023 Non-patient / Non-visit [employer]ACT[facility] [employer] AS[employer]-C Thomas Jackson PRACTICE BUSINESS ASST Work Phone: [facility] Work Phone: Start: 03-18-2023 End: 03-19-2023 Evaluation and management of inpatient PRACTICE BUSINESS ASST-C Thomas Benitoder PRACTICE BUSINESS ASST Work Phone: [facility] Work Phone: Start: 02-26-2023 Non-patient / Non-visit [employer]ACT[facility] [employer] AS[employer]-C Maldonado sally Jackson PRACTICE BUSINESS ASST Work Phone: [facility] Work Phone: Start: 08-31-2022 Non-patient / Non-visit PRACTICE [employer] ASST-C Maldonado sally Jackson PRACTICE BUSINESS ASST Work Phone: [facility] Start: 08-31-2022 End: 08-31-2022 Emergency department patient visit PRACTICE BUSINESS ASST-C Thomas Jackson PRACTICE BUSINESS ASST Work Phone: [facility] Start: 05-29-2022 Telephone encounter Maura [...] ([employer]-14 ) Start: 03-27-2022 End: 03-27-2022 ambulatory [facility] Facility:[facility] Start: 03-25-2022 Telephone encounter Maura Yarbrough MD Work Phone: General Surgery Comment on above: Patient Update Start: 03-19-2022 End: 03-19-2022 ambulatory [facility] Facility:[facility] Start: 03-19-2022 End: 03-19-2022 Patient encounter procedure [facility] PA-C Work Phone: General Surgery Comment on above: S/P hernia repair (P rimary Dx) Start: 02-27-2022 Telephone encounter Maura Yarbrough MD Work Phone: General Surgery Comment on above: Information ([employer] 1 4, C9 ) Start: 02-26-2022 End: 02-26-2022 Admission to same day surgery center [employer]ACTICE BUSINESS ASST-C Thomas Jackson PRACTICE BUSINESS ASST Work Phone: [facility] Start: 02-26-2022 End: 02-26-2022 ambulatory [employer]ACT[facility] [employer] AS[employer]-C Thomas Jackson PRACTICE BUSINESS ASST Work Phone: [facility] Work Phone: Start: 02-06-2022 Telephone encounter Maura Yarbrough MD Work Phone: General Surgery Comment on above: Patient Update Start: 02-05-2022 End: 02-05-2022 ambulatory Maura Bolivar Facility:[facility] Start: 02-05-2022 End: 02-05-2022 Patient encounter procedure Maura Bolivar MD Work Phone: General Surgery Comment on above: Umbilical hernia wit hout obstruction or gangrene (Primary Dx) Start: 02-04-2022 End: 02-04-2022 Emergency department patient visit PRACTICE BUSINESS ASST-Herber Jackson NP Work Phone: [facility] Start: 01-08-2022 End: 01-08-2022 Patient encounter procedure PRACTICE BUSINESS ASST-Herber Jackson PRACTICE BUSINESS ASST Work Phone: [facility] Procedures Date Procedure Procedure Detail Performing Clinician Start: 01-26-2025 X-ray of chest, PA a nd lateral views No Primary Care Physician Start: 01-26-2025 D-dimer assay, quantitative No Primary Care Physician Comment on above: NORMAL D-Dimer level (<0.50) indicates no DVT or PE. Start: 01-26-2025 Estimated creatinine clearance No Primary Care Physician Start: 10-09-2024 Estimated creatinine clearance No Primary Care Physician Start: 10-09-2024 Computed tomography of abdomen and pelvis with intravenous contrast No Primary Care Physician Start: 10-09-2024 Plain X-ray abdomen No Primary Care Physician Start: 10-09-2024 X-ray of chest posteroanterior view No Primary Care Physician Start: 03-20-2023 History of percutane ous transluminal coronary angioplasty History of PTCA Emerson Larios PRACTICE BUSINESS ASST-C Comment on above: POBA (no stent) of r estenosed distal LAD 03/20/[address] Duenas Start: 03-18-2023 Plain chest X-ray [employer] [employer] [facility]-Herber Jackson PRACTICE BUSINESS ASST Work Phone: Start: 02-26-2022 Umbilical hernioplasty [employer] [employer] [facility]-Herber Jackson PRACTICE BUSINESS ASST Work Phone: Start: 02-04-2022 Computed tomography of abdomen and pelvis with intravenous contrast PRACTICE BUSINESS ASST-C Thomas Jackson PRACTICE BUSINESS ASST Work Phone: Start: 02-25-2017 End: 02-25-2017 Dietary [...] PA-C Work Phone: Start: 08-09-2014 End: 11-23-2014 BULLET MAKER Jelly Watkins PA-C Work Phone: Start: 08-09-2014 [...] M Glasgow MD Start: 03-11-2014 End: 03-11-2014 BULLET MAKER Jelly Watkins PA-C Work Phone: Start: 03-11-2014 [...] PA-C Work Phone: Start: 02-10-2014 End: 02-10-2014 MMM Jelly Watkins PA-C Work Phone: Start: 02-10-2014 End: 03-04-2014 Nuclear stress test -exercise Jelly Watkins PA-C Work Phone: Start: 10-21-2013 End: 02-10-2014 *Hepatic Function Panel Maldonado Sparks Start: 10-21-2013 End: 10-21-2013 Follow Up Appt 3 months Maldonado Sparks Start: 10-21-2013 End: 02-10-2014 Lipid panel [AGGREGATE] Maldonado Sparks Start: 10-21-2013 End: 10-21-2013 MMM Kolton Glasgow MD Start: 09-23-2013 End: 01-13-2014 Cardiac [...] disease History of coronary artery stent placement [employer]ACTICE BUSINESS [employer]-C Thomas Jackson NP Work Phone: Start: 08-21-2013 History of placement of stent for coronary artery disease History of coronary artery stent placement Emerson Larios PRACTICE BUSINESS ASSTClaudiaC Comment on above: PCI Thrombectomy-LUZ -Mid to Distal LAD w/ 2.75 x 38 mm Promus Premier and LUZ-Mid Lad w/ 3.5 x 12 mm Promus Premier 08/31/13; Plan of Treatment Date Care Activity Detail Author Start: 02-22-2025 Evaluation of diagnostic study results [facility] Start: 01-26-2025 [facility] Start: 01-26-2025 [facility] Start: 06-05-2023 Patient referral [facility] Work Phone: Start: 06-05-2023 Evaluation of diagnostic study results [facility] Start: 03-20-2023 Patient referral [facility] Work Phone: Start: 03-19-2023 Vital signs measurements [facility] Start: 03-19-2023 Patient discharge [facility] Start: 03-19-2023 Vital signs measurements [facility] Start: 03-19-2023 Vital signs measurements [facility] Start: 03-19-2023 Cardiac monitoring [facility] Start: 03-19-2023 Cardiac rehabilitation - phase 1 [facility] Start: 03-19-2023 Cardiac rehabilitation - phase 2 [facility] Start: 03-19-2023 Notification of physician [facility] Start: 03-19-2023 Oxygen therapy [facility] Start: 03-19-2023 Patient discharge [facility] Start: 03-19-2023 Patient education [facility] Start: 03-19-2023 Provision of activity privileges [facility] Start: 03-19-2023 Pulse taking [facility] Start: 03-19-2023 Systemic arterial pressure monitoring [facility] Start: 03-19-2023 Taking patient vital signs [facility] Start: 03-19-2023 Vascular disease risk assessment [facility] Start: 03-19-2023 Vital signs measurements [facility] Start: 03-19-2023 Wound care [facility] Start: 03-19-2023 [facility] Start: 03-19-2023 Vital signs measurements [facility] Start: 03-19-2023 Vital signs measurements [facility] Start: 03-19-2023 Catheterization [facility] vein [facility] Start: 03-19-2023 Medication not administered [facility] Start: 03-19-2023 Notification of physician [facility] Start: 03-19-2023 [facility] Start: 03-19-2023 Vital signs measurements [facility] Start: 03-19-2023 Vital signs measurements [facility] Start: 03-19-2023 [facility] Start: 03-19-2023 Ambulation without limitation [facility] Start: 03-19-2023 Assessment of risk of venous thromboembolism [facility] Start: 03-19-2023 Catheterization of vein [facility] Start: 03-19-2023 Inhalation therapy procedure [facility] Start: 03-19-2023 Insertion of catheter into peripheral vein [facility] Start: 03-19-2023 Measuring intake and output [facility] Start: 03-19-2023 Oxygen therapy [facility] Start: 03-19-2023 Providing care according to standard [facility] Start: 03-19-2023 Referral to business proposal rep [facility] Start: 03-19-2023 Tobacco use cessation education [facility] Start: 03-19-2023 [facility] Start: 03-19-2023 Vital signs measurements [facility] Start: 03-19-2023 Electrocardiographic procedure [facility] Start: 03-19-2023 Verification routine [facility] Start: 03-18-2023 Admission procedure [facility] Start: 03-18-2023 Blood chemistry [facility] Start: 03-18-2023 End: 03-18-2023 [facility] Start: 08-31-2022 Admission procedure [facility] Start: 08-31-2022 [facility] Start: 03-07-2022 Influenza vaccination INFLUENZA (#1) [facility] Start: 02-26-2022 Catheterization of vein [facility] Work Phone: Start: 02-26-2022 Patient discharge [facility] Work Phone: Start: 02-26-2022 Procedure discontinued [facility] Work Phone: Start: 02-26-2022 Taking patient vital signs [facility] Work Phone: Start: 02-26-2022 [facility] Work Phone: Start: 07-07-2021 DEPRESSION ASSESSMENT DEPRESSION ASSESSMENT [facility] Start: 05-06-2021 LIPID SCREEN LIPID SCREEN [facility] Start: 08-09-2019 LIPID SCREEN LIPID SCREEN [facility] Start: 08-28-2017 End: 08-28-2017 Appointment Appointment [facility] Work Phone: Start: 02-25-2017 End: 02-25-2017 BULLET MAKER BULLET MAKER [facility] Work Phone: Start: 02-25-2017 End: 02-25-2017 Follow Up Appt 6 months Follow Up Appt 6 months [facility] Work Phone: Start: 10-19-2015 End: 10-19-2015 Nuclear stress test -exercise Nuclear stress test -exercise [facility] Work Phone: Start: 08-03-2015 End: 05-06-2016 *CMP Complete Metabolic Panel *CMP Complete Metabolic Panel [facility] Work Phone: Start: 08-03-2015 End: 08-03-2015 Follow Up Appt Other Follow Up Appt Other [facility] Work Phone: Start: 08-03-2015 End: 05-06-2016 Lipid panel [AGGREGATE] *Lipid Profile CC PCP [facility] Work Phone: Start: 08-03-2015 End: 08-03-2015 MMM MMM [facility] Work Phone: Start: 02-03-2015 End: 02-03-2015 Electrocardiogram, complete EKG (In office) [facility] Work Phone: Start: 02-03-2015 End: 02-03-2015 Follow Up Appt 6 months Follow Up Appt 6 months [facility] Work Phone: Start: 02-03-2015 End: 02-03-2015 MMM MMM [facility] Work Phone: Start: 02-03-2015 End: 02-03-2015 Remote 30 day ecg rev/report 30 Day Holter Monitor [facility] Work Phone: Start: 11-23-2014 End: 11-23-2014 Complete sleep workup (PSG,CPAP as indicated) & Follow up Complete sleep workup (PSG,CPAP as indicated) & Follow up [facility] Work Phone: Start: 11-23-2014 End: 12-23-2014 Follow Up Appt 6 weeks Follow Up Appt 6 weeks [facility] Work Phone: Start: 11-23-2014 End: 12-23-2014 MMM MMM [facility] Work Phone: Start: 08-09-2014 End: 07-20-2015 Complete sleep workup (PSG,CPAP as indicated) & Follow up Complete sleep workup (PSG,CPAP as indicated) & Follow up [facility] Work Phone: Start: 08-09-2014 End: 11-23-2014 BULLET MAKER BULLET MAKER [facility] Work Phone: Start: 08-09-2014 End: 11-23-2014 Electrocardiogram, complete EKG (In office) [facility] Work Phone: Start: 08-09-2014 End: 07-20-2015 Follow Up Appt Other Follow Up Appt Other [facility] Work Phone: Start: 06-16-2014 End: 08-12-2014 *BMP *BMP [facility] Work Phone: Start: 06-16-2014 End: 08-12-2014 *Hepatic Function Panel *Hepatic Function Panel [facility] Work Phone: Start: 06-16-2014 End: 06-16-2014 Follow Up Appt 6 months Follow Up Appt 6 months [facility] Work Phone: Start: 06-16-2014 End: 08-12-2014 Lipid panel [AGGREGATE] *Lipid Profile CC PCP [facility] Work Phone: Start: 06-16-2014 End: 06-16-2014 MMM MMM [facility] Work Phone: Start: 03-11-2014 End: 03-11-2014 BULLET MAKER BULLET MAKER [facility] Work Phone: Start: 03-11-2014 End: 03-11-2014 Follow Up Appt 3 months Follow Up Appt 3 months [facility] Work Phone: Start: 02-10-2014 End: 07-20-2015 *Hepatic Function Panel *Hepatic Function Panel [facility] Work Phone: Start: 02-10-2014 End: 02-10-2014 Electrocardiogram, complete EKG (In office) [facility] Work Phone: Start: 02-10-2014 End: 02-10-2014 Follow Up Appt 1 month Follow Up Appt 1 month [facility] Work Phone: Start: 02-10-2014 End: 07-20-2015 Lipid panel [AGGREGATE] *Lipid Profile CC PCP [facility] Work Phone: Start: 02-10-2014 End: 02-10-2014 MMM MMM [facility] Work Phone: Start: 02-10-2014 End: 02-10-2014 Nuclear stress test -exercise Nuclear stress test -exercise [facility] [employer] Work Phone: Start: 10-21-2013 End: 02-10-2014 *Hepatic Function Panel *Hepatic Function Panel [employer] Work Phone: Start: 10-21-2013 End: 10-21-2013 Follow Up Appt 3 months Follow Up Appt 3 months [employer] Work Phone: Start: 10-21-2013 End: 02-10-2014 Lipid panel [AGGREGATE] *Lipid Profile CC PCP [facility] [employer] Work Phone: Start: 10-21-2013 End: 10-21-2013 MMM MMM [facility] Work Phone: Start: 09-23-2013 End: 01-13-2014 Cardiac Rehab [facility] Work Phone: Start: 09-15-2013 End: 12-14-2013 *Hepatic Function Panel *Hepatic Function Panel [employer] Work Phone: Start: 09-15-2013 End: 09-15-2013 Echocardiography Echocardiogram (complete) [facility] Work Phone: Start: 09-15-2013 End: 09-15-2013 Electrocardiogram, complete EKG (In office) [employer] Work Phone: Start: 09-15-2013 End: 09-15-2013 Follow Up Appt 3 months Follow Up Appt 3 months [employer] Work Phone: Start: 09-15-2013 End: 12-14-2013 Lipid panel [AGGREGATE] *Lipid Profile CC PCP [facility] [employer] Work Phone: Start: 09-15-2013 End: 09-15-2013 MMM MMM [facility] [employer] Work Phone: Start: 10-15-2002 Urine microalbumin profile DTAP,TDAP,TD (1 - Tdap) [facility] Start: 10-15-2001 HEPATITIS C SCREENING HEPATITIS C SCREENING [facility] Start: 10-15-2001 HIV SCREENING HIV SCREENING [facility] Start: 1995 Adult depression screening assessment DEPRESSION SCREENING [facility] Start: 10-15-1989 PNEUMOCOCCAL (1 - PCV) PNEUMOCOCCAL (1 - PCV) [facility] Start: 04-16-1984 COVID-19 VACCINE (#1) COVID-19 VACCINE (#1) [facility] Start: 1983 HEPATITIS B (1 of 3 - 3-dose series) HEPATITIS B (1 of 3 - 3-dose series) [facility] Amphetamine [Mass/vo lume] in Urine [facility] Benzodiazepine measu rement, urine [facility] Cocaine measurement, urine [facility] Hemoglobin A1c/Hemoglobin.total in Blood [facility] Hemoglobin A1c/Hemoglobin.total in Blood [facility] Measurement of 3,4-methylenedioxymethamphetam ine in urine [facility] Methadone measurement, urine [facility] NM Heart Views W str ess and W radionuclide IV [facility] NM Heart Views W str ess and W radionuclide IV [facility] Patient Education [facility] Work Phone: Patient referral [facility] Work Phone: pH of Urine [facility] Phencyclidine [Prese nce] in Urine [facility] Polysomnography [facility] Urine barbiturate measurement [facility] Urine cannabinoid measurement [facility] Urine opiate measurement [facility] Immunizations Immunization Date Immunization Notes Care Provider Fa stefano 12-31-2020 tetanus toxoid, redu china diphtheria toxoid, and acellular pertussis vaccine, adsorbed [employer]ACTICE BUSINESS ASST-C Thomas Jackson NP Work Phone: [facility] 06-10-2014 Influenza virus vaccine [employer]C Thomas Jackson NP Work Phone: [facility] 04-13-2014 influenza, seasonal, injectable Maura Bolivar MD Work Phone: [facility] Work Phone: Payers Date Payer Category Payer Private Health Insurance [id number] 2024 Self-pay [id number] 2024 Unknown [id number] 2018 Unknown MMO MMO [employer] [id number] 2018-Present [phone] [address] [place] [address] PPO [id number] 2018 Unknown [id number] 2018 Unknown [id number] Unknown [id number] Unknown [id number] Unknown [facility] MCO [id number] Unknown [facility] [id number] Unknown [id number] Unknown [id number] Unknown [id number] Unknown [id number] Unknown [id number] Unknown [id number] Social History Date Type Detail Facility Start: 02-05-2022 End: 01-26-2025 Tobacco smoking status NHIS Smokes tobacco daily [facility] History of tobacco use Cigarette Smoker C [facility] Start: 02-05-2022 End: 03-27-2022 Cigarettes smoked current (pack per day) - Reported 0.5 [facility] Start: 02-05-2022 End: 03-27-2022 Tobacco use and exposure Smokeless tobacco non-user [facility] Start: 02-05-2022 End: 03-27-2022 Alcohol intake Current drinker of alcohol (finding) [facility] Start: 04-15-2014 History SDOH Alcohol Comment ocas [facility] Start: 1985 Sex Assigned At Not on file C [facility] Start: 01-26-2022 End: 03-27-2022 Exposure to SARS-CoV-2 (event) Not sure [facility] Start: 02-19-2022 End: 06-05-2023 Tobacco smoking status NHIS Unknown if ever smoked [facility] Start: 02-12-2020 None [facility] Start: 02-12-2020 With Family [facility] Start: 04-13-2018 Cigarettes [facility] Start: 1985 Sex Assigned At Male [facility] Start: 10-09-2024 Sex Male (finding) [facility] Goals Date Patient Goal Desired Activity /State Functional Status Date Assessment Result Facility 03-19-2023 Functional status Bedrest [facility] Work Phone: Mental Status Date Assessment Result Facility 01-26-2025 Cognitive function Voice/Name [facility] Work Phone: 10-09-2024 Cognitive function Level Of Cons ciousness Awake;Alert;Appropriate;Follow s [facility] Work Phone: 03-19-2023 Cognitive function Voice/Name [facility] Work Phone: 03-19-2023 Cognitive function Voice/Name [facility] Work Phone: 03-18-2023 Cognitive function Level Of Cons ciousness Awake;Alert;Appropriate;Follow s [facility] Work Phone: 02-26-2022 Cognitive function Voice/Name [facility] Work Phone: Clinical Notes 02-05-2022 to 02-22-2025 Note Date & Type Note Facility 02-22-2025 Evaluation note Diagnosis Onset Date Resolution Chest pain acute February 22, 2025 9:24am History of PTCA March 20, 2023 acute February 22, 2025 9:24am Hypersomnolence acute February 222024 9:24am Obesity acute February 22, 2025 9:24am History of coronary artery stent placement August 21, 2013 resolved February 22, 2025 9:24am [facility] Work Phone: 1(353) 503-767407-23-2025 Discharge summary [facility] Medical Records Department [address] [place] [address] Emergency Department Summary 01/26/25 MR#: [id number] Acct: [id number] Name: LON HAND Jr. Rep #:[id number] : 1985 39 From: Bakari Gonzalez DO PCP: Care Physician,No Primary Status :REG ER Location: ED HPI History of Present Illness Chief Complaint: Chest Pain Informant: patient and spouse/S.O. Narrative Narrative: Patient is a 39-year-old male with past medical history of coronary artery disease status post 2 stents placed in 2013. He last had a cath in 2017 which showed patent stents. Patient reports that on Friday he had a bout of midsternal to left-sided chest discomfort described as more of a sense of p ressure and with this he had bouts of nausea and vomiting. He states those symptoms resolved completely and he continued with his normal medication and daily routine. However beginning late Friday evening he developed similar symptoms with another bout of nausea and vomiting. He states he took a home nitro with symptom improvement however the pain never completely resolved. It has persisted intothe morning and with concern this could be a repeat cardiac event he presents for evaluation. [facility] Medical History Acute alcoholism Wears glasses Depression Back pain History of GI bleed Gastric reflux Smoker Old anterior myocardial infarction 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 pectoris Nicotine dependence Essential [...] / Time No Known Allergies Allergy Verified 01/26/25 04:51 Family History Mother Diabetes Heart disease Uncle [...] none ROS ROS ED Constitutional Constitutional ED: Reports sweats; Denies chills or fever(s) Eyes Eyes: Denies blurry vision or change in vision ENT ENT ED: Denies sore throat Cardiovascular Cardiovascular: Reports chest pain; Denies palpitations or racing heartbeat Respiratory/Chest Respiratory/Chest: Denies cough or dyspnea Gastrointestinal Gastrointestinal: Reports nausea and vomiting; Denies abdominal pain or diarrhea Musculoskeletal Musculoskeletal: Denies back pain Integumentary Denies rash Neurologic Neurologic: Denies headache(s) Hematologic/Lymphatic Hematologic/Lymphatic: Denies easy bleeding or easy bruising EXAM Physical Exam Const Vital Signs: 01/26/25 04:46 01/26/25 04:50 01/26/25 05:46 Temperature 98.3 F Temperature Source Oral Pulse Rate 109 H 83 Respiratory Rate 19 H 18 Respiratory Effort Non-Labored Blood Pressure 144/87 H 116/65 Blood Pressure Mean 106 82 Pulse Ox 98 98 Oxygen Delivery Method Room Air Room Air 01/26/25 06:00 01/26/25 07:00 Temperature Temperature Source Pulse Rate 85 78 Respiratory Rate 18 16 Respiratory Effort Blood Pressure 113/52 L Blood Pressure Mean 72 Pulse Ox 98 98 Oxygen Delivery Method Room Air Room Air Positive well nourished, well developed and obese General Appearance ED: well developed; Negative for pallor Nutritional Appearance: obese HEENT HEENT Narrative: Normocephalic atraumatic Eyes PERRL and EOMs intact bilaterally General Eye ED: Negative for scleral icterus Neck supple and no JVD Chest Wall Chest Narrative: There is reproducible chest wall pain with palpation along the left anterior chest costal regions 4-6 the patient states is similar to the pain he has been experiencing. There is no bony deformity orsubcutaneous emphysema. No overlying soft tissue changes to suggest trauma or infection Resp normal respiratory effort and clear to auscultation bilaterally Resp Narrative: No nasal flaring retractions tachypnea or accessory muscle use Cardio regular rhythm Rate: tachycardic and other Other Details: Slightly tachycardic rate with regular rhythm Radial and carotid pulses are equal and symmetric GI normal to inspection, nondistended, normoactive bowel sounds, non-tender, non- distended and no masses Auscultation: normoactive bowel sounds Palpation: soft Extremity normal to inspection Extremity Narrative: Negative Homans' sign bilaterally Neuro oriented x3, CN's II-XII intact bilaterally and no sensory deficits noted Sensorium / Orientation: alert Motor Exam: strength 5/5 throughout Psych mental status grossly normal Skin no rashes or lesions noted General Skin Exam: Negative for jaundice or pallor MDM MDM MDM Narrative Medical decision making narrative: Patient arrived to the ER with complaint of left-sided chest discomfort with known history of CAD. Symptoms are concerning for potential acute coronary syndrome. However in order to rule out a abnormal cardiac rhythm or chest pathology such as pneumonia or pneumothorax or potential PE or dissectiona chest x-ray with basic blood work and a D-dimer were obtained. 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 After receiving aspirin and Toradol his heart rate and blood pressure improved to a normalrange. The D-dimer was negative going against PE or dissection. The initial troponin was normal going against acute coronary syndrome. With his known history of CAD andhis symptoms of chest discomfort with bouts of nausea and vomiting following there is concern that he is having coronary vessel spasm/Prinzmetal's angina. However as his initial and delta troponin are normal and he has had resolution of symptoms I do not feel that he warrants immediate evaluation by cardiology orheart catheterization. I believe he can continue his normal medication and follow-up as an outpatient to discuss further testing such as echo stress test or heart cath if needed. However at this time he has had resolution of his chest discomfort his vital signs have stabilized and he has had no elevation to his troponin value. Therefore patient is otherwise safe for discharge and can follow-up as an outpatient as directed History & Record Review Discussion w/independent historian: Patient and Significant other Lab Data Attestation: I reviewed the patient's lab results. Labs: Laboratory Results - last 24 hr 01/26/25 01/26/25 04:52 06:59 WBC 13.5 H RBC 4.67 Hgb 13.8 Hct 42.8 MCV 91.6 MCH 29.6 MCHC 32.2 RDW Std Deviation 46.9 H RDW Coeff of Melissa 13.9 Plt Count 310 MPV 10.6 Immature Gran % (Auto) 0.500 Neut % (Auto) 62.4 Lymph % (Auto) 25.9 [place] % (Auto) 7.4 Eos % (Auto) 3.3 Baso % (Auto) 0.5 Absolute Neuts (auto) 8.4 H Absolute Lymphs (auto) 3.49 Nucleated RBC % 0 D-Dimer Quant (PE/DVT) < 0.27 L Sodium 134 Potassium 4.4 Chloride 100 Carbon Dioxide 19.9 L Anion Gap 14 BUN 16 Creatinine 0.92 Estim Creat Clear Calc 137.20 Est GFR (MDRD) Non-Af 107 BUN/Creatinine Ratio 17.0 Glucose 171 H Calcium 9.5 Magnesium 2.1 Troponin T High Sens < 6 Troponin T Hi Sens 2 Hr < 6 Radiography Diagnostic Testing: Clinical Impression(s) from Imaging Studies Chest X-Ray 01/26/25 05:20 IMPRESSION: No acute chest findings. Reading Location: [facility] 2 view chest x-ray is interpreted by the emergency medicine physician reveals noacute infiltrate pneumothorax pleural effusion or widening of the mediastinum Discharge Plan Triage Chief Complaint: Chest Pain ED Provider: Bakari Gonzalez Dx/Rx/DC Orders Clinical Impression: Nonspecific chest pain, CAD (coronary artery disease), Hypertension, Hyperlipidemia Instructions: ED Chest Pain, Uncertain Cause Prescriptions: No Action aspirin 81 MG tablet,chewable [...] Primary Care Provider: Care Physician,No Primary Referrals: Kolton Glasgow MD [Med Staff - Active Staff] - Care Physician,No Primary [Primary Care Provider] - Activity Restrictions/Additional Instructions: Your workup today revealed no sign of acute cardiac damage as your troponins were normal and your D-dimer was normal going against a blood clot or dissection. Your x-ray also showed no sign of lung pathology such as pneumonia. Your symptoms could be related to potential vessel spasm. Please continue all of your home medication as directed by your doctor and follow-up with cardiologyto discuss further testing such as stress test echo or heart cath as needed. Return to the ER should you have any further concerns Print Language: Citizen Of [place] Disposition Disposition: Home, Self Care What to do if you have Problems For any increased pain, shortness of breath, bleeding, nausea or vomiting, chestpain, or any unexpected problems, contact your Primary Care Provider. Call [facility] ([phone]) or report tothe closest Emergency Room. Call 911 if necessary. 01/26/25 0738 Cosigner Signature (if applicable): CC: No Primary Care Physician ~ Signed [facility]07-23-2025 Radiology Diagnostic study note [facility] Imaging Services [address] [place], [place] [address] Chest PA and Lateral MR#: [id number] Acct: [id number] Name: LON HAND JrArin Rep #: : 1985 M 39 From: Juana Cummins MD PCP: Care Physician,No Primary Status: PRE ER Study:Chest PA and Lateral Date of Exam: 01/26/25 Exam# [id number] Ordering Dr: Christin Gonzalez DO PROCEDURE: CHEST PA AND LATERAL 01/26/2025 REASON FOR EXAM: CHEST PAIN TECHNIQUE: CHEST PA AND LATERAL COMPARISON: 10/09/2024 FINDINGS: Normal heart size. Status post coronary stenting. Well inflated lungs. No consolidation, effusion, or pneumothorax. RAD/Chest PA and Lateral IMPRESSION: No acute chest findings. Reading Location: [facility] CC: Bakari Gonzalez DO; No Primary Care Physician ~ Cardiac Monitor: Signed [facility]04-05-2025 Discharge summary [facility] Medical Records Department [address] [place] [address] Emergency Department Summary 10/09/24 MR#: [id number] Acct: [id number] Name: LON HAND Jr. Rep #:[id number] : 1985 38 From: Rafita Xavier MD PCP: Care Physician,No Primary Status :REG ER Location: ED HPI History of Present Illness Chief Complaint: Other, Pain/Inj Narrative Narrative: 38-year-old male past medical history of coronary artery disease, smoker, presents with right sidedrib pain that he has had for the last 2 days. He relates history that he has been really sick with upper respiratory infection type symptoms for the last few weeks. 2 days ago, he coughed really hardand felt a pop in his right lateral rib cage. It has been hurting him and he has pain with movementof his rib cage and when he coughs. Today, he coughed again and felt a pop in his abdomen mainly towards the right upper quadrant. He has history of hernia repair, which has returned as well. He became very sweaty andnauseated and he was concerned because that is exactly what [facility]. He presents mainly because of the right sided rib pain,and the pain in his right abdomen. He denies any other exacerbating or alleviating factors. He was concerned because he became diaphoretic after he felt a pop in his abdomen. No vomiting or problems with bowel movements. [facility] Medical History Acute alcoholism Wears glasses Depression Back pain History of GI bleed Gastric reflux Smoker Old anterior myocardial infarction 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 pectoris Nicotine dependence Essential [...] to rib fracture from coughing versus chest wallstrain versus pneumonia versus pneumothorax. Regarding his abdominal pain, he may have more of an abdominal wall strain. I do not palpate an incarcerated hernia and I have low suspicion for acute cholecystitis. I do not feel that he requires CT imaging of the abdomen. Regarding his chest wall pain,x-rays of the right ribs will be obtained as wellas x-rays of the abdomen to rule out any obstruction. He was given 1 Gile for analgesia. EKG was also obtained to help rule out ACS/STEMI but based on the history and physical, this does not support his right sided chest wall pain thatis reproducible. EKG was obtained and interpreted by myself independently as normal sinus rhythm at 89 bpm without ectopy or acute ST changes. No STEMI. On my independent interpretation of the right rib x-rays, thereis no pneumothorax, no rib fracture, no pneumonia. [...] bent over the bed, complaining of right upperquadrant abdominal pain. It is worse with movement and he is having difficulty sitting up. He states he is diaphoretic still secondary to pain. At this point in time, given his continued pain, I willobtain laboratory work and a CT as well to look for any acute pathology. He will be given morphine although he had already received a Gile. I reviewed his laboratory work and he has slight leukocytosis of 11.6 but when compared to prior labs, this seems chronic for him, hemoglobin normal at 14.9 with hematocrit 44.5, platelet count normal at 301. CMP is grossly unremarkablewith normal LFTs. Lipase normal at 20 so I doubt pancreatitis. A [facility] anion gap is elevated 17, there has [...] can be discharged to follow-up with a primarycare provider and take qrya-ljs-wyjmuoz medications as needed for pain. Return instructions to the e mergency department were reviewed. Disposition is discharged home [...] % (Auto) 65.5 Lymph % (Auto) 23.8 [place] % (Auto) 6.6 Eos % (Auto) 3.0 [...] 16:51 IMPRESSION: NO ACUTE FINDINGS Reading Location: [facility] Ribs w/Chest X-Ray 10/09/24 16:51 IMPRESSION: No acute fractures. [facility]domen/Pelvis CT 10/09/24 17:58 IMPRESSION: 4.3 cm fat containing umbilical hernia with subtle stranding. Tiny nonobstructing right renal calculus. No inflammatory changes of the bowel loops are demonstrated. Reading Location: [facility] Discharge Plan Triage Chief Complaint: Other, Pain/Inj [...] Primary Care Provider: Care Physician,No Primary Referrals: Alejandro [Other] Kenneth Jackson MD [Med Staff - Active Staff] - As soon as possible Care Physician,No Primary [Primary Care Provider] - Fly Hunter NP-C [[facility]] - As soon as possible Activity Restrictions/Additional Instructions: Djab-zvf-vwaqqrh medications like Tylenol or ibuprofen for pain. Return with new or worsening symptoms. Follow-up with your primary care provider. Ice to the affected areas for 10 to 15 minutes 2-3 times daily. Print Language: Citizen [place] Disposition Disposition: Home, Self Care What to do if you have Problems For any increased pain, shortness of breath, bleeding, nausea or vomiting, chestpain, or any unexpected problems, contact your Primary Care Provider. Call [facility] ([phone]) or report tothe closest Emergency Room. Call 911 if necessary. 10/09/242005 Cosigner Signature (if applicable): CC: No Primary Care Physician ~ Signed [facility]04-05-2025 Radiology Diagnostic study note [facility] Imaging Services [address] [place] [address] Abdomen/Pelvis W IV Cont ONLY MR#: [id number] Acct: [id number] Name: LON HAND JrArin Rep #: [id number] : 1985 M 38 From: Yeni Church DO PCP: Care Physician,No Primary Status: REG ER Study:Abdomen/Pelvis W IV Cont ONLY Date of E xam: 10/09/24 Exam# [id number] Ordering Dr: Rafita Xavier MD PROCEDURE: ABDOMEN/PELVIS [...] calculus. No evidence of hydronephrosis. Small right renalcysts. No follow-up is recommended. Left kidney is [...] the bowel loops are demonstrated. Reading Location: [facility] CC: Dr. Rafita Xavier MD; No Primary Care Physician ~ Cardiac Monitor: Signed [facility]04-05-2025 Radiology Diagnostic study note [facility] Imaging Services [address] [place] [address] Abd Decub and/or Erect(Portabl MR#: [id number] Acct: [id number] Name: LON HAND RAEANN Peralta Rep #: : 1985 M 38 From: Yeni Church DO PCP: Care Physician,No Primary Status: REG ER Study:Abd Decub and/or Erect(Portabl Date of Exam: 10/09/24 Exam# [id number] Ordering Dr: Rafita Xavier MD PROCEDURE: ABD [...] Xavier MD; No Primary Care Physician ~ Cardiac Monitor: Signed [facility]04-05-2025 Radiology Diagnostic study note [facility] Imaging Services [address] [place] [address] Ribs Uni Min 3V w/PA Chest MR#: [id number] Acct: [id number] Name: LON HAND Jr. Rep #: [id number] : 1985 M 38 From: Yeni Church DO PCP: Care Physician,No Primary Status: REG ER Study:Ribs Uni Min 3V w/PA Chest Date of Exam : 10/09/24 Exam# [id number] Ordering Dr: Rafita Xavier MD PROCEDURE: RIBS [...] Xavier MD; No Primary Care Physician ~ Cardiac Monitor: Signed [facility]04-05-2025 Discharge summary Author Rafita Xavier [facility] Note Date/Time October 09, 2024 8:06 pm [facility] Medical Records Department [address] [place] [address] Emergency Department Summary 10/09/24 MR#: [id number] Acct: [id number] Name: LON HAND Jr. Rep #:[id number] : 1985 38 From: Rafita Xavier MD [...] is exactly what happened when he [facility] few [facility]. He presents mainly because of the right sided rib pain,and the pain in his right abdomen. He denies any other exacerbating or alleviating factors. He was concerned because he became diaphoretic after he felt a pop in his abdomen. No vomiting or problems with bowel movements. [facility] Medical History Acute alcoholism Wears glasses Depression Back pain History of GI bleed Gastric reflux Smoker Old anterior myocardial infarction 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 pectoris Nicotine dependence Essential [...] the abdomen. Regarding his chest wall pain, x- rays of the right ribs will be obtained as wellas x-rays of the abdomen to rule out any obstruction. He was given 1 Gile for analgesia. EKG was also obtained to [...] morphine although he had already received a Gile. I reviewed his laboratory work and he [...] with a primary care provider and take klnb-qvb-xlauhzo medications as needed for pain. Return instructions [...] % (Auto) 65.5 Lymph % (Auto) 23.8 [place] % (Auto) 6.6 Eos % (Auto) 3.0 [...] 16:51 IMPRESSION: NO ACUTE FINDINGS Reading Location: [facility] Ribs w/Chest X-Ray 10/09/24 16:51 IMPRESSION: No acute fractures. Reading [facility]domen/Pelvis CT 10/09/24 17:58 IMPRESSION: 4.3 cm fat containing umbilical hernia with subtle stranding. Tiny nonobstructing right renal calculus. No inflammatory changes of the bowel loops are demonstrated. Reading Location: [facility] Discharge Plan Triage Chief Complaint: Other, Pain/Inj [...] Primary Care Provider: Care Physician,No Primary Referrals: Alejandro [Other] Kenneth Jackson MD [Med Staff - Active Staff] - As soon as possible Care Physician,No Primary [Primary Care Provider] - Fly Hunter NP-C [[facility]] - As soon as possible Activity Restrictions/Additional Instructions: Tgdq-mad-fpvvudl medications like Tylenol or ibuprofen for pain. Return with new or worsening symptoms. Follow-up with your primary care provider. Ice to the affected areas for 10 to 15 minutes 2-3 times daily. Print Language: Citizen Of [place] Disposition Disposition: Home, Self Care What to do if you have Problems For any increased pain, shortness of breath, bleeding, nausea or vomiting, chestpain, or any unexpected problems, contact your Primary Care Provider. Call [facility] ([phone]) or report to the closest Emergency Room. Call 911 if necessary. 10/09/242005 <Electronically signed by Rafita Xavier MD> Cosigner Signature (if applicable): CC: No Primary Care Physician ~ Signed [facility] Work Phone: 1(915) 147-451904-05-2025 Hospital Discharge instructions Additional Instructions Xfxl-qdq-ucrmeri medications like Tylenol or ibuprofen for pain. Return with new or worsening symptoms. Follow-up with your primary care provider. Ice to the affected areas for 10 to 15 minutes 2-3 times daily.[facility] Work Phone: 1(553) 846-105709-14-2023 Evaluation note* Diagnosis Onset Date Resolution Status Non-ST elevation VA (NSTEMI) resolved Chest pain acute History of PTCA March 20, 2023 acut e Hypersomnolence acute Obesity acute History of coronary artery stent placement August 212013 resolved [facility] Work Phone: 1(727) 599-549309-14-2023 Evaluation note* Diagnosis Onset Date Resolution Status Admit Date Chest pain acute February 22, 2 025 9:24am History of PTCA March 20, 2023 acute February 22, 2025 9:24am Hypersomnolence acute February 222024 9:24am Obesity acute February 22, 2 025 9:24am History of coronary artery stent placement August 21, 2013 resolved February 22, 2025 9:24am [facility] Work Phone: 1(653) 894-329009-13-2023 Consult note Author Kolton Glasgow [facility] March 19, 2023 10:25am Note Date/Time March 19, 2023 7:08am [facility] Medical Records Department [address] [place] [address] Consultation - Cardiology 03/19/23 0703 MR#: [id number] Acct: [id number] Name: LON HAND . Rep #:[id number] : 1985 37 From: Kolton Glasgow MD PCP: PEDRO Kimball Status:ADM [place] Location: [place] [address] Assessment & Plan Assessment/Plan (1) Non-ST elevation VA (NSTEMI): PLAN: He presents with a non-ST [...] above. 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 He had no seen the business proposal rep in a few years and had ran [...] his blood pressure is under good control. [facility] Medical History 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 pectoris Back pain Borderline [...] % (Auto) 59.1, Lymph % (Auto) 27.5, [place] % (Auto) 8.2, Eos % (Auto) 4.0, [...] % (Auto) 59.1, Lymph % (Auto) 27.5, [place] % (Auto) 8.2, Eos % (Auto) 4.0, [...] Katelynn Roca MD at 23:02 EDT , 03/19/23 1025 <Electronically signed by Kolton Glasgow MD> Cosigner Signature (if applicable): CC: PEDRO Jackson; Dr. Kolton Glasgow MD; Dr. Cipriano Seymour MD~ Signed [facility] Work Phone: 1(210) 116-535309-13-2023 History and physical note Author Cipriano Seymour [facility] March 19, 2023 2:16am Note Date/Time March 19, 2023 12:12am [facility] Medical Records Department [address] [place] [address] H&P Exam - Hospitalist 03/19/23 0011 MR#: [id number] Acct: [id number] Name: LON HAND Jr. Rep #:[id number] : 1985 37 From: Cipriano Seymour MD PCP: PEDRO Kimabll Status:ADM IN Location: [facility] [id number] HPI - General General Date of Admission: [...] of nitroglycerin and metoprolol IV was given. [facility] Medical History 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 pectoris Back pain Borderline [...] % (Auto) 59.1, Lymph % (Auto) 27.5, [place] % (Auto) 8.2, Eos % (Auto) 4.0, [...] 23:02 EDT Reading Location ID and State: [facility] / [place] , Service support , Assessment & Plan Assessment/Plan (1) Non-ST elevation VA (NSTEMI): (2) Acute alcoholism: (3) Essential (primary) [...] documentation, 70minutes. Charges/Coding Visit Charges Inpatient E&M: 90591 Init Hosp L3 03/19/23 0216 <Electronically signed by Cirpiano Seymour MD> Cosigner Signature (if applicable): CC: PEDRO Jackson; Dr. Cipriano Seymour MD~ Signed [facility] Work Phone: 1(165) 871-981509-13-2023 Discharge summary Author Nirmala Arm[facility] March 19, 2023 1:56am Note Date/Time March 18, 2023 10:36pm [facility] Medical Records Department [address] [place] [address] Emergency Department Summary 03/18/23 MR#: [id number] Acct: [id number] Name: LON HAND Jr. Rep #:[id number] : 1985 37 From: Nirmala Armas MD PCP: PEDRO Kimball Status:ADM IN Location: [address] History of Present Illness Chief Complaint: Chest Pain Informant: patient Onset/Context/Timing Onset: Yesterday Narrative Narrative: Patient presents secondary to chest pain. He had a cardiac arrest with VA and 2stents placed in 2013. He is [...] to nitro at home tonight without improvement. [facility] Medical History 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 pectoris Back pain Borderline [...] Medical decision making narrative: Patient placed on registrar [employer] or [employer]. EKG obtained to evaluate for cardiac arrhythmia/ischemia. [...] % (Auto) 59.1 Lymph % (Auto) 27.5 [place] % (Auto) 8.2 Eos % (Auto) 4.0 [...] Armas Dx/Rx/DC Orders Clinical Impression: Non-ST elevation VA (NSTEMI) Prescriptions: No Action aspirin 81 MG [...] Thomas Jackson NP Referrals: Thomas Jackson NP, PRACTICE BUSINESS ASST-C [Primary Care Provider] - Disposition Disposition: Acute Care Hospital [facility] What to do if you have Problems For any increased pain, shortness of breath, bleeding, nausea or vomiting, chestpain, or any unexpected problems, contact your Primary Care Provider. Call [facility] ([phone]) or report to the closest Emergency Room. Call 911 if necessary. 03/19/23 0156 <Electronically signed by Nirmala Armas MD> Cosigner Signature (if applicable): CC: PEDRO Jackson ~ Signed [facility] Work Phone: 1(228) 925-397011-23-2022 Miscellaneous Notes* Telephone Encounter - Lizet Scales RN - 05/29/2022 8:05 AM EST Received a fax from [facility], requesting additional medical records for the C9 that was sent asking for an additional allowance on [employer]n claim. Faxed the following: original FROI completed by [facility], emergency room visit, CT scan, Dr. Bolivar's initial consultation, operative report and post-op visit with FLORENCIA Burgos. Fax confirmation sheet received. Lizet Scales RN documented in this encounterBucyrus [facility] Hospital11-21-2022 Miscellaneous Notes* Telephone Encounter - Amira Glass RN - 05/27/2022 10:23 AM EST C9, op report, & CT scan faxed to [facility] asking for additional allowance on Surgery done by Dr. Bolivar at [facility].Amira Glass RN * Telephone Encounter - Amira Glass RN - 05/23/2022 4:20 PM EST Fax received from [facility] asking for the C-9 be updated. [facility] claim was denied with currentdiagnosis. Trying to make contact with someone who can help me with this.Amira Glass RN documented in this encounterBucyrus Community Hospital09-28-2022 Miscellaneous Notes* Telephone Encounter - Lizet Scales RN - 04/03/2022 4:22 PM EDT [employer] signed and faxed to Alva Velázquez at [place] at [phone]. Fax confirmation sheet received. Lizet Scales RN * Telephone Encounter - Lizet Scales RN - 04/02/2022 11:20 AM EDT [employer] printed, completed and put in Dr. Bolivar's mailbox for a signature. Lizet Scales RN * Telephone Encounter - Susanna Fontaine RN - 04/02/2022 10:35 AM EDT Received phone call from Mai with [place]. Mai requesting [employer] 14 to cover 02/05 - 02/26. She states patient was off work during this time and the only [employer] 14 received was for 02/26 - 03/24. Mai can be reached at [phone]. Fax number is [phone]. documented in this encounterBucyrus Community Hospital09-26-2022 Miscellaneous Notes* Telephone Encounter - Lizet Scales RN - 04/01/2022 10:59 AM EDT Received fax from Alva Velázquez from [facility], requesting that an area on the previously filedMedco-14 be completed and returned to them. Faxed today, fax confirmation sheet received. Lizet Scales RN documented in this encounterBucyrus Community Hospital09-21-2022 Miscellaneous Notes* Telephone Encounter - Amanda Clifford - 03/27/2022 4:01 PM EDT [employer] 14 faxed to Claudio Kwan at [place]. Confirmation received. * Telephone Encounter - Amanda Clifford - 03/25/2022 9:39 AM EDT [employer] 14 is workers compensation paperwork. I will have sign paperwork and fax it to [place]. * Telephone Encounter - Bess Dominguez Ma - 03/25/2022 9:13 AM EDT Received a call from Alejandra from [place]. She did receive office notes for patient, but she also needs a [employer] 14 for this patient. documented in this encounterBucyrus Community Hospital09-21-2022 NoteHNO ID: [id number] Author: Shira Gasca APRN.[facility] Service: ? Author Type: Nurse Practitioner Type: [...] Diagnosis Date CAD (coronary artery disease) S/p VA. Dr. Glasgow Childhood asthma Tobacco use disorder [...] Patient agreeable to treatment plan. Shira Gasca APRN.[facility]09-13-2022 NoteHNO ID: [id number] Author: Blank Finn PA-C Service: ? Author Type: Physician Rn Telephonic Type: Progress Notes Filed: 03/25/2022 12:39 AM Note Text: FOLLOW UP VISIT - HERNIA NAME: Lon Welsh [facility] NO.: [id number] DATE OF SERVICE: 03/19/2022 : 1985 REFERRING PHYSICIAN: No primary care provider on file. Lon is a patient I am following for an umbilical hernia. Dr. Bolivar performed a umbilical hernia repair on 02/26/[facility] at [facility]. The patient currently notes no major complaints. his appetite has been good. He denies fever, chills or abdominal pain. he does note some mild incisional discomfort. he notes no bulges at the operative site VITALS: Blood pressure 131/85, pulse 108, temperature 36.5 ?C (97.7 ?F), height 165.1 cm (5' 5), weight 131.5 kg (290 lb). General: patient [...] above and agreed with the plan. Enrique BurgosTri[facility]09-13-2022 Instructions* Patient Instructions* Blank Finn PA-C - 03/19/2022 2:50 PM EDT The following instructions are important for you related to your office visit today with the [facility] General Surgeons. INSTRUCTIONS FOLLOWING YOUR RECENT [...] you should contact our office immediately @ [phone] and ask to be transferred to the General Surgery department. documented in this encounterBucyrus Community Hospital09-13-2022 History of Present illness Narrative* Blank Finn PA-C - 03/19/2022 2:29 PM EDT FOLLOW UP VISIT - HERNIA NAME: Lon Hand CLINIC NO.: [id number] DATE OF SERVICE: 03/19/2022 : 1985 REFERRING PHYSICIAN: No primary care provider on file. Lon is a patient I am following for an umbilical hernia. Dr. Bolivar performed a umbilical hernia repair on 02/26/22 at [facility]. The patient currently notes no major complaints. his appetite has been good. He denies fever, chills or abdominal pain. he does note some mild incisional discomfort. he notes no bulges at the operative site VITALS: Blood pressure 131/85, pulse 108, temperature 36.5 C (97.7 F), height 165.1 cm (5' 5), weight 131.5 kg (290 lb). General: patient [...] plan. Blank Finn PA-C documented in this encounterBucyrus Community Hospital08-30-2022 Miscellaneous Notes* Telephone Encounter - Amanda Clifford - 03/05/2022 10:30 AM EDT Surgical Consult, Op Note faxed to [facility]. Confirmatio received. * Telephone Encounter - Elizabeth Pereira LPN - 02/27/2022 11:32 AM EDT Yolanda called from [facility] for work injury. Ask for patient information to be faxed, C9 form, Med[employer] 14 form, surgical consult, op report. Genesis Guerrero to fax request over for need information. Yolanda # [phone] documented in this encounterBucyrus Community Hospital08-03-2022 Miscellaneous Notes* Telephone Encounter - Maura Bolivar MD - 02/06/2022 12:50 PM EDT Patient called to apologize about his conversation with me yesterday. I have told him that we will proceed with hernia repair if he wishes and will schedule at [facility] I have once again reiterated the likelihood of recurrence and he understands. He wishes to proceed at first earliest date available. I will have the regulatory administrator contact patient for this. Patient acknowledges the above. documented in this encounterBucyrus Community Hospital08-03-2022 Miscellaneous Notes* Telephone Encounter - Elizabeth Pereira LPN - 02/06/2022 10:01 AM EDT Patient state had received a phone call from Dr Bolivar and was returning call. Patient ask Dr Bolivar [facility] back at earliest convenience [phone] documented in this encounterBucyrus Community Hospital08-02-2022 NoteHNO ID: [id number] Author: Maura Bolivar MD Service: ? Author Type: Physician Type: Progress Notes Filed: 02/06/2022 12:47 PM Note Text: HISTORY AND PHYSICAL Lon Welsh Yazan 1985 REFERRING PHYSICIAN: MD Samuel CHIEF COMPLAINT: Consult (ER WC, hernia) HPI: The patient is a 36 year old male who presents with symptomatic umbilical hernia. He notes this while lifting a heavy object at work, the incident occurred on February 03, according to patient. He felt a pop in the area of his mid abdomen and then he had continued aching pain sometimes sharp in the periumbilical area, and inferiorly. He denies gastrointestinal or urinary obstructive symptoms He presented to [facility] ED on February 04, 2022. CT scan was obtained which revealed small fat-containing umbilical hernia. The patient does have known CAD s/p coronary artery stent placements and is on Eliquis and aspirin. . PAST MEDICAL HISTORY Diagnosis Date - CAD (coronary artery disease) S/p VA. Dr. Glasgow - Childhood asthma - Tobacco [...] and reviewed by me Nursing Notes: Elizabeth Pereira LPN 02/05/2022 8:59 AM Signed REVIEW OF SYSTEMS: [...] EXAMINATION: General: The patie (more content not included)...[facility] 02-05-2022 History of Present illness Narrative* Maura Bolivar MD - 02/05/2022 4:30 PM EDT HISTORY AND PHYSICAL Lon Hand 1985 REFERRING PHYSICIAN: MD Samuel CHIEF COMPLAINT: Consult (ER [facility], hernia) HPI: The patient is a 36 year old male who presents with symptomatic umbilical hernia. He notes this while lifting a heavy object at work, the incident occurred on February 03, according to patient. He felt a pop in the area of his mid abdomen and then he had continued aching pain sometimes sharp in the periumbilical area, and inferiorly. He denies gastrointestinal or urinary obstructive symptoms He presented to [facility] ED on February 04, 2022. CT scan was obtained which revealed small fat-containing umbilical hernia. The patient does have known CAD s/p coronary artery stent placements and is on Eliquis and aspirin.. PAST MEDICAL HISTORY Diagnosis Date CAD (coronary artery disease) S/p VA. Dr. Glasgow Childhood asthma Tobacco use disorder [...] C (96.9 F), height 167.6 cm (5' 6), weight 133.4 kg (294 lb), SpO2 95 [...] present with him. I have filled out [facility] paperwork for the patient. I have offered [...] diagnosis) Initially I had patient scheduled at [facility], but surgeon did not want to proceed with surgery. Therefore I will schedule at [facility]. He wanted to know why his surgery could not be done at [facility]. I explained to the patient that the [...] I would proceed with his surgery at [facility]. Yola schedule that tomorrow since it was late in the day and there was no administrative support toschedule this now. Patient continuously stated that he was being discriminated against for smoking cigarettes and that he was going to contact a computer security manager. He said that everyone <all the doctors>blames everything on smoking and he stated that for example - if my toe hurts then it is due to smoking cigarettes. I continuously stated that I would do the surgery for the patient at [facility]. I told the patient that some [...] But patient states that he is being discriminated against, because he smokes cigarettes and that is not right and hewill contact a computer security manager in the morning. I continuously stressed that a surgeon is concerned about a patient's healing status after surgery and therefore cigarette smoking precludes surgery in an elective situation. The patient stated. if a black man smokes cigarettes.... He states that <if> Black lives matter...,yet I am discriminated against for smoking cigarettes... I spent 20 minutes in the above phone conversation - not stating the surgeon's name, re-iterating that I would do the surgery at a closer location hospital and perhaps even a sooner time period and listened calmly to thepatient shouting that this is discrimination against his smoking cigarettes and that he was going to call his computer security manager. I spent a total of 52 minutes on the date of the service which included preparing to see the patient with review of any pertinent laboratory studies/radiological imaging/medical records from other medical facilities such as [facility], [id number] patient care, obtaining oral medical history from the patient in this encounter, performing a medically appropriate examination, counseling and educating the patient/family/caregiver, and ordering and/or scheduling of medications/tests/procedures, and completing appropriate medical documentation. Maura Bolivar MD documented in this encounterBucyrus Community Hospital08-02-2022 Nurse Note* Elizabeth Pereira, [employer] - 02/05/2022 8:56 AM EDT REVIEW OF [...] none Elizabeth Pereira LPN documented in this encounterBucyrus Community HospitalDiskindred hospital [facility] summary Author Dr. D[facility] August 31, 2022 3:39am Note Date/Time August 31, 2022 2:07am [facility] Medical Records Department [address] [place] [address] Emergency Department Summary 08/31/22 MR#: [id number] Acct: [id number] Name: LON HAND RAEANN Peralta Rep #:[id number] : 1985 36 From: Delmar Ding MD PCP: PEDRO Kimball Status:ADM [id number] History of Present Illness Chief Complaint: Substance Abuse Detail of Chief Complaint: Requesting detox for alcohol abuse. Informant: patient Onset/Context/Timing Onset: Month(s) Context: Gradual Onset Timing: Continuous Current Severity: Mild Maximum Severity: Mild Associated Symptoms Associated Symptoms: Positive for vomiting* and diarrhea* Narrative Narrative: 36-year-old male history of prior VA with 2 cardiac stents. History of alcohol abuse. States he drinks 1/5 of whiskey every day drank today. He has chronic nausea vomiting and diarrhea but he believes from his alcoholism. Denies ever going through detox. Denies drug use. Prior similar symptoms: Yes Recent Illness/Hospitalization: No PFSH PFSH Medical History 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 pectoris Back pain Borderline diabetes mellitus Depression Essential (primary) hypertension Gastric reflux High cholesterol History of GI bleed Hyperlipidemia Nicotine dependence Obesity Obstructive sleep apnea Old anterior myocardial infarction Palpitations Smoker Ventricular fibrillation Wears glasses Home Medications aspirin 81 mg chewable tablet 81 mg PO DAILY 09/18/13 [History Last Taken 04/13/18] hydrocortisone acetate 25 mg rectal suppository (Anusol-HC) 25 mg OH BID PRN hemorrhoids #100 ea 08/12/19 [Rx [...] % (Auto) 55.0 Lymph % (Auto) 34.5 [place] % (Auto) 5.7 Eos % (Auto) 3.3 [...] (Auto) Neut % (Auto) Lymph % (Auto) [place] % (Auto) Eos % (Auto) Baso % [...] rate of 122. No acute signs of VA or ischemia. Discharge Plan Triage Chief Complaint: [...] problems, contact your Primary Care Provider. Call [facility] ([phone]) or report to the closest Emergency Room. Call 911 if necessary. 08/31/22 0339 <Electronically signed by Delmar Ding MD> Cosigner Signature (if applicable): CC: PRACTICE BUSINESS ASSTMarilu Jackson ~ Signed [facility] Work Phone: Discharge summary Author Oliverio Naqvi [facility] March 19, 2023 5:26pm Note Date/Time March 19, 2023 5:24pm [facility] Medical Records Department [address] [place] [address] Instructions for Home/Discharge Instructions 03/19/23 1723 MR#: [id number] Acct: [id number] Name: LON HAND Jr. Rep #:[id number] : 1985 37 From: Oliverio cleaning MD PCP: PEDRO Kimball Status:ADM IN Discharge Instructions Diet Discharge Diet: [...] - Within 3 Months Thomas Jackson NP, PRACTICE BUSINESS ASST-C [Primary Care Provider] - Within 1 Week Disposition Disposition (needs filled in before D/C Order can be placed): Home, Self Care 03/19/231725<Electronically signed by Oliverio Naqvi MD>Oliverio Naqvi MD CC: PEDRO Jackson; Dr. Kolton Glasgow MD; Dr. Cipriano Seymour MD ~ Signed [facility] Work Phone: Discharge summary Author Oliverio Naqvi [facility] March 19, 2023 5:33pm Note Date/Time March 19, 2023 5:33pm [facility] Medical Records Department [address] [place] [address] Discharge Summary 03/19/231725 MR#: [id number] Acct: [id number] Name: LON HAND JrArin Rep #:[id number] : 1985 37 From: Oliverio cleaning MD PCP: PEDRO Kimball Status:ADM IN Location: [place] [address] Providers Date of Admission: 03/18/23 Primary Care Physician: PEDRO Kimball Consultations 03/19/23 00:49 Consult: Cardiology Routine Consulting Provider: Kolton Glasgow Reason for Consult: Chest Pain EMERGENT Consult: No MD Notified: Yes Date Notified: 03/19/23 Time Notified: 00:06 Method of Notification: ED Physician Initiated Reason For Visit: NSTEMI Diagnosis Discharge Diagnosis (1) Non-ST elevation VA (NSTEMI): Status: Acute Code(s): I21.4 - Non-ST elevation (NSTEMI) myocardial infarction (2) 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 pectoris: Status: Chronic Code(s): I25.119 - Atherosclerotic heart disease of [place] coronary artery with unspecified angina pectoris Qualifiers: Coronary Disease-Associated Artery/Lesion type: [place] artery QualifiedCode(s): I25.119 - Atherosclerotic heart disease of [place] coronary artery with unspecified angina pectoris (3) [...] % (Auto) 59.1, Lymph % (Auto) 27.5, [place] % (Auto) 8.2, Eos % (Auto) 4.0, [...] Katelynn Roca MD at 23:02 EDT , D/C Instructions Discharge Diet: Low fat [...] - Within 3 Months Thomas Jackson NP, STEPHANIE-C [Primary Care Provider] - Within 1 Week Disposition Disposition (needs filled in before D/C Order can be placed): Home, Self Care Charges/Coding Visit Charges Inpatient E&M: 14790 Disch Hosp >30min 03/19/23 6815 <Electronically signed by Oliverio Naqvi MD> Cosigner Signature (if applicable): CC: PEDRO Jackson; Dr. Oliverio Naqvi MD~ Signed [facility] Work Phone: Discharge summary Author Bakari Gonzalez [facility] Note Date/Time January 26, 2025 7:38 am [facility] Medical Records Department [address] [place] [address] Emergency Department Summary 01/26/25 MR#: [id number] Acct: [id number] Name: LON HAND Jr. Rep #:[id number] : 1985 39 From: Bakari Gonzalez DO PCP: Care Physician,No Primary Status :REG ER Location: ED HPI History of Present Illness Chief Complaint: Chest Pain Informant: patient and spouse/S.O. Narrative Narrative: Patient is a 39-year-old male with past medical history of coronary artery disease status post 2 stents placed in 2013. He last had a cath in 2017 which showed patent stents. Patient reports that on Friday he had a bout of midsternal to left- sided chest discomfort described as more of a sense of pressure and with this he had bouts of nausea and vomiting. He states those symptoms resolved completely and he continued with his normal medication and daily routine. However beginning late Friday evening he developed similar symptoms with another bout of nausea and vomiting. He states he took a home nitro with symptom improvement however the pain never completely resolved. It has persisted into the morning and with concern this could be a repeat cardiac event he presents for evaluation. [facility] Medical History Acute alcoholism Wears glasses Depression Back pain History of GI bleed Gastric reflux Smoker Old anterior myocardial infarction 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 pectoris Nicotine dependence Essential (primary) hypertension Ventricular fibrillation Obstructive sleep apnea Palpitations Obesity Borderline diabetes mellitus Hyperlipidemia Home Medications ?Medication ?Instructions ?Recorded ?Last Taken ?Type aspirin 81 mg chewable tablet 81 mg PO DAILY heart hea lth 09/18/13 04/13/18 History cyclobenzaprine 10 mg tablet 10 mg PO TID PRN Muscle S pasm #20 05/16/24 Unknown Rx TABLETS albuterol sulfate 90 mcg/actuation [...] / Time No Known Allergies Allergy Verified 01/26/25 04:51 Family History Mother Diabetes Heart disease Uncle [...] none ROS ROS ED Constitutional Constitutional ED: Reports sweats; Denies chills or fever(s) Eyes Eyes: Denies blurry vision or change in vision ENT ENT ED: Denies sore throat Cardiovascular Cardiovascular: Reports chest pain; Denies palpitations or racing heartbeat Respiratory/Chest Respiratory/Chest: Denies cough or dyspnea Gastrointestinal Gastrointestinal: Reports nausea and vomiting; Denies abdominal pain or diarrhea Musculoskeletal Musculoskeletal: Denies back pain Integumentary Denies rash Neurologic Neurologic: Denies headache(s) Hematologic/Lymphatic Hematologic/Lymphatic: Denies easy bleeding or easy bruising EXAM Physical Exam Const Vital Signs: 01/26/25 04:46 01/26/25 04:50 01/26/25 05:46 Temperature 98.3 F Temperature Source Oral Pulse Rate 109 H 83 Respiratory Rate 19 H 18 Respiratory Effort Non-Labored Blood Pressure 144/87 H 116/65 Blood Pressure Mean 106 82 Pulse Ox 98 98 Oxygen Delivery Method Room Air Room Air 01/26/25 06:00 01/26/25 07:00 Temperature Temperature Source Pulse Rate 85 78 Respiratory Rate 18 16 Respiratory Effort Blood Pressure 113/52 L Blood Pressure Mean 72 Pulse Ox 98 98 Oxygen Delivery Method Room Air Room Air Positive well nourished, well developed and obese General Appearance ED: well developed; Negative for pallor Nutritional Appearance: obese HEENT HEENT Narrative: Normocephalic atraumatic Eyes PERRL and EOMs intact bilaterally General Eye ED: Negative for scleral icterus Neck supple and no JVD Chest Wall Chest Narrative: There is reproducible chest wall pain with palpation along the left anterior chest costal regions 4-6 the patient states is similar to the pain he has been experiencing. There is no bony deformity or subcutaneous emphysema. No overlying soft tissue changes to suggest trauma or infection Resp normal respiratory effort and clear to auscultation bilaterally Resp Narrative: No nasal flaring retractions tachypnea or accessory muscle use Cardio regular rhythm Rate: tachycardic and other Other Details: Slightly tachycardic rate with regular rhythm Radial and carotid pulses are equal and symmetric GI normal to inspection, nondistended, normoactive bowel sounds, non-tender, non-distended and no masses Auscultation: normoactive bowel sounds Palpation: soft Extremity normal to inspection Extremity Narrative: Negative Homans' sign bilaterally Neuro oriented x3, CN's II-XII intact bilaterally and no sensory deficits noted Sensorium / Orientation: alert Motor Exam: strength 5/5 throughout Psych mental status grossly normal Skin no rashes or lesions noted General Skin Exam: Negative for jaundice or pallor MDM MDM MDM Narrative Medical decision making narrative: Patient arrived to the ER with complaint of left-sided chest discomfort with known history of CAD. Symptoms are concerning for potential acute coronary syndrome. However in order to rule out a abnormal cardiac rhythm or chest pathology such as pneumonia or pneumothorax or potential PE or dissection a chest x-ray with basic blood work and a D-dimer were obtained. 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 After receiving aspirin and Toradol his heart rate and blood pressure improved to a normal range. The D-dimer was negative going against PE or dissection. The initial troponin was normal going against acute coronary syndrome. With his known history of CAD andhis symptoms of chest discomfort with bouts of nausea and vomiting following there is concern that he is having coronary vessel spasm/Prinzmetal's angina. However as his initial and delta troponin are normal and he has had resolution of symptoms I do not feel that he warrants immediate evaluation by cardiology orheart catheterization. I believe he can continue his normal medication and follow-up as an outpatient to discuss further testing such as echo stress test or heart cath if needed. However at this time he has had resolution of his chest discomfort his vital signs have stabilized and he has had no elevation to his troponin value. Therefore patient is otherwise safe for discharge and can follow-up as an outpatient as directed History & Record Review Discussion w/independent historian: Patient and Significant other Lab Data Attestation: I reviewed the patient's lab results. Labs: Laboratory Results - last 24 hr 01/26/25 01/26/25 04:52 06:59 WBC 13.5 H RBC 4.67 Hgb 13.8 Hct 42.8 MCV 91.6 MCH 29.6 MCHC 32.2 RDW Std Deviation 46.9 H RDW Coeff of Melissa 13.9 Plt Count 310 MPV 10.6 Immature Gran % (Auto) 0.500 Neut % (Auto) 62.4 Lymph % (Auto) 25.9 [place] % (Auto) 7.4 Eos % (Auto) 3.3 Baso % (Auto) 0.5 Absolute Neuts (auto) 8.4 H Absolute Lymphs (auto) 3.49 Nucleated RBC % 0 D-Dimer Quant (PE/DVT) < 0.27 L Sodium 134 Potassium 4.4 Chloride 100 Carbon Dioxide 19.9 L Anion Gap 14 BUN 16 Creatinine 0.92 Estim Creat Clear Calc 137.20 Est GFR (MDRD) Non-Af 107 BUN/Creatinine Ratio 17.0 Glucose 171 H Calcium 9.5 Magnesium 2.1 Troponin T High Sens < 6 Troponin T Hi Sens 2 Hr < 6 Radiography Diagnostic Testing: Clinical Impression(s) from Imaging Studies Chest X-Ray 01/26/25 05:20 IMPRESSION: No acute chest findings. Reading Location: [facility]-2 2 view chest x-ray is interpreted by the emergency medicine physician reveals noacute infiltrate pneumothorax pleural effusion or widening of the mediastinum Discharge Plan Triage Chief Complaint: Chest Pain ED Provider: Bakari Gonzalez Dx/Rx/DC Orders Clinical Impression: Nonspecific chest pain, CAD (coronary artery disease), Hypertension, Hyperlipidemia Instructions: ED Chest Pain, Uncertain Cause Prescriptions: No Action aspirin 81 MG tablet,chewable [...] Primary Care Provider: Care Physician,No Primary Referrals: Kolton Glasgow MD [Med Staff - Active Staff] - Care Physician,No Primary [Primary Care Provider] - Activity Restrictions/Additional Instructions: Your workup today revealed no sign of acute cardiac damage as your troponins were normal and your D-dimer was normal going against a blood clot or dissection. Your x-ray also showed no sign of lung pathology such as pneumonia. Your symptoms could be related to potential vessel spasm. Please continue all of your home medication as directed by your doctor and follow-up with cardiologyto discuss further testing such as stress test echo or heart cath as needed. Return to the ER should you have any further concerns Print Language: Citizen Of [place] Disposition Disposition: Home, Self Care What to do if you have Problems For any increased pain, shortness of breath, bleeding, nausea or vomiting, chestpain, or any unexpected problems, contact your Primary Care Provider. Call [facility] ([phone]) or report to the closest Emergency Room. Call 911 if necessary. 01/26/25 1124 <Electronically signed by Bakari Gonzalez DO> Cosigner Signature (if applicable): CC: No Primary Care Physician ~ Signed [facility] Work Phone: Evaluation note* Diagnosis Umbilical hernia without obstruction or gangrene- Primary Umbilical hernia without mention of obstruction or gangrene [facility] Diagnosis Onset Date Resolution Status Gastroenteritis acute [facility] Work Phone: Evaluation note* Diagnosis S/P hernia repair- Primary Other postprocedural status [facility] noteNo assessment information availableWParkwood Hospital Work Phone: Evaluation note* Diagnosis Onset Date Resolution Status Non-ST elevation VA (NSTEMI) acute [facility] Work Phone: Evaluation note* Diagnosis Onset Date Resolution Status Acute alcoholism acute Non-ST elevation VA (NSTEMI) acute 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 pectoris chronic Essential (primary) hypertension chronic Hyperlipidemia chronic Nicotine dependence chronic [facility] Work Phone: History and physical note Author Dr. Rojas [facility] August 31, 2022 3:41am Note Date/Time August 31, 2022 2:29am [facility] Medical Records Department [address] [place] [address] History & Physical Exam 08/31/22 0225 MR#: [id number] Acct: [id number] Name: LON HAND Jr. Rep #:[id number] : 1985 36 From: Reema Rojas MD PCP: PEDRO Kimball Status:ADM IN Location: MS3 [id number] HPI - General General Date of Admission: [...] to ED presentation) who presents to the [facility] on 08/31/22 w/ his mother who [...] tachycardia with no acute evidence of ischemia. [facility] Medical History 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 pectoris Back pain Borderline diabetes mellitus Depression Essential (primary) hypertension Gastric reflux High cholesterol History of GI bleed Hyperlipidemia Nicotine dependence Obesity Obstructive sleep apnea Old anterior myocardial infarction Palpitations Smoker Ventricular fibrillation Wears glasses Home Medications aspirin 81 mg chewable tablet 81 mg PO DAILY 09/18/13 [History Last Taken 04/13/18] hydrocortisone acetate 25 mg rectal suppository (Anusol-HC) 25 mg [place] BID PRN hemorrhoids #100 ea 08/12/19 [Rx [...] to ED presentation) who presents to the [facility] on 08/31/22 ongoing heavy intake EtOH [...] most recent prior stress testing noted in [facility] 04/13/2018 with patent previously placed stent in [...] 75 minutes. Charges/Coding Visit Charges Inpatient E&M: 59496 Init Hosp L3 08/31/22 033 <Electronically signed by Reema Rojas MD> Cosigner Signature (if applicable): CC: PEDRO Jackson; Dr. Reema Rojas MD~ Signed ADDENDUM by Dr. Reema Rojas MD on 08/31/22 at 0341 Addendum Notified by ED staff that patient decided to leave AGAINST MEDICAL ADVICE secondary to his displeasure with rules and regulations of withdrawal/treatment program. 08/31/22 0341<Electronically signed by Reema Rojas MD> Cosigner Signature (if applicable): cc: PEDRO Jackson; Dr. Reema Rojas MD ~* Signed [facility] Work Phone: Hospital Discharge instructions Additional [...] call my office at and ask the stitching machine operator for the general surgery nurses deskWParkwood Hospital Work Phone: Hospital Discharge instructionsAdditional Instructions Your workup today revealed no sign of acute cardiac damage as your troponins were normal and your D-dimer was normal going against a blood clot or dissection. Your x-ray also showed no sign of lung pathology such as pneumonia. Your symptoms could be related to potential vessel spasm. Please continue all of your home medication as directed by your doctor and follow-up with cardiology to discuss further testing such as stress test echo or heart cath as needed. Return to the ER should you have any further concernsWParkwood Hospital Work Phone: Reason for referral (narrative)No reason for referral information availableWParkwood Hospital Work Phone: Chief Complaint and Reason for Visit Chief Complaint DIARREAH/ILL >24 HRS /SYMPTOMS AFTER EATING abdominal pain UMBILICAL HERNIA REPAIR Reason for Visit Gastroenteritis Chief Complaint DETOX ETOH WITHDRAWAL Chief Complaint Amb Documentation NSTEMI Reason for Visit Non-ST elevation VA (NSTEMI) Chief Complaint Amb Documentation NSTEMI NSTEMI NSTEMI Reason for Visit Acute alcoholism Non-ST elevation VA (NSTEMI) 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 pectoris Essential (primary) hypertension Hyperlipidemia Nicotine dependence Chief Complaint Amb Documentation NSTEMI NSTEMI NSTEMI NSTEMI S/P [facility] 03/2023 [facility] Reason for Visit Non-ST elevation VA (NSTEMI) Chest pain History of PTCA Hypersomnolence Obesity History of coronary artery stent placement Chief Complaint Admit Date PAIN October 09, 2024 4:30 pm Chief Complaint Admit Date PAIN October 09, 2024 4:30 pm cp January 26, 2025 4:45 am Chief Complaint Admit Date cp January 26, 2025 4:45 am CHEST PAIN February 22, 2025 9: 24am Reason for Visit Admit Date Chest pain February 22, 2025 9: 24am History of PTCA February 22, 2025 9: 24am Hypersomnolence February 22, 2025 9: 24am Obesity February 22, 2025 9: 24am History of coronary artery stent placeme nt February 22, 2025 9:24am Chief Complaint Admit Date cp January 26, 2025 4:45 am CHEST PAIN February 22, 2025 9: 24am E-ORDER February 22, 2025 10 :40am Family History No Family History Records Found [...] Will No February 19 9:27am Power of Freelance Web Designer No February 19 022 9:27am Advance Directive Response Recorded Date/ Time Advance Directives No April 13, 2018 7:49am Living Will No August 31, 023 1:46am Power of Freelance Web Designer No August 31, 2022 1:46am Advance Directive Response Recorded Date/ Time Advance Directives No April 13, 2018 8:49am Living Will No March 18, 2023 10:28pm Power of Freelance Web Designer No March 10:28pm Advance Directive Response Recorded Date/ Time Advance Directives No April 13, 2018 8:49am Living Will No March 19, 2023 1:04am Power of Freelance Web Designer No March 1:04am Advance Directive Response Recorded Date/ Time Advance Directives No April 13, 2018 7:49am Living Will No March 19, 2023 12:04am Power of Freelance Web Designer No March 12:04am Advance Directive Response Recorded Date/ Time Living Will No October 09, 2024 4:45pm Do you have a Healthcare Power of Freelance Web Designer? No October 09, 2024 4:45pm Advance Directives No April 13, 2018 8:49am Advance Directive Response Recorded Date/ Time Living Will No October 09, 2024 4:45pm Do you have a Healthcare Power of Freelance Web Designer? No October 09, 2024 4:45pm Do you have a Healthcare Power of Freelance Web Designer? No January 26, 2025 4:50am Advance Directives No April 13, 2018 8:49am Advance Directive Response Recorded Date/ Time Do you have a Healthcare Power of Freelance Web Designer? No January 26, 2025 4:50am Advance Directives No April 13, 2018 8:49am Summary Purpose Additional Source Comments Source Comments (unrecognize d section and content) In the event this informatio n is protected by the Federal Confidentiality of Alcohol and Drug Abuse Patient Records regulations: The Federal rules restrict any use of the information to criminally investigate or prosecute any alcohol or drug abuse patient.[facility] the event this information is protected by the Federal Confidentiality of Alcohol and Drug Abuse Patient Records regulations: The Federal rules restrict any use of the information to criminally investigate or prosecute any alcohol or drug abuse patient.[facility] the event this information is protected by the Federal Confidentiality of Alcohol and Drug Abuse Patient Records regulations: The Federal rules restrict any use of the information to criminally investigate or prosecute any alcohol or drug abuse patient.[facility] the event this information is protected by the Federal Confidentiality of Alcohol and Drug Abuse Patient Records regulations: The Federal rules restrict any use of the information to criminally investigate or prosecute any alcohol or drug abuse patient.[facility] the event this information is protected by the Federal Confidentiality of Alcohol and Drug Abuse Patient Records regulations: The Federal rules restrict any use of the information to criminally investigate or prosecute any alcohol or drug abuse patient.[facility] the event this information is protected by the Federal Confidentiality of Alcohol and Drug Abuse Patient Records regulations: The Federal rules restrict any use of the information to criminally investigate or prosecute any alcohol or drug abuse patient.[facility] HospitalIn the event this information is protected by the Federal Confidentiality of Alcohol and Drug Abuse Patient Records regulations: The Federal rules restrict any use of the information to criminally investigate or prosecute any alcohol or drug abuse patient.[facility]In the event this information is protected by the Federal Confidentiality of Alcohol and Drug Abuse Patient Records regulations: The Federal rules restrict any use of the information to criminally investigate or prosecute any alcohol or drug abuse patient.[facility] the event this information is protected by the Federal Confidentiality of Alcohol and Drug Abuse Patient Records regulations: The Federal rules restrict any use of the information to criminally investigate or prosecute any alcohol or drug abuse patient.[facility] HospitalIn the event this information is protected by the Federal Confidentiality of Alcohol and Drug Abuse Patient Records regulations: The Federal rules restrict any use of the information to criminally investigate or prosecute any alcohol or drug abuse patient.[facility] Reason for Visit (unrecogniz ed section and content) Reason Comments Consult ER [facility], hernia Specialty Diagnoses / Procedures Referred By Lei t Referred To Contact General Surgery / GENERAL SURGERY Diagnoses ER H 02/03/22, hernia Procedures REFERRAL TO [facility] NEW DDI PATIENT Self, MD Bolivar, Maura Tejeda MD [address] [place] [address] Referral ID Status Reason Start Date Expiration Date V isits Requested Visits Authorized [id number] Outside PCP 02/05/2022 04/06/2022 1 1 Reason Comments Patient Update Reason Comments Information [facility] 14, C9 Reason Comments Post Op Umbilical Hernia rep air 02/26/2022 Specialty Diagnoses / Procedures Referred By Contac t Referred To Contact General Surgery / GENERAL SURGERY Diagnoses post op hernia viviane - montoya 02/20 Procedures REFERRAL TO [facility] POST OP DDI Self Blank Finn PA-C [address] [place] [address] Referral ID Status Reason Start Date Expiration Date V isits Requested Visits Authorized [id number] Outside PCP 02/27/2022 05/28/2022 1 1 Reason Comments Release Of Medical Records [facility]14 Reason Comments Bwc (Worker's Comp) Reason Comments workers comp denial Reason Comments Requesting Medical Records MCO requestin g additional medical records Care Teams (unrecognized sec tion and content) Brewing Technician Relationship Specialty Start Date End Date Lon Jackson RN PCP - General 03/27/22 Brewing Technician Relationship Specialty Start Date End Date Lon Jackson RN PCP - General 03/27/22 Brewing Technician Relationship Specialty Start Date End Date Lon Jackson RN PCP - General 03/27/22 Brewing Technician Relationship Specialty Start Date End Date Lon Jackson RN PCP - General 03/27/22 Team Status: Active Member Role Status Dates No Primary Care Physician Family Provider Active Thomas Jackson PRACTICE BUSINESS ASST, PRACTICE BUSINESS ASST-C Primary Care Provider Active Team Status: Active Member Role Status Dates Thomas Jackson NP, PRACTICE BUSINESS ASST-C Primary Care Provider Active Dr. Delmar Ding MD Emergency Provider Active Dr. Reema Rojas MD Admit Provider, Attending Provider, Other Provider Active Team Status: Inactive Member Role Status Dates Thomas Jackson NP, PRACTICE BUSINESS ASST-C Primary Care Provider Active Dr. Delmar Ding MD Emergency Provider Active Dr. Reema Rojas MD Attending Provider Active Team Status: Active Member Role Status Dates Thomas Jackson PRACTICE BUSINESS ASST, PRACTICE BUSINESS ASST-C Primary Care Provider Active Gayla Wong RN Attending Provider Active Team Status: Active Member Role Status Dates Thomas Jackson PRACTICE BUSINESS ASST, PRACTICE BUSINESS ASST-C Primary Care Provider Active Dr. Nirmala Armas MD Emergency Provider Active Dr. Cipriano Seymour MD Admit Provider, Attending Pro vider Active Team Status: Active Member Role Status Dates Thomas Jackson PRACTICE BUSINESS ASST, PRACTICE BUSINESS ASST-C Primary Care Provider Active Dr. Nirmala Armas MD Emergency Provider Active Dr. Cipriano Seymour MD Admit Provider, Attending Provider, Other Provider Active Dr. Kolton Glasgow MD Other Provider Active Team Status: Active Member Role Status Dates Thomas Jackson PRACTICE BUSINESS ASST, PRACTICE BUSINESS ASST-C Primary Care Provider Active Dr. Nirmala Armas MD Emergency Provider Active Dr. Cipriano Seymour MD Admit Provider, Other Provide r Active Dr. Kolton Glasgow MD Attending Provider, Other Provide r Active Dr. Oliverio Naqvi MD Other Provider Active Team Status: Inactive Member Role Status Dates Thomas Renetta PRACTICE BUSINESS ASST, PRACTICE BUSINESS ASST-C Primary Care Provider Active Dr. Nirmala Armas MD Emergency Provider Active Dr. Cipriano Seymour MD Admit Provider, Other Provide r Active Dr. Kolton Glasgow MD Other Provider Active Dr. Oliverio Naqvi MD Attending Provider Active Team Status: Active Member Role Status Dates No Primary Care Physician Family Provider Active Reyna Stephens DO Primary Care Provider Active Team Status: Active Member Role Status Dates Thomas Jackson PRACTICE BUSINESS ASST, PRACTICE BUSINESS ASST-C Primary Care Provider Active Dr. Kolton Glasgow MD Attending Provider Active Team Status: Active Member Role Status Dates Thomas Jackson PRACTICE BUSINESS ASST, PRACTICE BUSINESS ASST-C Primary Care Provider Active Dr. Camille Duenas MD Attending Provider, Refe rring Provider Active Team Status: Inactive Member Role Status Dates Thomas Jackson PRACTICE BUSINESS ASST, PRACTICE BUSINESS ASST-C Referring Provider Active Jelly Watkins PA, PA Active Emerson Larios PRACTICE BUSINESS ASST, PRACTICE BUSINESS ASST-C Attending Provider Active Reyna Stephens DO Primary Care Provider Active Team Status: Inactive Member Role Status Dates Reyna Stephens DO Primary Care Provider Active Emerson Larios PRACTICE BUSINESS ASST, PRACTICE BUSINESS ASST-C Attending Provider, Referring Pro vider Active Team Status: Active Member Role Status Dates No Primary Care Physician Primary Care Provider Active Team Status: Inactive Member Role Status Dates No Primary Care Physician Primary Care Provider Active Start: October 09, 2024 End: October 09, 2024 Rafita Xavier MD Emergency Provider Active Star t: October 09, 2024 End: October 09, 2024 Team Status: Active Member Role/Relationship Status Dates No Primary Care Physician Primary Care Provider Active Team Status: Inactive Member Role/Relationship Status Dates No Primary Care Physician Primary Care Provider Active Start: October 09, 2024 End: October 09, 2024 Rafita Xavier MD Attending Provider Active Star t: October 09, 2024 End: October 09, 2024 Rafita Xavier MD Emergency Provider Active Star t: October 09, 2024 End: October 09, 2024 Team Status: Inactive Member Role/Relationship Status Dates No Primary Care Physician Primary Care Provider Active Start: January 26, 2025 End: January 26, 2025 Dr. Bakari Gonzalez DO Emergency Provider Active Start: January 26, 2025 End: January 26, 2025 Team Status: Inactive Member Role/Relationship Status Dates No Primary Care Physician Primary Care Provider Active Start: January 26, 2025 End: January 26, 2025 Dr. Bakari Gonzalez DO Attending Provider Active Start: January 26, 2025 End: January 26, 2025 Dr. Bakari Gonzalez , Emergency Provider Active Start: January 26, 2025 End: January 26, 2025 Team Status: Inactive Member Role/Relationship Status Dates No Primary Care Physician Primary Care Provider Active Start: February 22, 2025 End: February 22, 2025 No Primary Care Physician Referring Provider Active Start: February 22, 2025 End: February 22, 2025 Emerson Larios PRACTICE BUSINESS ASST, PRACTICE BUSINESS ASST-C Attending Provider Active S tart: February 22, 2025 End: February 22, 2025 Team Status: Inactive Member Role/Relationship Status Dates No Primary Care Physician Primary Care Provider Active Start: February 22, 2025 End: February 22, 2025 Emerson Larios PRACTICE BUSINESS ASST, PRACTICE BUSINESS ASST-C Attending Provider Active S tart: February 22, 2025 End: February 22, 2025 Emerson Larios PRACTICE BUSINESS ASST, PRACTICE BUSINESS ASST-C Referring Provider Active S tart: February 22, 2025 End: [place] 19th, 2025 (unrecognized sect ion and content) No Status Records FoundNo Status Records Found INFORMATION SOURCE (unrecogn ized section and content) DATE CREATED AUTHOR 06/07/2022 [facility] DATE CREATED AUTHOR AUTHOR'S CORONA MIGUEL 03/20/2025 [facility] Goals (unrecognized section and content) Goals [...] BE BASED ON THE PRIMARY CLINICAL RECORDS. [employer] provides no warranty or guarantee of the accuracy or completeness of information in this document.
--- NOTE | 2025-03-23 18:03 | STRESSREP ---
Stress Test Report Pharmacologic myocardial perfusion stress test. 39-year-old man with a history of chest pain. Resting EKG demonstrates normal sinus rhythm with a rate of 90 bpm. Resting blood pressure is 122/80 mmHg. 0.4 mg of regadenoson was infused per usual protocol followed by rapid intravenous saline flush injection. Continuous EKG monitoring was performed. The maximum heart rate was 125 bpm which was 69% of max impacted heart rate the maximum workload was 1 metabolic equivalent. At rest there were no ST or T wave changes noted to suggest ischemia and at peak infusion nonspecific ST changes were noted which did not meet the criteria for ischemia. No clinical angina is noted. The final blood pressure was 118/70 mmHg. Myocardial perfusion protocol. 15 mCi of technetium 99m sestamibi was injected at rest. 0.4 mg of regadenoson was infused per usual protocol. At peak infusion 45 mCi of technetium 99m sestamibi was injected stress images were obtained stress and rest images were reconstructed and compared in the short axis vertical long and horizontal long axis. Gated images were also obtained. Perfusion SPECT analysis: Review of the stress images demonstrate normal uptake of tracer noted in all areas of the myocardium. The resting images similar demonstrated normal uptake of tracer noted in all areas of the myocardium. No areas of reversibility are noted to suggest ischemia and no previous infarct is noted. Gated SPECT analysis: The gated ejection fraction is 67%. Conclusion: Normal pharmacologic myocardial perfusion stress test. Preserved ejection fraction.
== END | disposition home or self-care (01) ==
LOC: CVS 06:04
PROVIDERS: Referring Provider Nurse Practitioner Family; Visit Provider Nurse Practitioner Family
DX: R07.89 Other chest pain (principal); Z98.61 Coronary angioplasty status
CPT/HCPCS: 78452; 93017; A9500; A4216; J2785